=== PATIENT | male | born 1945 | race Caucasian/White ===

== ENCOUNTER 2020-12-17 12:34 | Inpatient (IN) | payer OTHER ==
[~2020-12-17] VITALS: Ht 182.9 cm; Wt 91.2 kg
[2020-12-17] MEDS ORDERED: ASPirin 81 mg TAB PO ONE (13:00)
[2020-12-17 13:03] LABS: Basophils # (auto) 0 10 ^3/uL (0-0.2); Basophils % (auto) 0.4 % (0.0-2.0); Eosinophils # (auto) 0.1 10 ^3/uL (0-0.8); Eosinophils % (auto) 1.1 % (0.0-7.0); Hematocrit 36.3 % (41.0-53.0); Lymphocytes # (auto) 1.5 10 ^3/uL (0.4-5.4); Lymphocytes % (auto) 15.4 % (10.0-50.0); Mean Corpuscular Hemoglobin 30.2 pg (28.0-32.0); Mean Corpuscular Hgb Conc. 33.1 g/dL (32.0-36.0); Mean Corpuscular Volume 91.3 fL (80.0-100.0); Monocytes # (auto) 0.6 10 ^3/uL (0-1.3); Monocytes % (auto) 6.2 % (0.0-12.0); Neutrophils # (auto) 7.4 10 ^3/uL (1.6-8.6); Neutrophils % (auto) 76.9 % (37.0-80.0); Platelet Count (auto) 234 10^3/uL (140-450); Red Blood Cells 3.97 10^6/uL (4.5-5.90); Red Cell Distribution Width 13.9 % (11.8-14.3); White Blood Cell 9.6 10^3/uL (4.4-10.8)
[2020-12-17] MEDS ORDERED: AMIODARONE 450mg/250ml AE 250 ML IV SCH ×2 (13:15→14:45)
[2020-12-17 13:22] LABS: INR 0.99 (0.9-1.15); Partial Thromboplastin Time 24.2 sec (23.0-31.2)
[2020-12-17 13:24] LABS: Potassium 4.1 mmol/L (3.5-5.1)
[2020-12-17] MEDS ORDERED: DIGOXIN 0.25 MG TAB PO ONE (13:30)
[2020-12-17] MEDS ORDERED: DIGOXIN (250MCG/ML) 2 ML AMPULE IV ONE (13:30)
[2020-12-17 13:38] LABS: Albumin 3.3 g/dL (3.4-5.0); BUN/Creatinine Ratio 11.2; Bilirubin, Total 0.4 mg/dL (0.2-1.0); Magnesium 2.3 mg/dL (1.6-2.6); Total Protein 7.8 g/dL (6.4-8.2)
[2020-12-17] MEDS ORDERED: AMIODARONE HCL 150 MG in D5W 5% 100 ML IV ONE (14:45)
[2020-12-17] MEDS ORDERED: METO-289 PO (16:45)
[2020-12-17] MEDS ORDERED: DIGO0.12 PO (16:45)
[2020-12-17] MEDS ORDERED: ATOR20TA50 PO (16:45)
[2020-12-17] MEDS ORDERED: APIX5TAB PO (16:45)
[2020-12-17] MEDS ORDERED: LOSA25TA38 PO (16:45)
[2020-12-17] MEDS ORDERED: GABA100C9 PO (16:45)
[2020-12-17] MEDS ORDERED: ENOXAPARIN SOD 100 MG/1 ML SYRINGE SC ONE (17:30)
[2020-12-17] MEDS ORDERED: ACETAMINOPHEN 500 MG TAB PO PRN (18:15)
[2020-12-17] MEDS ORDERED: HYDROcodone-ACET 5/325MG TAB PO PRN (18:15)
[2020-12-17] MEDS ORDERED: MORPHINE SULF INJ 2 MG/ML SYRINGE 1ML IV PRN ×2 (18:15)
[2020-12-17] MEDS ORDERED: NITROGLYCERIN 0.4 MG SL TAB SL PRN (18:15)
[2020-12-17] MEDS ORDERED: DEXTROSE (50%) 50ML SYRG IV PRN (18:15)
[2020-12-17] MEDS ORDERED: ONDANSETRON HCL 4 MG/2 ML VIAL IV PRN (18:15)
[2020-12-17] MEDS: AMIODARONE 450mg/250ml AE 250 ML IV SCH (21:49)
[2020-12-17 22:00] VITALS: BP 127/81
[2020-12-17] MEDS: ACCU-CHEK COMFORT CURVE STRIP VI SCH (22:00)
[2020-12-17] MEDS ORDERED: ATORVASTATIN 20 MG TAB PO SCH (22:00)
[2020-12-17] MEDS: ATORVASTATIN 20 MG TAB PO SCH (22:47)
[2020-12-17] MEDS: InsuLIN REG 1unit/0.01ml Soln (100units/ml) SC SCH (22:47)
[2020-12-17] MEDS: GABAPENTIN 100 MG CAP PO SCH (22:48)
[2020-12-18 05:00] VITALS: BP 141/71
[2020-12-18] MEDS: InsuLIN REG 1unit/0.01ml Soln (100units/ml) SC SCH ×4 (06:37→22:00)
[2020-12-18] MEDS: ACCU-CHEK COMFORT CURVE STRIP VI SCH ×4 (06:38→22:00)
[2020-12-18 08:30] VITALS: BP 137/78
[2020-12-18] MEDS: LOSARTAN POTASSIUM 25 MG TAB PO SCH (10:14)
[2020-12-18] MEDS: METOPROLOL SUCCINATE XL 50 MG TAB PO SCH (10:15)
[2020-12-18] MEDS: ASPirin-EC 81 mg tab PO SCH (10:15)
[2020-12-18] MEDS: GABAPENTIN 100 MG CAP PO SCH ×2 (10:16→22:29)
[2020-12-18] MEDS: AMIODARONE 450mg/250ml AE 250 ML IV SCH (12:02)
[2020-12-18 12:30] VITALS: BP 134/72
[2020-12-18] MEDS ORDERED: TEMAZEPAM 15 MG CAP PO PRN (15:15)
[2020-12-18] MEDS: SODIUM CHLORIDE 0.9% 1,000 ML IV SCH (15:47)
[2020-12-18 17:00] VITALS: BP 140/79
[2020-12-18 21:24] LABS: Urine Bacteria NONE SEEN /hpf (None Seen); Urine Blood Negative /uL (Negative); Urine Mucus FEW (None Seen); Urine Specific Gravity 1.008 (1.001-1.035); Urine WBC 1 /hpf (0 - 3)
[2020-12-18 22:00] VITALS: BP 133/71
[2020-12-18] MEDS: ATORVASTATIN 20 MG TAB PO SCH (22:29)
[2020-12-19] MEDS: AMIODARONE 450mg/250ml AE 250 ML IV SCH (03:07)
[2020-12-19 05:00] VITALS: BP 146/84
[2020-12-19] MEDS: InsuLIN REG 1unit/0.01ml Soln (100units/ml) SC SCH ×2 (07:00→11:30)
[2020-12-19] MEDS: ACCU-CHEK COMFORT CURVE STRIP VI SCH ×2 (07:03→11:30)
[2020-12-19 07:23] LABS: BUN/Creatinine Ratio 14.8; Calcium 9.1 mg/dL (8.5-10.1); Potassium 4.2 mmol/L (3.5-5.1)
[2020-12-19] MEDS: SODIUM CHLORIDE 0.9% 1,000 ML IV SCH (08:00)
[2020-12-19 09:03] VITALS: BP 158/81
[2020-12-19] MEDS: GABAPENTIN 100 MG CAP PO SCH (10:03)
[2020-12-19] MEDS: LOSARTAN POTASSIUM 25 MG TAB PO SCH (10:03)
[2020-12-19] MEDS: ASPirin-EC 81 mg tab PO SCH (10:03)
[2020-12-19] MEDS: METOPROLOL SUCCINATE XL 50 MG TAB PO SCH (10:04)
[2020-12-19] MEDS ORDERED: IODIXANOL 320MG/ML 100ML BTL IV ONE (11:47)
[2020-12-19] MEDS ORDERED: LIDOCAINE 2%HCL (LOCAL ANESTH.) INJ 20ML MDV ONE (11:47)
[2020-12-19] MEDS ORDERED: fentaNYL CITRATE 100 MCG/2 ML VL ONE (12:05)
[2020-12-19] MEDS ORDERED: HEPARIN SODIUM (PORCINE) 5000 UNITS/ML 1ML VIAL ONE (12:05)
[2020-12-19] MEDS ORDERED: VERAPAMIL 2.5MG/ML INJ 2ML VIAL IV ONE (12:05)
[2020-12-19] MEDS ORDERED: ANGIOMAX 250 MG VIAL IV ONE (12:05)
[2020-12-19] MEDS ORDERED: MIDAZOLAM HCL 1MG/1ML-2 ML VIAL ONE (12:06)
[2020-12-19] MEDS ORDERED: SODIUM CHL 0.9% 50 ML ONE (12:06)
[2020-12-19 14:30] VITALS: BP 149/80
[2020-12-19] MEDS ORDERED: ISOS1TAB28 PO (15:43)
[2020-12-19] MEDS ORDERED: RANO500T PO (15:43)
[2020-12-19] MEDS ORDERED: ASPI-543 PO (15:43)
[2020-12-19 16:34] VITALS: BP 158/81
[2020-12-19 16:44] VITALS: BP 141/71
[2020-12-19] MEDS ORDERED: RANOLAZINE ER 500 MG TAB PO SCH (22:00)
== END 2020-12-19 17:13 | disposition home or self-care (01) | DRG 281 ==
LOC: ER 12:34 → EDBD 12:34 → TELE 18:12 → TELE-EAST 20:53
PROVIDERS: ADMIT Nurse Practitioner Acute Care; ATTEND Internal Medicine Geriatric Medicine
PROC: 4A023N7 Measurement of Cardiac Sampling and Pressure, Left Heart, Percutaneous Approach (ICD-10-PCS; principal; 2020-12-19)
PROC: B2111ZZ Fluoroscopy of Multiple Coronary Arteries using Low Osmolar Contrast (ICD-10-PCS; 2020-12-19)
DX: I21.4 Non-ST elevation (NSTEMI) myocardial infarction (principal); I48.20 Chronic atrial fibrillation, unspecified; I13.0 Hypertensive heart and chronic kidney disease with heart failure and stage 1 through stage 4 chronic kidney disease, or unspecified chronic kidney disease; N17.9 Acute kidney failure, unspecified; E11.65 Type 2 diabetes mellitus with hyperglycemia; E11.22 Type 2 diabetes mellitus with diabetic chronic kidney disease; E66.9 Obesity, unspecified; I25.119 Atherosclerotic heart disease of native coronary artery with unspecified angina pectoris; Z79.899 Other long term (current) drug therapy; E78.5 Hyperlipidemia, unspecified; I25.2 Old myocardial infarction; Z79.01 Long term (current) use of anticoagulants; Z79.84 Long term (current) use of oral hypoglycemic drugs; Z96.641 Presence of right artificial hip joint; I50.9 Heart failure, unspecified; Z20.822 Contact with and (suspected) exposure to COVID-19; N18.31 Chronic kidney disease, stage 3a
CPT/HCPCS: 36415; 71045; 80048; 80053; 81001; 82962; 83036; 83735; 84484; 85025; 85610; 85730; 86141; 87426; 93005; 93306; 93458; 96361; 96365; 96372; 96375; 99152; 99153; 99291; G0378; J1815; J2250; J7060; Q9967

== ENCOUNTER 2021-09-13 21:49 | Inpatient (IN) | payer OTHER ==
[~2021-09-13] VITALS: Ht 172.7 cm; Wt 84.8 kg
[~2021-09-13 21:49] MED LIST: APIX5TAB PO; ASPI-543 PO; ATOR20TA50 PO; DIGO0.12 PO; GABA100C9 PO; ISOS1TAB28 PO; LOSA25TA38 PO; METO-289 PO; RANO500T PO
[2021-09-13] MEDS ORDERED: TICAGRELOR 90 MG TAB PO ONE (22:30)
[2021-09-13] MEDS ORDERED: ASPirin 325 MG TAB PO ONE (22:30)
[2021-09-13] MEDS ORDERED: CLOPIDOGREL 300 MG TAB PO ONE (22:30)
[2021-09-13 22:42] LABS: Basophils # (auto) 0.1 10 ^3/uL (0-0.2); Basophils % (auto) 1.2 % (0.0-2.0); Eosinophils # (auto) 0.3 10 ^3/uL (0-0.8); Eosinophils % (auto) 4.1 % (0.0-7.0); Hematocrit 33.5 % (41.0-53.0); Hemoglobin 11.1 g/dL (13.5-17.5); Lymphocytes # (auto) 1.9 10 ^3/uL (0.4-5.4); Lymphocytes % (auto) 30.3 % (10.0-50.0); Mean Corpuscular Hemoglobin 27.8 pg (28.0-32.0); Mean Corpuscular Volume 84.4 fL (80.0-100.0); Monocytes # (auto) 0.6 10 ^3/uL (0-1.3); Monocytes % (auto) 9.9 % (0.0-12.0); Neutrophils # (auto) 3.3 10 ^3/uL (1.6-8.6); Neutrophils % (auto) 54.5 % (37.0-80.0); Nucleated Red Blood Cells % 0.1 %; Red Blood Cells 3.97 10^6/uL (4.5-5.90); Red Cell Distribution Width 17.1 % (11.8-14.3); White Blood Cell 6.1 10^3/uL (4.4-10.8)
[2021-09-13 22:56] LABS: INR 1.21 (0.9-1.15); Partial Thromboplastin Time 29.2 sec (23.6-33.0)
[2021-09-14 02:28] LABS: Albumin 3.2 g/dL (3.4-5.0); BUN/Creatinine Ratio 19.5; Bilirubin, Total 0.5 mg/dL (0.2-1.0); Calcium 9.2 mg/dL (8.5-10.1); Total Protein 8.1 g/dL (6.4-8.2)
[2021-09-14 02:29] LABS: Magnesium 2.6 mg/dL (1.6-2.6)
[2021-09-14] MEDS ORDERED: ONDANSETRON HCL 4 MG/2 ML VIAL IV PRN (04:15)
[2021-09-14] MEDS ORDERED: MORPHINE SULFATE INJECTION 2 MG/ML SYRG IV PRN (04:15)
[2021-09-14] MEDS ORDERED: ACETAMINOPHEN 325 MG TAB PO PRN (04:15)
[2021-09-14] MEDS ORDERED: MORPHINE SULFATE 4 MG/ML SYR/VIAL IV PRN (04:15)
[2021-09-14] MEDS ORDERED: NITROGLYCERIN 0.4 MG SL TAB SL PRN ×2 (04:15)
[2021-09-14 05:25] LABS: BUN/Creatinine Ratio 20.8; Calcium 9.1 mg/dL (8.5-10.1); Magnesium 2.7 mg/dL (1.6-2.6); Potassium 4.1 mmol/L (3.5-5.1)
[2021-09-14] MEDS: SODIUM CHLOR 0.9% PF (SALINE LOCK) 10ML VIAL/SYR IV SCH ×2 (06:00→14:11)
[2021-09-14] MEDS ORDERED: DEXTROSE (50%) 50ML SYRG IV PRN (07:00)
[2021-09-14 08:43] LABS: Basophils # (auto) 0 10 ^3/uL (0-0.2); Basophils % (auto) 0.6 % (0.0-2.0); Eosinophils # (auto) 0.2 10 ^3/uL (0-0.8); Eosinophils % (auto) 3.4 % (0.0-7.0); Hematocrit 33.6 % (41.0-53.0); Hemoglobin 11.3 g/dL (13.5-17.5); Lymphocytes # (auto) 1.3 10 ^3/uL (0.4-5.4); Lymphocytes % (auto) 19.9 % (10.0-50.0); Mean Corpuscular Hgb Conc. 33.7 g/dL (32.0-36.0); Monocytes # (auto) 0.5 10 ^3/uL (0-1.3); Monocytes % (auto) 7.6 % (0.0-12.0); Neutrophils # (auto) 4.4 10 ^3/uL (1.6-8.6); Neutrophils % (auto) 68.5 % (37.0-80.0); Red Blood Cells 4.05 10^6/uL (4.5-5.90); White Blood Cell 6.4 10^3/uL (4.4-10.8)
[2021-09-14] MEDS: InsuLIN REG 1unit/0.01ml Soln (100units/ml) SC SCH ×3 (09:31→16:51)
[2021-09-14] MEDS: ACCU-CHEK COMFORT CURVE STRIP VI SCH ×3 (09:32→16:52)
[2021-09-14] MEDS ORDERED: ASPirin-EC 81 mg tab PO SCH (10:00)
[2021-09-14] MEDS ORDERED: GABAPENTIN 100 MG CAP PO SCH (10:00)
[2021-09-14] MEDS ORDERED: APIXABAN 5 MG TAB PO SCH (10:00)
[2021-09-14] MEDS ORDERED: DIGOXIN 0.125 MG TAB PO SCH (10:00)
[2021-09-14] MEDS ORDERED: ISOSORBIDE MONONITRATE ER 60 MG TAB PO SCH (10:00)
[2021-09-14] MEDS ORDERED: FAMOTIDINE 20 MG TAB PO SCH (10:00)
[2021-09-14] MEDS ORDERED: RANOLAZINE ER 500 MG TAB PO SCH (10:00)
[2021-09-14] MEDS ORDERED: METOPROLOL SUCCINATE XL 50 MG TAB PO SCH (10:00)
[2021-09-14] MEDS ORDERED: LOSARTAN POTASSIUM 25 MG TAB PO SCH (10:00)
[2021-09-14 10:30] VITALS: BP 117/80
[2021-09-14 13:00] VITALS: BP 90/59
[2021-09-14 16:53] VITALS: BP 100/49
[2021-09-14 17:28] VITALS: BP 99/55
[2021-09-14] MEDS ORDERED: ATORVASTATIN 20 MG TAB PO SCH (22:00)
== END 2021-09-14 18:00 | disposition home or self-care (01) | DRG 313 ==
LOC: ER 21:49 → EDBD 21:49 → TELE 09-14 04:04 → TELE-CENTR 09-14 11:05
PROVIDERS: ADMIT Internal Medicine; ATTEND Internal Medicine
DX: R07.9 Chest pain, unspecified (principal); I48.20 Chronic atrial fibrillation, unspecified; I25.10 Atherosclerotic heart disease of native coronary artery without angina pectoris; E78.5 Hyperlipidemia, unspecified; E66.9 Obesity, unspecified; I35.8 Other nonrheumatic aortic valve disorders; I10 Essential (primary) hypertension; Z20.822 Contact with and (suspected) exposure to COVID-19; I49.3 Ventricular premature depolarization; Z79.01 Long term (current) use of anticoagulants; Z79.899 Other long term (current) drug therapy; Z87.891 Personal history of nicotine dependence; Z95.1 Presence of aortocoronary bypass graft; Z95.2 Presence of prosthetic heart valve; Z90.49 Acquired absence of other specified parts of digestive tract; Z68.28 Body mass index [BMI] 28.0-28.9, adult
CPT/HCPCS: 36415; 80048; 80053; 80061; 82962; 83735; 83880; 84443; 84484; 85025; 85379; 85610; 85730; 87426; 93306; G0378

== ENCOUNTER 2021-09-28 13:52 | Inpatient (IN) | payer OTHER ==
[~2021-09-28] VITALS: Ht 157.5 cm; Wt 84.6 kg
[2021-09-28 14:57] LABS: Basophils # (auto) 0.1 10 ^3/uL (0-0.2); Eosinophils # (auto) 0.3 10 ^3/uL (0-0.8); Eosinophils % (auto) 4.2 % (0.0-7.0); Hematocrit 35.9 % (41.0-53.0); Hemoglobin 12.2 g/dL (13.5-17.5); Lymphocytes # (auto) 1.6 10 ^3/uL (0.4-5.4); Lymphocytes % (auto) 24.2 % (10.0-50.0); Mean Corpuscular Hemoglobin 28.3 pg (28.0-32.0); Mean Corpuscular Hgb Conc. 34.1 g/dL (32.0-36.0); Mean Corpuscular Volume 82.8 fL (80.0-100.0); Monocytes # (auto) 0.5 10 ^3/uL (0-1.3); Neutrophils # (auto) 4.1 10 ^3/uL (1.6-8.6); Neutrophils % (auto) 62.6 % (37.0-80.0); Nucleated Red Blood Cells % 0.1 %; Red Blood Cells 4.33 10^6/uL (4.5-5.90); White Blood Cell 6.6 10^3/uL (4.4-10.8)
[2021-09-28 15:26] LABS: Urine Bacteria NONE SEEN /hpf (None Seen); Urine Blood Negative /uL (Negative); Urine Hyaline Cast FEW /lpf (0 - 2); Urine Mucus FEW (None Seen); Urine Specific Gravity 1.008 (1.001-1.035); Urine WBC <1 /hpf (0 - 3)
[2021-09-28 17:06] LABS: BUN/Creatinine Ratio 22.8; Bilirubin, Total 0.4 mg/dL (0.2-1.0); Potassium 3.8 mmol/L (3.5-5.1); Total Protein 7.8 g/dL (6.4-8.2)
[2021-09-28] MEDS ORDERED: NITROGLYCERIN 0.4 MG SL TAB SL PRN (17:30)
[2021-09-28] MEDS ORDERED: MORPHINE SULFATE 4 MG/ML SYR/VIAL IV PRN (17:30)
[2021-09-28] MEDS ORDERED: MORPHINE SULFATE INJECTION 2 MG/ML SYRG IV PRN (17:30)
[2021-09-28] MEDS ORDERED: HYDROcodone-ACET 5/325MG TAB PO PRN (17:30)
[2021-09-28 22:46] VITALS: BP 122/80
[2021-09-28] MEDS: APIXABAN 5 MG TAB PO SCH (23:48)
[2021-09-28] MEDS: GABAPENTIN 100 MG CAP PO SCH (23:48)
[2021-09-29 00:56] VITALS: BP 122/80
[2021-09-29 05:00] VITALS: BP 117/63
[2021-09-29 05:37] LABS: Basophils # (auto) 0 10 ^3/uL (0-0.2); Basophils % (auto) 0.8 % (0.0-2.0); Eosinophils # (auto) 0.3 10 ^3/uL (0-0.8); Eosinophils % (auto) 4.3 % (0.0-7.0); Hematocrit 34.3 % (41.0-53.0); Hemoglobin 11.8 g/dL (13.5-17.5); Lymphocytes # (auto) 1.6 10 ^3/uL (0.4-5.4); Lymphocytes % (auto) 25.2 % (10.0-50.0); Mean Corpuscular Hemoglobin 28.5 pg (28.0-32.0); Mean Corpuscular Hgb Conc. 34.3 g/dL (32.0-36.0); Mean Corpuscular Volume 83.1 fL (80.0-100.0); Monocytes # (auto) 0.6 10 ^3/uL (0-1.3); Monocytes % (auto) 9.4 % (0.0-12.0); Neutrophils # (auto) 3.9 10 ^3/uL (1.6-8.6); Neutrophils % (auto) 60.3 % (37.0-80.0); Nucleated Red Blood Cells % 0.3 %; Red Blood Cells 4.13 10^6/uL (4.5-5.90); Red Cell Distribution Width 16.4 % (11.8-14.3); White Blood Cell 6.4 10^3/uL (4.4-10.8)
[2021-09-29 06:06] LABS: Albumin 3.2 g/dL (3.4-5.0); BUN/Creatinine Ratio 25.6; Bilirubin, Total 0.6 mg/dL (0.2-1.0); Calcium 8.9 mg/dL (8.5-10.1); Total Protein 8.1 g/dL (6.4-8.2)
[2021-09-29 08:30] VITALS: BP 114/77
[2021-09-29] MEDS ORDERED: DIGOXIN 0.125 MG TAB PO SCH (10:00)
[2021-09-29] MEDS ORDERED: METOPROLOL SUCCINATE XL 50 MG TAB PO SCH (10:00)
[2021-09-29] MEDS: ASPirin 81 mg TAB PO SCH (10:04)
[2021-09-29] MEDS: GABAPENTIN 100 MG CAP PO SCH ×2 (10:04→21:32)
[2021-09-29] MEDS: APIXABAN 5 MG TAB PO SCH (10:04)
[2021-09-29] MEDS: ENOXAPARIN SOD 40 MG/0.4 ML SYRINGE SC SCH ×3 (10:05→10:18)
[2021-09-29 12:30] VITALS: BP 101/65
[2021-09-29 17:00] VITALS: BP 125/76
[2021-09-29] MEDS: metFORMIN HYDROCHLORIDE 500 MG TAB PO SCH (18:00)
[2021-09-29] MEDS ORDERED: ATORVASTATIN 20 MG TAB PO SCH (22:00)
[2021-09-30 05:00] VITALS: BP 108/74
[2021-09-30] MEDS: metFORMIN HYDROCHLORIDE 500 MG TAB PO SCH (08:00)
[2021-09-30 09:00] VITALS: BP 104/69
[2021-09-30] MEDS ORDERED: METOPROLOL SUCCINATE XL 50 MG TAB PO SCH (10:00)
[2021-09-30] MEDS: GABAPENTIN 100 MG CAP PO SCH (10:00)
[2021-09-30] MEDS: ASPirin 81 mg TAB PO SCH (10:00)
[2021-09-30] MEDS: ENOXAPARIN SOD 40 MG/0.4 ML SYRINGE SC SCH (10:00)
[2021-09-30] MEDS ORDERED: FUROSEMIDE 40 MG TAB PO SCH (10:00)
[2021-09-30] MEDS ORDERED: ENALAPRIL MALEATE 2.5 MG TAB PO SCH (10:00)
[2021-09-30] MEDS ORDERED: ADENOSINE 71 MG in GIVE UN-DILUTED 0 ML IV STA (10:48)
[2021-09-30 11:57] VITALS: BP 106/72
[2021-09-30 12:30] VITALS: BP 118/67
[2021-09-30 17:00] VITALS: BP 120/60
== END 2021-09-30 18:30 | disposition home or self-care (01) | DRG 311 ==
LOC: ER 13:52 → EDUNIT# 13:52 → EDBD 13:52 → TELE 17:27 → TELE-WESTW 22:32
PROVIDERS: ADMIT Internal Medicine; ATTEND Internal Medicine Geriatric Medicine
DX: I24.9 Acute ischemic heart disease, unspecified (principal); E88.09 Other disorders of plasma-protein metabolism, not elsewhere classified; I25.10 Atherosclerotic heart disease of native coronary artery without angina pectoris; G62.9 Polyneuropathy, unspecified; E11.22 Type 2 diabetes mellitus with diabetic chronic kidney disease; I12.9 Hypertensive chronic kidney disease with stage 1 through stage 4 chronic kidney disease, or unspecified chronic kidney disease; N18.9 Chronic kidney disease, unspecified; Z20.822 Contact with and (suspected) exposure to COVID-19; R42 Dizziness and giddiness; I48.91 Unspecified atrial fibrillation; Z79.01 Long term (current) use of anticoagulants; Z95.1 Presence of aortocoronary bypass graft; Z79.899 Other long term (current) drug therapy; Z90.49 Acquired absence of other specified parts of digestive tract
CPT/HCPCS: 36415; 71045; 78452; 80053; 81001; 82962; 83880; 84484; 85025; 87081; 87426; 93005; 93017; G0378; J0153

== ENCOUNTER 2022-06-05 13:30 | Inpatient (IN) | payer OTHER ==
[~2022-06-05] VITALS: Ht 182.9 cm; Wt 85.7 kg
[~2022-06-05 13:30] MED LIST changes: -APIX5TAB PO; -DIGO0.12 PO
[2022-06-05] MEDS ORDERED: SODIUM CHLORIDE 0.9% 1,000 ML IVB ONE (14:30)
[2022-06-05] MEDS ORDERED: ASPirin 81 mg TAB PO ONE (14:30)
[2022-06-05 14:59] LABS: Basophils # (auto) 0 10 ^3/uL (0-0.2); Basophils % (auto) 0.8 % (0.0-2.0); Eosinophils # (auto) 0.3 10 ^3/uL (0-0.8); Eosinophils % (auto) 4.8 % (0.0-7.0); Hematocrit 35.7 % (41.0-53.0); Hemoglobin 11.7 g/dL (13.5-17.5); Lymphocytes # (auto) 1.4 10 ^3/uL (0.4-5.4); Lymphocytes % (auto) 22.2 % (10.0-50.0); Mean Corpuscular Hemoglobin 28.5 pg (28.0-32.0); Mean Corpuscular Hgb Conc. 32.9 g/dL (32.0-36.0); Mean Corpuscular Volume 86.7 fL (80.0-100.0); Monocytes # (auto) 0.6 10 ^3/uL (0-1.3); Monocytes % (auto) 10.2 % (0.0-12.0); Neutrophils # (auto) 3.8 10 ^3/uL (1.6-8.6); Nucleated Red Blood Cells % 0.1 %; Red Blood Cells 4.12 10^6/uL (4.5-5.90); Red Cell Distribution Width 15.2 % (11.8-14.3); White Blood Cell 6.1 10^3/uL (4.4-10.8)
[2022-06-05 15:16] LABS: Albumin 3.3 g/dL (3.4-5.0); BUN/Creatinine Ratio 23.5; Calcium 8.8 mg/dL (8.5-10.1); Magnesium 2.4 mg/dL (1.6-2.6); Potassium 4.5 mmol/L (3.5-5.1)
[2022-06-05 15:25] LABS: Bilirubin, Total 0.4 mg/dL (0.2-1.0); Total Protein 7.5 g/dL (6.4-8.2)
[2022-06-05] MEDS ORDERED: IOHEXOL 350 MG/ML 100ML IJ ONE (16:27)
[2022-06-05] MEDS ORDERED: DEXTROSE (50%) 50ML SYRG IV PRN (18:45)
[2022-06-05] MEDS ORDERED: FUROSEMIDE 20 MG/2 ML VIAL IV ONE (18:45)
[2022-06-05] MEDS ORDERED: hydrALAZINE HCL 20 MG/ML VL IV PRN (20:00)
[2022-06-05 20:21] LABS: Cholesterol 121 mg/dL (< 200); Triglycerides 102 mg/dL (< 150)
[2022-06-05 20:23] LABS: HDL Cholesterol 45 mg/dL (40-59); LDL Cholesterol 75 mg/dL (< 100)
[2022-06-05] MEDS ORDERED: ATORVASTATIN 20 MG TAB PO SCH (22:00)
[2022-06-05] MEDS: ACCU-CHEK COMFORT CURVE STRIP VI SCH (22:00)
[2022-06-05] MEDS: RANOLAZINE ER 500 MG TAB PO SCH (22:56)
[2022-06-05] MEDS: GABAPENTIN 100 MG CAP PO SCH (22:57)
[2022-06-05] MEDS: InsuLIN REG 1unit/0.01ml Soln (100units/ml) SC SCH (23:02)
[2022-06-06] VITALS (7 sets, daily range): BP systolic 93–119; BP diastolic 54–71
[2022-06-06 03:31] LABS: Urine Bacteria NONE SEEN /hpf (None Seen); Urine Blood Negative /uL (Negative); Urine Specific Gravity 1.017 (1.001-1.035); Urine WBC <1 /hpf (0 - 3)
[2022-06-06 06:00] LABS: Basophils # (auto) 0 10 ^3/uL (0-0.2); Basophils % (auto) 0.5 % (0.0-2.0); Eosinophils # (auto) 0.2 10 ^3/uL (0-0.8); Eosinophils % (auto) 3.8 % (0.0-7.0); Hematocrit 37.1 % (41.0-53.0); Lymphocytes # (auto) 1.3 10 ^3/uL (0.4-5.4); Lymphocytes % (auto) 20.8 % (10.0-50.0); Mean Corpuscular Hemoglobin 27.9 pg (28.0-32.0); Mean Corpuscular Hgb Conc. 32.4 g/dL (32.0-36.0); Mean Corpuscular Volume 86.2 fL (80.0-100.0); Monocytes # (auto) 0.6 10 ^3/uL (0-1.3); Monocytes % (auto) 9.5 % (0.0-12.0); Neutrophils % (auto) 65.4 % (37.0-80.0); Red Blood Cells 4.31 10^6/uL (4.5-5.90); Red Cell Distribution Width 15.2 % (11.8-14.3); White Blood Cell 6.1 10^3/uL (4.4-10.8)
[2022-06-06 06:32] LABS: Albumin 3.1 g/dL (3.4-5.0); BUN/Creatinine Ratio 18.5; Calcium 8.9 mg/dL (8.5-10.1)
[2022-06-06 06:35] LABS: Bilirubin, Total 0.6 mg/dL (0.2-1.0); Total Protein 7.3 g/dL (6.4-8.2)
[2022-06-06] MEDS: ACCU-CHEK COMFORT CURVE STRIP VI SCH ×4 (06:48→21:49)
[2022-06-06] MEDS: InsuLIN REG 1unit/0.01ml Soln (100units/ml) SC SCH ×4 (06:48→22:00)
[2022-06-06] MEDS: ISOSORBIDE MONONITRATE ER 60 MG TAB PO SCH (09:32)
[2022-06-06] MEDS: ASPirin-EC 81 mg tab PO SCH (09:34)
[2022-06-06] MEDS: METOPROLOL SUCCINATE XL 50 MG TAB PO SCH (09:34)
[2022-06-06] MEDS: RANOLAZINE ER 500 MG TAB PO SCH ×2 (09:35→21:49)
[2022-06-06] MEDS: POTASSIUM CHL 10 Meq TABLET PO SCH (09:36)
[2022-06-06] MEDS: LOSARTAN POTASSIUM 25 MG TAB PO SCH (09:37)
[2022-06-06] MEDS: FUROSEMIDE 20 MG/2 ML VIAL IV SCH (09:38)
[2022-06-06] MEDS: ENOXAPARIN SOD 40 MG/0.4 ML SYRINGE SC SCH (09:38)
[2022-06-06] MEDS: GABAPENTIN 100 MG CAP PO SCH ×3 (09:45→21:49)
[2022-06-06] MEDS: ATORVASTATIN 20 MG TAB PO SCH ×2 (13:00→21:49)
[2022-06-07 04:45] VITALS: BP 114/68
[2022-06-07] MEDS: ACCU-CHEK COMFORT CURVE STRIP VI SCH ×2 (06:28→12:14)
[2022-06-07] MEDS: InsuLIN REG 1unit/0.01ml Soln (100units/ml) SC SCH ×2 (06:28→12:14)
[2022-06-07 08:00] VITALS: BP 109/64
[2022-06-07 09:00] VITALS: BP 109/64
[2022-06-07] MEDS: FUROSEMIDE 20 MG/2 ML VIAL IV SCH (10:18)
[2022-06-07] MEDS: ASPirin-EC 81 mg tab PO SCH (10:18)
[2022-06-07] MEDS: LOSARTAN POTASSIUM 25 MG TAB PO SCH (10:18)
[2022-06-07] MEDS: GABAPENTIN 100 MG CAP PO SCH (10:19)
[2022-06-07] MEDS: ISOSORBIDE MONONITRATE ER 60 MG TAB PO SCH (10:19)
[2022-06-07] MEDS: POTASSIUM CHL 10 Meq TABLET PO SCH (10:19)
[2022-06-07] MEDS: ENOXAPARIN SOD 40 MG/0.4 ML SYRINGE SC SCH (10:20)
[2022-06-07] MEDS: RANOLAZINE ER 500 MG TAB PO SCH (10:20)
[2022-06-07] MEDS: METOPROLOL SUCCINATE XL 50 MG TAB PO SCH (10:20)
[2022-06-07 12:54] VITALS: BP 77/43
[2022-06-07 15:13] VITALS: BP 109/64
== END 2022-06-07 15:52 | disposition home or self-care (01) | DRG 313 ==
LOC: ER 13:30 → EDBD 13:30 → TELE 18:40 → TELE-EAST 23:44
PROVIDERS: ADMIT Registered Nurse; ATTEND Internal Medicine
DX: R07.9 Chest pain, unspecified (principal); R09.89 Other specified symptoms and signs involving the circulatory and respiratory systems; I48.0 Paroxysmal atrial fibrillation; E11.9 Type 2 diabetes mellitus without complications; E78.5 Hyperlipidemia, unspecified; Z20.822 Contact with and (suspected) exposure to COVID-19; I10 Essential (primary) hypertension; Z95.1 Presence of aortocoronary bypass graft; Z95.2 Presence of prosthetic heart valve; I25.2 Old myocardial infarction
CPT/HCPCS: 36415; 71045; 71275; 80053; 80061; 81001; 82962; 83036; 83735; 83880; 84443; 84484; 85025; 85379; 87426; 93005; 93306; 96361; 96374; G0378; J1815

== ENCOUNTER 2024-09-22 14:04 | Inpatient (IN) | payer OTHER ==
[~2024-09-22] VITALS: Ht 182.9 cm; Wt 85.0 kg
[~2024-09-22 14:04] MED LIST changes: +GABA-1308 PO; -GABA100C9 PO; +LOSA-533 PO; -LOSA25TA38 PO
--- NOTE | 2024-09-22 14:45 | ED.PDOC ---
History of Present Illness HPI Comments 79 y/o M, BIBA with PMHX of HTN, DM, HLD, NC, and AFIB presents to the ED for CC of generalized weakness. Per EMS, they were called on scene by patient's family due to patient being disoriented and hard to arouse. EMS states, that family comments on patient being lethargic and not responding at his normal baseline. EMS relays, blood sugar read at 137 on glucometer and all VSS in route to ED. Upon arrival to ED, patient is A&Ox2. No other symptoms or PMHX obtainable at this time. Chief Complaint: General Weakness Time Seen by MD: 14:30 Primary Care Provider: unknown Reviewed Notes: Nurses Notes, Molder Hand Notes, Medications, Allergies Allergies: Coded Allergies: NO KNOWN ALLERGIES (Unverified , 03/11/11) Home Meds Active Scripts Isosorbide Mononitrate (Isosorbide Mononitrate Er) 30 Mg Tab, 1 TAB PO DAILY, #30 TAB 5 Refills Prov:SABRINA LEOS MD 12/19/20 Ranolazine (Ranexa) 500 Mg Tab, 500 MG PO BID for 30 Days, #60 TAB 3 Refills Prov:SABRINA LEOS MD 12/19/20 Aspirin (Aspir-Low) 81 Mg Tab, 81 MG PO DAILY for 100 Days, #100 TAB 3 Refills Prov:SABRINA LEOS MD 12/19/20 Reported Medications Gabapentin (Gabapentin) 100 Mg Cap, 100 MG PO BID for 30 Days, MG 12/17/20 Atorvastatin Calcium (ATORVASTATIN CALCIUM) 20 Mg Tab, 1 TAB PO HS, #30 TAB 5 Refills 12/17/20 Losartan Potassium (Losartan Potassium) 25 Mg Tab, 25 MG PO DAILY for 30 Days, MG 12/17/20 Metoprolol Succinate (Metoprolol Succinate Er) 50 Mg Tab, 50 MG PO DAILY for 30 Days, MG 12/17/20 Information Source: Emergency Med Personnel Mode of Arrival: EMS Severity: Moderate Timing: Minutes Duration: Since onset Prehospital treatment: None Past Medical History PAST MEDICAL HISTORY: AFIB, DM, High Lipids, HTN, NC Surgical History: Appendectomy, CABG Family History Family History: Reviewed,noncontributory to illness Social History Smoker: Non-Smoker Alcohol: Denies ETOH Use Drugs: Denies Drug Use Lives In: Home Unable to Obtain due to: Altered Mental Status Physical Exam General Appearance: Moderate Distress HEENT: Normal ENT Inspection, Pharynx Normal, TMs Normal Neck: Full Range of Motion, Non-Tender, Normal, Normal Inspection Respiratory: Other (Coarse breath sounds) Cardiovascular: No Edema, No JVD, No Murmur, No Gallop, Normal Peripheral Pulses, Regular Rate/Rhythm Breast Exam: Deferred Gastrointestinal: No Organomegaly, Non Tender, No Pulsatile Mass, Normal Bowel Sounds, Soft Genitalia: Deferred Pelvic: Deferred Rectal: Deferred Extremities: No calf tenderness, Normal capillary refill, No pedal edema Musculoskeletal : Apperance: Normal Neurologic: Alert Cerebellar Function: NOT DONE Reflexes: NOT DONE Skin: Dry, Normal Color, Warm Peripheral Pulses: 3+ Radial (R), 3+ Radial (L) Lymphatic: No Adenopathy Was a procedure done? Was a procedure done?: No Differential Dx Considerations may include: GENERALIZED WEAKNESS Electrolyte imbalance X-Ray, Labs, Meds, VS Vital Signs Date Time Temp Pulse Resp B/P (MAP) Pulse Ox O2 Delivery O2 Flow Rate FiO2 09/22/24 16:00 89 09/22/24 15:30 90 17 79/46 (57) 98 09/22/24 14:45 Room Air* 0 21 09/22/24 14:26 98.0 96 16 113/67 (82) 96 09/22/24 14:22 92 Lab Test 09/22/24 16:30 09/22/24 16:21 09/22/24 15:11 Range/Units Lactic Acid Level Pending Urine Color Brown H Yellow Urine Clarity Ex.turbid Clear Urine pH 6.0 5.0-9.0 Urine Specific [place] 1.008 1.001-1.035 Urine Protein 2+ H Negative Urine Ketones Negative Negative Urine Blood 2+ H Negative /uL Urine Nitrite Negative Negative Urine Bilirubin Negative Negative Urine Urobilinogen Normal Negative mg/dL Urine Leukocyte Esterase 3+ Negative /uL Urine RBC 108 0 - 3 /hpf Urine WBC Clumps Present None Seen /hpf Urine Microscopic WBC 3592 H 0-3 /HPF Urine Squamous Epithelial Cells None seen <5 /hpf Urine Bacteria None seen None Seen /hpf Urine Mucus Few None Seen Urine Glucose Normal Normal mg/dL White Blood Count 8.3 4.4-10.8 10^3/uL Red Blood Count 3.02 L 4.5-5.90 10^6/uL Hemoglobin 8.4 L 13.5-17.5 g/dL Hematocrit 26.6 L 41.0-53.0 % Mean Corpuscular Volume 88.2 80.0-100.0 fL Mean Corpuscular Hemoglobin 27.9 L 28.0-32.0 pg Mean Corpuscular Hemoglobin Concent 31.7 L 32.0-36.0 g/dL Red Cell Distribution Width 15.7 H 11.8-14.3 % Platelet Count 283 140-450 10^3/uL Mean Platelet Volume 6.1 L 6.9-10.8 fL Neutrophils (%) (Auto) 85.6 H 37.0-80.0 % Lymphocytes (%) (Auto) 7.2 L 10.0-50.0 % Monocytes (%) (Auto) 6.3 0.0-12.0 % Eosinophils (%) (Auto) 0.6 0.0-7.0 % Basophils (%) (Auto) 0.3 0.0-2.0 % Neutrophils # (Auto) 7.1 1.6-8.6 10 ^3/uL Lymphocytes # (Auto) 0.6 0.4-5.4 10 ^3/uL Monocytes # (Auto) 0.5 0-1.3 10 ^3/uL Eosinophils # (Auto) 0 0-0.8 10 ^3/uL Basophils # (Auto) 0 0-0.2 10 ^3/uL Nucleated Red Blood Cells 0.0 % Sodium Level 137 136-145 mmol/L Potassium Level 5.0 3.5-5.1 mmol/L Chloride Level 104 98-107 mmol/L Carbon Dioxide Level 22 20-31 mmol/L Anion Gap 11 5-15 Blood Urea Nitrogen 61 H 9-23 mg/dL Creatinine 2.46 H 0.700-1.30 mg/dL Glomerular Filtration Rate Calc 26 >90 mL/min BUN/Creatinine Ratio 24.8 H 10.0-20.0 Serum Glucose 146 H 74-106 mg/dL Calcium Level 9.6 8.7-10.4 mg/dL Troponin I High Sensitivity < 3 L </=54 ng/L Current Medications Medications (Trade) Dose Ordered Sig/Gardenia Route Start Time Stop Time Status Last Admin Sodium Chloride 500 ml @ 500 mls/hr Q1H ONCE IV 09/22/24 15:00 09/22/24 15:59 DC 09/22/24 15:41 Ceftriaxone Sodium 50 ml @ 100 mls/hr ONCE ONCE IV 09/22/24 15:45 09/22/24 16:14 DC 09/22/24 16:25 Clindamycin Phosphate 50 ml @ 50 mls/hr ONCE ONCE IV 09/22/24 15:45 09/22/24 16:44 DC 09/22/24 17:04 [place] [id number] Ph: [phone] DIAGNOSTIC IMAGING Diagnostic Imaging Report : [id number] Signed PATIENT: SANDRA BACH ACCT: [id number] UNIT: [id number] : 1945 LOC: ER ROOM / BED: / AGE / SEX: 79 / M ADM STATUS: REG ER SERVICE 1432 ORDERING PHYSICIAN: MILLER SILVA MD PROCEDURE(s): CXRP - CHEST PORTABLE REASON: altered ORDER NUMBER(s): [id number], ACCESSION NUMBER(s): [id number] CHEST RADIOGRAPH Indication: altered Technique: Single frontal view of the chest was obtained Comparison: CHEST PORTABLE on DOS: 06/05/22, EKG on DOS: 06/05/22, CXRP on DOS: 06/05/22 FINDINGS: Lines and Tubes: None Lungs: Bilateral perihilar peribronchial thickening findings may represent bronchitis Pleura: No effusion. No pneumothorax. Cardiomediastinal contours: Unremarkable Bones: No acute osseous abnormality. IMPRESSION: 1. Findings suggest bilateral perihilar peribronchial thickening and possible bronchitis. HS:Y ATED BY: MINA MARTINEZ Jr., DO DICTATED DATE/TIME: 09/22/241455 SIGNED BY: MINA MARTINEZ Jr., SIGNED DATE/TIME: 09/22/241455 CC: Patient alert. He does not answering simple questions. Possible early dementia. Vitals stable. Chest x-ray reveals pneumonitis. CT of the head does show chronic changes. Waiting for family. Continue monitoring. Possible aspiration pneumonia. Was given Rocephin. Was given clindamycin. Time of 1ST Reevaluation: 15:00 Reevaluation 1ST: Unchanged Patient Education/Counseling: Diagnosis, Treatment Family Education/Counseling: No Family Present Departure 1 Departure Time of Disposition: 15:41 Impression: Primary Impression: TIA (transient ischemic attack) Additional Impressions: Pneumonitis Hypotension Qualified Codes: I95.9 - Hypotension, unspecified HLD (hyperlipidemia) Qualified Codes: E78.5 - Hyperlipidemia, unspecified Sepsis, unspecified organism Qualified Codes: A41.9 - Sepsis, unspecified organism Disposition: ADMITTED INPATIENT Admit to: Med Surg Condition: Guarded Critical Care Note Critical Care Time?: Yes (90 min-critical care time only) Critical care comment: Hypotension Stability Stability form required: No Heart Score Heart Score: Heart Score Response (Comments) Value History Slightly Suspicious 0 EKG Normal 0 Age >65 2 Risk Factors >3 or Hx ASHD 2 Troponin Normal limit 0 Total 4 I personally scribed for MILLER SILVA MD ([email or web address]) on 09/22/24 at 14:45. Electronically submitted by Estefania Minaya ([email or web address]). I personally scribed for MILLER SILVA MD ([email or web address]) on 09/22/24 at 15:10. Electronically submitted by Estefania Minaya ([email or web address]). MILLER SILVA MD Sep 22, 2024 14:45
--- NOTE | 2024-09-22 14:59 | DVH ---
CHEST RADIOGRAPH Indication: altered Technique: Single frontal view of the chest was obtained Comparison: CHEST PORTABLE on DOS: 06/05/22, EKG on DOS: 06/05/22, CXRP on DOS: 06/05/22 FINDINGS: Lines and Tubes: None Lungs: Bilateral perihilar peribronchial thickening findings may represent bronchitis Pleura: No effusion. No pneumothorax. Cardiomediastinal contours: Unremarkable Bones: No acute osseous abnormality. IMPRESSION: 1. Findings suggest bilateral perihilar peribronchial thickening and possible bronchitis. HS:Y
--- NOTE | 2024-09-22 15:04 | DVH ---
EXAM: CT HEAD WITHOUT CONTRAST HISTORY: altered COMPARISON: None TECHNIQUE: Axial images of the head were obtained and reformatted in coronal and sagittal planes. All CT scans at this medical facility are performed using dose modulation techniques as appropriate t o a performed exam including the following: Automated exposure control was utilized; adjustment of th e MA and/or KV according to patient size; and use of iterative reconstruction technique. CT Dose: CTDI volume is 53 mGy. Dose-length product is 971 mGy*cm FINDINGS: There is no evidence of acute intracranial hemorrhage, mass, mass effect midline shift. The lateral v entricles are prominent in size, [id number]-etht-left. The 3rd ventricle is mildly prominent in si ze. The 4th ventricle appears within normal limits. Barney-white matter differentiation is maintained. The visualized paranasal sinuses and mastoid air cells are clear. The calvarium is intact. IMPRESSION: 1. The lateral and 3rd ventricles are prominent in size, particularly in the right lateral ventricle. These findings can be seen with normal pressure hydrocephalus. Clinical correlation is recommended. HS:Y
--- NOTE | 2024-09-22 15:09 | ECG ---
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
[2024-09-22 15:40] LABS: Basophils # (auto) 0 10 ^3/uL (0-0.2); Basophils % (auto) 0.3 % (0.0-2.0); Eosinophils # (auto) 0 10 ^3/uL (0-0.8); Eosinophils % (auto) 0.6 % (0.0-7.0); Hematocrit 26.6 % (41.0-53.0); Hemoglobin 8.4 g/dL (13.5-17.5); Lymphocytes # (auto) 0.6 10 ^3/uL (0.4-5.4); Lymphocytes % (auto) 7.2 % (10.0-50.0); Mean Corpuscular Hemoglobin 27.9 pg (28.0-32.0); Mean Corpuscular Hgb Conc. 31.7 g/dL (32.0-36.0); Mean Corpuscular Volume 88.2 fL (80.0-100.0); Monocytes # (auto) 0.5 10 ^3/uL (0-1.3); Monocytes % (auto) 6.3 % (0.0-12.0); Neutrophils # (auto) 7.1 10 ^3/uL (1.6-8.6); Neutrophils % (auto) 85.6 % (37.0-80.0); Platelet Count (auto) 283 10^3/uL (140-450); Red Blood Cells 3.02 10^6/uL (4.5-5.90); Red Cell Distribution Width 15.7 % (11.8-14.3); White Blood Cell 8.3 10^3/uL (4.4-10.8)
[2024-09-22] MEDS: SODIUM CHLORIDE 0.9% 500 ML IV ONE (15:41)
[2024-09-22 15:50] LABS: Chloride 104 mmol/L (98-107); Sodium 137 mmol/L (136-145)
[2024-09-22 15:51] LABS: Anion Gap 11 (5-15); Calcium 9.6 mg/dL (8.7-10.4); Carbon Dioxide 22 mmol/L (20-31)
[2024-09-22 15:56] LABS: BUN/Creatinine Ratio 24.8 (10.0-20.0)
[2024-09-22 15:57] LABS: Blood Urea Nitrogen 61 mg/dL (9-23); Glucose 146 mg/dL (74-106)
[2024-09-22] MEDS: cefTRIAXone 1GM/50ML D5W 50 ML IV ONE (16:25)
[2024-09-22 16:54] LABS: Urine Bacteria None Seen /hpf (None Seen)
[2024-09-22] MEDS: CLINDAMYCIN 300MG IV 50 ML IV ONE (17:04)
[2024-09-22 17:06] LABS: Urine Blood 2+ /uL (Negative); Urine Clarity Ex.Turbid (Clear); Urine Color Brown (Yellow); Urine Mucus FEW (None Seen); Urine Protein, UAD 2+ (Negative); Urine Specific Gravity 1.008 (1.001-1.035); Urine Squamous Epithelial Cell None Seen /hpf (<5); Urine Urobilinogen Normal (Negative); Urine WBC 3592 /HPF (0-3); Urine WBC Clumps PRESENT /hpf (None Seen)
[2024-09-22] MEDS: NOREPINEPHRINE 8 MG/250ML KIT 250 ML IV SCH (17:45)
[2024-09-22] MEDS: NOREPINEPHRINE 8 MG/250ML KIT 250 ML IV ONE (18:07)
[2024-09-22 18:29] LABS: Lactic Acid w/Reflex 2.3 mmol/L (0.4-2.0)
[2024-09-22] MEDS ORDERED: HYDROcodone-ACET 5/325MG TAB PO PRN (21:00)
[2024-09-22] MEDS ORDERED: DOCUSATE SOD 100 MG CAP PO PRN (21:00)
[2024-09-22] MEDS ORDERED: DEXTROSE (50%) 50ML SYRG IV PRN (21:00)
[2024-09-22] MEDS: ATORVASTATIN 20 MG TAB PO SCH (21:45)
[2024-09-22] MEDS: ACCU-CHEK COMFORT CURVE STRIP VI SCH (21:57)
[2024-09-22] MEDS: InsuLIN REG 1unit/0.01ml Soln (100units/ml) SC SCH (22:04)
[2024-09-22] MEDS: SODIUM CHLOR 0.9% PF (SALINE LOCK) 10ML VIAL/SYR IV SCH (22:06)
--- NOTE | 2024-09-22 22:43 | DVHHP2 ---
History of Present Illness Reason for Visit: Generalized weakness History of Present Illness The patient is a 79-year-old male with past medical history of AFib, DM, hyperlipidemia, CT, and hypertension who presented to [facility] ED for evaluation of generalized weakness. As reported by EMS, patient's family called due to patient's confusion state, hard to arouse, lethargic, and not responding at his normal baseline. Patient was seen and evaluated in the ED, laboratory data shows WBC 8.3, hemoglobin 8.4, hematocrit 26.6, platelets 283, sodium 137, potassium 5.0, BUN 61, creatinine 2.46, GFR 26, glucose 146, lactic acid 2.3 trending down to 1.6, troponin < 3, urinalysis positive for urinary tract infection, blood pressure 79/46 trending up to 111/63, heart rate 88, temperature 98.0 F, O2 saturation 97% on room air. Head CT revealing lateral and 3rd ventricle prominent in size, particularly in the right lateral ventricle; this findings can be seen with normal pressure hydrocephalus. The patient was started on IV Levophed, please see medication orders section in the computer. On my assessment, patient denies chest pain, no headache, no dizziness, no diaphoresis, no shortness of breath, no nausea, no vomiting, no fever, no chills. Patient was admitted for further evaluation and medical management. Past Medical History AFIB, DM, High Lipids, HTN, CT Past Surgical History Appendectomy, CABG Family History Reviewed, noncontributory to the management of this case. Past Social History The patient lives at home, denies smoking, alcohol or illicit drugs abuse. Review of Systems Constitutional: Yes: Weakness; No: Fever, Chills, Sweats, Malaise, Other Eyes: No: Pain, Vision change, Conjunctivae inflammation, Eyelid inflammation, Other, Redness ENT: No: Ear pain, Ear discharge, Nose pain, Nose discharge, Nose congestion, Mouth pain, Mouth swelling, Throat pain, Throat swelling, Other Respiratory: No: Cough, Dry, Shortness of breath, SOB with excertion, Wheezing, Hemoptysis, Pleuritic Pain, Sputum, Wheezing, Other Cardiovascular: No: Chest Pain, Palpitations, Orthopnea, Paroxysmal Noc. Dyspnea, Edema, Lt Headedness, Other Gastrointestinal: No: Nausea, Vomiting, Abdominal Pain, Diarrhea, Constipation, Melena, Hematochezia, Other Genitourinary: No Dysuria, No Frequency, No Incontinence, No Hematuria, No Retention, No Other Musculoskeletal: No: other, neck pain, shoulder pain, arm pain, back pain, hand pain, leg pain, foot pain Skin: No: Rash, Lesions, Jaundice, Bruising, Other Neurological: No: Weakness, Numbness, Incoordination, Change in speech, Confusion, Seizures, Other Allergies: Coded Allergies: NO KNOWN ALLERGIES (Unverified , 03/11/11) Medications Current Medications Medications Dose Ordered Sig/[place]ia Route Start Time Stop Time Status Last Admin Dose Admin Norepinephrine Bitartrate 250 ml @ 3.75 mls/hr Q24H IV 09/22/24 17:45 09/22/24 17:45 3.75 MLS/HR Aspirin 81 mg DAILY PO 09/23/24 10:00 Atorvastatin Calcium 10 mg HS PO 09/22/24 22:00 09/22/24 21:45 10 MG Ceftriaxone Sodium 50 ml @ 100 mls/hr DAILY@09 IV 09/23/24 09:00 Diagnostic Test (Pha) 1 strip ACHS 09/22/24 22:00 09/22/24 21:57 1 STRIP Insulin Human Regular ACHS SC 09/22/24 22:00 09/22/24 22:04 2 UNITS Dextrose 50 ml UD PRN IV 09/22/24 21:00 Sodium Chloride 10 ml Q8HR IV 09/22/24 22:00 09/22/24 22:06 10 ML Acetaminophen/ Hydrocodone Bitart 1 tab Q4HP PRN PO 09/22/24 21:00 Ondansetron HCl 4 mg Q4HP PRN IV 09/22/24 21:00 Docusate Sodium 100 mg BIDPRN PRN PO 09/22/24 21:00 Acetaminophen 650 mg Q6HP PRN PO 09/22/24 21:00 Exam Vital Signs Vital Signs Date Time Temp Pulse Resp B/P (MAP) Pulse Ox O2 Delivery O2 Flow Rate FiO2 09/22/24 22:30 80/48 09/22/24 22:15 99 16 98 09/22/24 14:45 Room Air* 0 21 09/22/24 14:26 98.0 General Appearance: Alert, Oriented X3, Cooperative, No acute distress HEENT: Atraumatic, PERRLA, EOMI, Mucous membr. moist/pink Respiratory: Normal air movement, Other (Diminished breath sounds) Cardiovascular: Regular rate, Normal S1, Normal S2, No murmurs Abdominal: Normal bowel sounds, Soft, No tenderness, No hepatospenomegaly, No masses Extremities: No clubbing, No cyanosis, No edema, Normal pulses, No tenderness/swelling Skin: No rashes, No breakdown, No significant lesion Neuro: Normal speech, Normal tone, Sensation intact, Cranial nerves 3-12 NL, Reflexes 2+, Other (Generalized weakness) Psych/Mental Status: Mental status NL, Mood NL Labs/Xrays Labs Test 09/22/24 21:56 09/22/24 19:37 09/22/24 16:21 09/22/24 15:11 Range/Units POC Glucose 160 H 70-106 mg/dl Lactic Acid Level 1.6 0.4-2.0 mmol/L Urine Color Brown H Yellow Urine Clarity Ex.turbid Clear Urine pH 6.0 5.0-9.0 Urine Specific [place] 1.008 1.001-1.035 Urine Protein 2+ H Negative Urine Ketones Negative Negative Urine Blood 2+ H Negative /uL Urine Nitrite Negative Negative Urine Bilirubin Negative Negative Urine Urobilinogen Normal Negative mg/dL Urine Leukocyte Esterase 3+ Negative /uL Urine RBC 108 0 - 3 /hpf Urine WBC Clumps Present None Seen /hpf Urine Microscopic WBC 3592 H 0-3 /HPF Urine Squamous Epithelial Cells None seen <5 /hpf Urine Bacteria None seen None Seen /hpf Urine Mucus Few None Seen Urine Glucose Normal Normal mg/dL White Blood Count 8.3 4.4-10.8 10^3/uL Red Blood Count 3.02 L 4.5-5.90 10^6/uL Hemoglobin 8.4 L 13.5-17.5 g/dL Hematocrit 26.6 L 41.0-53.0 % Mean Corpuscular Volume 88.2 80.0-100.0 fL Mean Corpuscular Hemoglobin 27.9 L 28.0-32.0 pg Mean Corpuscular Hemoglobin Concent 31.7 L 32.0-36.0 g/dL Red Cell Distribution Width 15.7 H 11.8-14.3 % Platelet Count 283 140-450 10^3/uL Mean Platelet Volume 6.1 L 6.9-10.8 fL Neutrophils (%) (Auto) 85.6 H 37.0-80.0 % Lymphocytes (%) (Auto) 7.2 L 10.0-50.0 % Monocytes (%) (Auto) 6.3 0.0-12.0 % Eosinophils (%) (Auto) 0.6 0.0-7.0 % Basophils (%) (Auto) 0.3 0.0-2.0 % Neutrophils # (Auto) 7.1 1.6-8.6 10 ^3/uL Lymphocytes # (Auto) 0.6 0.4-5.4 10 ^3/uL Monocytes # (Auto) 0.5 0-1.3 10 ^3/uL Eosinophils # (Auto) 0 0-0.8 10 ^3/uL Basophils # (Auto) 0 0-0.2 10 ^3/uL Nucleated Red Blood Cells 0.0 % Sodium Level 137 136-145 mmol/L Potassium Level 5.0 3.5-5.1 mmol/L Chloride Level 104 98-107 mmol/L Carbon Dioxide Level 22 20-31 mmol/L Anion Gap 11 5-15 Blood Urea Nitrogen 61 H 9-23 mg/dL Creatinine 2.46 H 0.700-1.30 mg/dL Glomerular Filtration Rate Calc 26 >90 mL/min BUN/Creatinine Ratio 24.8 H 10.0-20.0 Serum Glucose 146 H 74-106 mg/dL Calcium Level 9.6 8.7-10.4 mg/dL Troponin I High Sensitivity < 3 L </=54 ng/L PATIENT: SANDRA BACH ACCT: [id number] UNIT: [id number] : 1945 LOC: ER ROOM / BED: / AGE / SEX: 79 / M ADM STATUS: REG ER SERVICE 1433 ORDERING PHYSICIAN: MILLER SILVA MD PROCEDURE(s): HWOCT - HEAD WITHOUT CONTRAST REASON: altered ORDER NUMBER(s): [id number], ACCESSION NUMBER(s): [id number] EXAM: CT HEAD WITHOUT CONTRAST HISTORY: altered COMPARISON: None TECHNIQUE: Axial images of the head were obtained and reformatted in coronal and sagittal planes. All CT scans at this medical facility are performed using dose modulation techniques as appropriate to a performed exam including the following: Automated exposure control was utilized; adjustment of the MA and/or KV according to patient size; and use of iterative reconstruction technique. CT Dose: CTDI volume is 53 mGy. Dose-length product is 971 mGy*cm FINDINGS: There is no evidence of acute intracranial hemorrhage, mass, mass effect midline shift. The lateral ventricles are prominent in size, [id number]-qfnt-left. The 3rd ventricle is mildly prominent in size. The 4th ventricle appears within normal limits. Barney-white matter differentiation is maintained. The visualized paranasal sinuses and mastoid air cells are clear. The calvarium is intact. IMPRESSION: 1. The lateral and 3rd ventricles are prominent in size, particularly in the right lateral ventricle. These findings can be seen with normal pressure hydrocephalus. Clinical correlation is recommended. ORDERING PHYSICIAN: MILLER SILVA MD PROCEDURE(s): CXRP - CHEST PORTABLE REASON: altered ORDER NUMBER(s): [id number], ACCESSION NUMBER(s): [id number] CHEST RADIOGRAPH Indication: altered Technique: Single frontal view of the chest was obtained Comparison: CHEST PORTABLE on DOS: 06/05/22, EKG on DOS: 06/05/22, CXRP on DOS: 06/05/22 FINDINGS: Lines and Tubes: None Lungs: Bilateral perihilar peribronchial thickening findings may represent bronchitis Pleura: No effusion. No pneumothorax. Cardiomediastinal contours: Unremarkable Bones: No acute osseous abnormality. IMPRESSION: 1. Findings suggest bilateral perihilar peribronchial thickening and possible b ronchitis. Assessment/Plan Assessment/Plan TIA (transient ischemic attack) Hypotension Urinary tract infection Pneumonitis Hypotension, unspecified Sepsis, unspecified organism Plan 1. Admit to intensive care unit 2. Breathing treatment 3. Pain control management 4. IV antibiotic management 5. Management of fluids and electrolytes 6. Consultation for cardiology 7. Diagnostic test head CT 8. DVT prophylaxis-on aspirin 9. Repeat labs CBC, CMP in a.m. 10. Home medication reviewed and reconciled 11. Continue with current medical management 12. Treatment plan discussed with patient and RN. Patient verbalized understanding. Plan discussed with: Patient, Other (RN) My Orders Orders - JONO AYALA DNP Procedure Category Date Status Time Consistent DIET 09/23/24 Transmitted Carb(Ccho)Diabetes Breakfast Type And Screen BBK 09/22/24 In Process 20:59 * Cardiology Consult CONS 09/22/24 Transmitted 20:59 *[facility] CONS 09/22/24 Transmitted -[place] 20:59 Aspirin Tablet PHA 09/23/24 In Process 10:00 Atorvastatin (Lipitor) PHA 09/22/24 In Process 22:00 Ceftriaxone 1gm/50ml PHA 09/23/24 In Process D5w (Rocephin) 09:00 Glucose Blood PHA 09/22/24 In Process (Accu-Chek Comfort 22:00 Insulin R (Human) PHA 09/22/24 In Process (Insulin R) 22:00 Dextrose 50% Syringe PHA 09/22/24 In Process 21:00 Allergies LACHO 09/22/24 In Process 20:59 Code Status CODE 09/22/24 Transmitted 20:59 Sodium Chloride Lock PHA 09/22/24 In Process (Saline Lock Ns) 22:00 Oxygen Per Hour RT 09/22/24 Transmitted 20:59 Hydrocodone-Acet PHA 09/22/24 In Process 5/325mg Tab ([place] 21:00 Ondansetron Hcl PHA 09/22/24 In Process (Zofran) 21:00 Docusate Sodium PHA 09/22/24 In Process Capsule (Colace 21:00 Fall Risk Precautions LACHO 09/22/[address] 20:59 Complete Blood Count LAB 09/23/24 Verified 04:00 Comprehensive LAB 09/23/24 Verified Metabolic Panel 04:00 Condition: Serious LACHO 09/22/24 In Process 20:59 Acetaminophen Tablet PHA 09/22/24 In Process (Tylenol Tablet) 21:00 Sequential LACHO 09/22/24 In Process Compression Device Admit ADMIT 09/22/24 Verified 22:41 Nitroglycerin PHA 09/22/24 Verified Sublingual (Ntrostat 22:45 Morphine Sulfate PHA 09/22/24 Verified Injection 22:45 Notify Md Of Changes LACHO 09/22/24 Verified From Base 22:41 Plugger Man For LACHO 09/22/24 Verified 24 Hours 22:41 Emergency Dysrhythmia LACHO 09/22/24 Verified Protocol 22:41 Rhythm Strips Once LACHO 09/22/24 Verified Every Shift 22:41 Oxygen By Nasal RT 09/22/24 Verified Cannula 22:41 Problem List: (1) TIA (transient ischemic attack) (2) Hypotension (3) Urinary tract infection (4) Pneumonitis (5) Sepsis, unspecified organism (6) Hypotension, unspecified Date of Service: Sep 22, 2024 Billing Provider: JONO AYALA DNP Common Visit Codes: 17433-FFOBDIA INP/OBS CARE (HIGH) JONO AYALA DNP Sep 22, 2024 22:43
[2024-09-22] MEDS ORDERED: MORPHINE SULFATE INJ 2 MG/ml SYRG IV PRN (22:45)
[2024-09-22] MEDS ORDERED: NITROGLYCERIN 0.4 MG SL TAB SL PRN (22:45)
[2024-09-22 23:00] VITALS: BP 130/69; PULSE 100; RESP 17; O2SAT 97
[2024-09-22 23:15] VITALS: BP 107/69; PULSE 101; RESP 15; O2SAT 97
[2024-09-22 23:30] VITALS: BP 112/65; PULSE 99; RESP 17; O2SAT 97
[2024-09-22 23:45] VITALS: BP 115/65; PULSE 99; RESP 16; O2SAT 97
[2024-09-23] VITALS (71 sets, daily range): BP systolic 82–131; BP diastolic 46–74; PULSE 92–113; RESP 10–22; TEMP 97.8–98.6; O2SAT 75–99
[2024-09-23 05:14] LABS: Basophils # (auto) 0.1 10 ^3/uL (0-0.2); Hemoglobin 8.4 g/dL (13.5-17.5); Lymphocytes # (auto) 0.9 10 ^3/uL (0.4-5.4); Lymphocytes % (auto) 10.4 % (10.0-50.0); Neutrophils # (auto) 6.8 10 ^3/uL (1.6-8.6)
[2024-09-23 05:17] LABS: Basophils % (auto) 1.1 % (0.0-2.0); Eosinophils # (auto) 0.3 10 ^3/uL (0-0.8); Eosinophils % (auto) 2.9 % (0.0-7.0); Hematocrit 26.2 % (41.0-53.0); Mean Corpuscular Hemoglobin 28.3 pg (28.0-32.0); Mean Corpuscular Hgb Conc. 32.2 g/dL (32.0-36.0); Mean Corpuscular Volume 87.9 fL (80.0-100.0); Monocytes % (auto) 10.5 % (0.0-12.0); Neutrophils % (auto) 75.1 % (37.0-80.0); Nucleated Red Blood Cells % 0.1 %; Platelet Count (auto) 269 10^3/uL (140-450); Red Blood Cells 2.98 10^6/uL (4.5-5.90); Red Cell Distribution Width 15.7 % (11.8-14.3); White Blood Cell 9.1 10^3/uL (4.4-10.8)
[2024-09-23 05:24] LABS: Alanine Aminotransferase 27 U/L (7-40); Albumin 3.4 g/dL (3.2-4.8); Alkaline Phosphatase 94 U/L (46-116); Anion Gap 14 (5-15); Aspartate Aminotransferase 25 U/L (13-40); BUN/Creatinine Ratio 25.5 (10.0-20.0); Calcium 9.2 mg/dL (8.7-10.4); Chloride 107 mmol/L (98-107); Potassium 4.1 mmol/L (3.5-5.1); Sodium 139 mmol/L (136-145); Total Protein 7.2 g/dL (5.7-8.2)
[2024-09-23 05:41] LABS: Bilirubin, Total 0.2 mg/dL (0.2-1.0); Blood Urea Nitrogen 55 mg/dL (9-23); Carbon Dioxide 18 mmol/L (20-31); Glucose 129 mg/dL (74-106)
[2024-09-23] MEDS: cefTRIAXone 1GM/50ML D5W 50 ML IV SCH (09:07)
[2024-09-23] MEDS: ASPirin 81 mg TAB PO SCH (11:52)
--- NOTE | 2024-09-23 13:24 | DVHPN2 ---
Subjective Weakness Hypotensive on Levo UTI and PNA Changes from previous H/P or p: Changes Eyes: No Pain, No Vision change, No Conjunctivae inflammation, No Eyelid inflammation, No Other, No Redness ENT: No Ear pain, No Ear discharge, No Nose pain, No Nose discharge, No Nose congestion, No Mouth pain, No Mouth swelling, No Throat pain, No Throat swelling, No Other Cardiovascular: No Chest Pain, No Palpitations, No Orthopnea, No Paroxysmal Noc. Dyspnea, No Edema, No Lt Headedness, No Other Respiratory: No Cough, No Dry, No Shortness of breath, No SOB with excertion, No Wheezing, No Hemoptysis, No Pleuritic Pain, No Sputum, No Other Gastrointestinal: No Nausea, No Vomiting, No Abdominal Pain, No Diarrhea, No Constipation, No Melena, No Hematochezia, No Other Genitourinary: No Dysuria, No Frequency, No Incontinence, No Hematuria, No Retention, No Other Musculoskeletal: No other, No neck pain, No shoulder pain, No arm pain, No back pain, No hand pain, No leg pain, No foot pain Skin: No Rash, No Lesions, No Jaundice, No Bruising, No Other Objective Vitals Vital Signs Date Time Temp Pulse Resp B/P (MAP) Pulse Ox O2 Delivery O2 Flow Rate FiO2 09/23/24 12:30 116/66 09/23/24 12:30 95 14 97 09/23/24 12:00 Room Air* 0 21 09/23/24 12:00 97.8 97.8 Intake/Output Intake and Output 09/23/24 07:00 Intake Total 1112.50 ml Output Total 2100 ml Balance -987.50 ml Intake Oral 480 ml IV Total 632.50 ml Output Urine Total 2100 ml General Appearance: Alert, Oriented X3 Lungs: Clear to auscultation, Normal air movement Cardiovascular: Regular rate, Normal S1, Normal S2, No murmurs Abdomen: Normal bowel sounds, Soft, No tenderness Extremities: No edema Medications Current Medications Medications Dose Ordered Sig/Gardenia Route Start Time Stop Time Status Last Admin Dose Admin Norepinephrine Bitartrate 250 ml @ 3.75 mls/hr Q24H IV 09/22/24 17:45 09/22/24 17:45 3.75 MLS/HR Aspirin 81 mg DAILY PO 09/23/24 10:00 09/23/24 11:52 81 MG Atorvastatin Calcium 10 mg HS PO 09/22/24 22:00 09/22/24 21:45 10 MG Ceftriaxone Sodium 50 ml @ 100 mls/hr DAILY@09 IV 09/23/24 09:00 09/23/24 09:07 100 MLS/HR Diagnostic Test (Pha) 1 strip ACHS 09/22/24 22:00 09/23/24 11:52 1 STRIP Insulin Human Regular ACHS SC 09/22/24 22:00 09/22/24 22:04 2 UNITS Dextrose 50 ml UD PRN IV 09/22/24 21:00 Sodium Chloride 10 ml Q8HR IV 09/22/24 22:00 09/23/24 06:13 10 ML Acetaminophen/ Hydrocodone Bitart 1 tab Q4HP PRN PO 09/22/24 21:00 Ondansetron HCl 4 mg Q4HP PRN IV 09/22/24 21:00 Docusate Sodium 100 mg BIDPRN PRN PO 09/22/24 21:00 Acetaminophen 650 mg Q6HP PRN PO 09/22/24 21:00 Nitroglycerin 0.4 mg Q5MINP PRN SL 09/22/24 22:45 Morphine Sulfate 2 mg Q30M PRN IV 09/22/24 22:45 Sodium Chloride 1,000 ml @ 75 mls/hr [id number] IV 09/23/24 13:30 UNV Doxycycline Hyclate 100 ml @ 50 mls/hr Q12H IV 09/23/24 13:30 UNV Laboratory Results Laboratory Tests 09/23/24 04:38 Chemistry Test 09/22/24 15:11 09/23/24 04:38 Calcium Level 9.6 mg/dL (8.7-10.4) 9.2 mg/dL (8.7-10.4) Albumin 3.4 g/dL (3.2-4.8) Total Protein 7.2 g/dL (5.7-8.2) LFT Test 09/23/24 04:38 Alanine Aminotransferase (ALT) 27 U/L (7-40) Alkaline Phosphatase 94 U/L (46-116) Aspartate Amino Transferase (AST) 25 U/L (13-40) Total Bilirubin 0.2 mg/dL (0.2-1.0) Urinalysis Test 09/22/24 16:21 Urine Color Brown (Yellow) H Urine Clarity Ex.turbid (Clear) Urine pH 6.0 (5.0-9.0) Urine Specific [place] 1.008 (1.001-1.035) Urine Protein 2+ (Negative) H Urine Ketones Negative (Negative) Urine Blood 2+ /uL (Negative) H Urine Nitrite Negative (Negative) Urine Bilirubin Negative (Negative) Urine Urobilinogen Normal mg/dL (Negative) Urine Leukocyte Esterase 3+ /uL (Negative) Urine RBC 108 /hpf (0 - 3) Urine WBC Clumps Present /hpf (None Seen) Urine Microscopic WBC 3592 /HPF (0-3) H Urine Squamous Epithelial Cells None seen /hpf (<5) Urine Bacteria None seen /hpf (None Seen) Urine Mucus Few (None Seen) Urine Glucose Normal mg/dL (Normal) Microbiology Microbiology Date/Time Source Procedure Growth Status 09/22/24 16:21 Urine - [place] Urine Culture - Preliminary Resulted 09/22/24 15:11 Blood Blood Culture - Preliminary Resulted Assessment/Plan Assessment/Plan Sepsis with septic shock UTI Pneumonia JUANA due to vasomotor nephropathy Afib DM2 HTN Dyslipidemia PLAN: IV antibiotics Rocephin and Doxycycline Levophed IV fluids Plan discussed with: Patient My Orders Orders - SABRINA LEOS MD Procedure Category Date Status Time Sodium Chloride 0.9% PHA 09/23/24 Logged 13:30 Doxycycline PHA 09/23/24 Logged 100mg/100ml 13:30 Complete Blood Count LAB 09/24/24 Verified 04:00 Comprehensive LAB 09/24/24 Verified Metabolic Panel 04:00 Magnesium LAB 09/24/24 Verified 04:00 Date of Service: Sep 23, 2024 Billing Provider: SABRINA LEOS MD Common Visit Codes: NOT BILLABLE SABRINA LEOS MD Sep 23, 2024 13:24
[2024-09-23] MEDS: SODIUM CHLORIDE 0.9% 1,000 ML IV SCH (14:02)
--- NOTE | 2024-09-23 15:09 | DVHINCON2 ---
Date Seen: Sep 23, 2024 Referring Physician EVELINA Mclain Reason for Consultation Hypotension History of Present Illness This is an 79-year-old man who presented to the emergency room via EMS with a chief complaint of generalized weakness. The patient complains of worsening generalized weakness associated with a nonproductive cough and dysuria. Per records the patient had an altered mental status prior to arrival as well. Denies chest pain, palpitations, diaphoresis, or syncopal events. He underwent multiple 12 lead electrocardiogram revealing a sinus rhythm with an associated first-degree AV block and left bundle branch block. Baseline troponin level is negative. States he follows up with an unknown saw sharpener in [place]. Significant medical history includes paroxysmal atrial fibrillation on amiodarone therapy, coronary artery disease status post quadruple vessel bypass on [facility] on 04/2021, status post mitral valve replacement (bioprosthetic) on 04/2021, history of right lower extremity DVT, hypertension, dyslipidemia, [id number] diabetes mellitus, benign prostatic hyperplasia, and obesity. Past Medical History Past medical history reviewed. No other significant than mentioned above. Past Surgical History Quadruple vessel CABG, 04/2021 Mitral valve replacement (bioprosthetic), 05/15/2021 Appendectomy Family History: Patient reports no known family medical history. Family History Family history reviewed. Social History Denies the use of illicit drugs, alcohol, or tobacco use. Allergies: Coded Allergies: NO KNOWN ALLERGIES (Unverified , 03/11/11) Home Meds Active Scripts Isosorbide Mononitrate (Isosorbide Mononitrate Er) 30 Mg Tab, 1 TAB PO DAILY, #30 TAB 5 Refills Prov:SABRINA LEOS MD 12/19/20 Ranolazine (Ranexa) 500 Mg Tab, 500 MG PO BID for 30 Days, #60 TAB 3 Refills Prov:SABRINA LEOS MD 12/19/20 Aspirin (Aspir-Low) 81 Mg Tab, 81 MG PO DAILY for 100 Days, #100 TAB 3 Refills Prov:SABRINA LEOS MD 12/19/20 Reported Medications Gabapentin (Gabapentin) 100 Mg Cap, 100 MG PO BID for 30 Days, MG 12/17/20 Atorvastatin Calcium (ATORVASTATIN CALCIUM) 20 Mg Tab, 1 TAB PO HS, #30 TAB 5 Refills 12/17/20 Losartan Potassium (Losartan Potassium) 25 Mg Tab, 25 MG PO DAILY for 30 Days, MG 12/17/20 Metoprolol Succinate (Metoprolol Succinate Er) 50 Mg Tab, 50 MG PO DAILY for 30 Days, MG 12/17/20 Home Meds Home medications reviewed. Current Medications Current Medications Medications (Trade) Dose Ordered Sig/Gardenia Route PRN Reason Start Time Stop Time Status Last Admin Norepinephrine Bitartrate 250 ml @ 3.75 mls/hr Q24H IV 09/22/24 17:45 09/22/24 17:45 Aspirin 81 mg DAILY PO 09/23/24 10:00 09/23/24 11:52 Atorvastatin Calcium (Lipitor) 10 mg HS PO 09/22/24 22:00 09/22/24 21:45 Ceftriaxone Sodium 50 ml @ 100 mls/hr DAILY@09 IV 09/23/24 09:00 09/23/24 09:07 Diagnostic Test (Pha) (Accu-Chek Comfort Curve T) 1 strip ACHS 09/22/24 22:00 09/23/24 11:52 Insulin Human Regular (InsuLIN R) ACHS SC 09/22/24 22:00 09/22/24 22:04 Dextrose 50 ml UD PRN IV Blood Sugar LESS THAN 60 09/22/24 21:00 Sodium Chloride (Saline Lock Ns) 10 ml Q8HR IV 09/22/24 22:00 09/23/24 13:41 Acetaminophen/ Hydrocodone Bitart ([place] 5/325MG Tab) 1 tab Q4HP PRN PO MODERATE PAIN (4-6 PAIN SCALE) 09/22/24 21:00 Ondansetron HCl (Zofran) 4 mg Q4HP PRN IV NAUSEA / VOMITING 09/22/24 21:00 Docusate Sodium (Colace Capsule) 100 mg BIDPRN PRN PO FOR CONSTIPATION 09/22/24 21:00 Acetaminophen (Tylenol Tablet) 650 mg Q6HP PRN PO PAIN SCALE 1-3 OR TEMP>100.4 09/22/24 21:00 Nitroglycerin (Ntrostat Sublingual) 0.4 mg Q5MINP PRN SL FOR CHEST PAIN 09/22/24 22:45 Morphine Sulfate 2 mg Q30M PRN IV FOR CHEST PAIN 09/22/24 22:45 Sodium Chloride 1,000 ml @ 75 mls/hr [id number] IV 09/23/24 13:30 09/23/24 14:02 Doxycycline Hyclate 100 ml @ 50 mls/hr Q12H IV 09/23/24 13:30 Review of Systems Constitutional: Generalized weakness Ears, Nose, & Throat: No symptom reported Eyes: No symptom reported Neurological: No symptoms reported Pulmonary/Respiratory: non-productive cough Cardiovascular: No symptom reported Gastrointestinal: No symptom reported Genitourinary: Dysuria Musculoskeletal: No symptom reported Skin: No symptom reported Psychiatric: No symptom reported Endocrine: No symptom reported Hemotologic/Lymphatic: No symptom reported Vital Signs Vital Signs Date Time Temp Pulse Resp B/P (MAP) Pulse Ox O2 Delivery O2 Flow Rate FiO2 09/23/24 14:00 97 14 96/53 (67) 96 09/23/24 12:00 Room Air* 0 21 09/23/24 12:00 97.8 97.8 Physical Exam General Appearance: Cooperative. Elderly. The. Lethargic. Obese Head Exam: Normal inspection Neck Exam: Normal inspection. Non-tender. Normal alignment Pulmonary/Respiratory: Chest non-tender. Clear bilateral breath sounds Cardiovascular/Chest: Regular rate and rhythm. S1, S2. Sinus rhythm. No murmurs. No JVD. Peripheral Pulses: 2+ Radial (R). 2+ Radial (L). 2+ Pedal (R). 2+ Pedal (L) Abdominal Exam: Normal bowel sounds. Soft. Nontender. No hepatospenomegaly. No masses Ankle Exam: Negative ankle edema Lower extremities: Negative lower extremity edema Neuro/Mental Status: A&O x3. Coherent, somewhat poor historian Thoughts/Psych: Normal thought pattern. Appropriate mood and affect. Good judgement and insight Appearance: Appears lethargic Skin Exam: Normal inspection. Normal color. Warm. Dry Labs/Diagnostic Data Labs Test 09/23/24 11:55 09/23/24 04:38 09/22/24 19:37 09/22/24 16:21 Range/Units POC Glucose 125 H 70-106 mg/dl White Blood Count 9.1 4.4-10.8 10^3/uL Red Blood Count 2.98 L 4.5-5.90 10^6/uL Hemoglobin 8.4 L 13.5-17.5 g/dL Hematocrit 26.2 L 41.0-53.0 % Mean Corpuscular Volume 87.9 80.0-100.0 fL Mean Corpuscular Hemoglobin 28.3 28.0-32.0 pg Mean Corpuscular Hemoglobin Concent 32.2 32.0-36.0 g/dL Red Cell Distribution Width 15.7 H 11.8-14.3 % Platelet Count 269 140-450 10^3/uL Mean Platelet Volume 6.1 L 6.9-10.8 fL Neutrophils (%) (Auto) 75.1 37.0-80.0 % Lymphocytes (%) (Auto) 10.4 10.0-50.0 % Monocytes (%) (Auto) 10.5 0.0-12.0 % Eosinophils (%) (Auto) 2.9 0.0-7.0 % Basophils (%) (Auto) 1.1 0.0-2.0 % Neutrophils # (Auto) 6.8 1.6-8.6 10 ^3/uL Lymphocytes # (Auto) 0.9 0.4-5.4 10 ^3/uL Monocytes # (Auto) 1.0 0-1.3 10 ^3/uL Eosinophils # (Auto) 0.3 0-0.8 10 ^3/uL Basophils # (Auto) 0.1 0-0.2 10 ^3/uL Nucleated Red Blood Cells 0.1 % Sodium Level 139 136-145 mmol/L Potassium Level 4.1 3.5-5.1 mmol/L Chloride Level 107 98-107 mmol/L Carbon Dioxide Level 18 L 20-31 mmol/L Anion Gap 14 5-15 Blood Urea Nitrogen 55 H 9-23 mg/dL Creatinine 2.16 H 0.700-1.30 mg/dL Glomerular Filtration Rate Calc 30 >90 mL/min BUN/Creatinine Ratio 25.5 H 10.0-20.0 Serum Glucose 129 H 74-106 mg/dL Calcium Level 9.2 8.7-10.4 mg/dL Total Bilirubin 0.2 0.2-1.0 mg/dL Aspartate Amino Transferase (AST) 25 13-40 U/L Alanine Aminotransferase (ALT) 27 7-40 U/L Alkaline Phosphatase 94 46-116 U/L Total Protein 7.2 5.7-8.2 g/dL Albumin 3.4 3.2-4.8 g/dL Lactic Acid Level 1.6 0.4-2.0 mmol/L Urine Color Brown H Yellow Urine Clarity Ex.turbid Clear Urine pH 6.0 5.0-9.0 Urine Specific [place] 1.008 1.001-1.035 Urine Protein 2+ H Negative Urine Ketones Negative Negative Urine Blood 2+ H Negative /uL Urine Nitrite Negative Negative Urine Bilirubin Negative Negative Urine Urobilinogen Normal Negative mg/dL Urine Leukocyte Esterase 3+ Negative /uL Urine RBC 108 0 - 3 /hpf Urine WBC Clumps Present None Seen /hpf Urine Microscopic WBC 3592 H 0-3 /HPF Urine Squamous Epithelial Cells None seen <5 /hpf Urine Bacteria None seen None Seen /hpf Urine Mucus Few None Seen Urine Glucose Normal Normal mg/dL Test 09/22/24 15:11 Range/Units Troponin I High Sensitivity < 3 L </=54 ng/L Microbiology Date/Time Source Procedure Growth Status 09/22/24 16:21 Urine - [place] Urine Culture - Preliminary Resulted 09/22/24 15:11 Blood Blood Culture - Preliminary Resulted Assessment Septic shock with PNA/UTI Paroxysmal atrial fibrillation, off AC therapy, now NSR Coronary artery disease status post quadruple vessel 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 Santos) Hypotension secondary to septic shock. Patient will undergo a transthoracic echocardiogram to evaluate cardiac function. In the meantime, continue single antiplatelet therapy and lipid lowering agent given history of CAD status post CABG. Re-institute home amiodarone BID. Likely off NOAC therapy given history of anemia. Initiate DVT/VTE prophylaxis. Monitor H&H closely. Follow-up with primary saw sharpener as scheduled. In the setting of an unremarkable echocardiogram, there is no further cardiac work-up indicated at this time. Thank you for allowing us to participate in this patient's care. Please call if you have any questions or concerns. This medical document was created using an electronic medical record system with voice recognition software and computerized dictation system. Although this document has been carefully reviewed, there might still be some phonetic and typographical errors. Occasional wrong-word or ``sound-alike substitutions may have occurred due to the inherent limitations of voice recognition software. These areas are purely typographical due to imperfections of the software p rograms and do not reflect any compromise in the patient's medical care. Please read the chart carefully and recognize, using context, where these substitutions have occurred. Plan discussed with: Patient, Other NYHA Physical activity limitations: NA Date of Service: Sep 23, 2024 Billing Provider: DINA JO Cardiology Common Codes: [id number] INP/OBS CARE (High) DINA JO Sep 23, 2024 15:09
--- NOTE | 2024-09-23 15:19 | DVHINCON2 ---
Date of service: Sep 23, 2024 Reason for Consultation Acute kidney injury History of Present Illness 79-year-old male with past medical history of prosthetic mitral valve, and aortic stenosis, hypertension, atrial fibrillation. Presents to the hospital complaining of weakness. Patient was somewhat confused in his a poor historian. He was diagnosed in the ER with sepsis due to infection. Nephrology consulted due to elevated creatinine level. The last previous level of his renal function that was noted was in 2021. Past Medical History As above Past Surgical History Valve replacement Allergies: Coded Allergies: NO KNOWN ALLERGIES (Unverified , 03/11/11) Home Meds Active Scripts Isosorbide Mononitrate (Isosorbide Mononitrate Er) 30 Mg Tab, 1 TAB PO DAILY, #30 TAB 5 Refills Prov:SABRINA LEOS MD 12/19/20 Ranolazine (Ranexa) 500 Mg Tab, 500 MG PO BID for 30 Days, #60 TAB 3 Refills Prov:SABRINA LEOS MD 12/19/20 Aspirin (Aspir-Low) 81 Mg Tab, 81 MG PO DAILY for 100 Days, #100 TAB 3 Refills Prov:SARBINA LEOS MD 12/19/20 Reported Medications Gabapentin (Gabapentin) 100 Mg Cap, 100 MG PO BID for 30 Days, MG 12/17/20 Atorvastatin Calcium (ATORVASTATIN CALCIUM) 20 Mg Tab, 1 TAB PO HS, #30 TAB 5 Refills 12/17/20 Losartan Potassium (Losartan Potassium) 25 Mg Tab, 25 MG PO DAILY for 30 Days, MG 12/17/20 Metoprolol Succinate (Metoprolol Succinate Er) 50 Mg Tab, 50 MG PO DAILY for 30 Days, MG 12/17/20 Current Medications Current Medications Medications (Trade) Dose Ordered Sig/Gardenia Route PRN Reason Start Time Stop Time Status Last Admin Norepinephrine Bitartrate 250 ml @ 3.75 mls/hr Q24H IV 09/22/24 17:45 09/22/24 17:45 Aspirin 81 mg DAILY PO 09/23/24 10:00 09/23/24 11:52 Atorvastatin Calcium (Lipitor) 10 mg HS PO 09/22/24 22:00 09/23/24 15:05 DC 09/22/24 21:45 Ceftriaxone Sodium 50 ml @ 100 mls/hr DAILY@09 IV 09/23/24 09:00 09/23/24 09:07 Diagnostic Test (Pha) (Accu-Chek Comfort Curve T) 1 strip ACHS 09/22/24 22:00 09/23/24 11:52 Insulin Human Regular (InsuLIN R) ACHS SC 09/22/24 22:00 09/22/24 22:04 Dextrose 50 ml UD PRN IV Blood Sugar LESS THAN 60 09/22/24 21:00 Sodium Chloride (Saline Lock Ns) 10 ml Q8HR IV 09/22/24 22:00 09/23/24 13:41 Acetaminophen/ Hydrocodone Bitart ([place] 5/325MG Tab) 1 tab Q4HP PRN PO MODERATE PAIN (4-6 PAIN SCALE) 09/22/24 21:00 Ondansetron HCl (Zofran) 4 mg Q4HP PRN IV NAUSEA / VOMITING 09/22/24 21:00 Docusate Sodium (Colace Capsule) 100 mg BIDPRN PRN PO FOR CONSTIPATION 09/22/24 21:00 Acetaminophen (Tylenol Tablet) 650 mg Q6HP PRN PO PAIN SCALE 1-3 OR TEMP>100.4 09/22/24 21:00 Nitroglycerin (Ntrostat Sublingual) 0.4 mg Q5MINP PRN SL FOR CHEST PAIN 09/22/24 22:45 Morphine Sulfate 2 mg Q30M PRN IV FOR CHEST PAIN 09/22/24 22:45 Sodium Chloride 1,000 ml @ 75 mls/hr [id number] IV 09/23/24 13:30 09/23/24 14:02 Doxycycline Hyclate 100 ml @ 50 mls/hr Q12H IV 09/23/24 13:30 Atorvastatin Calcium (Lipitor) 40 mg HS PO 09/23/24 22:00 UNV Amiodarone HCl (Cordarone Tablet) 200 mg Q12HR PO 09/23/24 22:00 UNV Heparin Sodium (Porcine) 5,000 units Q12HR SC 09/23/24 22:00 UNV Family History: Patient reports no known family medical history. Review of Systems Weakness and confusion H&P Exam Vital Signs/I&O Vital Sign Date Time Temp Pulse Resp B/P (MAP) Pulse Ox O2 Delivery O2 Flow Rate FiO2 09/23/24 14:00 97 14 96/53 (67) 96 09/23/24 12:00 Room Air* 0 21 09/23/24 12:00 97.8 97.8 Intake and Output 09/22/24 09/23/24 19:00 07:00 Intake Total 550 ml 562.50 ml Output Total 2100 ml Balance 550 ml -1537.50 ml Intake Oral 480 ml IV Total 550 ml 82.50 ml Output Urine Total 2100 ml Physical Exam Frail elderly white male Not in overt distress Bilateral bruising and both arms. Irregular irregular rate and rhythm Ruff catheter has cloudy urine Labs/Diagnostic Data Labs/Diagnostic Data Laboratory Tests Test 09/23/24 11:55 09/23/24 06:47 09/23/24 04:38 09/22/24 21:56 Range/Units POC Glucose 125 H 128 H 160 H 70-106 mg/dl White Blood Count 9.1 4.4-10.8 10^3/uL Red Blood Count 2.98 L 4.5-5.90 10^6/uL Hemoglobin 8.4 L 13.5-17.5 g/dL Hematocrit 26.2 L 41.0-53.0 % Mean Corpuscular Volume 87.9 80.0-100.0 fL Mean Corpuscular Hemoglobin 28.3 28.0-32.0 pg Mean Corpuscular Hemoglobin Concent 32.2 32.0-36.0 g/dL Red Cell Distribution Width 15.7 H 11.8-14.3 % Platelet Count 269 140-450 10^3/uL Mean Platelet Volume 6.1 L 6.9-10.8 fL Neutrophils (%) (Auto) 75.1 37.0-80.0 % Lymphocytes (%) (Auto) 10.4 10.0-50.0 % Monocytes (%) (Auto) 10.5 0.0-12.0 % Eosinophils (%) (Auto) 2.9 0.0-7.0 % Basophils (%) (Auto) 1.1 0.0-2.0 % Neutrophils # (Auto) 6.8 1.6-8.6 10 ^3/uL Lymphocytes # (Auto) 0.9 0.4-5.4 10 ^3/uL Monocytes # (Auto) 1.0 0-1.3 10 ^3/uL Eosinophils # (Auto) 0.3 0-0.8 10 ^3/uL Basophils # (Auto) 0.1 0-0.2 10 ^3/uL Nucleated Red Blood Cells 0.1 % Sodium Level 139 136-145 mmol/L Potassium Level 4.1 3.5-5.1 mmol/L Chloride Level 107 98-107 mmol/L Carbon Dioxide Level 18 L 20-31 mmol/L Anion Gap 14 5-15 Blood Urea Nitrogen 55 H 9-23 mg/dL Creatinine 2.16 H 0.700-1.30 mg/dL Glomerular Filtration Rate Calc 30 >90 mL/min BUN/Creatinine Ratio 25.5 H 10.0-20.0 Serum Glucose 129 H 74-106 mg/dL Calcium Level 9.2 8.7-10.4 mg/dL Total Bilirubin 0.2 0.2-1.0 mg/dL Aspartate Amino Transferase (AST) 25 13-40 U/L Alanine Aminotransferase (ALT) 27 7-40 U/L Alkaline Phosphatase 94 46-116 U/L Total Protein 7.2 5.7-8.2 g/dL Albumin 3.4 3.2-4.8 g/dL Test 09/22/24 19:37 09/22/24 16:30 09/22/24 16:21 09/22/24 15:11 Range/Units Lactic Acid Level 1.6 2.3 *H 0.4-2.0 mmol/L Urine Color Brown H Yellow Urine Clarity Ex.turbid Clear Urine pH 6.0 5.0-9.0 Urine Specific [place] 1.008 1.001-1.035 Urine Protein 2+ H Negative Urine Ketones Negative Negative Urine Blood 2+ H Negative /uL Urine Nitrite Negative Negative Urine Bilirubin Negative Negative Urine Urobilinogen Normal Negative mg/dL Urine Leukocyte Esterase 3+ Negative /uL Urine RBC 108 0 - 3 /hpf Urine WBC Clumps Present None Seen /hpf Urine Microscopic WBC 3592 H 0-3 /HPF Urine Squamous Epithelial Cells None seen <5 /hpf Urine Bacteria None seen None Seen /hpf Urine Mucus Few None Seen Urine Glucose Normal Normal mg/dL White Blood Count 8.3 4.4-10.8 10^3/uL Red Blood Count 3.02 L 4.5-5.90 10^6/uL Hemoglobin 8.4 L 13.5-17.5 g/dL Hematocrit 26.6 L 41.0-53.0 % Mean Corpuscular Volume 88.2 80.0-100.0 fL Mean Corpuscular Hemoglobin 27.9 L 28.0-32.0 pg Mean Corpuscular Hemoglobin Concent 31.7 L 32.0-36.0 g/dL Red Cell Distribution Width 15.7 H 11.8-14.3 % Platelet Count 283 140-450 10^3/uL Mean Platelet Volume 6.1 L 6.9-10.8 fL Neutrophils (%) (Auto) 85.6 H 37.0-80.0 % Lymphocytes (%) (Auto) 7.2 L 10.0-50.0 % Monocytes (%) (Auto) 6.3 0.0-12.0 % Eosinophils (%) (Auto) 0.6 0.0-7.0 % Basophils (%) (Auto) 0.3 0.0-2.0 % Neutrophils # (Auto) 7.1 1.6-8.6 10 ^3/uL Lymphocytes # (Auto) 0.6 0.4-5.4 10 ^3/uL Monocytes # (Auto) 0.5 0-1.3 10 ^3/uL Eosinophils # (Auto) 0 0-0.8 10 ^3/uL Basophils # (Auto) 0 0-0.2 10 ^3/uL Nucleated Red Blood Cells 0.0 % Sodium Level 137 136-145 mmol/L Potassium Level 5.0 3.5-5.1 mmol/L Chloride Level 104 98-107 mmol/L Carbon Dioxide Level 22 20-31 mmol/L Anion Gap 11 5-15 Blood Urea Nitrogen 61 H 9-23 mg/dL Creatinine 2.46 H 0.700-1.30 mg/dL Glomerular Filtration Rate Calc 26 >90 mL/min BUN/Creatinine Ratio 24.8 H 10.0-20.0 Serum Glucose 146 H 74-106 mg/dL Calcium Level 9.6 8.7-10.4 mg/dL Troponin I High Sensitivity < 3 L </=54 ng/L Assessment Acute kidney injury secondary to infection highly likely prerenal etiology versus intrinsic renal. Sepsis with multiple sources Gram-negative urinary tract infection Gram-positive bacteremia History atrial fibrillation, mitral valve prosthetic, aortic valve stenosis Gentle IV fluid hydration IV antibiotics for sepsis Urinary culture and blood culture are positive and awaiting bacteria and drug sensitivities. Avoid hypotension Currently has a Ruff strict Is&Os Maintain mean arterial pressure greater than 65 Plan discussed with: Patient MILTON VYAS MD Sep 23, 2024 15:19
[2024-09-23] MEDS: DOXYCYCLINE 100MG/100ML 100 ML IV SCH (15:33)
--- NOTE | 2024-09-23 20:03 | DVHSR ---
APPROVED REPORT EXAM: Two-dimensional and M-mode echocardiogram with Doppler and color Doppler. Blood Pressure: 96/53 mmHg INDICATION Atrial Fibrillation Surgery/Intervention Valve Replacement: RISK FACTORS Height: 6', Weight: 184 DIMENSIONS LVDd3.4 (3.8-5.7cm)LA (2D)4.2 (1.9-4.0cm)Aortic Root3.8 (2.0-3.7cm) LVDs2.3 (2.5-4.0cm)LA (MM) (1.9-4.0cm)Aortic Cusp Exc (1.5-2.0cm) EF (%) 61.0 (55-70%)Rt. Atrium (1.9-4.0cm)Asc. Aorta cm IVSd1.1 (0.7-1.1cm)RV (D) (1.8-2.4cm) PWd0.8 (0.7-1.1cm) Mitral Valve MitralMitral Stenosis E wavem/sMV Mean GR.14mmHg A wavem/sMV Peak GR.21mmHg E/A ratio0.02D MVAcm2 DECEL [employer] 1/2 [id number] IVRTmsDop MVA2.62cm2 Aortic Valve Aortic ValveAortic Stenosis V10.78m/Feliz Mean GR.10mmHg V21.99m/Feliz Peak GR.16mmHg LVOT Diameter1.9 (1.8-2.4cm)Doppler AVA1.11cm2 Pulmonic Valve V20.77m/s Tricuspid Valve TR Velocity3.12m/s [id number] Conclusion Technically good study. Sinus rhythm. Left atrial enlargement with concentric LVH and aortic root enlargement. There is significant calcification in the annulus of the mitral leaflet. Possible prosthetic mitral valve. There does not appear to be significant mitral stenosis. The annulus however is heavily calc ified. The aortic valve is notably sclerotic as well. There is significant calcification of the na flets. Diminished excursion of the non and right coronary cusp with what appears to be good excursio n of the left coronary cusp. Left ventricular function is preserved. EF of 60% with normal RV function. There is [id number] mitral insufficiency. There is moderate pulmonic insufficiency. A 10 mm g radient (mean) and a peak gradient of 16 mmHg across the aortic valve suggests aortic sclerosis witho ut critical stenosis. Moderate tricuspid regurgitation. Trace aortic insufficiency. No evidence fo r mitral stenosis. No pericardial effusion masses or vegetations discernible.
[2024-09-23] MEDS: AMIODARONE HCL 200 MG TAB PO SCH (21:47)
[2024-09-23] MEDS: ATORVASTATIN 20 MG TAB PO SCH (21:48)
[2024-09-23] MEDS: HEPARIN SODIUM (PORCINE) 5000 UNITS/ML 1ML VIAL SC SCH (21:50)
[2024-09-24] VITALS (18 sets, daily range): BP systolic 102–121; BP diastolic 60–72; PULSE 104–122; RESP 15–22; TEMP 97.5–98.4; O2SAT 92–98
[2024-09-24 08:13] LABS: Basophils # (auto) 0.1 10 ^3/uL (0-0.2); Basophils % (auto) 0.8 % (0.0-2.0); Eosinophils # (auto) 0.3 10 ^3/uL (0-0.8); Eosinophils % (auto) 3.2 % (0.0-7.0); Hematocrit 25.9 % (41.0-53.0); Hemoglobin 8.3 g/dL (13.5-17.5); Mean Corpuscular Hemoglobin 27.8 pg (28.0-32.0); Mean Corpuscular Volume 86.8 fL (80.0-100.0); Monocytes # (auto) 0.7 10 ^3/uL (0-1.3); Neutrophils # (auto) 6.2 10 ^3/uL (1.6-8.6); Platelet Count (auto) 282 10^3/uL (140-450); Red Blood Cells 2.99 10^6/uL (4.5-5.90); Red Cell Distribution Width 15.7 % (11.8-14.3); White Blood Cell 8.2 10^3/uL (4.4-10.8)
[2024-09-24 08:31] LABS: Alanine Aminotransferase 20 U/L (7-40); Albumin 3.6 g/dL (3.2-4.8); Alkaline Phosphatase 93 U/L (46-116); Anion Gap 9 (5-15); Aspartate Aminotransferase 20 U/L (13-40); BUN/Creatinine Ratio 19.3 (10.0-20.0); Calcium 8.9 mg/dL (8.7-10.4); Carbon Dioxide 20 mmol/L (20-31); Magnesium 1.7 mg/dL (1.6-2.6); Potassium 3.5 mmol/L (3.5-5.1); Sodium 139 mmol/L (136-145)
[2024-09-24 08:32] LABS: Bilirubin, Total 0.3 mg/dL (0.2-1.0)
[2024-09-24 08:36] LABS: Blood Urea Nitrogen 33 mg/dL (9-23); Chloride 110 mmol/L (98-107); Glucose 122 mg/dL (74-106)
[2024-09-24] MEDS: VANCOMYCIN 1GM/250ML KIT 250 ML IV ONE (11:15)
[2024-09-24] MEDS ORDERED: VANCOMYCIN PER PHARMACY 0 MG IV SCH (11:15)
--- NOTE | 2024-09-24 12:21 | DVHPN2 ---
Subjective Confused No other complaints No pain He says he has no appetite and does not want to eat Changes from previous H/P or p: Changes Eyes: No Pain, No Vision change, No Conjunctivae inflammation, No Eyelid inflammation, No Other, No Redness ENT: No Ear pain, No Ear discharge, No Nose pain, No Nose discharge, No Nose congestion, No Mouth pain, No Mouth swelling, No Throat pain, No Throat swelling, No Other Cardiovascular: No Chest Pain, No Palpitations, No Orthopnea, No Paroxysmal Noc. Dyspnea, No Edema, No Lt Headedness, No Other Respiratory: No Cough, No Dry, No Shortness of breath, No SOB with excertion, No Wheezing, No Hemoptysis, No Pleuritic Pain, No Sputum, No Other Gastrointestinal: No Nausea, No Vomiting, No Abdominal Pain, No Diarrhea, No Constipation, No Melena, No Hematochezia, No Other Genitourinary: No Dysuria, No Frequency, No Incontinence, No Hematuria, No Retention, No Other Musculoskeletal: No other, No neck pain, No shoulder pain, No arm pain, No back pain, No hand pain, No leg pain, No foot pain Skin: No Rash, No Lesions, No Jaundice, No Bruising, No Other Objective Vitals Vital Signs Date Time Temp Pulse Resp B/P (MAP) Pulse Ox O2 Delivery O2 Flow Rate FiO2 09/24/24 09:00 97.6 113 16 110/60 (77) 93 97.6 09/24/24 06:00 Room Air* 0 21 Intake/Output Intake and Output 09/24/24 07:00 Intake Total 1026.25 ml Output Total 2150 ml Balance -1123.75 ml Intake Oral 640 ml IV Total 386.25 ml Output Urine Total 2150 ml General Appearance: Alert, Oriented X3 Lungs: Clear to auscultation, Normal air movement Cardiovascular: Regular rate, Normal S1, Normal S2, No murmurs Abdomen: Normal bowel sounds, Soft, No tenderness Extremities: No edema Medications Current Medications Medications Dose Ordered Sig/Gardenia Route Start Time Stop Time Status Last Admin Dose Admin Aspirin 81 mg DAILY PO 09/23/24 10:00 09/24/24 10:20 81 MG Ceftriaxone Sodium 50 ml @ 100 mls/hr DAILY@09 IV 09/23/24 09:00 09/24/24 10:20 100 MLS/HR Diagnostic Test (Pha) 1 strip ACHS 09/22/24 22:00 09/24/24 06:31 1 STRIP Insulin Human Regular ACHS SC 09/22/24 22:00 09/24/24 07:11 2 UNITS Dextrose 50 ml UD PRN IV 09/22/24 21:00 Sodium Chloride 10 ml Q8HR IV 09/22/24 22:00 09/24/24 06:00 10 ML Acetaminophen/ Hydrocodone Bitart 1 tab Q4HP PRN PO 09/22/24 21:00 Ondansetron HCl 4 mg Q4HP PRN IV 09/22/24 21:00 Docusate Sodium 100 mg BIDPRN PRN PO 09/22/24 21:00 Acetaminophen 650 mg Q6HP PRN PO 09/22/24 21:00 Nitroglycerin 0.4 mg Q5MINP PRN SL 09/22/24 22:45 Morphine Sulfate 2 mg Q30M PRN IV 09/22/24 22:45 Sodium Chloride 1,000 ml @ 75 mls/hr [id number] IV 09/23/24 13:30 09/24/24 02:50 75 MLS/HR Doxycycline Hyclate 100 ml @ 50 mls/hr Q12H IV 09/23/24 13:30 09/24/24 01:49 50 MLS/HR Atorvastatin Calcium 40 mg HS PO 09/23/24 22:00 09/23/24 21:48 40 MG Amiodarone HCl 200 mg Q12HR PO 09/23/24 22:00 09/24/24 10:29 200 MG Heparin Sodium (Porcine) 5,000 units Q12HR SC 09/23/24 22:00 09/24/24 10:15 5,000 UNITS Vancomycin HCl 0 ml @ 0 mls/hr UD IV 09/24/24 11:15 Laboratory Results Laboratory Tests 09/24/24 08:00 Chemistry Test 09/24/24 08:00 Albumin 3.6 g/dL (3.2-4.8) Calcium Level 8.9 mg/dL (8.7-10.4) Magnesium Level 1.7 mg/dL (1.6-2.6) Total Protein 8.0 g/dL (5.7-8.2) LFT Test 09/24/24 08:00 Alanine Aminotransferase (ALT) 20 U/L (7-40) Alkaline Phosphatase 93 U/L (46-116) Aspartate Amino Transferase (AST) 20 U/L (13-40) Total Bilirubin 0.3 mg/dL (0.2-1.0) Urinalysis Test 09/22/24 16:21 Urine Color Brown (Yellow) H Urine Clarity Ex.turbid (Clear) Urine pH 6.0 (5.0-9.0) Urine Specific Reading 1.008 (1.001-1.035) Urine Protein 2+ (Negative) H Urine Ketones Negative (Negative) Urine Blood 2+ /uL (Negative) H Urine Nitrite Negative (Negative) Urine Bilirubin Negative (Negative) Urine Urobilinogen Normal mg/dL (Negative) Urine Leukocyte Esterase 3+ /uL (Negative) Urine RBC 108 /hpf (0 - 3) Urine WBC Clumps Present /hpf (None Seen) Urine Microscopic WBC 3592 /HPF (0-3) H Urine Squamous Epithelial Cells None seen /hpf (<5) Urine Bacteria None seen /hpf (None Seen) Urine Mucus Few (None Seen) Urine Glucose Normal mg/dL (Normal) Microbiology Microbiology Date/Time Source Procedure Growth Status 09/22/24 16:21 Urine - Ruff Port Urine Culture - Final Serratia marcescens Complete 09/22/24 15:11 Blood Blood Culture - Preliminary Resulted Assessment/Plan Assessment/Plan Sepsis with septic shock Bacteremia with Gram-positive cocci in clusters UTI with serratia marcescens Pneumonia JUANA due to vasomotor nephropathy Afib DM2 HTN Dyslipidemia History of DVT History of mitral valve PLAN: IV antibiotics Rocephin and Doxycycline Levophed IV fluids 09/24/2024: Sepsis with pneumonia and UTI: Continue IV Rocephin and doxycycline, add vancomycin Infectious Disease consultation Bacteremia: Echo did not show vegetations Cardiology consult, JUANA: Continue IV fluids Atrial fibrillation: On amiodarone History of DVT Obesity Anemia CARLINE? To rule out endocarditis Plan discussed with: Patient My Orders Orders - SABRINA LEOS MD Procedure Category Date Status Time Sodium Chloride 0.9% PHA 09/23/24 In Process 13:30 Doxycycline PHA 09/23/24 In Process 100mg/100ml 13:30 Vancomycin 1gm/250ml PHA 09/24/24 In Process Kit 11:15 Vancomycin Per PHA 09/24/24 In Process Pharmacy 11:15 Complete Blood Count LAB 09/25/24 Verified 04:00 Creatinine LAB 09/25/24 Verified 04:00 Vancomycin,Random LAB 09/25/24 Verified 04:00 Date of Service: Sep 24, 2024 Billing Provider: SABRINA LEOS MD Common Visit Codes: NOT BILLABLE SABRINA LEOS MD Sep 24, 2024 12:21
--- NOTE | 2024-09-24 13:10 | DVHPN2 ---
Consult Progress Note Date Seen: Sep 24, 2024 Subjective Review of Systems: CVS:Normal, RESPIRATORY:Normal, NEURO:Normal Other Systems: C/o generalized weakness Objective vital signs Vital Sign Date Time Temp Pulse Resp B/P (MAP) Pulse Ox O2 Delivery O2 Flow Rate FiO2 09/24/24 09:00 97.6 113 16 110/60 (77) 93 97.6 09/24/24 06:00 Room Air* 0 21 Total Intake and Output 09/23/24 09/23/24 09/24/24 15:00 23:00 07:00 Intake Total 136.25 ml 650 ml 240 ml Output Total 1300 ml 850 ml Balance 136.25 ml -650 ml -610 ml medications Current Medications Medications Dose Ordered Sig/Gardenia Route Start Time Stop Time Status Last Admin Dose Admin Aspirin 81 mg DAILY PO 09/23/24 10:00 09/24/24 10:20 81 MG Ceftriaxone Sodium 50 ml @ 100 mls/hr DAILY@09 IV 09/23/24 09:00 09/24/24 10:20 100 MLS/HR Diagnostic Test (Pha) 1 strip ACHS 09/22/24 22:00 09/24/24 12:36 1 STRIP Insulin Human Regular ACHS SC 09/22/24 22:00 09/24/24 07:11 2 UNITS Dextrose 50 ml UD PRN IV 09/22/24 21:00 Sodium Chloride 10 ml Q8HR IV 09/22/24 22:00 09/24/24 06:00 10 ML Acetaminophen/ Hydrocodone Bitart 1 tab Q4HP PRN PO 09/22/24 21:00 Ondansetron HCl 4 mg Q4HP PRN IV 09/22/24 21:00 Docusate Sodium 100 mg BIDPRN PRN PO 09/22/24 21:00 Acetaminophen 650 mg Q6HP PRN PO 09/22/24 21:00 Nitroglycerin 0.4 mg Q5MINP PRN SL 09/22/24 22:45 Morphine Sulfate 2 mg Q30M PRN IV 09/22/24 22:45 Sodium Chloride 1,000 ml @ 75 mls/hr [id number] IV 09/23/24 13:30 09/24/24 02:50 75 MLS/HR Doxycycline Hyclate 100 ml @ 50 mls/hr Q12H IV 2/28/25 13:30 09/24/24 12:37 50 MLS/HR Atorvastatin Calcium 40 mg HS PO 09/23/24 22:00 09/23/24 21:48 40 MG Amiodarone HCl 200 mg Q12HR PO 09/23/24 22:00 09/24/24 10:29 200 MG Heparin Sodium (Porcine) 5,000 units Q12HR SC 09/23/24 22:00 09/24/24 10:15 5,000 UNITS Vancomycin HCl 0 ml @ 0 mls/hr UD IV 09/24/24 11:15 Examination: LUNGS:Normal, CVS:Normal, NEURO:Normal laboratory and microbiology Laboratory Tests 09/24/24 08:00 Test 09/24/24 08:00 Range/Units Serum Glucose 122 H 74-106 mg/dL Problem List/Assessment/Plan Problem List/Assessment/Plan Septic shock with PNA/UTI Rule out subacute endocarditis Paroxysmal atrial fibrillation, off AC therapy, now NSR Coronary artery disease status post quadruple vessel 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 Santos) Transthoracic echocardiogram revealed an LVEF of 60%. There is significant calcification in the annulus of the mitral leaflet. The aortic valve is notably sclerotic as well with significant calcification of the leaflets. Given latest findings, the patient will be scheduled for a transesophageal echocardiogram at 1st available. All risks and benefits of the procedure were discussed with the patient who agrees to proceed with intervention. All questions answered. In the meantime, continue single antiplatelet therapy and lipid lowering agent given history of CAD status post CABG. Continue home amiodarone BID. Likely off NOAC therapy given history of anemia. DVT/VTE prophylaxis. Monitor H&H closely. Thank you for allowing us to participate in this patient's care. Please call if you have any questions or concerns. This medical document was created using an electronic medical record system with voice recognition software and computerized dictation system. Although this document has been carefully reviewed, there might still be some phonetic and typographical errors. Occasional wrong-word or ``sound-alike substitutions may have occurred due to the inherent limitations of voice recognition software. These areas are purely typographical due to imperfections of the software programs and do not reflect any compromise in the patient's medical care. Please read the chart carefully and recognize, using context, where these substitutions have occurred. Plan discussed with: Patient, Other Date of Service: Sep 24, 2024 Billing Provider: DINA JO Cardiology Common Codes: [id number] HOSP CARE(High DINA JO Sep 24, 2024 13:10
[2024-09-24] MEDS: POTASSIUM CHL 20 Meq TABLET PO ONE (15:19)
--- NOTE | 2024-09-24 15:33 | DVHPN2 ---
Progress Note Date Seen: Sep 24, 2024 Medical Necessity Reason Pt with a Central, PICC or Fol: Yes The following are medically ne: Ruff Catheter Subjective Review of Systems: :Abnormal Objective vital signs Vital Sign Date Time Temp Pulse Resp B/P (MAP) Pulse Ox O2 Delivery O2 Flow Rate FiO2 09/24/24 13:00 98.2 112 17 112/72 (85) 94 98.2 09/24/24 06:00 Room Air* 0 21 Total Intake and Output 09/23/24 09/23/24 09/24/24 15:00 23:00 07:00 Intake Total 136.25 ml 650 ml 240 ml Output Total 1300 ml 850 ml Balance 136.25 ml -650 ml -610 ml medications Current Medications Medications Dose Ordered Sig/Gardenia Route Start Time Stop Time Status Last Admin Dose Admin Aspirin 81 mg DAILY PO 09/23/24 10:00 09/24/24 10:20 81 MG Ceftriaxone Sodium 50 ml @ 100 mls/hr DAILY@09 IV 09/23/24 09:00 09/24/24 10:20 100 MLS/HR Diagnostic Test (Pha) 1 strip ACHS 09/22/24 22:00 09/24/24 12:36 1 STRIP Insulin Human Regular ACHS SC 09/22/24 22:00 09/24/24 07:11 2 UNITS Dextrose 50 ml UD PRN IV 09/22/24 21:00 Sodium Chloride 10 ml Q8HR IV 09/22/24 22:00 09/24/24 14:00 10 ML Acetaminophen/ Hydrocodone Bitart 1 tab Q4HP PRN PO 09/22/24 21:00 Ondansetron HCl 4 mg Q4HP PRN IV 09/22/24 21:00 Docusate Sodium 100 mg BIDPRN PRN PO 09/22/24 21:00 Acetaminophen 650 mg Q6HP PRN PO 09/22/24 21:00 Nitroglycerin 0.4 mg Q5MINP PRN SL 09/22/24 22:45 Morphine Sulfate 2 mg Q30M PRN IV 09/22/24 22:45 Sodium Chloride 1,000 ml @ 75 mls/hr [id number] IV 09/23/24 13:30 09/24/24 02:50 75 MLS/HR Doxycycline Hyclate 100 ml @ 50 mls/hr Q12H IV 09/23/24 13:30 09/24/24 12:37 50 MLS/HR Atorvastatin Calcium 40 mg HS PO 09/23/24 22:00 09/23/24 21:48 40 MG Amiodarone HCl 200 mg Q12HR PO 09/23/24 22:00 09/24/24 10:29 200 MG Heparin Sodium (Porcine) 5,000 units Q12HR SC 09/23/24 22:00 09/24/24 10:15 5,000 UNITS Vancomycin HCl 0 ml @ 0 mls/hr UD IV 09/24/24 11:15 Examination: GENERAL:Abnormal, ABDOMEN:Normal, NEURO:Abnormal laboratory and microbiology Laboratory Tests 09/24/24 08:00 Test 09/24/24 08:00 Range/Units Serum Glucose 122 H 74-106 mg/dL Microbiology Date/Time Source Procedure Growth Status 09/22/24 16:21 Urine - Ruff [place] Urine Culture - Final Serratia marcescens Complete 09/22/24 15:11 Blood Blood Culture - Preliminary Resulted Problem List/Assessment/Plan Problem List/Assessment/Plan Acute kidney injury secondary to infection highly likely prerenal etiology versus intrinsic renal. Sepsis with multiple sources Gram-negative urinary tract infection Gram-positive bacteremia History atrial fibrillation, mitral valve prosthetic, aortic valve stenosis Gentle IV fluid hydration IV antibiotics for sepsis Avoid hypotension Currently has a Ruff strict Is&Os Maintain mean arterial pressure greater than 65 Plan discussed with: Patient MILTON VYAS MD Sep 24, 2024 15:33
--- NOTE | 2024-09-24 16:19 | DVHINCON2 ---
Date of service: Sep 24, 2024 Family History: Patient reports no known family medical history. Allergies: Coded Allergies: NO KNOWN ALLERGIES (Unverified , 03/11/11) Home Meds Active Scripts Isosorbide Mononitrate (Isosorbide Mononitrate Er) 30 Mg Tab, 1 TAB PO DAILY, #30 TAB 5 Refills Prov:SABRINA LEOS MD 12/19/20 Ranolazine (Ranexa) 500 Mg Tab, 500 MG PO BID for 30 Days, #60 TAB 3 Refills Prov:SABRINA LEOS MD 12/19/20 Aspirin (Aspir-Low) 81 Mg Tab, 81 MG PO DAILY for 100 Days, #100 TAB 3 Refills Prov:SABRINA LEOS MD 12/19/20 Reported Medications Gabapentin (Gabapentin) 100 Mg Cap, 100 MG PO BID for 30 Days, MG 12/17/20 Atorvastatin Calcium (ATORVASTATIN CALCIUM) 20 Mg Tab, 1 TAB PO HS, #30 TAB 5 Refills 12/17/20 Losartan Potassium (Losartan Potassium) 25 Mg Tab, 25 MG PO DAILY for 30 Days, MG 12/17/20 Metoprolol Succinate (Metoprolol Succinate Er) 50 Mg Tab, 50 MG PO DAILY for 30 Days, MG 12/17/20 Current Medications Current Medications Medications (Trade) Dose Ordered Sig/Gardenia Route PRN Reason Start Time Stop Time Status Last Admin Atorvastatin Calcium (Lipitor) 40 mg HS PO 09/23/24 22:00 09/23/24 21:48 Amiodarone HCl (Cordarone Tablet) 200 mg Q12HR PO 09/23/24 22:00 09/24/24 10:29 Heparin Sodium (Porcine) 5,000 units Q12HR SC 09/23/24 22:00 09/24/24 10:15 Vancomycin HCl 0 ml @ 0 mls/hr UD IV 09/24/24 11:15 Vital Signs Vital Signs Date Time Temp Pulse Resp B/P (MAP) Pulse Ox O2 Delivery O2 Flow Rate FiO2 09/24/24 13:00 98.2 112 17 112/72 (85) 94 98.2 09/24/24 06:00 Room Air* 0 21 Labs/Diagnostic Data Labs Test 09/24/24 12:32 09/24/24 08:00 09/22/24 19:37 09/22/24 16:21 Range/Units POC Glucose 128 H 70-106 mg/dl White Blood Count 8.2 4.4-10.8 10^3/uL Red Blood Count 2.99 L 4.5-5.90 10^6/uL Hemoglobin 8.3 L 13.5-17.5 g/dL Hematocrit 25.9 L 41.0-53.0 % Mean Corpuscular Volume 86.8 80.0-100.0 fL Mean Corpuscular Hemoglobin 27.8 L 28.0-32.0 pg Mean Corpuscular Hemoglobin Concent 32.0 32.0-36.0 g/dL Red Cell Distribution Width 15.7 H 11.8-14.3 % Platelet Count 282 140-450 10^3/uL Mean Platelet Volume 5.9 L 6.9-10.8 fL Neutrophils (%) (Auto) 76.0 37.0-80.0 % Lymphocytes (%) (Auto) 12.0 10.0-50.0 % Monocytes (%) (Auto) 8.0 0.0-12.0 % Eosinophils (%) (Auto) 3.2 0.0-7.0 % Basophils (%) (Auto) 0.8 0.0-2.0 % Neutrophils # (Auto) 6.2 1.6-8.6 10 ^3/uL Lymphocytes # (Auto) 1.0 0.4-5.4 10 ^3/uL Monocytes # (Auto) 0.7 0-1.3 10 ^3/uL Eosinophils # (Auto) 0.3 0-0.8 10 ^3/uL Basophils # (Auto) 0.1 0-0.2 10 ^3/uL Nucleated Red Blood Cells 0.0 % Sodium Level 139 136-145 mmol/L Potassium Level 3.5 3.5-5.1 mmol/L Chloride Level 110 H 98-107 mmol/L Carbon Dioxide Level 20 20-31 mmol/L Anion Gap 9 5-15 Blood Urea Nitrogen 33 #H 9-23 mg/dL Creatinine 1.71 H 0.700-1.30 mg/dL Glomerular Filtration Rate Calc 40 >90 mL/min BUN/Creatinine Ratio 19.3 10.0-20.0 Serum Glucose 122 H 74-106 mg/dL Calcium Level 8.9 8.7-10.4 mg/dL Magnesium Level 1.7 1.6-2.6 mg/dL Total Bilirubin 0.3 0.2-1.0 mg/dL Aspartate Amino Transferase (AST) 20 13-40 U/L Alanine Aminotransferase (ALT) 20 7-40 U/L Alkaline Phosphatase 93 46-116 U/L Total Protein 8.0 5.7-8.2 g/dL Albumin 3.6 3.2-4.8 g/dL Lactic Acid Level 1.6 0.4-2.0 mmol/L Urine Color Brown H Yellow Urine Clarity Ex.turbid Clear Urine pH 6.0 5.0-9.0 Urine Specific [place] 1.008 1.001-1.035 Urine Protein 2+ H Negative Urine Ketones Negative Negative Urine Blood 2+ H Negative /uL Urine Nitrite Negative Negative Urine Bilirubin Negative Negative Urine Urobilinogen Normal Negative mg/dL Urine Leukocyte Esterase 3+ Negative /uL Urine RBC 108 0 - 3 /hpf Urine WBC Clumps Present None Seen /hpf Urine Microscopic WBC 3592 H 0-3 /HPF Urine Squamous Epithelial Cells None seen <5 /hpf Urine Bacteria None seen None Seen /hpf Urine Mucus Few None Seen Urine Glucose Normal Normal mg/dL Test 09/22/24 15:11 Range/Units Troponin I High Sensitivity < 3 L </=54 ng/L Microbiology Date/Time Source Procedure Growth Status 09/22/24 16:21 Urine - Ruff [place] Urine Culture - Final Serratia marcescens Complete 09/22/24 15:11 Blood Blood Culture - Preliminary Resulted Problems(with codes): (1) Hypotension, unspecified (2) Urinary tract infection (3) Pneumonitis (4) Hypotension (5) TIA (transient ischemic attack) (6) Sepsis, unspecified organism (7) Chronic a-fib (8) NSTEMI (non-ST elevated myocardial infarction) Plan/Recommendation ASSESSMENT AND PLAN: ID Problem List: - Atrial fibrillation - Diabetes mellitus - Hypertension - Hyperlipidemia - Myocardial infarction - Generalized weakness - Hypotension - Lactic acidosis - Acute kidney injury (JUANA) - Chronic kidney disease (CKD) - Altered mental status - Uremia - Tachycardia - Severe sepsis - Urinary tract infection (UTI) due to Serratia marcescens - Possible aspiration pneumonia - Diminished breath sounds at bases; possible bronchitis on chest X-ray Assessment This is an 79 y.o. male with a past medical history of atrial fibrillation, diabetes mellitus, hypertension, hyperlipidemia, and myocardial infarction, who presents with generalized weakness. He was found to be hypotensive (BP 76/49) with a lactic acid of 2.3. He was lethargic and hard to arouse on admission, which has since improved with fluid resuscitation and initiation of Levophed drip. His blood pressure is now stable at 111/63 without pressors. Creatinine was elevated to 2.46 with BUN of 61, improved to creatinine of 1.71 after fluid resuscitation and antibiotics. 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 He has diminished breath sounds at the bases on exam, and chest X-ray findings suggest bilateral bronchial thickening and possible bronchitis. Microscopic urine culture grew Serratia marcescens, and blood cultures had 2 out of 4 aerobic bottles positive for coagulase-negative Staphylococcus. Plan: - Discontinue doxycycline due to low concern for atypical pneumonia. - Likely aspiration pneumonia; continue ceftriaxone to cover pneumonia and UTI. - Continue vancomycin. - Suspect blood culture contamination with coagulase-negative staph (likely skin rangel); recommend repeating blood cultures to confirm. - Recommend renal ultrasound to further evaluate the extent of urinary tract infection. Isolation Precautions: standard Assessment and plan was discussed with the patient as written above Plan is subject to change pending incorporation of new incoming information/diagnostics. Updates may be added as addendum at the bottom (OR TOP) of this note History: The patient's chart and medications were reviewed in detail and the patient was seen and examined. History obtained from: patient Mr. Molina is an 79 y.o. male with a past medical history of atrial fibrillation, diabetes mellitus, hypertension, hyperlipidemia, and myocardial infarction, who presented to the ED with generalized weakness. He was found to be hypotensive (BP 76/49) and had a lactic acid of 2.3. He was lethargic and hard to arouse on admission; this has since improved with fluid resuscitation an d initiation of Levophed drip. His blood pressure is now stable at 111/63 without pressors. His creatinine was elevated to 2.46 with BUN of 61. 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 Physical exam reveals diminished breath sounds at the bases. Chest X-ray findings suggest bilateral bronchial thickening and possible bronchitis. He is currently on vancomycin and ceftriaxone. Lab data includes WBC 8.3, platelet count 283, hemoglobin 8.4. Microscopic urine culture grew Serratia marcescens, and blood cultures had 2 out of 4 aerobic bottles positive for coagulase-negative Staphylococcus. Review of Systems: A complete 10-system review of systems was completed and negative except as noted in the HPI or here. ROS: - CONSTITUTIONAL: Reports generalized weakness. - HEENT: Denies changes in vision and hearing. - RESPIRATORY: Reports shortness of breath. Denies cough. - CV: Denies chest pain. - GI: Denies abdominal pain, nausea, vomiting, and diarrhea. - : Denies dysuria and urinary frequency. - MSK: Denies myalgia and joint pain. - SKIN: Denies rash and pruritus. - NEUROLOGICAL: Reports lethargy; improved. - PSYCHIATRIC: Denies recent changes in mood. Past Medical History: Diagnosis Date Atrial fibrillation Diabetes mellitus Hypertension Hyperlipidemia Myocardial infarction Chronic kidney disease (CKD) Past Surgical History: History reviewed. Appendectomy Coronary artery bypass grafting (CABG) Home Medications: Home medications not provided. Allergies: No Known Drug Allergies (NKDA) Family History: Family history not contributory. Social History: Social History Socioeconomic History Marital status: Not provided Smoking status: Never smoker Alcohol use: Debo Drug use: Denies illicit drug use Social History Narrative No smoking, alcohol debo, no drug use. Objective: Vital Signs on Arrival: Temp: 98F BP: 76/49 Pulse: Not provided Resp: Not provided SpO2: 97% on room air Most Recent Vital Signs: Temp: 98F BP: 111/63 Pulse: 83 Resp: Not provided SpO2: 97% on room air Admission Weight: Not provided Physical Exam: General: NAD Neck: Supple. No masses. HEENT: PERRL. Normal lids and conjunctiva. Moist mucous membranes. Oropharynx without lesions, exudates, or excessive erythema. Normal appearance of the external aspects of the nose and ears. Heart: Regular rhythm, normal rate. No murmur. No lower extremity edema. Lungs: Diminished breath sounds at the bases bilaterally. No wheezes. No crackles. Abdomen: Soft. Non-tender. Non-distended. No masses or abdominal hernia. Msk: No digital cyanosis. Normal strength and tone in all 4 limbs. Skin: Warm and dry, no rashes. Neuro: Alert, more aware, following commands. No facial droop or slurred speech. Extra-ocular movements intact. Sensation intact to soft touch in all 4 limbs. Psych: Appropriate mood. Full affect. Oriented to person, place, time, and situation. Lines: No active lines noted. Diagnostic Studies: Available diagnostic studies were reviewed personally. Significant relevant results and findings are outlined below or addressed in the Assessment and Plan above. Pertinent Imaging: Chest X-ray: - Impression - Bilateral bronchial thickening and possible bronchitis. 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 Laboratory Data: WBC: 8.3 - Hemoglobin: 8.4 - Platelets: 283 BUN: 61 - Creatinine: 2.46 (improved to 1.71 after fluids and antibiotics) - Lactic acid: 2.3 - Blood cultures: 2 out of 4 aerobic bottles positive for coagulase-negative Staphylococcus (suspected contaminant) - Urine culture: Microscopic growth of Serratia marcescens Plan discussed with: Patient DIONI GARCIA MD Sep 24, 2024 16:19
--- NOTE | 2024-09-24 18:12 | DVH ---
EXAM: US KIDNEY INDICATION: evaluate for pyelonephritis, stricture, prostatomegaly TECHNIQUE: Multiple real-time sonographic images of the kidneys and bladder were obtained. COMPARISON: None Findings: Right kidney measures 9.2 cm with normal contours, echotexture, and cortical thickness. No evidence o f hydronephrosis, calculi, cystic or solid lesions. Left kidney measures 11.5 cm with normal contours, echotexture, and cortical thickness. Mild hydronep hrosis. No evidence of calculi, cystic or solid lesions. Urinary bladder is decompressed via Ruff catheter. Prostate not visualized. Impression: 1. Asymmetric kidneys, left greater than right. 2. Mild left hydronephrosis. 3. Urinary bladder is decompressed via Ruff catheter.
[2024-09-25] VITALS (17 sets, daily range): BP systolic 102–137; BP diastolic 64–79; PULSE 99–110; RESP 16–19; TEMP 97.8–98.5; O2SAT 94–97
[2024-09-25 08:26] LABS: Basophils # (auto) 0 10 ^3/uL (0-0.2); Basophils % (auto) 0.7 % (0.0-2.0); Eosinophils # (auto) 0.2 10 ^3/uL (0-0.8); Eosinophils % (auto) 3.8 % (0.0-7.0); Hematocrit 26.9 % (41.0-53.0); Hemoglobin 8.5 g/dL (13.5-17.5); Lymphocytes # (auto) 0.9 10 ^3/uL (0.4-5.4); Lymphocytes % (auto) 13.8 % (10.0-50.0); Mean Corpuscular Hemoglobin 27.8 pg (28.0-32.0); Mean Corpuscular Hgb Conc. 31.7 g/dL (32.0-36.0); Mean Corpuscular Volume 87.8 fL (80.0-100.0); Monocytes # (auto) 0.5 10 ^3/uL (0-1.3); Monocytes % (auto) 8.4 % (0.0-12.0); Neutrophils # (auto) 4.7 10 ^3/uL (1.6-8.6); Neutrophils % (auto) 73.3 % (37.0-80.0); Nucleated Red Blood Cells % 0.1 %; Platelet Count (auto) 262 10^3/uL (140-450); Red Blood Cells 3.06 10^6/uL (4.5-5.90); Red Cell Distribution Width 15.5 % (11.8-14.3); White Blood Cell 6.4 10^3/uL (4.4-10.8)
[2024-09-25 08:30] LABS: Alanine Aminotransferase 16 U/L (7-40); Alkaline Phosphatase 89 U/L (46-116); Anion Gap 12 (5-15); Aspartate Aminotransferase 18 U/L (13-40); BUN/Creatinine Ratio 15.9 (10.0-20.0); Calcium 8.8 mg/dL (8.7-10.4); LDL Cholesterol 58 mg/dL (< 100); Magnesium 1.6 mg/dL (1.6-2.6); Potassium 3.9 mmol/L (3.5-5.1); Sodium 142 mmol/L (136-145); Total Protein 7.6 g/dL (5.7-8.2); Triglycerides 91 mg/dL (< 150)
[2024-09-25 08:31] LABS: Albumin 3.4 g/dL (3.2-4.8); Cholesterol 101 mg/dL (< 200)
[2024-09-25 08:32] LABS: Bilirubin, Total 0.3 mg/dL (0.2-1.0)
[2024-09-25 08:36] LABS: Blood Urea Nitrogen 23 mg/dL (9-23); Carbon Dioxide 19 mmol/L (20-31); Chloride 111 mmol/L (98-107); Glucose 129 mg/dL (74-106); HDL Cholesterol 29 mg/dL (40-59)
[2024-09-25 11:17] LABS: INR 1.13 (0.9-1.15); Partial Thromboplastin Time 29.4 SEC (24.5-34.5); Prothrombin Time 11.8 sec (9.3-11.8)
--- NOTE | 2024-09-25 12:46 | DVHPN2 ---
Subjective He is better and more alert and oriented at the bedside says he is looking better He is scheduled for CARLINE tomorrow Changes from previous H/P or p: Changes Eyes: No Pain, No Vision change, No Conjunctivae inflammation, No Eyelid inflammation, No Other, No Redness ENT: No Ear pain, No Ear discharge, No Nose pain, No Nose discharge, No Nose congestion, No Mouth pain, No Mouth swelling, No Throat pain, No Throat swelling, No Other Cardiovascular: No Chest Pain, No Palpitations, No Orthopnea, No Paroxysmal Noc. Dyspnea, No Edema, No Lt Headedness, No Other Respiratory: No Cough, No Dry, No Shortness of breath, No SOB with excertion, No Wheezing, No Hemoptysis, No Pleuritic Pain, No Sputum, No Other Gastrointestinal: No Nausea, No Vomiting, No Abdominal Pain, No Diarrhea, No Constipation, No Melena, No Hematochezia, No Other Genitourinary: No Dysuria, No Frequency, No Incontinence, No Hematuria, No Retention, No Other Musculoskeletal: No other, No neck pain, No shoulder pain, No arm pain, No back pain, No hand pain, No leg pain, No foot pain Skin: No Rash, No Lesions, No Jaundice, No Bruising, No Other Objective Vitals Vital Signs Date Time Temp Pulse Resp B/P (MAP) Pulse Ox O2 Delivery O2 Flow Rate FiO2 09/25/24 09:00 97.8 105 16 106/64 (78) 95 97.8 09/25/24 08:00 Room Air* 0 21 Intake/Output Intake and Output 09/25/24 07:00 Intake Total 1314 ml Output Total 2375 ml Balance -1061 ml Intake Oral 1264 ml IV Total 50 ml Output Urine Total 2375 ml General Appearance: Alert, Oriented X3 Lungs: Clear to auscultation, Normal air movement Cardiovascular: Regular rate, Normal S1, Normal S2, No murmurs Abdomen: Normal bowel sounds, Soft, No tenderness Extremities: No edema Medications Current Medications Medications Dose Ordered Sig/Gardenia Route Start Time Stop Time Status Last Admin Dose Admin Aspirin 81 mg DAILY PO 09/23/24 10:00 09/25/24 09:45 81 MG Ceftriaxone Sodium 50 ml @ 100 mls/hr DAILY@09 IV 09/23/24 09:00 09/25/24 09:45 100 MLS/HR Diagnostic Test (Pha) 1 strip ACHS 09/22/24 22:00 09/25/24 11:31 1 STRIP Insulin Human Regular ACHS SC 09/22/24 22:00 09/25/24 11:35 3 UNITS Dextrose 50 ml UD PRN IV 09/22/24 21:00 Sodium Chloride 10 ml Q8HR IV 09/22/24 22:00 09/25/24 05:55 10 ML Acetaminophen/ Hydrocodone Bitart 1 tab Q4HP PRN PO 09/22/24 21:00 Ondansetron HCl 4 mg Q4HP PRN IV 09/22/24 21:00 Docusate Sodium 100 mg BIDPRN PRN PO 09/22/24 21:00 Acetaminophen 650 mg Q6HP PRN PO 09/22/24 21:00 Nitroglycerin 0.4 mg Q5MINP PRN SL 09/22/24 22:45 Morphine Sulfate 2 mg Q30M PRN IV 09/22/24 22:45 Sodium Chloride 1,000 ml @ 75 mls/hr [id number] IV 09/23/24 13:30 09/24/24 16:10 75 MLS/HR Atorvastatin Calcium 40 mg HS PO 09/23/24 22:00 09/24/24 21:25 40 MG Amiodarone HCl 200 mg Q12HR PO 09/23/24 22:00 09/25/24 09:56 200 MG Heparin Sodium (Porcine) 5,000 units Q12HR SC 09/23/24 22:00 09/25/24 10:04 5,000 UNITS Vancomycin HCl 0 ml @ 0 mls/hr UD IV 09/24/24 11:15 Vancomycin HCl 100 ml @ 100 mls/hr Q24H IV 09/25/24 15:00 Laboratory Results Laboratory Tests 09/25/24 06:28 Chemistry Test 09/25/24 06:28 Albumin 3.4 g/dL (3.2-4.8) Calcium Level 8.8 mg/dL (8.7-10.4) Magnesium Level 1.6 mg/dL (1.6-2.6) Total Protein 7.6 g/dL (5.7-8.2) Coagulation Test 09/25/24 10:22 Prothrombin Time 11.8 sec (9.3-11.8) Prothrombin Time INR 1.13 (0.9-1.15) Activated Partial Thromboplast Time 29.4 SEC (24.5-34.5) Lipid panel Test 09/25/24 06:28 Cholesterol Level 101 mg/dL (< 200) HDL Cholesterol 29 mg/dL (40-59) L Triglycerides Level 91 mg/dL (< 150) LFT Test 09/25/24 06:28 Alanine Aminotransferase (ALT) 16 U/L (7-40) Alkaline Phosphatase 89 U/L (46-116) Aspartate Amino Transferase (AST) 18 U/L (13-40) Total Bilirubin 0.3 mg/dL (0.2-1.0) HgA1c, TSH Test 09/25/24 06:28 Hemoglobin A1c 6.2 % A1C (<5.7) H Urinalysis Test 09/22/24 16:21 Urine Color Brown (Yellow) H Urine Clarity Ex.turbid (Clear) Urine pH 6.0 (5.0-9.0) Urine Specific [place] 1.008 (1.001-1.035) Urine Protein 2+ (Negative) H Urine Ketones Negative (Negative) Urine Blood 2+ /uL (Negative) H Urine Nitrite Negative (Negative) Urine Bilirubin Negative (Negative) Urine Urobilinogen Normal mg/dL (Negative) Urine Leukocyte Esterase 3+ /uL (Negative) Urine RBC 108 /hpf (0 - 3) Urine WBC Clumps Present /hpf (None Seen) Urine Microscopic WBC 3592 /HPF (0-3) H Urine Squamous Epithelial Cells None seen /hpf (<5) Urine Bacteria None seen /hpf (None Seen) Urine Mucus Few (None Seen) Urine Glucose Normal mg/dL (Normal) Microbiology Microbiology Date/Time Source Procedure Growth Status 09/22/24 16:21 Urine - [place] Urine Culture - Final Serratia marcescens Complete 09/22/24 15:11 Blood Blood Culture - Final Staphylococcus epidermidis Complete Assessment/Plan Assessment/Plan Sepsis with septic shock Bacteremia with Gram-positive cocci in clusters UTI with serratia marcescens Pneumonia JUANA due to vasomotor nephropathy Afib DM2 HTN Dyslipidemia History of DVT History of mitral valve PLAN: IV antibiotics Rocephin and Doxycycline Levophed IV fluids 09/24/2024: Sepsis with pneumonia and UTI: Continue IV Rocephin and doxycycline, add vancomycin Infectious Disease consultation Bacteremia: Echo did not show vegetations Cardiology consult, JUANA: Continue IV fluids Atrial fibrillation: On amiodarone History of DVT Obesity Anemia CARLINE? To rule out endocarditis 09/25/2024: CARLINE for tomorrow Blood culture 1 bottle showed Staphylococcus epidermidis and the 2nd bottle is still pending JUANA: Improving with IV fluids Continue IV antibiotics Rocephin and vancomycin Discontinue doxycycline Atrial fibrillation: Continue amiodarone Discussed with the at the bedside Physical therapy Plan discussed with: Patient, Spouse My Orders Orders - SABRINA LEOS MD Procedure Category Date Status Time Pureed DIET 09/25/24 Transmitted Breakfast * Wound Consult CONS 09/25/24 Transmitted Vancomycin 750mg Kit PHA 09/25/24 In Process (Vancomycin Hcl) 15:00 Complete Blood Count LAB 09/26/24 Verified 04:00 Creatinine LAB 09/26/24 Verified 04:00 Vancomycin,Trough LAB 09/28/24 Verified 14:00 Vancomycin Per LACHO 09/25/24 In Process Pharmacy Protoc 11:44 Pt Request For Service PT 09/25/24 Logged 12:08 Date of Service: Sep 25, 2024 Billing Provider: SABRINA LEOS MD Common Visit Codes: NOT BILLABLE SABRINA LEOS MD Sep 25, 2024 12:46
--- NOTE | 2024-09-25 12:48 | DVHPN2 ---
Consult Progress Note Date Seen: Sep 25, 2024 Subjective Other Systems: Denies any cardiac symptoms Objective vital signs Vital Sign Date Time Temp Pulse Resp B/P (MAP) Pulse Ox O2 Delivery O2 Flow Rate FiO2 09/25/24 09:00 97.8 105 16 106/64 (78) 95 97.8 09/25/24 08:00 Room Air* 0 21 Total Intake and Output 09/24/24 09/24/24 09/25/24 15:00 23:00 07:00 Intake Total 50 ml 414 ml 850 ml Output Total 1125 ml 1250 ml Balance 50 ml -711 ml -400 ml medications Current Medications Medications Dose Ordered Sig/Gardenia Route Start Time Stop Time Status Last Admin Dose Admin Aspirin 81 mg DAILY PO 09/23/24 10:00 09/25/24 09:45 81 MG Ceftriaxone Sodium 50 ml @ 100 mls/hr DAILY@09 IV 09/23/24 09:00 09/25/24 09:45 100 MLS/HR Diagnostic Test (Pha) 1 strip ACHS 09/22/24 22:00 09/25/24 11:31 1 STRIP Insulin Human Regular ACHS SC 09/22/24 22:00 09/25/24 11:35 3 UNITS Dextrose 50 ml UD PRN IV 09/22/24 21:00 Sodium Chloride 10 ml Q8HR IV 09/22/24 22:00 09/25/24 05:55 10 ML Acetaminophen/ Hydrocodone Bitart 1 tab Q4HP PRN PO 09/22/24 21:00 Ondansetron HCl 4 mg Q4HP PRN IV 09/22/24 21:00 Docusate Sodium 100 mg BIDPRN PRN PO 09/22/24 21:00 Acetaminophen 650 mg Q6HP PRN PO 09/22/24 21:00 Nitroglycerin 0.4 mg Q5MINP PRN SL 09/22/24 22:45 Morphine Sulfate 2 mg Q30M PRN IV 09/22/24 22:45 Sodium Chloride 1,000 ml @ 75 mls/hr [id number] IV 09/23/24 13:30 09/24/24 16:10 75 MLS/HR Atorvastatin Calcium 40 mg HS PO 09/23/24 22:00 09/24/24 21:25 40 MG Amiodarone HCl 200 mg Q12HR PO 09/23/24 22:00 09/25/24 09:56 200 MG Heparin Sodium (Porcine) 5,000 units Q12HR SC 09/23/24 22:00 09/25/24 10:04 5,000 UNITS Vancomycin HCl 0 ml @ 0 mls/hr UD IV 09/24/24 11:15 Vancomycin HCl 100 ml @ 100 mls/hr Q24H IV 09/25/24 15:00 Examination: GENERAL:Abnormal, LUNGS:Abnormal (Diminished), CVS:Normal, NEURO:Abnormal (A&O x 2) laboratory and microbiology Laboratory Tests 09/25/24 06:28 Test 09/25/24 06:28 Range/Units Serum Glucose 129 H 74-106 mg/dL Problem List/Assessment/Plan Problem List/Assessment/Plan Septic shock with PNA/UTI Rule out subacute endocarditis Paroxysmal atrial fibrillation, off AC therapy, now NSR Coronary artery disease status post quadruple vessel 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 Santos) Transthoracic echocardiogram revealed an LVEF of 60%. There is significant calcification in the annulus of the mitral leaflet. The aortic valve is notably sclerotic as well with significant calcification of the leaflets. Given latest findings, the patient has been scheduled for a transesophageal echocardiogram at first available. Consents signed by given patient's mentation status. In the meantime, continue single antiplatelet therapy and lipid lowering agent given history of CAD status post CABG. Continue home amiodarone BID. Likely off NOAC therapy given history of anemia. DVT/VTE prophylaxis. Monitor H&H closely. Thank you for allowing us to participate in this patient's care. Please call if you have any questions or concerns. This medical document was created using an electronic medical record system with voice recognition software and computerized dictation system. Although this document has been carefully reviewed, there might still be some phonetic and typographical errors. Occasional wrong-word or ``sound-alike substitutions may have occurred due to the inherent limitations of voice recognition software. These areas are purely typographical due to imperfections of the software programs and do not reflect any compromise in the patient's medical care. Please read the chart carefully and recognize, using context, where these substitutions have occurred. Plan discussed with: Patient, Other Date of Service: Sep 25, 2024 Billing Provider: DINA JO Cardiology Common Codes: [id number] CARE(DINA Thompson Sep 25, 2024 12:48
[2024-09-25] MEDS: VANCOMYCIN 750MG KIT 100 ML IV SCH (15:28)
--- NOTE | 2024-09-25 16:00 | DVHPN2 ---
Progress Note Date Seen: Sep 25, 2024 Medical Necessity Reason Pt with a Central, PICC or Fol: Yes The following are medically ne: Morrison Catheter Subjective Review of Systems: CVS:Abnormal, RESPIRATORY:Abnormal Objective vital signs Vital Sign Date Time Temp Pulse Resp B/P (MAP) Pulse Ox O2 Delivery O2 Flow Rate FiO2 09/25/24 14:00 17 95 Room Air* 0 21 09/25/24 13:00 98.3 100 118/76 (90) 98.3 Total Intake and Output 09/24/24 09/24/24 09/25/24 15:00 23:00 07:00 Intake Total 50 ml 414 ml 850 ml Output Total 1125 ml 1250 ml Balance 50 ml -711 ml -400 ml medications Current Medications Medications Dose Ordered Sig/Gardenia Route Start Time Stop Time Status Last Admin Dose Admin Aspirin 81 mg DAILY PO 09/23/24 10:00 09/25/24 09:45 81 MG Ceftriaxone Sodium 50 ml @ 100 mls/hr DAILY@09 IV 09/23/24 09:00 09/25/24 09:45 100 MLS/HR Diagnostic Test (Pha) 1 strip ACHS 09/22/24 22:00 09/25/24 11:31 1 STRIP Insulin Human Regular ACHS SC 09/22/24 22:00 09/25/24 11:35 3 UNITS Dextrose 50 ml UD PRN IV 09/22/24 21:00 Sodium Chloride 10 ml Q8HR IV 09/22/24 22:00 09/25/24 14:22 10 ML Acetaminophen/ Hydrocodone Bitart 1 tab Q4HP PRN PO 09/22/24 21:00 Ondansetron HCl 4 mg Q4HP PRN IV 09/22/24 21:00 Docusate Sodium 100 mg BIDPRN PRN PO 09/22/24 21:00 Acetaminophen 650 mg Q6HP PRN PO 09/22/24 21:00 Nitroglycerin 0.4 mg Q5MINP PRN SL 09/22/24 22:45 Morphine Sulfate 2 mg Q30M PRN IV 09/22/24 22:45 Sodium Chloride 1,000 ml @ 75 mls/hr [id number] IV 09/23/24 13:30 09/24/24 16:10 75 MLS/HR Atorvastatin Calcium 40 mg HS PO 09/23/24 22:00 09/24/24 21:25 40 MG Amiodarone HCl 200 mg Q12HR PO 09/23/24 22:00 09/25/24 09:56 200 MG Heparin Sodium (Porcine) 5,000 units Q12HR SC 09/23/24 22:00 09/25/24 10:04 5,000 UNITS Vancomycin HCl 0 ml @ 0 mls/hr UD IV 09/24/24 11:15 Vancomycin HCl 100 ml @ 100 mls/hr Q24H IV 09/25/24 15:00 09/25/24 15:28 100 MLS/HR Examination: GENERAL:Abnormal, LUNGS:Abnormal, CVS:Abnormal laboratory and microbiology Laboratory Tests 09/25/24 06:28 Test 09/25/24 06:28 Range/Units Serum Glucose 129 H 74-106 mg/dL Microbiology Date/Time Source Procedure Growth Status 09/22/24 16:21 Urine - [place] Port Urine Culture - Final Serratia marcescens Complete 09/22/24 15:11 Blood Blood Culture - Final Staphylococcus epidermidis Complete Problem List/Assessment/Plan Problem List/Assessment/Plan Acute kidney injury secondary to infection highly likely prerenal etiology versus intrinsic renal. Sepsis with multiple sources Gram-negative urinary tract infection Gram-positive bacteremia History atrial fibrillation, mitral valve prosthetic, aortic valve stenosis Gentle IV fluid hydration IV antibiotics for sepsis cardiology rec CARLINE tomorrow Avoid hypotension Currently has a Morrison strict Is&Os rec Dc morrison Maintain mean arterial pressure greater than 65 US shows mild left hydronephrosis from renal standpoint patient has improved and is stable, follow up in renal clinic after discharge Plan discussed with: Patient MILTON VYAS MD Sep 25, 2024 15:59
[2024-09-26] VITALS (20 sets, daily range): BP systolic 95–136; BP diastolic 60–77; PULSE 71–116; RESP 16–21; TEMP 97.7–99.9; O2SAT 93–98
[2024-09-26 06:39] LABS: Basophils # (auto) 0 10 ^3/uL (0-0.2); Basophils % (auto) 0.5 % (0.0-2.0); Eosinophils # (auto) 0.2 10 ^3/uL (0-0.8); Eosinophils % (auto) 2.5 % (0.0-7.0); Hematocrit 25.7 % (41.0-53.0); Hemoglobin 8.3 g/dL (13.5-17.5); Mean Corpuscular Hgb Conc. 32.3 g/dL (32.0-36.0)
[2024-09-26 06:41] LABS: Lymphocytes # (auto) 0.9 10 ^3/uL (0.4-5.4); Lymphocytes % (auto) 10.9 % (10.0-50.0); Mean Corpuscular Hemoglobin 28.1 pg (28.0-32.0); Mean Corpuscular Volume 86.9 fL (80.0-100.0); Monocytes # (auto) 0.5 10 ^3/uL (0-1.3); Monocytes % (auto) 6.6 % (0.0-12.0); Neutrophils # (auto) 6.5 10 ^3/uL (1.6-8.6); Neutrophils % (auto) 79.5 % (37.0-80.0); Nucleated Red Blood Cells % 0.1 %; Platelet Count (auto) 263 10^3/uL (140-450); Red Blood Cells 2.95 10^6/uL (4.5-5.90); Red Cell Distribution Width 15.9 % (11.8-14.3); White Blood Cell 8.1 10^3/uL (4.4-10.8)
[2024-09-26 07:17] LABS: Anion Gap 12 (5-15); Chloride 107 mmol/L (98-107); Potassium 3.7 mmol/L (3.5-5.1); Sodium 138 mmol/L (136-145)
[2024-09-26 07:18] LABS: Calcium 8.8 mg/dL (8.7-10.4)
[2024-09-26 07:21] LABS: Carbon Dioxide 19 mmol/L (20-31)
[2024-09-26 07:23] LABS: BUN/Creatinine Ratio 13.9 (10.0-20.0); Blood Urea Nitrogen 17 mg/dL (9-23)
[2024-09-26 07:37] LABS: Glucose 145 mg/dL (74-106); Magnesium 1.6 mg/dL (1.6-2.6)
[2024-09-26] MEDS: LIDOCAINE VISCOUS 2% 15ML UD PO ONE (08:00)
[2024-09-26] MEDS: fentaNYL CITRATE 100 MCG/2 ML VL IV ONE (08:00)
[2024-09-26] MEDS: MIDAZOLAM HCL 2MG/2ML 2ml VIAL (1mg/ml) IV ONE (08:00)
--- NOTE | 2024-09-26 09:15 | DVHOP2 ---
Operative Report Operative Report [facility] [employer] PROCEDURE REPORT [place], [place] Date of Service: 09/26/24 Nougat Candy Maker Helper: Mounika Gomes MD PROCEDURES PERFORMED: attempted trans esophageal echocardiogram, conscious sedation <15 mins, doppler assesment complete CARLINE, PREOPERATIVE DIAGNOSES: s/p MV surgery, r/o endocardiitis POSTOP DIAGNOSIS: Same DESCRIPTION OF PROCEDURE: The patient or appropriate family signed informed consent understanding the risks, benefits and alternatives of the procedure, they wished to proceed. The patient was brought to the cardiac laborer driver in n.p.o. state. the patient was given 15 ml of oral viscous lidocaine. the patient was placed in a left lateral decubitus position with bite block in mouth. NExt conscious sedation was administered per laborer driver protocol with __ mg of versed and _50__ mcg of fentanyl. Next a CARLINE probe was attempted to advance several times without success as pt was not cooperative and would not swallow. procedure now terminated MOUNIKA GOMES MD Sep 26, 2024 09:15
--- NOTE | 2024-09-26 09:17 | DVHPN2 ---
Progress Note Date Seen: Sep 26, 2024 Medical Necessity Reason Pt with a Central, PICC or Fol: Yes The following are medically ne: Ruff Catheter Subjective Patient reports: Feels better Changes from previous H/P or p: No Changes Other Systems: damion not successful Objective vital signs Vital Sign Date Time Temp Pulse Resp B/P (MAP) Pulse Ox O2 Delivery O2 Flow Rate FiO2 09/26/24 06:00 18 95 Room Air* 0 21 09/26/24 05:00 98.5 115 116/77 (90) 98.5 Total Intake and Output 09/25/24 09/25/24 09/26/24 15:00 23:00 07:00 Intake Total 900 ml 900 ml 1342.5 ml Output Total 900 ml 800 ml Balance 900 ml 0 ml 542.5 ml medications Current Medications Medications Dose Ordered Sig/Gardenia Route Start Time Stop Time Status Last Admin Dose Admin Aspirin 81 mg DAILY PO 09/23/24 10:00 09/25/24 09:45 81 MG Ceftriaxone Sodium 50 ml @ 100 mls/hr DAILY@09 IV 09/23/24 09:00 09/25/24 09:45 100 MLS/HR Diagnostic Test (Pha) 1 strip ACHS 09/22/24 22:00 09/26/24 06:29 1 STRIP Insulin Human Regular ACHS SC 09/22/24 22:00 09/26/24 06:28 2 UNITS Dextrose 50 ml UD PRN IV 09/22/24 21:00 Sodium Chloride 10 ml Q8HR IV 09/22/24 22:00 09/26/24 06:28 10 ML Acetaminophen/ Hydrocodone Bitart 1 tab Q4HP PRN PO 09/22/24 21:00 Ondansetron HCl 4 mg Q4HP PRN IV 09/22/24 21:00 Docusate Sodium 100 mg BIDPRN PRN PO 09/22/24 21:00 Acetaminophen 650 mg Q6HP PRN PO 09/22/24 21:00 Nitroglycerin 0.4 mg Q5MINP PRN SL 09/22/24 22:45 Morphine Sulfate 2 mg Q30M PRN IV 09/22/24 22:45 Sodium Chloride 1,000 ml @ 75 mls/hr [id number] IV 09/23/24 13:30 09/26/24 02:01 75 MLS/HR Atorvastatin Calcium 40 mg HS PO 09/23/24 22:00 09/25/24 22:04 40 MG Amiodarone HCl 200 mg Q12HR PO 09/23/24 22:00 09/25/24 22:02 200 MG Heparin Sodium (Porcine) 5,000 units Q12HR SC 09/23/24 22:00 09/25/24 22:09 5,000 UNITS Vancomycin HCl 0 ml @ 0 mls/hr UD IV 09/24/24 11:15 Vancomycin HCl 100 ml @ 100 mls/hr Q24H IV 09/25/24 15:00 09/25/24 15:28 100 MLS/HR Examination: GENERAL:Abnormal, HEENT:Abnormal, LUNGS:Abnormal, CVS:Abnormal, ABDOMEN:Abnormal laboratory and microbiology Laboratory Tests 09/26/24 06:00 Test 09/26/24 06:00 Range/Units Serum Glucose 145 H 74-106 mg/dL Microbiology Date/Time Source Procedure Growth Status 09/24/24 17:57 Blood Blood Culture - Preliminary NO GROWTH AFTER 24 HOURS OF INCUBATION. Resulted 09/22/24 16:21 Urine - Ruff Port Urine Culture - Final Serratia marcescens Complete Problem List/Assessment/Plan Problem List/Assessment/Plan Septic shock with PNA/UTI Rule out subacute endocarditis Paroxysmal atrial fibrillation, off AC therapy, now NSR Coronary artery disease status post quadruple vessel CABG Status post mitral valve replacement (bioprosthetic) Likely JUANA on CKD Hx of DVT Anemia Obesity if necessasry, DAMION with anesthesia recommended Plan discussed with: Patient Dietary Evaluation Review Recommendations by RD: Protein Supplementation Comments: 1) Initiate Glucerna bid 2) Initiate vitamin C @ 500 mg bid 3) Initiate zinc sulfate @ 220 mg qd 4) Advance diet to 60g [facility] cardiac diet when medically feasible, pending RUBBER TIRE CURER approval 5) Continue to monitor appetite, labs, and skin integrity Expected Outcomes/Goals: 1) appetite and labs to improve 2) diet to advance 3) wound to improve Date of Service: Sep 26, 2024 Billing Provider: MOUNIKA GOMES MD Common Visit Codes: NOT BILLABLE MOUNIKA GOMES MD Sep 26, 2024 09:17
--- NOTE | 2024-09-26 11:34 | DVHPN2 ---
Subjective He had a ISRAEL done today but he could not tolerate the procedure therefore it was canceled and postponed for later Major complaint is generalized weakness Changes from previous H/P or p: Changes Eyes: No Pain, No Vision change, No Conjunctivae inflammation, No Eyelid inflammation, No Other, No Redness ENT: No Ear pain, No Ear discharge, No Nose pain, No Nose discharge, No Nose congestion, No Mouth pain, No Mouth swelling, No Throat pain, No Throat swelling, No Other Cardiovascular: No Chest Pain, No Palpitations, No Orthopnea, No Paroxysmal Noc. Dyspnea, No Edema, No Lt Headedness, No Other Respiratory: No Cough, No Dry, No Shortness of breath, No SOB with excertion, No Wheezing, No Hemoptysis, No Pleuritic Pain, No Sputum, No Other Gastrointestinal: No Nausea, No Vomiting, No Abdominal Pain, No Diarrhea, No Constipation, No Melena, No Hematochezia, No Other Genitourinary: No Dysuria, No Frequency, No Incontinence, No Hematuria, No Retention, No Other Musculoskeletal: No other, No neck pain, No shoulder pain, No arm pain, No back pain, No hand pain, No leg pain, No foot pain Skin: No Rash, No Lesions, No Jaundice, No Bruising, No Other Objective Vitals Vital Signs Date Time Temp Pulse Resp B/P (MAP) Pulse Ox O2 Delivery O2 Flow Rate FiO2 09/26/24 09:45 116 19 95/60 (72) 97 09/26/24 09:15 99.9 99.9 09/26/24 06:00 Room Air* 0 21 Intake/Output Intake and Output 09/26/24 07:00 Intake Total 3142.5 ml Output Total 1700 ml Balance 1442.5 ml Intake Oral 2130 ml IV Total 1012.5 ml Output Urine Total 1700 ml General Appearance: Alert, Oriented X3 Lungs: Clear to auscultation, Normal air movement Cardiovascular: Regular rate, Normal S1, Normal S2, No murmurs Abdomen: Normal bowel sounds, Soft, No tenderness Extremities: No edema Medications Current Medications Medications Dose Ordered Sig/Gardenia Route Start Time Stop Time Status Last Admin Dose Admin Aspirin 81 mg DAILY PO 09/23/24 10:00 09/25/24 09:45 81 MG Ceftriaxone Sodium 50 ml @ 100 mls/hr DAILY@09 IV 09/23/24 09:00 3/2/25 09:45 100 MLS/HR Diagnostic Test (Pha) 1 strip ACHS 09/22/24 22:00 09/26/24 06:29 1 STRIP Insulin Human Regular ACHS SC 09/22/24 22:00 09/26/24 06:28 2 UNITS Dextrose 50 ml UD PRN IV 09/22/24 21:00 Sodium Chloride 10 ml Q8HR IV 09/22/24 22:00 09/26/24 06:28 10 ML Acetaminophen/ Hydrocodone Bitart 1 tab Q4HP PRN PO 09/22/24 21:00 Ondansetron HCl 4 mg Q4HP PRN IV 09/22/24 21:00 Docusate Sodium 100 mg BIDPRN PRN PO 09/22/24 21:00 Acetaminophen 650 mg Q6HP PRN PO 09/22/24 21:00 Nitroglycerin 0.4 mg Q5MINP PRN SL 09/22/24 22:45 Morphine Sulfate 2 mg Q30M PRN IV 09/22/24 22:45 Sodium Chloride 1,000 ml @ 75 mls/hr [id number] IV 09/23/24 13:30 09/26/24 02:01 75 MLS/HR Atorvastatin Calcium 40 mg HS PO 09/23/24 22:00 09/25/24 22:04 40 MG Amiodarone HCl 200 mg Q12HR PO 09/23/24 22:00 09/25/24 22:02 200 MG Heparin Sodium (Porcine) 5,000 units Q12HR SC 09/23/24 22:00 09/25/24 22:09 5,000 UNITS Vancomycin HCl 0 ml @ 0 mls/hr UD IV 09/24/24 11:15 Vancomycin HCl 100 ml @ 100 mls/hr Q24H IV 09/25/24 15:00 09/25/24 15:28 100 MLS/HR Laboratory Results Laboratory Tests 09/26/24 06:00 Chemistry Test 09/26/24 06:00 Calcium Level 8.8 mg/dL (8.7-10.4) Magnesium Level 1.6 mg/dL (1.6-2.6) Urinalysis Test 09/22/24 16:21 Urine Color Brown (Yellow) H Urine Clarity Ex.turbid (Clear) Urine pH 6.0 (5.0-9.0) Urine Specific [place] 1.008 (1.001-1.035) Urine Protein 2+ (Negative) H Urine Ketones Negative (Negative) Urine Blood 2+ /uL (Negative) H Urine Nitrite Negative (Negative) Urine Bilirubin Negative (Negative) Urine Urobilinogen Normal mg/dL (Negative) Urine Leukocyte Esterase 3+ /uL (Negative) Urine RBC 108 /hpf (0 - 3) Urine WBC Clumps Present /hpf (None Seen) Urine Microscopic WBC 3592 /HPF (0-3) H Urine Squamous Epithelial Cells None seen /hpf (<5) Urine Bacteria None seen /hpf (None Seen) Urine Mucus Few (None Seen) Urine Glucose Normal mg/dL (Normal) Microbiology Microbiology Date/Time Source Procedure Growth Status 09/24/24 17:57 Blood Blood Culture - Preliminary NO GROWTH AFTER 24 HOURS OF INCUBATION. Resulted 09/22/24 16:21 Urine - [place] Urine Culture - Final Serratia marcescens Complete Assessment/Plan Assessment/Plan Sepsis with septic shock Bacteremia with Gram-positive cocci in clusters UTI with serratia marcescens Pneumonia JUANA due to vasomotor nephropathy Afib DM2 HTN Dyslipidemia History of DVT History of mitral valve PLAN: IV antibiotics Rocephin and Doxycycline Levophed IV fluids 09/24/2024: Sepsis with pneumonia and UTI: Continue IV Rocephin and doxycycline, add vancomycin Infectious Disease consultation Bacteremia: Echo did not show vegetations Cardiology consult, JUANA: Continue IV fluids Atrial fibrillation: On amiodarone History of DVT Obesity Anemia ISRAEL? To rule out endocarditis 09/25/2024: ISRAEL for tomorrow Blood culture 1 bottle showed Staphylococcus epidermidis and the 2nd bottle is still pending JUANA: Improving with IV fluids Continue IV antibiotics Rocephin and vancomycin Discontinue doxycycline Atrial fibrillation: Continue amiodarone Discussed with the at the bedside Physical therapy 09/26/2024: Generalized weakness: Continue physical therapy Bacteremia rule out endocarditis: [place] was canceled today, we will try again in 2 days JUANA: Improving continue hydration UTI/pneumonia: Continue antibiotics Discussed with Cardiology, they will try again israel on 09/28/2024 Atrial fibrillation: Amiodarone Plan discussed with: Patient My Orders Orders - SABRINA LEOS MD Procedure Category Date Status Time Vancomycin 750mg Kit PHA 09/25/24 In Process (Vancomycin Hcl) 15:00 Vancomycin,Trough LAB 3/5/25 Verified 14:00 Vancomycin Per LACHO 09/25/24 In Process Pharmacy Protoc 11:44 Pt Request For Service PT 09/25/24 Logged 12:08 * Dietary Consult CONS 09/25/24 Transmitted 13:10 Cleanse Wound With LACHO 09/25/24 In Process Mild Soap A 10:04 Basic Metabolic Panel LAB 09/27/24 Verified 04:00 Basic Metabolic Panel LAB 09/28/24 Verified 04:00 Date of Service: Sep 26, 2024 Billing Provider: SABRINA LEOS MD Common Visit Codes: NOT BILLABLE SABRINA LEOS MD Sep 26, 2024 11:34
--- NOTE | 2024-09-26 14:52 | DVHPN2 ---
Progress Note Date Seen: Sep 26, 2024 Medical Necessity Reason Pt with a Central, PICC or Fol: Yes The following are medically ne: Ruff Catheter Subjective Patient reports: No new complaints Review of Systems: Deferred Objective vital signs Vital Sign Date Time Temp Pulse Resp B/P (MAP) Pulse Ox O2 Delivery O2 Flow Rate FiO2 09/26/24 14:00 17 98 Room Air* 0 21 09/26/24 09:45 116 95/60 (72) 09/26/24 09:15 99.9 99.9 Total Intake and Output 09/25/24 09/25/24 09/26/24 15:00 23:00 07:00 Intake Total 900 ml 900 ml 1342.5 ml Output Total 900 ml 800 ml Balance 900 ml 0 ml 542.5 ml medications Current Medications Medications Dose Ordered Sig/Gardenia Route Start Time Stop Time Status Last Admin Dose Admin Aspirin 81 mg DAILY PO 09/23/24 10:00 09/25/24 09:45 81 MG Ceftriaxone Sodium 50 ml @ 100 mls/hr DAILY@09 IV 09/23/24 09:00 09/26/24 09:00 100 MLS/HR Diagnostic Test (Pha) 1 strip ACHS 09/22/24 22:00 09/26/24 11:30 1 STRIP Insulin Human Regular ACHS SC 09/22/24 22:00 09/26/24 06:28 2 UNITS Dextrose 50 ml UD PRN IV 09/22/24 21:00 Sodium Chloride 10 ml Q8HR IV 09/22/24 22:00 09/26/24 14:00 10 ML Acetaminophen/ Hydrocodone Bitart 1 tab Q4HP PRN PO 09/22/24 21:00 Ondansetron HCl 4 mg Q4HP PRN IV 09/22/24 21:00 Docusate Sodium 100 mg BIDPRN PRN PO 09/22/24 21:00 Acetaminophen 650 mg Q6HP PRN PO 09/22/24 21:00 Nitroglycerin 0.4 mg Q5MINP PRN SL 09/22/24 22:45 Morphine Sulfate 2 mg Q30M PRN IV 09/22/24 22:45 Atorvastatin Calcium 40 mg HS PO 09/23/24 22:00 09/25/24 22:04 40 MG Amiodarone HCl 200 mg Q12HR PO 09/23/24 22:00 09/25/24 22:02 200 MG Heparin Sodium (Porcine) 5,000 units Q12HR SC 09/23/24 22:00 09/25/24 22:09 5,000 UNITS Vancomycin HCl 0 ml @ 0 mls/hr UD IV 09/24/24 11:15 Vancomycin HCl 100 ml @ 100 mls/hr Q24H IV 09/25/24 15:00 09/25/24 15:28 100 MLS/HR Sodium Chloride 1,000 ml @ 50 mls/hr Q20H IV 09/26/24 11:45 laboratory and microbiology Laboratory Tests 09/26/24 06:00 Test 09/26/24 06:00 Range/Units Serum Glucose 145 H 74-106 mg/dL Microbiology Date/Time Source Procedure Growth Status 09/24/24 17:57 Blood Blood Culture - Preliminary NO GROWTH AFTER 24 HOURS OF INCUBATION. Resulted 09/22/24 16:21 Urine - [place] Urine Culture - Final Serratia marcescens Complete Problem List/Assessment/Plan Problem List/Assessment/Plan Acute kidney injury secondary to infection highly likely prerenal etiology versus intrinsic renal. Sepsis with multiple sources Gram-negative urinary tract infection Gram-positive bacteremia History atrial fibrillation, mitral valve prosthetic, aortic valve stenosis recs better renal function gera follow up as outpt Plan discussed with: Patient Dietary Evaluation Review Recommendations by RD: Protein Supplementation Comments: 1) Initiate Glucerna bid 2) Initiate vitamin C @ 500 mg bid 3) Initiate zinc sulfate @ 220 mg qd 4) Advance diet to 60g CCHO cardiac diet when medically feasible, pending MOUNT LOADER approval 5) Continue to monitor appetite, labs, and skin integrity Expected Outcomes/Goals: 1) appetite and labs to improve 2) diet to advance 3) wound to improve ZACHARY MUELLER MD Sep 26, 2024 14:52
[2024-09-26] MEDS: SODIUM CHLORIDE 0.9% 1,000 ML IV SCH (18:19)
[2024-09-27] VITALS (13 sets, daily range): BP systolic 96–115; BP diastolic 55–75; PULSE 102–113; RESP 16–19; TEMP 98.1–99.6; O2SAT 95–97
[2024-09-27 07:14] LABS: Anion Gap 10 (5-15); Carbon Dioxide 22 mmol/L (20-31); Chloride 107 mmol/L (98-107); Sodium 139 mmol/L (136-145)
[2024-09-27 07:15] LABS: Calcium 8.9 mg/dL (8.7-10.4)
[2024-09-27 07:20] LABS: BUN/Creatinine Ratio 11.7 (10.0-20.0); Blood Urea Nitrogen 15 mg/dL (9-23)
[2024-09-27 07:32] LABS: Glucose 119 mg/dL (74-106); Potassium 3.2 mmol/L (3.5-5.1)
--- NOTE | 2024-09-27 08:37 | DVHPN2 ---
Consult Progress Note Date Seen: Sep 27, 2024 Subjective Review of Systems: CVS:Normal, RESPIRATORY:Normal, NEURO:Normal Objective vital signs Vital Sign Date Time Temp Pulse Resp B/P (MAP) Pulse Ox O2 Delivery O2 Flow Rate FiO2 09/27/24 06:00 16 Room Air* 0 21 09/27/24 05:00 99.6 110 106/55 (72) 97 99.6 Total Intake and Output 09/26/24 09/26/24 09/27/24 15:00 23:00 07:00 Intake Total 200 ml 250 ml Balance 200 ml 250 ml medications Current Medications Medications Dose Ordered Sig/Gardenia Route Start Time Stop Time Status Last Admin Dose Admin Aspirin 81 mg DAILY PO 09/23/24 10:00 09/27/24 08:05 81 MG Ceftriaxone Sodium 50 ml @ 100 mls/hr DAILY@09 IV 09/23/24 09:00 09/27/24 08:04 100 MLS/HR Diagnostic Test (Pha) 1 strip ACHS 09/22/24 22:00 09/27/24 07:07 1 STRIP Insulin Human Regular ACHS SC 09/22/24 22:00 09/26/24 21:08 3 UNITS Dextrose 50 ml UD PRN IV 09/22/24 21:00 Sodium Chloride 10 ml Q8HR IV 09/22/24 22:00 09/26/24 23:20 10 ML Acetaminophen/ Hydrocodone Bitart 1 tab Q4HP PRN PO 09/22/24 21:00 Ondansetron HCl 4 mg Q4HP PRN IV 09/22/24 21:00 Docusate Sodium 100 mg BIDPRN PRN PO 09/22/24 21:00 Acetaminophen 650 mg Q6HP PRN PO 09/22/24 21:00 Nitroglycerin 0.4 mg Q5MINP PRN SL 09/22/24 22:45 Morphine Sulfate 2 mg Q30M PRN IV 09/22/24 22:45 Atorvastatin Calcium 40 mg HS PO 09/23/24 22:00 09/26/24 23:20 40 MG Amiodarone HCl 200 mg Q12HR PO 09/23/24 22:00 09/27/24 08:05 200 MG Heparin Sodium (Porcine) 5,000 units Q12HR SC 09/23/24 22:00 09/27/24 08:04 5,000 UNITS Vancomycin HCl 0 ml @ 0 mls/hr UD IV 09/24/24 11:15 Vancomycin HCl 100 ml @ 100 mls/hr Q24H IV 09/25/24 15:00 09/26/24 18:23 100 MLS/HR Sodium Chloride 1,000 ml @ 50 mls/hr Q20H IV 09/26/24 11:45 09/26/24 18:19 50 MLS/HR Examination: GENERAL:Abnormal, LUNGS:Normal, CVS:Normal, NEURO:Abnormal (A&O x 3. Slight cognitve impairment present) laboratory and microbiology Laboratory Tests 09/27/24 05:58 09/26/24 06:00 Test 09/27/24 05:58 Range/Units Serum Glucose 119 H 74-106 mg/dL Problem List/Assessment/Plan Problem List/Assessment/Plan Septic shock with PNA/UTI Rule out subacute endocarditis Paroxysmal atrial fibrillation, off AC therapy, now NSR Coronary artery disease status post quadruple vessel 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 Santos) Transthoracic echocardiogram revealed an LVEF of 60%. There is significant calcification in the annulus of the mitral leaflet. The aortic valve is notably sclerotic as well with significant calcification of the leaflets. Given latest findings, the patient was scheduled for an unsuccessful transesophageal echocardiogram given patient's intolerance. We will attempt CARLINE on 09/28/24. In the meantime, continue single antiplatelet therapy and lipid lowering agent given history of CAD status post CABG. Continue home amiodarone BID. Likely off NOAC therapy given history of anemia. DVT/VTE prophylaxis. Monitor H&H closely. Thank you for allowing us to participate in this patient's care. Please call if you have any questions or concerns. This medical document was created using an electronic medical record system with voice recognition software and computerized dictation system. Although this document has been carefully reviewed, there might still be some phonetic and typographical errors. Occasional wrong-word or ``sound-alike substitutions may have occurred due to the inherent limitations of voice recognition software. These areas are purely typographical due to imperfections of the software programs and do not reflect any compromise in the patient's medical care. Please read the chart carefully and recognize, using context, where these substitutions have occurred. Plan discussed with: Patient, Other Dietary Evaluation Review Recommendations by RD: Protein Supplementation Comments: 1) Initiate Glucerna bid 2) Initiate vitamin C @ 500 mg bid 3) Initiate zinc sulfate @ 220 mg qd 4) Advance diet to 60g CCHO cardiac diet when medically feasible, pending QUANTOMETER OPERATOR approval 5) Continue to monitor appetite, labs, and skin integrity Expected Outcomes/Goals: 1) appetite and labs to improve 2) diet to advance 3) wound to improve Date of Service: Sep 27, 2024 Billing Provider: DINA JO Cardiology Common Codes: [id number] HOSP CARE(High DINA JO Sep 27, 2024 08:37
--- NOTE | 2024-09-27 08:50 | DVHPN2 ---
Progress Note Date Seen: Sep 27, 2024 Medical Necessity Reason Pt with a Central, PICC or Fol: Yes The following are medically ne: Ruff Catheter Subjective Patient reports: No new complaints Review of Systems: Deferred Objective vital signs Vital Sign Date Time Temp Pulse Resp B/P (MAP) Pulse Ox O2 Delivery O2 Flow Rate FiO2 09/27/24 06:00 16 Room Air* 0 21 09/27/24 05:00 99.6 110 106/55 (72) 97 99.6 Total Intake and Output 09/26/24 09/26/24 09/27/24 15:00 23:00 07:00 Intake Total 200 ml 250 ml Balance 200 ml 250 ml medications Current Medications Medications Dose Ordered Sig/Gardenia Route Start Time Stop Time Status Last Admin Dose Admin Aspirin 81 mg DAILY PO 09/23/24 10:00 09/27/24 08:05 81 MG Ceftriaxone Sodium 50 ml @ 100 mls/hr DAILY@09 IV 09/23/24 09:00 09/27/24 08:04 100 MLS/HR Diagnostic Test (Pha) 1 strip ACHS 09/22/24 22:00 09/27/24 07:07 1 STRIP Insulin Human Regular ACHS SC 09/22/24 22:00 09/26/24 21:08 3 UNITS Dextrose 50 ml UD PRN IV 09/22/24 21:00 Sodium Chloride 10 ml Q8HR IV 09/22/24 22:00 09/26/24 23:20 10 ML Acetaminophen/ Hydrocodone Bitart 1 tab Q4HP PRN PO 09/22/24 21:00 Ondansetron HCl 4 mg Q4HP PRN IV 09/22/24 21:00 Docusate Sodium 100 mg BIDPRN PRN PO 09/22/24 21:00 Acetaminophen 650 mg Q6HP PRN PO 09/22/24 21:00 Nitroglycerin 0.4 mg Q5MINP PRN SL 09/22/24 22:45 Morphine Sulfate 2 mg Q30M PRN IV 09/22/24 22:45 Atorvastatin Calcium 40 mg HS PO 09/23/24 22:00 09/26/24 23:20 40 MG Amiodarone HCl 200 mg Q12HR PO 09/23/24 22:00 09/27/24 08:05 200 MG Heparin Sodium (Porcine) 5,000 units Q12HR SC 09/23/24 22:00 09/27/24 08:04 5,000 UNITS Vancomycin HCl 0 ml @ 0 mls/hr UD IV 09/24/24 11:15 Vancomycin HCl 100 ml @ 100 mls/hr Q24H IV 09/25/24 15:00 09/26/24 18:23 100 MLS/HR Sodium Chloride 1,000 ml @ 50 mls/hr Q20H IV 09/26/24 11:45 09/26/24 18:19 50 MLS/HR laboratory and microbiology Laboratory Tests 09/27/24 05:58 09/26/24 06:00 Test 09/27/24 05:58 Range/Units Serum Glucose 119 H 74-106 mg/dL Microbiology Date/Time Source Procedure Growth Status 09/24/24 17:57 Blood Blood Culture - Preliminary NO GROWTH AFTER 48 HOURS OF INCUBATION. Resulted 09/22/24 16:21 Urine - [place] Urine Culture - Final Serratia marcescens Complete Problem List/Assessment/Plan Problem List/Assessment/Plan Acute kidney injury secondary to infection highly likely prerenal etiology versus intrinsic renal. Sepsis with multiple sources Gram-negative urinary tract infection Gram-positive bacteremia History atrial fibrillation, mitral valve prosthetic, aortic valve stenosis hypokalemia recs better renal function gera follow up as outpt will sign off the case pls reconsult if needed Plan discussed with: Patient Dietary Evaluation Review Recommendations by RD: Protein Supplementation Comments: 1) Initiate Glucerna bid 2) Initiate vitamin C @ 500 mg bid 3) Initiate zinc sulfate @ 220 mg qd 4) Advance diet to 60g [facility] cardiac diet when medically feasible, pending EXECUTIVE DIRECTOR approval 5) Continue to monitor appetite, labs, and skin integrity Expected Outcomes/Goals: 1) appetite and labs to improve 2) diet to advance 3) wound to improve ZACHARY MUELLER MD Sep 27, 2024 08:50
--- NOTE | 2024-09-27 11:19 | DVHPN2 ---
Subjective No complaints today Scheduled for [place] tomorrow Changes from previous H/P or p: Changes Eyes: No Pain, No Vision change, No Conjunctivae inflammation, No Eyelid inflammation, No Other, No Redness ENT: No Ear pain, No Ear discharge, No Nose pain, No Nose discharge, No Nose congestion, No Mouth pain, No Mouth swelling, No Throat pain, No Throat swelling, No Other Cardiovascular: No Chest Pain, No Palpitations, No Orthopnea, No Paroxysmal Noc. Dyspnea, No Edema, No Lt Headedness, No Other Respiratory: No Cough, No Dry, No Shortness of breath, No SOB with excertion, No Wheezing, No Hemoptysis, No Pleuritic Pain, No Sputum, No Other Gastrointestinal: No Nausea, No Vomiting, No Abdominal Pain, No Diarrhea, No Constipation, No Melena, No Hematochezia, No Other Genitourinary: No Dysuria, No Frequency, No Incontinence, No Hematuria, No Retention, No Other Musculoskeletal: No other, No neck pain, No shoulder pain, No arm pain, No back pain, No hand pain, No leg pain, No foot pain Skin: No Rash, No Lesions, No Jaundice, No Bruising, No Other Objective Vitals Vital Signs Date Time Temp Pulse Resp B/P (MAP) Pulse Ox O2 Delivery O2 Flow Rate FiO2 09/27/24 09:00 98.1 103 18 115/55 (75) 96 98.1 09/27/24 06:00 Room Air* 0 21 Intake/Output Intake and Output 09/27/24 07:00 Intake Total 450 ml Balance 450 ml Intake Oral 450 ml # Voids 3 General Appearance: Alert, Oriented X3 Lungs: Clear to auscultation, Normal air movement Cardiovascular: Regular rate, Normal S1, Normal S2, No murmurs Abdomen: Normal bowel sounds, Soft, No tenderness Extremities: No edema Medications Current Medications Medications Dose Ordered Sig/Gardenia Route Start Time Stop Time Status Last Admin Dose Admin Aspirin 81 mg DAILY PO 09/23/24 10:00 09/27/24 08:05 81 MG Ceftriaxone Sodium 50 ml @ 100 mls/hr DAILY@09 IV 09/23/24 09:00 09/27/24 08:04 100 MLS/HR Diagnostic Test (Pha) 1 strip ACHS 09/22/24 22:00 09/27/24 07:07 1 STRIP Insulin Human Regular ACHS SC 09/22/24 22:00 09/26/24 21:08 3 UNITS Dextrose 50 ml UD PRN IV 09/22/24 21:00 Sodium Chloride 10 ml Q8HR IV 09/22/24 22:00 09/26/24 23:20 10 ML Acetaminophen/ Hydrocodone Bitart 1 tab Q4HP PRN PO 09/22/24 21:00 Ondansetron HCl 4 mg Q4HP PRN IV 09/22/24 21:00 Docusate Sodium 100 mg BIDPRN PRN PO 09/22/24 21:00 Acetaminophen 650 mg Q6HP PRN PO 09/22/24 21:00 Nitroglycerin 0.4 mg Q5MINP PRN SL 09/22/24 22:45 Morphine Sulfate 2 mg Q30M PRN IV 09/22/24 22:45 Atorvastatin Calcium 40 mg HS PO 09/23/24 22:00 09/26/24 23:20 40 MG Amiodarone HCl 200 mg Q12HR PO 09/23/24 22:00 09/27/24 08:05 200 MG Heparin Sodium (Porcine) 5,000 units Q12HR SC 09/23/24 22:00 09/27/24 08:04 5,000 UNITS Vancomycin HCl 0 ml @ 0 mls/hr UD IV 09/24/24 11:15 Vancomycin HCl 100 ml @ 100 mls/hr Q24H IV 09/25/24 15:00 09/26/24 18:23 100 MLS/HR Sodium Chloride 1,000 ml @ 50 mls/hr Q20H IV 09/26/24 11:45 09/26/24 18:19 50 MLS/HR Potassium Chloride 100 ml @ 50 mls/hr Q2H IV 09/27/24 09:00 09/27/24 12:59 Laboratory Results Laboratory Tests 09/26/24 06:00 09/27/24 05:58 Chemistry Test 09/27/24 05:58 Calcium Level 8.9 mg/dL (8.7-10.4) Urinalysis Test 09/22/24 16:21 Urine Color Brown (Yellow) H Urine Clarity Ex.turbid (Clear) Urine pH 6.0 (5.0-9.0) Urine Specific [place] 1.008 (1.001-1.035) Urine Protein 2+ (Negative) H Urine Ketones Negative (Negative) Urine Blood 2+ /uL (Negative) H Urine Nitrite Negative (Negative) Urine Bilirubin Negative (Negative) Urine Urobilinogen Normal mg/dL (Negative) Urine Leukocyte Esterase 3+ /uL (Negative) Urine RBC 108 /hpf (0 - 3) Urine WBC Clumps Present /hpf (None Seen) Urine Microscopic WBC 3592 /HPF (0-3) H Urine Squamous Epithelial Cells None seen /hpf (<5) Urine Bacteria None seen /hpf (None Seen) Urine Mucus Few (None Seen) Urine Glucose Normal mg/dL (Normal) Microbiology Microbiology Date/Time Source Procedure Growth Status 09/24/24 17:57 Blood Blood Culture - Preliminary NO GROWTH AFTER 48 HOURS OF INCUBATION. Resulted 09/22/24 16:21 Urine - [place] Urine Culture - Final Serratia marcescens Complete Assessment/Plan Assessment/Plan Sepsis with septic shock Bacteremia with Gram-positive cocci in clusters UTI with serratia marcescens Pneumonia JUANA due to vasomotor nephropathy Afib DM2 HTN Dyslipidemia History of DVT History of mitral valve PLAN: IV antibiotics Rocephin and Doxycycline Levophed IV fluids 09/24/2024: Sepsis with pneumonia and UTI: Continue IV Rocephin and doxycycline, add vancomycin Infectious Disease consultation Bacteremia: Echo did not show vegetations Cardiology consult, JUANA: Continue IV fluids Atrial fibrillation: On amiodarone History of DVT Obesity Anemia [place]? To rule out endocarditis 09/25/2024: [place] for tomorrow Blood culture 1 bottle showed Staphylococcus epidermidis and the 2nd bottle is still pending JUANA: Improving with IV fluids Continue IV antibiotics Rocephin and vancomycin Discontinue doxycycline Atrial fibrillation: Continue amiodarone Discussed with the at the bedside Physical therapy 09/26/2024: Generalized weakness: Continue physical therapy Bacteremia rule out endocarditis: [place] was canceled today, we will try again in 2 days JUANA: Improving continue hydration UTI/pneumonia: Continue antibiotics Discussed with Cardiology, they will try again [place] on 09/28/2024 Atrial fibrillation: Amiodarone 09/27/2024: [place] tomorrow Continue physical therapy Hypokalemia: Replace Plan discussed with: Patient My Orders Orders - SABRINA LEOS MD Procedure Category Date Status Time Sodium Chloride 0.9% PHA 09/26/24 In Process 11:45 Date of Service: Sep 27, 2024 Billing Provider: SABRINA LEOS MD Common Visit Codes: NOT BILLABLE SABRINA LEOS MD Sep 27, 2024 11:19
[2024-09-27] MEDS: POTASSIUM CHL 20MEQ/100ML 100 ML IV SCH (11:56)
[2024-09-27] MEDS: guaiFENesin-DM 100/10mg/5ml SYR PO ONE (17:21)
[2024-09-27 19:13] LABS: COVID19 ANTIGEN SOFIA FIA NEGATIVE (NEGATIVE); Rapid Influenza A Negative (Negative); Rapid Influenza B Negative (Negative)
--- NOTE | 2024-09-27 20:32 | DVHPN2 ---
Consult Progress Note Date Seen: Sep 25, 2024 Subjective Patient reports: Other (BP has improved , mentating well , denies any chest pain , an irregular heart rate , tachycardic ) Objective vital signs Vital Sign Date Time Temp Pulse Resp B/P (MAP) Pulse Ox O2 Delivery O2 Flow Rate FiO2 09/27/24 17:00 99.2 105 18 96/60 (72) 96 99.2 09/27/24 12:00 Room Air* 0 21 Total Intake and Output 09/26/24 09/26/24 09/27/24 15:00 23:00 07:00 Intake Total 200 ml 250 ml Balance 200 ml 250 ml medications Current Medications Medications Dose Ordered Sig/Gardenia Route Start Time Stop Time Status Last Admin Dose Admin Aspirin 81 mg DAILY PO 09/23/24 10:00 09/27/24 08:05 81 MG Ceftriaxone Sodium 50 ml @ 100 mls/hr DAILY@09 IV 09/23/24 09:00 09/27/24 08:04 100 MLS/HR Diagnostic Test (Pha) 1 strip ACHS 09/22/24 22:00 09/27/24 17:00 1 STRIP Insulin Human Regular ACHS SC 09/22/24 22:00 09/26/24 21:08 3 UNITS Dextrose 50 ml UD PRN IV 09/22/24 21:00 Sodium Chloride 10 ml Q8HR IV 09/22/24 22:00 09/27/24 14:00 10 ML Acetaminophen/ Hydrocodone Bitart 1 tab Q4HP PRN PO 09/22/24 21:00 Ondansetron HCl 4 mg Q4HP PRN IV 09/22/24 21:00 Docusate Sodium 100 mg BIDPRN PRN PO 09/22/24 21:00 Acetaminophen 650 mg Q6HP PRN PO 09/22/24 21:00 Nitroglycerin 0.4 mg Q5MINP PRN SL 09/22/24 22:45 Morphine Sulfate 2 mg Q30M PRN IV 09/22/24 22:45 Atorvastatin Calcium 40 mg HS PO 09/23/24 22:00 09/26/24 23:20 40 MG Amiodarone HCl 200 mg Q12HR PO 09/23/24 22:00 09/27/24 08:05 200 MG Heparin Sodium (Porcine) 5,000 units Q12HR SC 09/23/24 22:00 09/27/24 08:04 5,000 UNITS Vancomycin HCl 0 ml @ 0 mls/hr UD IV 09/24/24 11:15 Cancel Sodium Chloride 1,000 ml @ 50 mls/hr Q20H IV 09/26/24 11:45 09/26/24 18:19 50 MLS/HR Guaifenesin/ Dextromethorphan 10 ml Q4HP PRN PO 09/27/24 17:15 UNV Daptomycin / Sodium Chloride 50 ml @ 100 mls/hr DAILY IV 09/28/24 10:00 UNV Physical Exam: General: NAD Neck: Supple. No masses. HEENT: PERRL. Normal lids and conjunctiva. Moist mucous membranes. Oropharynx without lesions, exudates, or excessive erythema. Normal appearance of the external aspects of the nose and ears. Heart: Regular rhythm, normal rate. No murmur. No lower extremity edema. Lungs: Diminished breath sounds at the bases bilaterally. No wheezes. No crackles. Abdomen: Soft. Non-tender. Non-distended. No masses or abdominal hernia. Msk: No digital cyanosis. Normal strength and tone in all 4 limbs. Skin: Warm and dry, no rashes. Neuro: Alert, more aware, following commands. No facial droop or slurred speech. Extra-ocular movements intact. Sensation intact to soft touch in all 4 limbs. Psych: Appropriate mood. Full affect. Oriented to person, place, time, and situation. laboratory and microbiology Laboratory Tests 09/27/24 05:58 09/26/24 06:00 Test 09/27/24 05:58 Range/Units Serum Glucose 119 H 74-106 mg/dL Problem List/Assessment/Plan Problems(with codes): (1) Atrial fibrillation (2) Hyperglycemia (3) Mild malnutrition (4) Coronary artery disease (5) CAD (coronary artery disease) (6) HTN (hypertension) (7) Musculoskeletal chest pain (8) Acute coronary syndrome (9) Chest pain (10) Sepsis, unspecified organism (11) TIA (transient ischemic attack) (12) Hypotension (13) Pneumonitis (14) HLD (hyperlipidemia) Problem List/Assessment/Plan ID Problem List: - Atrial fibrillation - Diabetes mellitus - Hypertension - Hyperlipidemia - Myocardial infarction - Generalized weakness - Hypotension - Lactic acidosis - Acute kidney injury (JUANA) - Chronic kidney disease (CKD) - Altered mental status - Uremia - Tachycardia - Severe sepsis - Urinary tract infection (UTI) due to Serratia marcescens - Possible aspiration pneumonia - Diminished breath sounds at bases; possible bronchitis on chest X-ray Assessment This is an 79 y.o. male with a past medical history of atrial fibrillation, diabetes mellitus, hypertension, hyperlipidemia, and myocardial infarction, who presents with generalized weakness. He was found to be hypotensive (BP 76/49) with a lactic acid of 2.3. He was lethargic and hard to arouse on admission, which has since improved with fluid resuscitation and initiation of Levophed drip. His blood pressure is now stable at 111/63 without pressors. Creatinine was elevated to 2.46 with BUN of 61, improved to creatinine of 1.71 after fluid resuscitation and antibiotics. 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 He has diminished breath sounds at the bases on exam, and chest X-ray findings suggest bilateral bronchial thickening and possible bronchitis. Microscopic urine culture grew Serratia marcescens, and blood cultures had 2 out of 4 aerobic bottles positive for coagulase-negative Staphylococcus. 09/25: whitecount is 6.4 , repeat blood cultures are no growth to date , staph epidermitis show Vanc SHAY of 4 . TTE was done 09/23 which shows theres a mitral valve prosthetic without any significant mitral stenosis however it is heavily calcified , aortic valve was sclerotic with calcification of leaflets , EF 60% , mild to moderate micro insufficiency and moderate pulmonary efficiency Plan: - Agree with CARLINE plan to further evaluate for endocarditis - more antibiotics could be required and possible transfer to higher level of care for debridement will determine need for this based off CARLINE findings - Stop Vancomycin - given Vanc shay of 4 would switch to daptomycin with mentions of - Start Daptomycin - Likely aspiration pneumonia; continue ceftriaxone to cover pneumonia and UTI. - Suspect blood culture contamination with coagulase-negative staph (likely skin rangel); recommend repeating blood cultures to confirm. - Recommend renal ultrasound to further evaluate the extent of urinary tract infection. Isolation Precautions: standard Plan discussed with: Other Dietary Evaluation Review Recommendations by RD: Protein Supplementation Comments: 1) Initiate Glucerna bid 2) Initiate vitamin C @ 500 mg bid 3) Initiate zinc sulfate @ 220 mg qd 4) Advance diet to 60g [facility] cardiac diet when medically feasible, pending REHAB SPEC approval 5) Continue to monitor appetite, labs, and skin integrity Expected Outcomes/Goals: 1) appetite and labs to improve 2) diet to advance 3) wound to improve DIONI GARCIA MD Sep 27, 2024 20:32
--- NOTE | 2024-09-27 20:32 | DVHPN2 ---
Consult Progress Note Date Seen: Sep 27, 2024 Subjective Patient reports: Other (breathing well on room air ) Objective vital signs Vital Sign Date Time Temp Pulse Resp B/P (MAP) Pulse Ox O2 Delivery O2 Flow Rate FiO2 09/27/24 17:00 99.2 105 18 96/60 (72) 96 99.2 09/27/24 12:00 Room Air* 0 21 Total Intake and Output 09/26/24 09/26/24 09/27/24 15:00 23:00 07:00 Intake Total 200 ml 250 ml Balance 200 ml 250 ml medications Current Medications Medications Dose Ordered Sig/Gardenia Route Start Time Stop Time Status Last Admin Dose Admin Aspirin 81 mg DAILY PO 09/23/24 10:00 09/27/24 08:05 81 MG Ceftriaxone Sodium 50 ml @ 100 mls/hr DAILY@09 IV 09/23/24 09:00 09/27/24 08:04 100 MLS/HR Diagnostic Test (Pha) 1 strip ACHS 09/22/24 22:00 09/27/24 17:00 1 STRIP Insulin Human Regular ACHS SC 09/22/24 22:00 09/26/24 21:08 3 UNITS Dextrose 50 ml UD PRN IV 09/22/24 21:00 Sodium Chloride 10 ml Q8HR IV 09/22/24 22:00 09/27/24 14:00 10 ML Acetaminophen/ Hydrocodone Bitart 1 tab Q4HP PRN PO 09/22/24 21:00 Ondansetron HCl 4 mg Q4HP PRN IV 09/22/24 21:00 Docusate Sodium 100 mg BIDPRN PRN PO 09/22/24 21:00 Acetaminophen 650 mg Q6HP PRN PO 09/22/24 21:00 Nitroglycerin 0.4 mg Q5MINP PRN SL 09/22/24 22:45 Morphine Sulfate 2 mg Q30M PRN IV 09/22/24 22:45 Atorvastatin Calcium 40 mg HS PO 09/23/24 22:00 09/26/24 23:20 40 MG Amiodarone HCl 200 mg Q12HR PO 09/23/24 22:00 09/27/24 08:05 200 MG Heparin Sodium (Porcine) 5,000 units Q12HR SC 09/23/24 22:00 09/27/24 08:04 5,000 UNITS Vancomycin HCl 0 ml @ 0 mls/hr UD IV 09/24/24 11:15 Cancel Sodium Chloride 1,000 ml @ 50 mls/hr Q20H IV 09/26/24 11:45 09/26/24 18:19 50 MLS/HR Guaifenesin/ Dextromethorphan 10 ml Q4HP PRN PO 09/27/24 17:15 UNV Daptomycin / Sodium Chloride 50 ml @ 100 mls/hr DAILY IV 09/28/24 10:00 UNV Physical Exam: General: NAD Neck: Supple. No masses. HEENT: PERRL. Normal lids and conjunctiva. Moist mucous membranes. Oropharynx without lesions, exudates, or excessive erythema. Normal appearance of the external aspects of the nose and ears. Heart: Regular rhythm, normal rate. No murmur. No lower extremity edema. Lungs: Diminished breath sounds at the bases bilaterally. No wheezes. No crackles. Abdomen: Soft. Non-tender. Non-distended. No masses or abdominal hernia. Msk: No digital cyanosis. Normal strength and tone in all 4 limbs. Skin: Warm and dry, no rashes. Neuro: Alert, more aware, following commands. No facial droop or slurred speech. Extra-ocular movements intact. Sensation intact to soft touch in all 4 limbs. Psych: Appropriate mood. Full affect. Oriented to person, place, time, and situation. laboratory and microbiology Laboratory Tests 09/27/24 05:58 09/26/24 06:00 Test 09/27/24 05:58 Range/Units Serum Glucose 119 H 74-106 mg/dL Problem List/Assessment/Plan Problems(with codes): (1) Sepsis, unspecified organism (2) TIA (transient ischemic attack) (3) Hypotension (4) Pneumonitis (5) Urinary tract infection (6) Hypotension, unspecified (7) Chronic a-fib (8) NSTEMI (non-ST elevated myocardial infarction) (9) Coronary artery disease (10) Atrial fibrillation (11) CAD (coronary artery disease) (12) Hyperglycemia (13) Chest pain (14) HTN (hypertension) Problem List/Assessment/Plan ID Problem List: - Atrial fibrillation - Diabetes mellitus - Hypertension - Hyperlipidemia - Myocardial infarction - Generalized weakness - Hypotension - Lactic acidosis - Acute kidney injury (JUANA) - Chronic kidney disease (CKD) - Altered mental status - Uremia - Tachycardia - Severe sepsis - Urinary tract infection (UTI) due to Serratia marcescens - Possible aspiration pneumonia - Diminished breath sounds at bases; possible bronchitis on chest X-ray Assessment This is an 79 y.o. male with a past medical history of atrial fibrillation, diabetes mellitus, hypertension, hyperlipidemia, and myocardial infarction, who presents with generalized weakness. He was found to be hypotensive (BP 76/49) with a lactic acid of 2.3. He was lethargic and hard to arouse on admission, which has since improved with fluid resuscitation and initiation of Levophed drip. His blood pressure is now stable at 111/63 without pressors. Creatinine was elevated to 2.46 with BUN of 61, improved to creatinine of 1.71 after fluid resuscitation and antibiotics. 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 He has diminished breath sounds at the bases on exam, and chest X-ray findings suggest bilateral bronchial thickening and possible bronchitis. Microscopic urine culture grew Serratia marcescens, and blood cultures had 2 out of 4 aerobic bottles positive for coagulase-negative Staphylococcus. 3: whitecount is 6.4 , repeat blood cultures are no growth to date , staph epidermitis show Vanc SHAY of 4 . TTE was done 09/23 which shows theres a mitral valve prosthetic without any significant mitral stenosis however it is heavily calcified , aortic valve was sclerotic with calcification of leaflets , EF 60% , mild to moderate micro insufficiency and moderate pulmonary efficiency /: renal ultrasound shows mild left hydronephrosis and blood cultures remain no growth to date 09/27: patient is to get a CARLINE under anesthesia tomorrow Plan: - highly recommend patient get TTE under anesthesia if medically feasible , due to finding out of patient has endocarditis and would affect plan of care - more antibiotics could be required and possible transfer to higher level of care for debridement will determine need for this based off CARLINE findings - given Vanc shay of 4 would switch to daptomycin with mentions of - Continue Daptomycin - Likely aspiration pneumonia; continue ceftriaxone to cover pneumonia and UTI. - Suspect blood culture contamination with coagulase-negative staph (likely skin rangel); recommend repeating blood cultures to confirm. - Recommend renal ultrasound to further evaluate the extent of urinary tract infection. Isolation Precautions: standard Plan discussed with: Other Dietary Evaluation Review Recommendations by RD: Protein Supplementation Comments: 1) Initiate Glucerna bid 2) Initiate vitamin C @ 500 mg bid 3) Initiate zinc sulfate @ 220 mg qd 4) Advance diet [facility] diet when medically feasible, pending MANAGER PRACTICE approval 5) Continue to monitor appetite, labs, and skin integrity Expected Outcomes/Goals: 1) appetite and labs to improve 2) diet to advance 3) wound to improve DIONI GARCIA MD Sep 27, 2024 20:32
--- NOTE | 2024-09-27 20:32 | DVHPN2 ---
Consult Progress Note Date Seen: Sep 26, 2024 Subjective Patient reports: Other (underwent CARLINE and was under a concious sedation and patient was unable to tolerate procedure due to inability to swallow, no signs of narrow airway , remains tachycardic ) Objective vital signs Vital Sign Date Time Temp Pulse Resp B/P (MAP) Pulse Ox O2 Delivery O2 Flow Rate FiO2 09/27/24 17:00 99.2 105 18 96/60 (72) 96 99.2 09/27/24 12:00 Room Air* 0 21 Total Intake and Output 09/26/24 09/26/24 09/27/24 15:00 23:00 07:00 Intake Total 200 ml 250 ml Balance 200 ml 250 ml medications Current Medications Medications Dose Ordered Sig/Gardenia Route Start Time Stop Time Status Last Admin Dose Admin Aspirin 81 mg DAILY PO 09/23/24 10:00 09/27/24 08:05 81 MG Ceftriaxone Sodium 50 ml @ 100 mls/hr DAILY@09 IV 09/23/24 09:00 09/27/24 08:04 100 MLS/HR Diagnostic Test (Pha) 1 strip ACHS 09/22/24 22:00 09/27/24 17:00 1 STRIP Insulin Human Regular ACHS SC 09/22/24 22:00 09/26/24 21:08 3 UNITS Dextrose 50 ml UD PRN IV 09/22/24 21:00 Sodium Chloride 10 ml Q8HR IV 09/22/24 22:00 09/27/24 14:00 10 ML Acetaminophen/ Hydrocodone Bitart 1 tab Q4HP PRN PO 09/22/24 21:00 Ondansetron HCl 4 mg Q4HP PRN IV 09/22/24 21:00 Docusate Sodium 100 mg BIDPRN PRN PO 09/22/24 21:00 Acetaminophen 650 mg Q6HP PRN PO 09/22/24 21:00 Nitroglycerin 0.4 mg Q5MINP PRN SL 09/22/24 22:45 Morphine Sulfate 2 mg Q30M PRN IV 09/22/24 22:45 Atorvastatin Calcium 40 mg HS PO 09/23/24 22:00 09/26/24 23:20 40 MG Amiodarone HCl 200 mg Q12HR PO 09/23/24 22:00 09/27/24 08:05 200 MG Heparin Sodium (Porcine) 5,000 units Q12HR SC 09/23/24 22:00 09/27/24 08:04 5,000 UNITS Vancomycin HCl 0 ml @ 0 mls/hr UD IV 09/24/24 11:15 Cancel Sodium Chloride 1,000 ml @ 50 mls/hr Q20H IV 09/26/24 11:45 09/26/24 18:19 50 MLS/HR Guaifenesin/ Dextromethorphan 10 ml Q4HP PRN PO 09/27/24 17:15 UNV Daptomycin / Sodium Chloride 50 ml @ 100 mls/hr DAILY IV 09/28/24 10:00 UNV Physical Exam: General: NAD Neck: Supple. No masses. HEENT: PERRL. Normal lids and conjunctiva. Moist mucous membranes. Oropharynx without lesions, exudates, or excessive erythema. Normal appearance of the external aspects of the nose and ears. Heart: Regular rhythm, normal rate. No murmur. No lower extremity edema. Lungs: Diminished breath sounds at the bases bilaterally. No wheezes. No crackles. Abdomen: Soft. Non-tender. Non-distended. No masses or abdominal hernia. Msk: No digital cyanosis. Normal strength and tone in all 4 limbs. Skin: Warm and dry, no rashes. Neuro: Alert, more aware, following commands. No facial droop or slurred speech. Extra-ocular movements intact. Sensation intact to soft touch in all 4 limbs. Psych: Appropriate mood. Full affect. Oriented to person, place, time, and situation. laboratory and microbiology Laboratory Tests 09/27/24 05:58 09/26/24 06:00 Test 09/27/24 05:58 Range/Units Serum Glucose 119 H 74-106 mg/dL Problem List/Assessment/Plan Problems(with codes): (1) Sepsis, unspecified organism (2) TIA (transient ischemic attack) (3) Hypotension (4) Pneumonitis (5) Urinary tract infection (6) Hypotension, unspecified (7) Chronic a-fib (8) NSTEMI (non-ST elevated myocardial infarction) (9) Coronary artery disease (10) Atrial fibrillation (11) CAD (coronary artery disease) (12) Hyperglycemia (13) Chest pain (14) HLD (hyperlipidemia) Problem List/Assessment/Plan ID Problem List: - Atrial fibrillation - Diabetes mellitus - Hypertension - Hyperlipidemia - Myocardial infarction - Generalized weakness - Hypotension - Lactic acidosis - Acute kidney injury (JUANA) - Chronic kidney disease (CKD) - Altered mental status - Uremia - Tachycardia - Severe sepsis - Urinary tract infection (UTI) due to Serratia marcescens - Possible aspiration pneumonia - Diminished breath sounds at bases; possible bronchitis on chest X-ray Assessment This is an 79 y.o. male with a past medical history of atrial fibrillation, diabetes mellitus, hypertension, hyperlipidemia, and myocardial infarction, who presents with generalized weakness. He was found to be hypotensive (BP 76/49) with a lactic acid of 2.3. He was lethargic and hard to arouse on admission, which has since improved with fluid resuscitation and initiation of Levophed drip. His blood pressure is now stable at 111/63 without pressors. Creatinine was elevated to 2.46 with BUN of 61, improved to creatinine of 1.71 after fluid resuscitation and antibiotics. 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 He has diminished breath sounds at the bases on exam, and chest X-ray findings suggest bilateral bronchial thickening and possible bronchitis. Microscopic urine culture grew Serratia marcescens, and blood cultures had 2 out of 4 aerobic bottles positive for coagulase-negative Staphylococcus. 3/: whitecount is 6.4 , repeat blood cultures are no growth to date , staph epidermitis show Vanc SHAY of 4 . TTE was done 09/23 which shows theres a mitral valve prosthetic without any significant mitral stenosis however it is heavily calcified , aortic valve was sclerotic with calcification of leaflets , EF 60% , mild to moderate micro insufficiency and moderate pulmonary efficiency 09/26: renal ultrasound shows mild left hydronephrosis and blood cultures remain no growth to date Plan: - highly recommend patient get TTE under anesthesia if medically feasible , due to finding out of patient has endocarditis and would affect plan of care - more antibiotics could be required and possible transfer to higher level of care for debridement will determine need for this based off CARLINE findings - given Vanc shay of 4 would switch to daptomycin with mentions of - Continue Daptomycin - Likely aspiration pneumonia; continue ceftriaxone to cover pneumonia and UTI. - Suspect blood culture contamination with coagulase-negative staph (likely skin rangel); recommend repeating blood cultures to confirm. - Recommend renal ultrasound to further evaluate the extent of urinary tract infection. Isolation Precautions: standard Plan discussed with: Other Dietary Evaluation Review Recommendations by RD: Protein Supplementation Comments: 1) Initiate Glucerna bid 2) Initiate vitamin C @ 500 mg bid 3) Initiate zinc sulfate @ 220 mg qd 4) Advance diet to 60g CCHO cardiac diet when medically feasible, pending [employer] approval 5) Continue to monitor appetite, labs, and skin integrity Expected Outcomes/Goals: 1) appetite and labs to improve 2) diet to advance 3) wound to improve DIONI GARCIA MD Sep 27, 2024 20:32
[2024-09-27] MEDS: guaiFENesin-DM 100/10mg/5ml SYR PO PRN (21:13)
[2024-09-27] MEDS: SODIUM CHL 0.9% IV SCH (22:36)
[2024-09-27] MEDS: DAPTOMYCIN IV SCH (22:36)
[2024-09-28] VITALS (7 sets, daily range): BP systolic 116–128; BP diastolic 62–74; PULSE 112–129; RESP 19–20; TEMP 97.9–99.2; O2SAT 94–98
[2024-09-28] MEDS: MIDAZOLAM HCL 2MG/2ML 2ml VIAL (1mg/ml) ONE (09:36)
[2024-09-28] MEDS: fentaNYL CITRATE 100 MCG/2 ML VL ONE (09:36)
[2024-09-28] MEDS: LIDOCAINE VISCOUS 2% 15ML UD ONE (09:37)
[2024-09-28] MEDS: ONDANSETRON HCL 4 MG/2 ML VIAL IV PRN (09:58)
[2024-09-28] MEDS ORDERED: DAPTOMYCIN IV SCH (10:00)
[2024-09-28] MEDS ORDERED: SODIUM CHL 0.9% IV SCH (10:00)
[2024-09-28] MEDS: LIDOCAINE VISCOUS 2% 15ML UD PO ONE (11:00)
[2024-09-28] MEDS: fentaNYL CITRATE 100 MCG/2 ML VL IV ONE (11:00)
[2024-09-28] MEDS: MIDAZOLAM HCL 2MG/2ML 2ml VIAL (1mg/ml) IV ONE (11:00)
--- NOTE | 2024-09-28 14:10 | DVHPN2 ---
Consult Progress Note Date Seen: Sep 28, 2024 Subjective Review of Systems: CVS:Normal, RESPIRATORY:Normal, NEURO:Normal Objective vital signs Vital Sign Date Time Temp Pulse Resp B/P (MAP) Pulse Ox O2 Delivery O2 Flow Rate FiO2 09/28/24 09:00 98.4 119 20 128/69 (88) 94 98.4 09/28/24 08:00 Room Air* 0 21 Total Intake and Output 09/27/24 09/27/24 09/28/24 15:00 23:00 07:00 Intake Total 860 ml 1355 ml Balance 860 ml 1355 ml medications Current Medications Medications Dose Ordered Sig/Gardenia Route Start Time Stop Time Status Last Admin Dose Admin Aspirin 81 mg DAILY PO 09/23/24 10:00 09/28/24 09:01 81 MG Ceftriaxone Sodium 50 ml @ 100 mls/hr DAILY@09 IV 09/23/24 09:00 09/28/24 09:01 100 MLS/HR Diagnostic Test (Pha) 1 strip ACHS 09/22/24 22:00 09/28/24 06:24 1 STRIP Insulin Human Regular ACHS SC 09/22/24 22:00 09/28/24 06:26 2 UNITS Dextrose 50 ml UD PRN IV 09/22/24 21:00 Sodium Chloride 10 ml Q8HR IV 09/22/24 22:00 09/28/24 05:54 10 ML Acetaminophen/ Hydrocodone Bitart 1 tab Q4HP PRN PO 09/22/24 21:00 Ondansetron HCl 4 mg Q4HP PRN IV 09/22/24 21:00 09/28/24 09:58 4 MG Docusate Sodium 100 mg BIDPRN PRN PO 09/22/24 21:00 Acetaminophen 650 mg Q6HP PRN PO 09/22/24 21:00 Nitroglycerin 0.4 mg Q5MINP PRN SL 09/22/24 22:45 Morphine Sulfate 2 mg Q30M PRN IV 09/22/24 22:45 Atorvastatin Calcium 40 mg HS PO 09/23/24 22:00 09/27/24 22:34 40 MG Amiodarone HCl 200 mg Q12HR PO 09/23/24 22:00 09/28/24 09:01 200 MG Heparin Sodium (Porcine) 5,000 units Q12HR SC 09/23/24 22:00 09/28/24 09:00 5,000 UNITS Vancomycin HCl 0 ml @ 0 mls/hr UD IV 09/24/24 11:15 Cancel Sodium Chloride 1,000 ml @ 50 mls/hr Q20H IV 09/26/24 11:45 09/28/24 03:58 50 MLS/HR Guaifenesin/ Dextromethorphan 10 ml Q4HP PRN PO 09/27/24 17:15 09/28/24 01:06 10 ML Daptomycin 620 mg/ Sodium Chloride 50 ml @ 100 mls/hr DAILY@2230 IV 09/27/24 22:30 09/27/24 22:36 100 MLS/HR Examination: GENERAL:Abnormal, LUNGS:Normal, CVS:Normal (A-fib 100s bpm), NEURO:Abnormal (Somnolent) laboratory and microbiology Laboratory Tests 09/27/24 05:58 09/26/24 06:00 Test 09/27/24 05:58 Range/Units Serum Glucose 119 H 74-106 mg/dL Problem List/Assessment/Plan Problem List/Assessment/Plan Septic shock with PNA/UTI Subacute endocarditis ruled out Paroxysmal atrial fibrillation, off AC therapy Coronary artery disease status post quadruple vessel 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 Santos) Transthoracic echocardiogram revealed an LVEF of 60%. There is significant calcification in the annulus of the mitral leaflet. The aortic valve is notably sclerotic as well with significant calcification of the leaflets. The patient underwent a transesophageal echocardiogram deemed to be negative for subacute endocarditis. Continue single antiplatelet therapy and lipid lowering agent given history of CAD status post CABG. Continue home amiodarone BID and initiate BB. Likely off NOAC therapy given history of anemia. Replete electrolytes, K>4 and Mg>2. DVT/VTE prophylaxis. We will sign off at this time. Kindly call if in need to re-consult. Thank you for allowing us to participate in this patient's care. This medical document was created using an electronic medical record system with voice recognition software and computerized dictation system. Although this document has been carefully reviewed, there might still be some phonetic and typographical errors. Occasional wrong-word or ``sound-alike substitutions may have occurred due to the inherent limitations of voice recognition software. These areas are purely typographical due to imperfections of the software programs and do not reflect any compromise in the patient's medical care. Please read the chart carefully and recognize, using context, where these substitutions have occurred. Plan discussed with: Patient, Other Dietary Evaluation Review Recommendations by RD: Protein Supplementation Comments: 1) Initiate Glucerna bid 2) Initiate vitamin C @ 500 mg bid 3) Initiate zinc sulfate @ 220 mg qd 4) Advance diet to 60g CCHO cardiac diet when medically feasible, pending [employer] approval 5) Continue to monitor appetite, labs, and skin integrity Expected Outcomes/Goals: 1) appetite and labs to improve 2) diet to advance 3) wound to improve Date of Service: Sep 28, 2024 Billing Provider: DINA JO Cardiology Common Codes: [id number] INP/OBS CARE(Mod) DINA JO Sep 28, 2024 14:10
--- NOTE | 2024-09-28 15:48 | DVHPN2 ---
Subjective s/p [place] today Now he is lethargic Vomiting and coughing Changes from previous H/P or p: Changes Eyes: No Pain, No Vision change, No Conjunctivae inflammation, No Eyelid inflammation, No Other, No Redness ENT: No Ear pain, No Ear discharge, No Nose pain, No Nose discharge, No Nose congestion, No Mouth pain, No Mouth swelling, No Throat pain, No Throat swelling, No Other Cardiovascular: No Chest Pain, No Palpitations, No Orthopnea, No Paroxysmal Noc. Dyspnea, No Edema, No Lt Headedness, No Other Respiratory: No Cough, No Dry, No Shortness of breath, No SOB with excertion, No Wheezing, No Hemoptysis, No Pleuritic Pain, No Sputum, No Other Gastrointestinal: No Nausea, No Vomiting, No Abdominal Pain, No Diarrhea, No Constipation, No Melena, No Hematochezia, No Other Genitourinary: No Dysuria, No Frequency, No Incontinence, No Hematuria, No Retention, No Other Musculoskeletal: No other, No neck pain, No shoulder pain, No arm pain, No back pain, No hand pain, No leg pain, No foot pain Skin: No Rash, No Lesions, No Jaundice, No Bruising, No Other Objective Vitals Vital Signs Date Time Temp Pulse Resp B/P (MAP) Pulse Ox O2 Delivery O2 Flow Rate FiO2 09/28/24 09:00 98.4 119 20 128/69 (88) 94 98.4 09/28/24 08:00 Room Air* 0 21 Intake/Output Intake and Output 09/28/24 07:00 Intake Total 2215 ml Balance 2215 ml Intake Oral 1165 ml IV Total 1050 ml # Voids 6 General Appearance: Alert, Oriented X3 Lungs: Clear to auscultation, Normal air movement Cardiovascular: Regular rate, Normal S1, Normal S2, No murmurs Abdomen: Normal bowel sounds, Soft, No tenderness Extremities: No edema Medications Current Medications Medications Dose Ordered Sig/Gardenia Route Start Time Stop Time Status Last Admin Dose Admin Aspirin 81 mg DAILY PO 09/23/24 10:00 09/28/24 09:01 81 MG Ceftriaxone Sodium 50 ml @ 100 mls/hr DAILY@09 IV 09/23/24 09:00 09/28/24 09:01 100 MLS/HR Diagnostic Test (Pha) 1 strip ACHS 09/22/24 22:00 09/28/24 06:24 1 STRIP Insulin Human Regular ACHS SC 09/22/24 22:00 09/28/24 06:26 2 UNITS Dextrose 50 ml UD PRN IV 09/22/24 21:00 Sodium Chloride 10 ml Q8HR IV 09/22/24 22:00 09/28/24 14:00 10 ML Acetaminophen/ Hydrocodone Bitart 1 tab Q4HP PRN PO 09/22/24 21:00 Ondansetron HCl 4 mg Q4HP PRN IV 09/22/24 21:00 09/28/24 15:31 4 MG Docusate Sodium 100 mg BIDPRN PRN PO 09/22/24 21:00 Acetaminophen 650 mg Q6HP PRN PO 09/22/24 21:00 Nitroglycerin 0.4 mg Q5MINP PRN SL 09/22/24 22:45 Morphine Sulfate 2 mg Q30M PRN IV 09/22/24 22:45 Atorvastatin Calcium 40 mg HS PO 09/23/24 22:00 09/27/24 22:34 40 MG Amiodarone HCl 200 mg Q12HR PO 09/23/24 22:00 09/28/24 09:01 200 MG Heparin Sodium (Porcine) 5,000 units Q12HR SC 09/23/24 22:00 09/28/24 09:00 5,000 UNITS Vancomycin HCl 0 ml @ 0 mls/hr UD IV 09/24/24 11:15 Cancel Sodium Chloride 1,000 ml @ 50 mls/hr Q20H IV 09/26/24 11:45 09/28/24 03:58 50 MLS/HR Guaifenesin/ Dextromethorphan 10 ml Q4HP PRN PO 09/27/24 17:15 09/28/24 01:06 10 ML Daptomycin 620 mg/ Sodium Chloride 50 ml @ 100 mls/hr DAILY@2230 IV 09/27/24 22:30 09/27/24 22:36 100 MLS/HR Metoprolol Tartrate 12.5 mg BID PO 09/28/24 22:00 Laboratory Results Laboratory Tests 09/26/24 06:00 09/27/24 05:58 Chemistry Test 09/28/24 06:18 Magnesium Level 1.7 mg/dL (1.6-2.6) Urinalysis Test 09/22/24 16:21 Urine Color Brown (Yellow) H Urine Clarity Ex.turbid (Clear) Urine pH 6.0 (5.0-9.0) Urine Specific [place] 1.008 (1.001-1.035) Urine Protein 2+ (Negative) H Urine Ketones Negative (Negative) Urine Blood 2+ /uL (Negative) H Urine Nitrite Negative (Negative) Urine Bilirubin Negative (Negative) Urine Urobilinogen Normal mg/dL (Negative) Urine Leukocyte Esterase 3+ /uL (Negative) Urine RBC 108 /hpf (0 - 3) Urine WBC Clumps Present /hpf (None Seen) Urine Microscopic WBC 3592 /HPF (0-3) H Urine Squamous Epithelial Cells None seen /hpf (<5) Urine Bacteria None seen /hpf (None Seen) Urine Mucus Few (None Seen) Urine Glucose Normal mg/dL (Normal) Microbiology Microbiology Date/Time Source Procedure Growth Status 09/24/24 17:57 Blood Blood Culture - Preliminary NO GROWTH AFTER 72 HOURS OF INCUBATION. Resulted 09/22/24 16:21 Urine - [place] Urine Culture - Final Serratia marcescens Complete Assessment/Plan Assessment/Plan Sepsis with septic shock Bacteremia with Gram-positive cocci in clusters UTI with serratia marcescens Pneumonia JUANA due to vasomotor nephropathy Afib DM2 HTN Dyslipidemia History of DVT History of mitral valve PLAN: IV antibiotics Rocephin and Doxycycline Levophed IV fluids 09/24/2024: Sepsis with pneumonia and UTI: Continue IV Rocephin and doxycycline, add vancomycin Infectious Disease consultation Bacteremia: Echo did not show vegetations Cardiology consult, JUANA: Continue IV fluids Atrial fibrillation: On amiodarone History of DVT Obesity Anemia [place]? To rule out endocarditis 09/25/2024: [place] for tomorrow Blood culture 1 bottle showed Staphylococcus epidermidis and the 2nd bottle is still pending JUANA: Improving with IV fluids Continue IV antibiotics Rocephin and vancomycin Discontinue doxycycline Atrial fibrillation: Continue amiodarone Discussed with the at the bedside Physical therapy 09/26/2024: Generalized weakness: Continue physical therapy Bacteremia rule out endocarditis: [place] was canceled today, we will try again in 2 days JUANA: Improving continue hydration UTI/pneumonia: Continue antibiotics Discussed with Cardiology, they will try again [place] on 09/28/2024 Atrial fibrillation: Amiodarone 09/27/2024: [place] tomorrow Continue physical therapy Hypokalemia: Replace 09/28/24: ALOC: Stop narcotics, keep NPO for now Cough, ?aspiration: Check CXR, aspiration precautions DC IV fluids h/o left ureteral stent per : Check CT abd & pelvis, urology consult Sepsis: Continue IV antibiotics UTI: Repeat UA and urine culture PNA Bacteremia ISRAEL: No endocarditis Afib: Amiodarone CAD JUANA/CKD Plan discussed with: Patient My Orders Orders - SABRINA LEOS MD Procedure Category Date Status Time Guaifenesin-Dextromet PHA 09/27/24 In Process Liquid (Robitussin 17:15 Chest Xray 1 View XY 09/28/24 Logged 15:37 Insert/Manage Urinary LACHO 09/28/24 In Process Catheter 15:37 Date of Service: Sep 28, 2024 Billing Provider: SABRINA LEOS MD Common Visit Codes: NOT BILLABLE SABRINA LEOS MD Sep 28, 2024 15:48
--- NOTE | 2024-09-28 16:18 | DVHOP2 ---
Operative Report - 2 Report Details Date: 09/28/24 Preop Diagnosis: Endocarditis Postop Diagnosis: Prosthetic mitral valve. No vegetations visualized. Surgeon: Jason Santos MD Anesthesiologist: Conscious sedation Anesthesia: Mac, Local Consent: The patient was informed of the risks and benefits of the procedure. These inclu de but are not limited to complications of anesthesia, postoperative infection, incomplete relief of symptoms, recurrence of symptoms, damage to blood vessels, nerves and tendons, deep venous thrombosis, pulmonary embolism and possible need for repeat surgery in the future. Complications: No complications Estimated Blood Loss: No bleeding Findings: Normal LV function. No vegetations identified Indications for Surgery: Recurrent fevers Name of Procedure Performed Transesophageal echocardiogram Procedure Details Procedure Details: Prior full informed consent obtained conscious sedation and lidocaine for gargling the patient was placed in left lateral and semi-Ceballos position. Transesophageal probe was passed after conscious sedation given in the form of Versed and fentanyl as well as Phenergan. I personally observed in monitor the patient throughout the entirety of the procedure. Condition Guarded Disposition at Hospital Date of Service: Sep 28, 2024 Billing Provider: JASON SANTOS Sr., MD Cardiology Common Codes: [id number] INP/OBS CARE (High) Cardiology Procedure Codes: 64811-YHH W/IMG DOC INCL PROB ACQ JASON SANTOS Sr., MD Sep 28, 2024 16:18
--- NOTE | 2024-09-28 16:18 | DVH ---
EXAM: XR Chest, 1 View CLINICAL INDICATION: Wheezing and tachypnea TECHNIQUE: Frontal view of the chest. COMPARISON: XY CHEST PORTABLE on DOS: 09/22/24, CHEST PORTABLE on DOS: 06/05/22, EKG on DOS: 2, CXRP on DOS: 06/05/22, EKG on DOS: 06/05/22 FINDINGS: LUNGS AND PLEURAL SPACES: See below. HEART: Cardiomegaly with pulmonary congestion and edema. Superimposed pneumonia cannot be excluded. MEDIASTINUM: Unremarkable. Normal mediastinal contour. BONES/JOINTS: Unremarkable. No acute fracture. OTHER FINDINGS: . IMPRESSION: Cardiomegaly with pulmonary congestion and edema. Superimposed pneumonia cannot be excluded.
[2024-09-28] MEDS: MAGNESIUM SULFATE 1GM/100ML 100 ML IV ONE (16:24)
--- NOTE | 2024-09-28 18:22 | DVHINCON2 ---
Date of service: Sep 28, [address] Flor Reason for Consultation Hypoxia, dyspnea History of Present Illness 79-year-old man history of atrial fibrillation, diabetes mellitus type 2, hypertension, hyperlipidemia, myocardial infarction who presented with generalized weakness. He was concern for aspiration. Dictation unable to lay flat. Unable to currently do CT chest. Chest x-ray notable for pulmonary edema and bilateral opacities. Pulmonary consultation is called due to aspiration pneumonia. Review of systems: Unable to obtain due to patient's altered mental status. Past medical history: Atrial fibrillation, diabetes mellitus type 2, hypertensi on, hyperlipidemia, myocardial infarction, chronic kidney disease Past surgical history: Appendectomy, coronary artery bypass grafting Medications: Reviewed Allergies: No known drug allergies. Family history: No family history premature CAD. No sensation lung disease Social history: Nonsmoker. No alcohol use. No illicit drug use. Family History: Patient reports no known family medical history. Allergies: Coded Allergies: NO KNOWN ALLERGIES (Unverified , 03/11/11) Home Meds Active Scripts Isosorbide Mononitrate (Isosorbide Mononitrate Er) 30 Mg Tab, 1 TAB PO DAILY, #30 TAB 5 Refills Prov:SABRINA FLOR MD 12/19/20 Ranolazine (Ranexa) 500 Mg Tab, 500 MG PO BID for 30 Days, #60 TAB 3 Refills Prov:SABRINA FLOR MD 12/19/20 Aspirin (Aspir-Low) 81 Mg Tab, 81 MG PO DAILY for 100 Days, #100 TAB 3 Refills Prov:SABRINA FLOR MD 12/19/20 Reported Medications Gabapentin (Gabapentin) 100 Mg Cap, 100 MG PO BID for 30 Days, MG 12/17/20 Atorvastatin Calcium (ATORVASTATIN CALCIUM) 20 Mg Tab, 1 TAB PO HS, #30 TAB 5 Refills 12/17/20 Losartan Potassium (Losartan Potassium) 25 Mg Tab, 25 MG PO DAILY for 30 Days, MG 12/17/20 Metoprolol Succinate (Metoprolol Succinate Er) 50 Mg Tab, 50 MG PO DAILY for 30 Days, MG 12/17/20 Current Medications Current Medications Medications (Trade) Dose Ordered Sig/[place]ardenia Route PRN Reason Start Time Stop Time Status Last Admin Daptomycin 620 mg/ Sodium Chloride 50 ml @ 100 mls/hr DAILY IV 09/28/24 10:00 09/27/24 21:47 DC Daptomycin 620 mg/ Sodium Chloride 50 ml @ 100 mls/hr DAILY@2230 IV 09/27/24 22:30 09/27/24 22:36 Metoprolol Tartrate (Lopressor Tablet) 12.5 mg BID PO 09/28/24 22:00 Vital Signs Vital Signs Date Time Temp Pulse Resp B/P (MAP) Pulse Ox O2 Delivery O2 Flow Rate FiO2 09/28/24 16:38 98.9 129 20 116/74 (88) 96 98.9 09/28/24 08:00 Room Air* 0 21 Physical Exam Gen.: Patient lying in bed in no apparent distress. On supplemental oxygen. Head: Normocephalic, atraumatic Eyes: EOMI/PERRLA. Ears: Normal hearing. Normal anatomy. Neck/trachea: Trachea midline, supple. Nose: Normal external anatomy. Mouth: Moist mucous membranes. Chest: Fair air entry bilaterally. No wheezing or rhonchi. Cardio vascular: Positive S1, positive S2. Regular rate and rhythm. Abdomen: Positive bowel sounds in all 4 quadrants. Soft, non-tender, non-d istended. : Deferred. Rectal: Deferred Skin: Warm, dry. Extremities: 2+ radial pulses bilaterally. No lower extremity edema. Neuro: Awake, alert. No gross motor or sensory deficits. Cranial nerves II through XII intact. Gait not assessed. Labs/Diagnostic Data Labs Test 09/28/24 16:27 09/28/24 06:18 09/27/24 17:20 09/27/24 05:58 Range/Units POC Glucose 167 H 70-106 mg/dl Magnesium Level 1.7 1.6-2.6 mg/dL Influenza Type A Antigen Negative Negative Influenza Type B Antigen Negative Negative SARS-CoV-2 Antigen (Rapid) Negative NEGATIVE Sodium Level 139 136-145 mmol/L Potassium Level 3.2 L 3.5-5.1 mmol/L Chloride Level 107 98-107 mmol/L Carbon Dioxide Level 22 20-31 mmol/L Anion Gap 10 5-15 Blood Urea Nitrogen 15 9-23 mg/dL Creatinine 1.28 0.700-1.30 mg/dL Glomerular Filtration Rate Calc 56 >90 mL/min BUN/Creatinine Ratio 11.7 10.0-20.0 Serum Glucose 119 H 74-106 mg/dL Calcium Level 8.9 8.7-10.4 mg/dL Test 3/3/25 06:00 09/25/24 10:22 09/25/24 06:28 09/22/24 19:37 Range/Units White Blood Count 8.1 # 4.4-10.8 10^3/uL Red Blood Count 2.95 L 4.5-5.90 10^6/uL Hemoglobin 8.3 L 13.5-17.5 g/dL Hematocrit 25.7 L 41.0-53.0 % Mean Corpuscular Volume 86.9 80.0-100.0 fL Mean Corpuscular Hemoglobin 28.1 28.0-32.0 pg Mean Corpuscular Hemoglobin Concent 32.3 32.0-36.0 g/dL Red Cell Distribution Width 15.9 H 11.8-14.3 % Platelet Count 263 140-450 10^3/uL Mean Platelet Volume 6.2 L 6.9-10.8 fL Neutrophils (%) (Auto) 79.5 37.0-80.0 % Lymphocytes (%) (Auto) 10.9 10.0-50.0 % Monocytes (%) (Auto) 6.6 0.0-12.0 % Eosinophils (%) (Auto) 2.5 0.0-7.0 % Basophils (%) (Auto) 0.5 0.0-2.0 % Neutrophils # (Auto) 6.5 1.6-8.6 10 ^3/uL Lymphocytes # (Auto) 0.9 0.4-5.4 10 ^3/uL Monocytes # (Auto) 0.5 0-1.3 10 ^3/uL Eosinophils # (Auto) 0.2 0-0.8 10 ^3/uL Basophils # (Auto) 0 0-0.2 10 ^3/uL Nucleated Red Blood Cells 0.1 % Prothrombin Time 11.8 9.3-11.8 sec Prothrombin Time INR 1.13 0.9-1.15 Activated Partial Thromboplast Time 29.4 24.5-34.5 SEC Hemoglobin A1c 6.2 H <5.7 % A1C Total Bilirubin 0.3 0.2-1.0 mg/dL Aspartate Amino Transferase (AST) 18 13-40 U/L Alanine Aminotransferase (ALT) 16 7-40 U/L Alkaline Phosphatase 89 46-116 U/L Total Protein 7.6 5.7-8.2 g/dL Albumin 3.4 3.2-4.8 g/dL Triglycerides Level 91 < 150 mg/dL Cholesterol Level 101 < 200 mg/dL LDL Cholesterol 58 < 100 mg/dL HDL Cholesterol 29 L 40-59 mg/dL Random Vancomycin Level 11.3 H 5-10 ug/mL Lactic Acid Level 1.6 0.4-2.0 mmol/L Test 09/22/24 16:21 09/22/24 15:11 Range/Units Urine Color Brown H Yellow Urine Clarity Ex.turbid Clear Urine pH 6.0 5.0-9.0 Urine Specific [place] 1.008 1.001-1.035 Urine Protein 2+ H Negative Urine Ketones Negative Negative Urine Blood 2+ H Negative /uL Urine Nitrite Negative Negative Urine Bilirubin Negative Negative Urine Urobilinogen Normal Negative mg/dL Urine Leukocyte Esterase 3+ Negative /uL Urine RBC 108 0 - 3 /hpf Urine WBC Clumps Present None Seen /hpf Urine Microscopic WBC 3592 H 0-3 /HPF Urine Squamous Epithelial Cells None seen <5 /hpf Urine Bacteria None seen None Seen /hpf Urine Mucus Few None Seen Urine Glucose Normal Normal mg/dL Troponin I High Sensitivity < 3 L </=54 ng/L Microbiology Date/Time Source Procedure Growth Status 09/24/24 17:57 Blood Blood Culture - Preliminary NO GROWTH AFTER 72 HOURS OF INCUBATION. Resulted 09/22/24 16:21 Urine - [place] Urine Culture - Final Serratia marcescens Complete Assessment Impression: Acute hypoxic respiratory failure Anemia Hypokalemia Atelectasis Aspiration pneumonia Pulmonary edema CAD s/p CABG Pulmonary Hypertension, RVSP 47 mmHg, who class II Moderate mitral regurgitation Plan: supplemental oxygen Keep o2 saturation above 92% Bronchodilators Antibiotics HOB elevation Aspiration precautions Echo reviewed. Cardiology recommendations appreciated. Amio PO Accucheks, ISS DVT prophylaxis Prognosis: Poor given multiple comorbidities. Rest of plan per hospitalist and other consultants. Thank you Dr. Flor for allowing me to participate in this patient's care. Further recommendations will depend on patient's clinical course. Please do not hesitate to contact me if you have any questions or concerns. This medical document was created using an electronic medical record system with [employer] system. Although this document has been carefully reviewed, there may still be some phonetic and typographical errors. These areas are purely typographical due to imperfections of the software programs, and do not reflect any compromise in the patient's medical care. Plan discussed with: Patient, Other (SHARRI Barboza) CHARMAINE JO MD Sep 28, 2024 18:22
[2024-09-28] MEDS: METOPROLOL TARTRATE 25 MG TAB PO SCH (21:50)
--- NOTE | 2024-09-28 22:18 | DVHPN2 ---
Consult Progress Note Date Seen: Sep 28, 2024 Subjective Patient reports: Other (a bit lethargic after CARLINE , not tachycardic ) Objective vital signs Vital Sign Date Time Temp Pulse Resp B/P (MAP) Pulse Ox O2 Delivery O2 Flow Rate FiO2 09/28/24 21:50 112 118/68 09/28/24 16:38 98.9 20 96 98.9 09/28/24 08:00 Room Air* 0 21 Total Intake and Output 09/27/24 09/27/24 09/28/24 15:00 23:00 07:00 Intake Total 860 ml 1355 ml Balance 860 ml 1355 ml medications Current Medications Medications Dose Ordered Sig/Gardenia Route Start Time Stop Time Status Last Admin Dose Admin Aspirin 81 mg DAILY PO 09/23/24 10:00 09/28/24 09:01 81 MG Ceftriaxone Sodium 50 ml @ 100 mls/hr DAILY@09 IV 09/23/24 09:00 09/28/24 09:01 100 MLS/HR Diagnostic Test (Pha) 1 strip ACHS 09/22/24 22:00 09/28/24 21:53 1 STRIP Insulin Human Regular ACHS SC 09/22/24 22:00 09/28/24 16:31 3 UNITS Dextrose 50 ml UD PRN IV 09/22/24 21:00 Sodium Chloride 10 ml Q8HR IV 09/22/24 22:00 09/28/24 21:49 10 ML Ondansetron HCl 4 mg Q4HP PRN IV 09/22/24 21:00 09/28/24 15:31 4 MG Acetaminophen 650 mg Q6HP PRN PO 09/22/24 21:00 Nitroglycerin 0.4 mg Q5MINP PRN SL 09/22/24 22:45 Atorvastatin Calcium 40 mg HS PO 09/23/24 22:00 09/28/24 21:49 40 MG Amiodarone HCl 200 mg Q12HR PO 09/23/24 22:00 09/28/24 21:48 200 MG Heparin Sodium (Porcine) 5,000 units Q12HR SC 09/23/24 22:00 09/28/24 21:52 5,000 UNITS Vancomycin HCl 0 ml @ 0 mls/hr UD IV 09/24/24 11:15 Cancel Daptomycin 620 mg/ Sodium Chloride 50 ml @ 100 mls/hr DAILY@2230 IV 09/27/24 22:30 09/28/24 22:05 100 MLS/HR Metoprolol Tartrate 12.5 mg BID PO 09/28/24 22:00 09/28/24 21:50 12.5 MG Physical Exam: General: NAD Neck: Supple. No masses. HEENT: PERRL. Normal lids and conjunctiva. Moist mucous membranes. Oropharynx without lesions, exudates, or excessive erythema. Normal appearance of the external aspects of the nose and ears. Heart: Regular rhythm, normal rate. No murmur. No lower extremity edema. Lungs: Diminished breath sounds at the bases bilaterally. No wheezes. No crackles. Abdomen: Soft. Non-tender. Non-distended. No masses or abdominal hernia. Msk: No digital cyanosis. Normal strength and tone in all 4 limbs. Skin: Warm and dry, no rashes. Neuro: Alert, more aware, following commands. No facial droop or slurred speech. Extra-ocular movements intact. Sensation intact to soft touch in all 4 limbs. Psych: Appropriate mood. Full affect. Oriented to person, place, time, and situation. laboratory and microbiology Laboratory Tests 09/27/24 05:58 09/26/24 06:00 Test 09/27/24 05:58 Range/Units Serum Glucose 119 H 74-106 mg/dL Problem List/Assessment/Plan Problems(with codes): (1) Mild malnutrition (2) Musculoskeletal chest pain (3) Acute coronary syndrome (4) HLD (hyperlipidemia) (5) HTN (hypertension) (6) Chest pain (7) Hyperglycemia (8) CAD (coronary artery disease) (9) Atrial fibrillation (10) Coronary artery disease (11) NSTEMI (non-ST elevated myocardial infarction) Problem List/Assessment/Plan ID Problem List: - Atrial fibrillation - Diabetes mellitus - Hypertension - Hyperlipidemia - Myocardial infarction - Generalized weakness - Hypotension - Lactic acidosis - Acute kidney injury (JUANA) - Chronic kidney disease (CKD) - Altered mental status - Uremia - Tachycardia - Severe sepsis - Urinary tract infection (UTI) due to Serratia marcescens - Possible aspiration pneumonia - Diminished breath sounds at bases; possible bronchitis on chest X-ray Assessment This is an 79 y.o. male with a past medical history of atrial fibrillation, diabetes mellitus, hypertension, hyperlipidemia, and myocardial infarction, who presents with generalized weakness. He was found to be hypotensive (BP 76/49) with a lactic acid of 2.3. He was lethargic and hard to arouse on admission, which has since improved with fluid resuscitation and initiation of Levophed drip. His blood pressure is now stable at 111/63 without pressors. Creatinine was elevated to 2.46 with BUN of 61, improved to creatinine of 1.71 after fluid resuscitation and antibiotics. 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 He has diminished breath sounds at the bases on exam, and chest X-ray findings suggest bilateral bronchial thickening and possible bronchitis. Microscopic urine culture grew Serratia marcescens, and blood cultures had 2 out of 4 aerobic bottles positive for coagulase-negative Staphylococcus. 09/25: whitecount is 6.4 , repeat blood cultures are no growth to date , staph epidermitis show Vanc SHIRA of 4 . TTE was done 09/23 which shows theres a mitral valve prosthetic without any significant mitral stenosis however it is heavily calcified , aortic valve was sclerotic with calcification of leaflets , EF 60% , mild to moderate micro insufficiency and moderate pulmonary efficiency 09/26: renal ultrasound shows mild left hydronephrosis and blood cultures remain no growth to date 09/27: patient is to get a CARLINE under anesthesia tomorrow 09/28: CARLINE was done , prosthetic mitral valve was seen but no vegetation were able to be visualized Plan: - suspect that haplodermitis is a transient infection and can treat with 2 week course of daptomycin or oral linezolid - Continue Daptomycin IV in patient - continue ceftriaxone to cover pneumonia and UTI. - Suspect blood culture contamination with coagulase-negative staph (likely skin rangel); recommend repeating blood cultures to confirm. - Recommend renal ultrasound to further evaluate the extent of urinary tract infection. Isolation Precautions: standard Plan discussed with: Other Dietary Evaluation Review Recommendations by RD: Protein Supplementation Comments: 1) Initiate Glucerna bid 2) Initiate vitamin C @ 500 mg bid 3) Initiate zinc sulfate @ 220 mg qd 4) Advance diet to 60g CCHO cardiac diet when medically feasible, pending EXHIBIT ARTIST approval 5) Continue to monitor appetite, labs, and skin integrity Expected Outcomes/Goals: 1) appetite and labs to improve 2) diet to advance 3) wound to improve DIONI GARCIA MD Sep 28, 2024 22:18
[2024-09-29] VITALS (7 sets, daily range): BP systolic 101–149; BP diastolic 50–75; PULSE 104–113; RESP 14–20; TEMP 97.9–98.6; O2SAT 96
--- NOTE | 2024-09-29 10:53 | DVHPN2 ---
Subjective Somewhat more alert however still confused He is still having cough and very weak to clear his throat Blood culture showed staph epi Urine culture showed Serratia [place] was negative for endocarditis Changes from previous H/P or p: Changes Eyes: No Pain, No Vision change, No Conjunctivae inflammation, No Eyelid inflammation, No Other, No Redness ENT: No Ear pain, No Ear discharge, No Nose pain, No Nose discharge, No Nose congestion, No Mouth pain, No Mouth swelling, No Throat pain, No Throat swelling, No Other Cardiovascular: No Chest Pain, No Palpitations, No Orthopnea, No Paroxysmal Noc. Dyspnea, No Edema, No Lt Headedness, No Other Respiratory: No Cough, No Dry, No Shortness of breath, No SOB with excertion, No Wheezing, No Hemoptysis, No Pleuritic Pain, No Sputum, No Other Gastrointestinal: No Nausea, No Vomiting, No Abdominal Pain, No Diarrhea, No Constipation, No Melena, No Hematochezia, No Other Genitourinary: No Dysuria, No Frequency, No Incontinence, No Hematuria, No Retention, No Other Musculoskeletal: No other, No neck pain, No shoulder pain, No arm pain, No back pain, No hand pain, No leg pain, No foot pain Skin: No Rash, No Lesions, No Jaundice, No Bruising, No Other Objective Vitals Vital Signs Date Time Temp Pulse Resp B/P (MAP) Pulse Ox O2 Delivery O2 Flow Rate FiO2 09/29/24 10:17 112 149/75 09/29/24 08:00 96 Nasal Cannula* 2 28 09/29/24 06:00 98.6 14 98.6 Intake/Output Intake and Output 09/29/24 06:59 Intake Total 362 ml Output Total 1125 ml Balance -763 ml Intake Oral 12 ml IV Total 50 ml Blood Product 300 ml Output Urine Total 1125 ml # Voids 3 General Appearance: Alert, Oriented X3 Lungs: Clear to auscultation, Normal air movement Cardiovascular: Regular rate, Normal S1, Normal S2, No murmurs Abdomen: Normal bowel sounds, Soft, No tenderness Extremities: No edema Medications Current Medications Medications Dose Ordered Sig/Gardenia Route Start Time Stop Time Status Last Admin Dose Admin Aspirin 81 mg DAILY PO 09/23/24 10:00 09/29/24 10:16 81 MG Ceftriaxone Sodium 50 ml @ 100 mls/hr DAILY@09 IV 09/23/24 09:00 09/29/24 10:16 100 MLS/HR Diagnostic Test (Pha) 1 strip ACHS 09/22/24 22:00 09/29/24 06:32 1 STRIP Insulin Human Regular ACHS SC 09/22/24 22:00 09/29/24 06:33 2 UNITS Dextrose 50 ml UD PRN IV 09/22/24 21:00 Sodium Chloride 10 ml Q8HR IV 09/22/24 22:00 09/29/24 06:24 10 ML Ondansetron HCl 4 mg Q4HP PRN IV 09/22/24 21:00 09/28/24 15:31 4 MG Acetaminophen 650 mg Q6HP PRN PO 09/22/24 21:00 Nitroglycerin 0.4 mg Q5MINP PRN SL 09/22/24 22:45 Atorvastatin Calcium 40 mg HS PO 09/23/24 22:00 09/28/24 21:49 40 MG Amiodarone HCl 200 mg Q12HR PO 09/23/24 22:00 09/29/24 10:18 200 MG Heparin Sodium (Porcine) 5,000 units Q12HR SC 09/23/24 22:00 09/29/24 10:26 5,000 UNITS Vancomycin HCl 0 ml @ 0 mls/hr UD IV 09/24/24 11:15 Cancel Daptomycin 620 mg/ Sodium Chloride 50 ml @ 100 mls/hr DAILY@2230 IV 09/27/24 22:30 09/28/24 22:05 100 MLS/HR Metoprolol Tartrate 12.5 mg BID PO 09/28/24 22:00 09/29/24 10:17 12.5 MG Laboratory Results Laboratory Tests 09/26/24 06:00 09/27/24 05:58 Urinalysis Test 09/22/24 16:21 Urine Color Brown (Yellow) H Urine Clarity Ex.turbid (Clear) Urine pH 6.0 (5.0-9.0) Urine Specific [place] 1.008 (1.001-1.035) Urine Protein 2+ (Negative) H Urine Ketones Negative (Negative) Urine Blood 2+ /uL (Negative) H Urine Nitrite Negative (Negative) Urine Bilirubin Negative (Negative) Urine Urobilinogen Normal mg/dL (Negative) Urine Leukocyte Esterase 3+ /uL (Negative) Urine RBC 108 /hpf (0 - 3) Urine WBC Clumps Present /hpf (None Seen) Urine Microscopic WBC 3592 /HPF (0-3) H Urine Squamous Epithelial Cells None seen /hpf (<5) Urine Bacteria None seen /hpf (None Seen) Urine Mucus Few (None Seen) Urine Glucose Normal mg/dL (Normal) Microbiology Microbiology Date/Time Source Procedure Growth Status 09/24/24 17:57 Blood Blood Culture - Preliminary NO GROWTH AFTER 72 HOURS OF INCUBATION. Resulted 09/22/24 16:21 Urine - [place] Urine Culture - Final Serratia marcescens Complete Assessment/Plan Assessment/Plan Sepsis with septic shock Bacteremia with Gram-positive cocci in clusters UTI with serratia marcescens Pneumonia JUANA due to vasomotor nephropathy Afib DM2 HTN Dyslipidemia History of DVT History of mitral valve PLAN: IV antibiotics Rocephin and Doxycycline Levophed IV fluids 09/24/2024: Sepsis with pneumonia and UTI: Continue IV Rocephin and doxycycline, add vancomycin Infectious Disease consultation Bacteremia: Echo did not show vegetations Cardiology consult, JUANA: Continue IV fluids Atrial fibrillation: On amiodarone History of DVT Obesity Anemia [place]? To rule out endocarditis 09/25/2024: [place] for tomorrow Blood culture 1 bottle showed Staphylococcus epidermidis and the 2nd bottle is still pending JUANA: Improving with IV fluids Continue IV antibiotics Rocephin and vancomycin Discontinue doxycycline Atrial fibrillation: Continue amiodarone Discussed with the at the bedside Physical therapy 09/26/2024: Generalized weakness: Continue physical therapy Bacteremia rule out endocarditis: [place] was canceled today, we will try again in 2 days JUANA: Improving continue hydration UTI/pneumonia: Continue antibiotics Discussed with Cardiology, they will try again [place] on 09/28/2024 Atrial fibrillation: Amiodarone 09/27/2024: [place] tomorrow Continue physical therapy Hypokalemia: Replace 09/28/24: ALOC: Stop narcotics, keep NPO for now Cough, ?aspiration: Check CXR, aspiration precautions DC IV fluids h/o left ureteral stent per : Check CT abd & pelvis, urology consult Sepsis: Continue IV antibiotics UTI: Repeat UA and urine culture PNA Bacteremia ISRAEL: No endocarditis Afib: Amiodarone CAD JUANA/CKD 09/29/2024: Chest x-ray shows pulmonary congestion: Start Lasix 40 mg IV daily The patient is still confused and lethargic Aspiration precautions Discontinued IV fluids yesterday Continue IV antibiotics for the pneumonia and UTI History of left ureteral stent per the , consult Urology CT scan of the abdomen and pelvis is still pending since the patient is aspiration precautions Atrial fibrillation continue amiodarone Bacteremia with staph epi Endocarditis was ruled out Plan discussed with: Patient, Spouse My Orders Orders - SABRINA LEOS MD Procedure Category Date Status Time Chest Xray 1 View XY 09/28/24 Resulted 15:37 Insert/Manage Urinary LACHO 09/28/24 In Process Catheter 15:37 * Urology Consult CONS 09/28/24 Transmitted 15:42 Urinalysis LAB 09/28/24 Uncollected 15:48 Urine Bacterial SHIRA 09/28/24 In Process Culture 15:48 Ct Ab Pel Wo Con-No CT 09/29/24 Logged Oral Or Iv 07:35 Complete Blood Count LAB 09/29/24 Logged 10:44 Comprehensive LAB 09/29/24 Logged Metabolic Panel 10:44 Magnesium LAB 09/29/24 Logged 10:44 Date of Service: Sep 29, 2024 Billing Provider: SABRINA LEOS MD Common Visit Codes: NOT BILLABLE SABRINA LEOS MD Sep 29, 2024 10:53
[2024-09-29 11:48] LABS: Hematocrit 22.1 % (41.0-53.0); Hemoglobin 7.4 g/dL (13.5-17.5); Mean Corpuscular Hemoglobin 29.1 pg (28.0-32.0); Mean Corpuscular Hgb Conc. 33.4 g/dL (32.0-36.0); Platelet Count (auto) 217 10^3/uL (140-450); Red Blood Cells 2.54 10^6/uL (4.5-5.90); Red Cell Distribution Width 15.8 % (11.8-14.3); White Blood Cell 8.7 10^3/uL (4.4-10.8)
[2024-09-29] MEDS: FUROSEMIDE 40 MG/4 ML VIAL IV ONE (11:58)
[2024-09-29 12:10] LABS: Alanine Aminotransferase 15 U/L (7-40); Albumin 3.3 g/dL (3.2-4.8); Alkaline Phosphatase 80 U/L (46-116); Anion Gap 8 (5-15); Aspartate Aminotransferase 25 U/L (13-40); BUN/Creatinine Ratio 12.4 (10.0-20.0); Blood Urea Nitrogen 13 mg/dL (9-23); Calcium 8.9 mg/dL (8.7-10.4); Carbon Dioxide 25 mmol/L (20-31); Chloride 102 mmol/L (98-107); Magnesium 1.8 mg/dL (1.6-2.6); Total Protein 7.5 g/dL (5.7-8.2)
[2024-09-29 12:11] LABS: Bilirubin, Total 0.4 mg/dL (0.2-1.0)
[2024-09-29 12:13] LABS: Glucose 180 mg/dL (74-106); Potassium 3.1 mmol/L (3.5-5.1); Sodium 135 mmol/L (136-145)
[2024-09-29 12:24] LABS: Basophils % (manual) 0 (0.0-2.0); Blast Cells 0; Eosinophils % (manual) 0 (0-7); Metamyelocytes % 0; Monocytes % (manual) 0 (0-12); Myelocytes % 0; Promyelocytes % 0; Reactive Lymphocytes 0
[2024-09-29 12:57] LABS: Band Neutrophils % (manual) 6; Lymphocytes % (manual) 12 (10.0-50.0); Platelet Estimate Adequate
--- NOTE | 2024-09-29 23:40 | DVHPN2 ---
Progress Note - Dictate Date Seen: Sep 29, 2024 Medical Necessity Reason Pt with a Central, PICC or Fol: No The following are medically ne: Ruff Catheter Subjective Patient seen and examined at bedside. Remains on supplemental oxygen Overnight events reviewed. vital signs Vital Sign Date Time Temp Pulse Resp B/P (MAP) Pulse Ox O2 Delivery O2 Flow Rate FiO2 09/29/24 21:42 112 117/65 09/29/24 15:54 97.9 20 96 97.9 09/29/24 08:00 Nasal Cannula* 2 28 Total Intake and Output 09/28/24 09/28/24 09/29/24 15:00 23:00 07:00 Intake Total 350 ml 12 ml Output Total 1125 ml Balance 350 ml -1113 ml medications Current Medications Medications Dose Ordered Sig/Gardenia Route Start Time Stop Time Status Last Admin Dose Admin Aspirin 81 mg DAILY PO 09/23/24 10:00 09/29/24 10:16 81 MG Ceftriaxone Sodium 50 ml @ 100 mls/hr DAILY@09 IV 09/23/24 09:00 09/29/24 10:16 100 MLS/HR Diagnostic Test (Pha) 1 strip ACHS 09/22/24 22:00 09/29/24 21:46 1 STRIP Insulin Human Regular ACHS SC 09/22/24 22:00 09/29/24 21:48 2 UNITS Dextrose 50 ml UD PRN IV 09/22/24 21:00 Sodium Chloride 10 ml Q8HR IV 09/22/24 22:00 09/29/24 21:47 10 ML Ondansetron HCl 4 mg Q4HP PRN IV 09/22/24 21:00 09/28/24 15:31 4 MG Acetaminophen 650 mg Q6HP PRN PO 09/22/24 21:00 Nitroglycerin 0.4 mg Q5MINP PRN SL 09/22/24 22:45 Atorvastatin Calcium 40 mg HS PO 09/23/24 22:00 09/29/24 21:41 40 MG Amiodarone HCl 200 mg Q12HR PO 09/23/24 22:00 09/29/24 21:43 200 MG Heparin Sodium (Porcine) 5,000 units Q12HR SC 09/23/24 22:00 09/29/24 21:46 5,000 UNITS Vancomycin HCl 0 ml @ 0 mls/hr UD IV 09/24/24 11:15 Cancel Daptomycin 620 mg/ Sodium Chloride 50 ml @ 100 mls/hr DAILY@2230 IV 09/27/24 22:30 09/29/24 22:04 100 MLS/HR Metoprolol Tartrate 12.5 mg BID PO 09/28/24 22:00 09/29/24 21:42 12.5 MG Furosemide 40 mg DAILY IV 09/30/24 10:00 objective Gen.: Patient lying in bed in no apparent distress. On supplemental oxygen. Head: Normocephalic, atraumatic. Eyes: EOMI/PERRLA. Ears: Normal hearing. Normal anatomy. Neck/trachea: Trachea midline, supple. Nose: Normal external anatomy. Mouth: Moist mucous membranes. Chest: Decreased air entry bilaterally. No wheezing or rhonchi. Cardiovascular: Positive S1, positive S2. Regular rate and rhythm. Abdomen: Positive bowel sounds in all 4 quadrants. Soft, non-tender, non- distended. : Deferred. Rectal: Deferred. Skin: Warm, dry. Intact. Extremities: 2+ radial pulses bilaterally. No lower extremity edema. Neuro: Awake, alert, oriented x3. No gross motor or sensory deficits. Cranial nerves II through XII intact. Gait not assessed laboratory and microbiology Laboratory Tests 09/29/24 11:17 Test 09/29/24 11:17 Range/Units Serum Glucose 180 H 74-106 mg/dL Assessment/Plan Impression: Acute hypoxic respiratory failure Anemia Hypokalemia Atelectasis Aspiration pneumonia Pulmonary edema CAD s/p CABG Pulmonary Hypertension, RVSP 47 mmHg, who class II Moderate mitral regurgitation Events: Remains on supplemental oxygen, 2 LPM NC Taper O2 as tolerated Amiodarone PO Continue antibiotics Antitussive for cough Incentive spirometry Head of bed elevation Aspiration precautions On puree diet Accu-Cheks, ISS. Labs and imaging reviewed. Rest of plan as noted below. Plan: supplemental oxygen Keep o2 saturation above 92% Antibiotics HOB elevation Aspiration precautions Echo reviewed. Cardiology recommendations appreciated. Amio PO Accu-Cheks, ISS DVT prophylaxis Prognosis: Guarded given multiple comorbidities. Rest of plan per hospitalist and other consultants. Thank you Dr. Flor for allowing me to participate in this patient's care. Further recommendations will depend on patient's clinical course. Please do not hesitate to contact me if you have any questions or concerns. This medical document was created using an electronic medical record system with [employer] dictation system. Although this document has been carefully reviewed, there may still be some phonetic and typographical errors. These areas are purely typographical due to imperfections of the software programs, and do not reflect any compromise in the patient's medical care. Dietary Evaluation Review Recommendations by RD: Protein Supplementation Comments: 1) Initiate Glucerna bid 2) Initiate vitamin C @ 500 mg bid 3) Initiate zinc sulfate @ 220 mg qd 4) Advance diet to 60g [facility] cardiac diet when medically feasible, pending [employer] approval 5) Continue to monitor appetite, labs, and skin integrity Expected Outcomes/Goals: 1) appetite and labs to improve 2) diet to advance 3) wound to improve Plan discussed with: Patient, Other (SHARRI Castillo) CHARMAINE JO MD Sep 29, 2024 23:40
[2024-09-30] VITALS (8 sets, daily range): BP systolic 101–163; BP diastolic 48–68; PULSE 95–121; RESP 18–21; TEMP 97.4–100.6; O2SAT 93–96
[2024-09-30 08:08] LABS: Anion Gap 8 (5-15); Carbon Dioxide 25 mmol/L (20-31); Chloride 100 mmol/L (98-107)
[2024-09-30 08:10] LABS: Sodium 133 mmol/L (136-145)
[2024-09-30 08:15] LABS: BUN/Creatinine Ratio 13.3 (10.0-20.0); Blood Urea Nitrogen 17 mg/dL (9-23); Magnesium 1.9 mg/dL (1.6-2.6)
[2024-09-30 08:16] LABS: Glucose 127 mg/dL (74-106)
--- NOTE | 2024-09-30 10:34 | DVHPN2 ---
Subjective More alert On 2 liters O2 K+: 3.0 Hb 7.4 Changes from previous H/P or p: Changes Eyes: No Pain, No Vision change, No Conjunctivae inflammation, No Eyelid inflammation, No Other, No Redness ENT: No Ear pain, No Ear discharge, No Nose pain, No Nose discharge, No Nose congestion, No Mouth pain, No Mouth swelling, No Throat pain, No Throat swelling, No Other Cardiovascular: No Chest Pain, No Palpitations, No Orthopnea, No Paroxysmal Noc. Dyspnea, No Edema, No Lt Headedness, No Other Respiratory: No Cough, No Dry, No Shortness of breath, No SOB with excertion, No Wheezing, No Hemoptysis, No Pleuritic Pain, No Sputum, No Other Gastrointestinal: No Nausea, No Vomiting, No Abdominal Pain, No Diarrhea, No Constipation, No Melena, No Hematochezia, No Other Genitourinary: No Dysuria, No Frequency, No Incontinence, No Hematuria, No Retention, No Other Musculoskeletal: No other, No neck pain, No shoulder pain, No arm pain, No back pain, No hand pain, No leg pain, No foot pain Skin: No Rash, No Lesions, No Jaundice, No Bruising, No Other Objective Vitals Vital Signs Date Time Temp Pulse Resp B/P (MAP) Pulse Ox O2 Delivery O2 Flow Rate FiO2 09/30/24 08:42 100.6 121 21 163/55 (91) 95 100.6 09/30/24 08:00 Nasal Cannula* 2 28 Intake/Output Intake and Output 09/30/24 07:00 Intake Total 500 ml Output Total 675 ml Balance -175 ml Intake Oral 450 ml IV Total 50 ml Output Urine Total 675 ml # Bowel Movements 1 General Appearance: Alert, Oriented X3 Lungs: Clear to auscultation, Normal air movement Cardiovascular: Regular rate, Normal S1, Normal S2, No murmurs Abdomen: Normal bowel sounds, Soft, No tenderness Extremities: No edema Medications Current Medications Medications Dose Ordered Sig/Gardenia Route Start Time Stop Time Status Last Admin Dose Admin Aspirin 81 mg DAILY PO 09/23/24 10:00 09/29/24 10:16 81 MG Ceftriaxone Sodium 50 ml @ 100 mls/hr DAILY@09 IV 09/23/24 09:00 09/29/24 10:16 100 MLS/HR Diagnostic Test (Pha) 1 strip ACHS 09/22/24 22:00 09/30/24 06:38 1 STRIP Insulin Human Regular ACHS SC 09/22/24 22:00 09/29/24 21:48 2 UNITS Dextrose 50 ml UD PRN IV 09/22/24 21:00 Sodium Chloride 10 ml Q8HR IV 09/22/24 22:00 09/30/24 05:42 10 ML Ondansetron HCl 4 mg Q4HP PRN IV 09/22/24 21:00 09/28/24 15:31 4 MG Acetaminophen 650 mg Q6HP PRN PO 09/22/24 21:00 Nitroglycerin 0.4 mg Q5MINP PRN SL 09/22/24 22:45 Atorvastatin Calcium 40 mg HS PO 09/23/24 22:00 09/29/24 21:41 40 MG Amiodarone HCl 200 mg Q12HR PO 09/23/24 22:00 09/29/24 21:43 200 MG Heparin Sodium (Porcine) 5,000 units Q12HR SC 09/23/24 22:00 09/29/24 21:46 5,000 UNITS Vancomycin HCl 0 ml @ 0 mls/hr UD IV 09/24/24 11:15 Cancel Daptomycin 620 mg/ Sodium Chloride 50 ml @ 100 mls/hr DAILY@2230 IV 09/27/24 22:30 09/29/24 22:04 100 MLS/HR Metoprolol Tartrate 12.5 mg BID PO 09/28/24 22:00 09/29/24 21:42 12.5 MG Furosemide 40 mg DAILY IV 09/30/24 10:00 Laboratory Results Laboratory Tests 09/29/24 11:17 09/30/24 07:30 Chemistry Test 09/29/24 11:17 09/30/24 07:30 Albumin 3.3 g/dL (3.2-4.8) Calcium Level 8.9 mg/dL (8.7-10.4) 9.0 mg/dL (8.7-10.4) Magnesium Level 1.8 mg/dL (1.6-2.6) 1.9 mg/dL (1.6-2.6) Total Protein 7.5 g/dL (5.7-8.2) LFT Test 09/29/24 11:17 Alanine Aminotransferase (ALT) 15 U/L (7-40) Alkaline Phosphatase 80 U/L (46-116) Aspartate Amino Transferase (AST) 25 U/L (13-40) Total Bilirubin 0.4 mg/dL (0.2-1.0) Urinalysis Test 09/22/24 16:21 Urine Color Brown (Yellow) H Urine Clarity Ex.turbid (Clear) Urine pH 6.0 (5.0-9.0) Urine Specific [place] 1.008 (1.001-1.035) Urine Protein 2+ (Negative) H Urine Ketones Negative (Negative) Urine Blood 2+ /uL (Negative) H Urine Nitrite Negative (Negative) Urine Bilirubin Negative (Negative) Urine Urobilinogen Normal mg/dL (Negative) Urine Leukocyte Esterase 3+ /uL (Negative) Urine RBC 108 /hpf (0 - 3) Urine WBC Clumps Present /hpf (None Seen) Urine Microscopic WBC 3592 /HPF (0-3) H Urine Squamous Epithelial Cells None seen /hpf (<5) Urine Bacteria None seen /hpf (None Seen) Urine Mucus Few (None Seen) Urine Glucose Normal mg/dL (Normal) Microbiology Microbiology Date/Time Source Procedure Growth Status 09/28/24 15:56 Voided Urine Urine Culture - Final Complete 09/24/24 17:57 Blood Blood Culture - Final NO GROWTH AFTER 5 DAYS OF INCUBATION. Complete Assessment/Plan Assessment/Plan Sepsis with septic shock Bacteremia with Gram-positive cocci in clusters UTI with serratia marcescens Pneumonia JUANA due to vasomotor nephropathy Afib DM2 HTN Dyslipidemia History of DVT History of mitral valve PLAN: IV antibiotics Rocephin and Doxycycline Levophed IV fluids 09/24/2024: Sepsis with pneumonia and UTI: Continue IV Rocephin and doxycycline, add vancomycin Infectious Disease consultation Bacteremia: Echo did not show vegetations Cardiology consult, JUANA: Continue IV fluids Atrial fibrillation: On amiodarone History of DVT Obesity Anemia [place]? To rule out endocarditis 09/25/2024: [place] for tomorrow Blood culture 1 bottle showed Staphylococcus epidermidis and the 2nd bottle is still pending JUANA: Improving with IV fluids Continue IV antibiotics Rocephin and vancomycin Discontinue doxycycline Atrial fibrillation: Continue amiodarone Discussed with the at the bedside Physical therapy 09/26/2024: Generalized weakness: Continue physical therapy Bacteremia rule out endocarditis: [place] was canceled today, we will try again in 2 days JUANA: Improving continue hydration UTI/pneumonia: Continue antibiotics Discussed with Cardiology, they will try again [place] on 09/28/2024 Atrial fibrillation: Amiodarone 09/27/2024: [place] tomorrow Continue physical therapy Hypokalemia: Replace 09/28/24: ALOC: Stop narcotics, keep NPO for now Cough, ?aspiration: Check CXR, aspiration precautions DC IV fluids h/o left ureteral stent per : Check CT abd & pelvis, urology consult Sepsis: Continue IV antibiotics UTI: Repeat UA and urine culture PNA Bacteremia [place]: No endocarditis Afib: Amiodarone CAD JUANA/CKD 09/29/2024: Chest x-ray shows pulmonary congestion: Start Lasix 40 mg IV daily The patient is still confused and lethargic Aspiration precautions Discontinued IV fluids yesterday Continue IV antibiotics for the pneumonia and UTI History of left ureteral stent per the , consult Urology CT scan of the abdomen and pelvis is still pending since the patient is aspiration precautions Atrial fibrillation continue amiodarone Bacteremia with staph epi Endocarditis was ruled out 09/30/24: Replace K+ po Lasix 40 mg IV qd Rocephin and Daptomycin Amiodarone po CT abd and pelvis to check on ureteral stent placement Physical therapy Plan discussed with: Patient, Spouse My Orders Orders - SABRINA LEOS MD Procedure Category Date Status Time Furosemide Injection PHA 09/30/24 In Process (Lasix Injection) 10:00 Ct Ab Pel Wo Con-No CT 09/30/24 Logged Oral Or Iv 08:00 Stool Occult Blood LAB 09/30/24 Uncollected 09:42 Date of Service: Sep 30, 2024 Billing Provider: SABRINA LEOS MD Common Visit Codes: NOT BILLABLE SABRINA LEOS MD Sep 30, 2024 10:34
[2024-09-30] MEDS: POTASSIUM EFFERVESENT TAB 25 MEQ PO ONE (10:46)
[2024-09-30] MEDS: FUROSEMIDE 40 MG/4 ML VIAL IV SCH (10:47)
--- NOTE | 2024-09-30 11:34 | DVH ---
Exam: CT CT AB PEL WO CON-NO ORAL OR IV History: LEFT RENAL STENT Comparison Study: None Technique: Multidetector spiral CT of the abdomen was performed from lung bases to pubic symphysis. I maging was performed without IV contrast. Axial, coronal and sagittal multiplanar reformats were obta ined from the axial data set by the technologist. Radiation Dose : 1. Abdomen/Pelvis: CTDIvol 19.05 mGy, DLP 1078.46 mGy*cm. Findings: Evaluation of solid organs is limited due to lack of intravenous contrast use. Lung Bases: Cardiomegaly. Coronary artery calcifications. Vascular calcifications of the aorta. Peribronchial thickening and patchy airspace opacities in the bilateral lower lobes. Liver: The liver is normal in size. No focal lesions. Gallbladder and Biliary Tree: Unremarkable Spleen: Unremarkable Pancreas: The pancreas is grossly normal in appearance. Adrenal Glands: Unremarkable Kidneys: Right kidney is unremarkable. Mild left hydroureteronephrosis with internal ureteral stent i n-situ. Distal aspect of the stent is at the UVJ possibly just extending into the urinary bladder. Bladder: Bladder is decompressed with a Ruff catheter and cannot be adequately assessed. Bowel: The stomach is grossly normal in appearance. Small bowel and colon are normal in caliber and d istribution. The appendix is not visualized; however, no secondary findings of acute appendicitis manju ntified. Ascites: Absent Lymphadenopathy: No mesenteric, retroperitoneal or periportal lymphadenopathy. Abdominal Wall and Mesentery: Unremarkable. Vasculature: The visualized abdominal aorta is normal in size and caliber. There is extensive athero sclerotic calcification of the aorta and its branches. Evaluation of abdominal and pelvic vessels is limited due to lack of intravenous contrast. Pelvic Organs: Unremarkable Musculoskeletal: No aggressive focal bony lesions, acute fractures or dislocation. Multilevel degener ative changes of the spine. Right hip arthroplasty. IMPRESSION: Mild left hydroureteronephrosis with internal ureteral stent in-situ. Distal aspect of the stent is at the UVJ possibly just extending into the urinary bladder. Repositioning may be required. Clinical correlation advised. Bilateral lower lobe airspace disease. Moderate volume colonic stool. Radiation optimization: All CT scans at this facility use at least one of these dose optimization anita hniques: automated exposure control mA and/or kV adjustment per patient size (includes targeted exam s where dose is matched to clinical indication) or iterative reconstruction.
--- NOTE | 2024-09-30 18:27 | DVHPN2 ---
Consult Progress Note Date Seen: Sep 29, 2024 Subjective Patient reports: Other (no acute events overnight , still a bit confused and has a weak cough , clear lungss) Objective vital signs Vital Sign Date Time Temp Pulse Resp B/P (MAP) Pulse Ox O2 Delivery O2 Flow Rate FiO2 09/30/24 16:47 98.9 95 21 101/56 (71) 93 98.9 09/30/24 08:00 Nasal Cannula* 2 28 Total Intake and Output 09/29/24 09/29/24 09/30/24 15:00 23:00 07:00 Intake Total 200 ml 300 ml Output Total 200 ml 475 ml Balance 0 ml -175 ml medications Current Medications Medications Dose Ordered Sig/Gardenia Route Start Time Stop Time Status Last Admin Dose Admin Aspirin 81 mg DAILY PO 09/23/24 10:00 09/30/24 10:48 81 MG Ceftriaxone Sodium 50 ml @ 100 mls/hr DAILY@09 IV 09/23/24 09:00 09/30/24 10:45 100 MLS/HR Diagnostic Test (Pha) 1 strip ACHS 09/22/24 22:00 09/30/24 11:49 1 STRIP Insulin Human Regular ACHS SC 09/22/24 22:00 09/29/24 21:48 2 UNITS Dextrose 50 ml UD PRN IV 09/22/24 21:00 Sodium Chloride 10 ml Q8HR IV 09/22/24 22:00 09/30/24 14:00 10 ML Ondansetron HCl 4 mg Q4HP PRN IV 09/22/24 21:00 09/28/24 15:31 4 MG Acetaminophen 650 mg Q6HP PRN PO 09/22/24 21:00 Nitroglycerin 0.4 mg Q5MINP PRN SL 09/22/24 22:45 Atorvastatin Calcium 40 mg HS PO 09/23/24 22:00 09/29/24 21:41 40 MG Amiodarone HCl 200 mg Q12HR PO 09/23/24 22:00 09/30/24 10:48 200 MG Heparin Sodium (Porcine) 5,000 units Q12HR SC 09/23/24 22:00 09/30/24 10:43 5,000 UNITS Vancomycin HCl 0 ml @ 0 mls/hr UD IV 09/24/24 11:15 Cancel Daptomycin 620 mg/ Sodium Chloride 50 ml @ 100 mls/hr DAILY@2230 IV 09/27/24 22:30 09/29/24 22:04 100 MLS/HR Metoprolol Tartrate 12.5 mg BID PO 09/28/24 22:00 09/30/24 10:47 12.5 MG Furosemide 40 mg DAILY IV 09/30/24 10:00 09/30/24 10:47 40 MG Physical Exam: General: NAD Neck: Supple. No masses. HEENT: PERRL. Normal lids and conjunctiva. Moist mucous membranes. Oropharynx without lesions, exudates, or excessive erythema. Normal appearance of the external aspects of the nose and ears. Heart: Regular rhythm, normal rate. No murmur. No lower extremity edema. Lungs: Diminished breath sounds at the bases bilaterally. No wheezes. No crackles. Abdomen: Soft. Non-tender. Non-distended. No masses or abdominal hernia. Msk: No digital cyanosis. Normal strength and tone in all 4 limbs. Skin: Warm and dry, no rashes. Neuro: Alert, more aware, following commands. No facial droop or slurred speech. Extra-ocular movements intact. Sensation intact to soft touch in all 4 limbs. Psych: Appropriate mood. Full affect. Oriented to person, place, time, and situation. laboratory and microbiology Laboratory Tests 09/30/24 07:30 09/29/24 11:17 Test 09/30/24 07:30 Range/Units Serum Glucose 127 H 74-106 mg/dL Problem List/Assessment/Plan Problems(with codes): (1) Mild malnutrition (2) Musculoskeletal chest pain (3) Acute coronary syndrome (4) HLD (hyperlipidemia) (5) HTN (hypertension) (6) Chest pain (7) Hyperglycemia (8) CAD (coronary artery disease) (9) Atrial fibrillation (10) Coronary artery disease (11) NSTEMI (non-ST elevated myocardial infarction) (12) Chronic a-fib Problem List/Assessment/Plan ID Problem List: - Atrial fibrillation - Diabetes mellitus - Hypertension - Hyperlipidemia - Myocardial infarction - Generalized weakness - Hypotension - Lactic acidosis - Acute kidney injury (JUANA) - Chronic kidney disease (CKD) - Altered mental status - Uremia - Tachycardia - Severe sepsis - Urinary tract infection (UTI) due to Serratia marcescens - Possible aspiration pneumonia - Diminished breath sounds at bases; possible bronchitis on chest X-ray Assessment This is an 79 y.o. male with a past medical history of atrial fibrillation, diabetes mellitus, hypertension, hyperlipidemia, and myocardial infarction, who presents with generalized weakness. He was found to be hypotensive (BP 76/49) with a lactic acid of 2.3. He was lethargic and hard to arouse on admission, which has since improved with fluid resuscitation and initiation of Levophed drip. His blood pressure is now stable at 111/63 without pressors. Creatinine was elevated to 2.46 with BUN of 61, improved to creatinine of 1.71 after fluid resuscitation and antibiotics. 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 He has diminished breath sounds at the bases on exam, and chest X-ray findings suggest bilateral bronchial thickening and possible bronchitis. Microscopic urine culture grew Serratia marcescens, and blood cultures had 2 out of 4 aerobic bottles positive for coagulase-negative Staphylococcus. 09/25: whitecount is 6.4 , repeat blood cultures are no growth to date , staph epidermitis show Vanc SHIRA of 4 . TTE was done 09/23 which shows theres a mitral valve prosthetic without any significant mitral stenosis however it is heavily calcified , aortic valve was sclerotic with calcification of leaflets , EF 60% , mild to moderate micro insufficiency and moderate pulmonary efficiency 09/26: renal ultrasound shows mild left hydronephrosis and blood cultures remain no growth to date 09/27: patient is to get a CARLINE under anesthesia tomorrow 09/28: CARLINE was done , prosthetic mitral valve was seen but no vegetation were able to be visualized 09/29: tolerating antibiotics and therapy , Plan: -CT abdomen and pelvis needed to evaluate renal stent and will follow up on image to determine if antibiotics need to be extended - defer to urology for additional management of the stent - suspect that staph epidermidis in blood is a transient infection and can treat with 2 week course of daptomycin or oral linezolid - Continue Daptomycin IV in patient - continue ceftriaxone to cover pneumonia and UTI. Isolation Precautions: standard Plan discussed with: Other Dietary Evaluation Review Recommendations by RD: Protein Supplementation Comments: 1) Initiate Glucerna bid 2) Initiate vitamin C @ 500 mg bid 3) Initiate zinc sulfate @ 220 mg qd 4) Advance diet to 60g [facility] cardiac diet when medically feasible, pending [facility] approval 5) Continue to monitor appetite, labs, and skin integrity Expected Outcomes/Goals: 1) appetite and labs to improve 2) diet to advance 3) wound to improve DIONI GARCIA MD Sep 30, 2024 18:27
[2024-09-30] MEDS: ACETAMINOPHEN 325 MG TAB PO PRN (23:26)
--- NOTE | 2024-09-30 23:42 | DVHPN2 ---
Progress Note - Dictate Date Seen: Sep 30, 2024 Medical Necessity Reason Pt with a Central, PICC or Fol: No The following are medically ne: Ruff Catheter Subjective Patient seen and examined at bedside. Remains on supplemental oxygen Overnight events reviewed. vital signs Vital Sign Date Time Temp Pulse Resp B/P (MAP) Pulse Ox O2 Delivery O2 Flow Rate FiO2 09/30/24 21:47 98 108/62 09/30/24 21:00 97.4 18 96 97.4 09/30/24 08:00 Nasal Cannula* 2 28 Total Intake and Output 09/29/24 09/29/24 09/30/24 15:00 23:00 07:00 Intake Total 200 ml 300 ml Output Total 200 ml 475 ml Balance 0 ml -175 ml medications Current Medications Medications Dose Ordered Sig/Gardenia Route Start Time Stop Time Status Last Admin Dose Admin Aspirin 81 mg DAILY PO 09/23/24 10:00 09/30/24 10:48 81 MG Ceftriaxone Sodium 50 ml @ 100 mls/hr DAILY@09 IV 09/23/24 09:00 09/30/24 10:45 100 MLS/HR Diagnostic Test (Pha) 1 strip ACHS 09/22/24 22:00 09/30/24 21:55 1 STRIP Insulin Human Regular ACHS SC 09/22/24 22:00 09/29/24 21:48 2 UNITS Dextrose 50 ml UD PRN IV 09/22/24 21:00 Sodium Chloride 10 ml Q8HR IV 09/22/24 22:00 09/30/24 21:55 10 ML Ondansetron HCl 4 mg Q4HP PRN IV 09/22/24 21:00 09/28/24 15:31 4 MG Acetaminophen 650 mg Q6HP PRN PO 09/22/24 21:00 09/30/24 23:26 650 MG Nitroglycerin 0.4 mg Q5MINP PRN SL 09/22/24 22:45 Atorvastatin Calcium 40 mg HS PO 09/23/24 22:00 09/30/24 21:45 40 MG Amiodarone HCl 200 mg Q12HR PO 09/23/24 22:00 09/30/24 21:46 200 MG Heparin Sodium (Porcine) 5,000 units Q12HR SC 09/23/24 22:00 09/30/24 21:48 5,000 UNITS Vancomycin HCl 0 ml @ 0 mls/hr UD IV 09/24/24 11:15 Cancel Daptomycin 620 mg/ Sodium Chloride 50 ml @ 100 mls/hr DAILY@2230 IV 09/27/24 22:30 09/30/24 22:30 100 MLS/HR Metoprolol Tartrate 12.5 mg BID PO 09/28/24 22:00 09/30/24 21:47 12.5 MG Furosemide 40 mg DAILY IV 09/30/24 10:00 09/30/24 10:47 40 MG objective Gen.: Patient lying in bed in no apparent distress. On supplemental oxygen. Head: Normocephalic, atraumatic. Eyes: EOMI/PERRLA. Ears: Normal hearing. Normal anatomy. Neck/trachea: Trachea midline, supple. Nose: Normal external anatomy. Mouth: Moist mucous membranes. Chest: Decreased air entry bilaterally. No wheezing or rhonchi. Cardiovascular: Positive S1, positive S2. Regular rate and rhythm. Abdomen: Positive bowel sounds in all 4 quadrants. Soft, non-tender, non- distended. : Deferred. Rectal: Deferred. Skin: Warm, dry. Intact. Extremities: 2+ radial pulses bilaterally. No lower extremity edema. Neuro: Awake, alert, oriented x3. No gross motor or sensory deficits. Cranial nerves II through XII intact. Gait not assessed laboratory and microbiology Laboratory Tests 09/30/24 07:30 09/29/24 11:17 Test 09/30/24 07:30 Range/Units Serum Glucose 127 H 74-106 mg/dL Assessment/Plan Impression: Acute hypoxic respiratory failure Anemia Hypokalemia Atelectasis Aspiration pneumonia Pulmonary edema CAD s/p CABG Pulmonary Hypertension, RVSP 47 mmHg, who class II Moderate mitral regurgitation Events: Remains on supplemental oxygen, 2 LPM NC Taper O2 as tolerated Amiodarone PO Continue antibiotics Antitussive for cough Incentive spirometry Head of bed elevation Aspiration precautions On puree diet Diurese as tolerated w/ Lasix Monitor renal function Monitor electrolytes. Supplement as necessary. Monitor ins and outs. Labs and imaging reviewed. Rest of plan as noted below. Plan: supplemental oxygen Keep o2 saturation above 92% Antibiotics HOB elevation Aspiration precautions Echo reviewed. Cardiology recommendations appreciated. Amio PO Accu-Cheks, ISS PRN. DVT prophylaxis Prognosis: Guarded given multiple comorbidities. Rest of plan per hospitalist and other consultants. Thank you Dr. Flor for allowing me to participate in this patient's care. Further recommendations will depend on patient's clinical course. Please do not hesitate to contact me if you have any questions or concerns. This medical document was created using an electronic medical record system with [employer] system. Although this document has been carefully reviewed, there may still be some phonetic and typographical errors. These areas are purely typographical due to imperfections of the software programs, and do not reflect any compromise in the patient's medical care. Dietary Evaluation Review Recommendations by RD: Protein Supplementation Comments: 1) Initiate Glucerna bid 2) Initiate vitamin C @ 500 mg bid 3) Initiate zinc sulfate @ 220 mg qd 4) Advance diet to 60g CCHO cardiac diet when medically feasible, pending [employer] approval 5) Continue to monitor appetite, labs, and skin integrity Expected Outcomes/Goals: 1) appetite and labs to improve 2) diet to advance 3) wound to improve Plan discussed with: Patient, Other (SHARRI Castillo) CHARMAINE JO MD Sep 30, 2024 23:42
[2024-10-01] VITALS (8 sets, daily range): BP systolic 93–118; BP diastolic 52–79; PULSE 64–102; RESP 16–19; TEMP 97.4–98.4; O2SAT 95–99
[2024-10-01 09:26] LABS: Basophils # (auto) 0 10 ^3/uL (0-0.2); Basophils % (auto) 0.4 % (0.0-2.0); Eosinophils # (auto) 0.1 10 ^3/uL (0-0.8); Hematocrit 29.6 % (41.0-53.0); Hemoglobin 9.4 g/dL (13.5-17.5); Lymphocytes # (auto) 0.9 10 ^3/uL (0.4-5.4); Lymphocytes % (auto) 16.2 % (10.0-50.0); Mean Corpuscular Hemoglobin 29.1 pg (28.0-32.0); Mean Corpuscular Volume 91.1 fL (80.0-100.0); Monocytes # (auto) 0.5 10 ^3/uL (0-1.3); Neutrophils # (auto) 3.9 10 ^3/uL (1.6-8.6); Neutrophils % (auto) 71.4 % (37.0-80.0); Nucleated Red Blood Cells % 0.2 %; Platelet Count (auto) 251 10^3/uL (140-450); Red Blood Cells 3.24 10^6/uL (4.5-5.90); Red Cell Distribution Width 16.2 % (11.8-14.3); White Blood Cell 5.5 10^3/uL (4.4-10.8)
[2024-10-01 09:48] LABS: Chloride 99 mmol/L (98-107)
[2024-10-01 09:49] LABS: Anion Gap 9 (5-15); Carbon Dioxide 28 mmol/L (20-31)
[2024-10-01 09:52] LABS: Potassium 3.2 mmol/L (3.5-5.1); Sodium 136 mmol/L (136-145)
[2024-10-01 09:55] LABS: BUN/Creatinine Ratio 14.8 (10.0-20.0); Blood Urea Nitrogen 20 mg/dL (9-23); Magnesium 2.1 mg/dL (1.6-2.6)
[2024-10-01 10:03] LABS: Glucose 121 mg/dL (74-106)
--- NOTE | 2024-10-01 13:48 | DVHPN2 ---
Subjective No new complaints CT scan of the abdomen showed left hydronephrosis with a left ureteral stent that is going down to the bladder Changes from previous H/P or p: Changes Eyes: No Pain, No Vision change, No Conjunctivae inflammation, No Eyelid inflammation, No Other, No Redness ENT: No Ear pain, No Ear discharge, No Nose pain, No Nose discharge, No Nose congestion, No Mouth pain, No Mouth swelling, No Throat pain, No Throat swelling, No Other Cardiovascular: No Chest Pain, No Palpitations, No Orthopnea, No Paroxysmal Noc. Dyspnea, No Edema, No Lt Headedness, No Other Respiratory: No Cough, No Dry, No Shortness of breath, No SOB with excertion, No Wheezing, No Hemoptysis, No Pleuritic Pain, No Sputum, No Other Gastrointestinal: No Nausea, No Vomiting, No Abdominal Pain, No Diarrhea, No Constipation, No Melena, No Hematochezia, No Other Genitourinary: No Dysuria, No Frequency, No Incontinence, No Hematuria, No Retention, No Other Musculoskeletal: No other, No neck pain, No shoulder pain, No arm pain, No back pain, No hand pain, No leg pain, No foot pain Skin: No Rash, No Lesions, No Jaundice, No Bruising, No Other Objective Vitals Vital Signs Date Time Temp Pulse Resp B/P (MAP) Pulse Ox O2 Delivery O2 Flow Rate FiO2 10/01/24 12:58 98.2 81 19 118/61 (80) 99 98.2 09/30/24 20:00 Nasal Cannula* 2 28 Intake/Output Intake and Output 10/01/24 07:00 Intake Total 670 ml Output Total 2100 ml Balance -1430 ml Intake Oral 620 ml IV Total 50 ml Output Urine Total 2100 ml # Bowel Movements 1 General Appearance: Alert, Oriented X3 Lungs: Clear to auscultation, Normal air movement Cardiovascular: Regular rate, Normal S1, Normal S2, No murmurs Abdomen: Normal bowel sounds, Soft, No tenderness Extremities: No edema Medications Current Medications Medications Dose Ordered Sig/Gardenia Route Start Time Stop Time Status Last Admin Dose Admin Aspirin 81 mg DAILY PO 09/23/24 10:00 10/01/24 09:31 81 MG Ceftriaxone Sodium 50 ml @ 100 mls/hr DAILY@09 IV 09/23/24 09:00 10/01/24 09:28 100 MLS/HR Diagnostic Test (Pha) 1 strip ACHS 09/22/24 22:00 10/01/24 11:30 1 STRIP Insulin Human Regular ACHS SC 09/22/24 22:00 10/01/24 11:25 2 UNITS Dextrose 50 ml UD PRN IV 09/22/24 21:00 Sodium Chloride 10 ml Q8HR IV 09/22/24 22:00 10/01/24 05:38 10 ML Ondansetron HCl 4 mg Q4HP PRN IV 09/22/24 21:00 09/28/24 15:31 4 MG Acetaminophen 650 mg Q6HP PRN PO 09/22/24 21:00 09/30/24 23:26 650 MG Nitroglycerin 0.4 mg Q5MINP PRN SL 09/22/24 22:45 Atorvastatin Calcium 40 mg HS PO 09/23/24 22:00 09/30/24 21:45 40 MG Amiodarone HCl 200 mg Q12HR PO 09/23/24 22:00 10/01/24 09:29 200 MG Heparin Sodium (Porcine) 5,000 units Q12HR SC 09/23/24 22:00 10/01/24 09:40 5,000 UNITS Vancomycin HCl 0 ml @ 0 mls/hr UD IV 09/24/24 11:15 Cancel Daptomycin 620 mg/ Sodium Chloride 50 ml @ 100 mls/hr DAILY@2230 IV 09/27/24 22:30 09/30/24 22:30 100 MLS/HR Metoprolol Tartrate 12.5 mg BID PO 09/28/24 22:00 10/01/24 09:31 12.5 MG Laboratory Results Laboratory Tests 10/01/24 09:15 Chemistry Test 10/01/24 09:15 Calcium Level 9.0 mg/dL (8.7-10.4) Magnesium Level 2.1 mg/dL (1.6-2.6) Urinalysis Test 09/22/24 16:21 Urine Color Brown (Yellow) H Urine Clarity Ex.turbid (Clear) Urine pH 6.0 (5.0-9.0) Urine Specific [place] 1.008 (1.001-1.035) Urine Protein 2+ (Negative) H Urine Ketones Negative (Negative) Urine Blood 2+ /uL (Negative) H Urine Nitrite Negative (Negative) Urine Bilirubin Negative (Negative) Urine Urobilinogen Normal mg/dL (Negative) Urine Leukocyte Esterase 3+ /uL (Negative) Urine RBC 108 /hpf (0 - 3) Urine WBC Clumps Present /hpf (None Seen) Urine Microscopic WBC 3592 /HPF (0-3) H Urine Squamous Epithelial Cells None seen /hpf (<5) Urine Bacteria None seen /hpf (None Seen) Urine Mucus Few (None Seen) Urine Glucose Normal mg/dL (Normal) Microbiology Microbiology Date/Time Source Procedure Growth Status 09/28/24 15:56 Voided Urine Urine Culture - Final Complete 09/24/24 17:57 Blood Blood Culture - Final NO GROWTH AFTER 5 DAYS OF INCUBATION. Complete Assessment/Plan Assessment/Plan Sepsis with septic shock Bacteremia with Gram-positive cocci in clusters UTI with serratia marcescens Pneumonia JUANA due to vasomotor nephropathy Afib DM2 HTN Dyslipidemia History of DVT History of mitral valve PLAN: IV antibiotics Rocephin and Doxycycline Levophed IV fluids 09/24/2024: Sepsis with pneumonia and UTI: Continue IV Rocephin and doxycycline, add vancomycin Infectious Disease consultation Bacteremia: Echo did not show vegetations Cardiology consult, JUANA: Continue IV fluids Atrial fibrillation: On amiodarone History of DVT Obesity Anemia [place]? To rule out endocarditis 09/25/2024: [place] for tomorrow Blood culture 1 bottle showed Staphylococcus epidermidis and the 2nd bottle is still pending JUANA: Improving with IV fluids Continue IV antibiotics Rocephin and vancomycin Discontinue doxycycline Atrial fibrillation: Continue amiodarone Discussed with the at the bedside Physical therapy 09/26/2024: Generalized weakness: Continue physical therapy Bacteremia rule out endocarditis: [place] was canceled today, we will try again in 2 days JUANA: Improving continue hydration UTI/pneumonia: Continue antibiotics Discussed with Cardiology, they will try again [place] on 09/28/2024 Atrial fibrillation: Amiodarone 09/27/2024: [place] tomorrow Continue physical therapy Hypokalemia: Replace 09/28/24: ALOC: Stop narcotics, keep NPO for now Cough, ?aspiration: Check CXR, aspiration precautions DC IV fluids h/o left ureteral stent per : Check CT abd & pelvis, urology consult Sepsis: Continue IV antibiotics UTI: Repeat UA and urine culture PNA Bacteremia [place]: No endocarditis Afib: Amiodarone CAD JUANA/CKD 09/29/2024: Chest x-ray shows pulmonary congestion: Start Lasix 40 mg IV daily The patient is still confused and lethargic Aspiration precautions Discontinued IV fluids yesterday Continue IV antibiotics for the pneumonia and UTI History of left ureteral stent per the , consult Urology CT scan of the abdomen and pelvis is still pending since the patient is aspiration precautions Atrial fibrillation continue amiodarone Bacteremia with staph epi Endocarditis was ruled out 09/30/24: Replace K+ po Lasix 40 mg IV qd Rocephin and Daptomycin Amiodarone po CT abd and pelvis to check on ureteral stent placement Physical therapy 10/01/2024: Consult Urology regarding the left ureteral stent with left hydronephrosis, the patient had the stent for about a year UTI Pneumonia Hypokalemia Generalized weakness Continue physical therapy Continue IV antibiotics Rocephin and daptomycin Lasix 40 mg p.o. daily Plan discussed with: Patient, Spouse My Orders Orders - SABRINA LEOS MD Procedure Category Date Status Time * Urology Consult CONS 10/01/24 Transmitted 11:10 Potassium Effervesent PHA 10/01/24 Transmitted Tab (Klor-Con/Ef) 13:45 Furosemide Tablet PHA 10/02/24 Transmitted (Lasix Tablet) 10:00 Basic Metabolic Panel LAB 10/02/24 Verified 04:00 Complete Blood Count LAB 10/02/24 Verified 04:00 Magnesium LAB 10/02/24 Verified 04:00 Date of Service: Oct 01, 2024 Billing Provider: SABRINA LEOS MD Common Visit Codes: NOT BILLABLE SABRINA LEOS MD Oct 01, 2024 13:48
[2024-10-01] MEDS: POTASSIUM EFFERVESENT TAB 25 MEQ PO ONE (14:28)
--- NOTE | 2024-10-01 14:53 | DVHPN2 ---
Consult Progress Note Date Seen: Sep 30, 2024 Subjective Patient reports: Other (Came back from Ct , not having abdominal or flank pain , urinating well ) Objective vital signs Vital Sign Date Time Temp Pulse Resp B/P (MAP) Pulse Ox O2 Delivery O2 Flow Rate FiO2 10/01/24 12:58 98.2 81 19 118/61 (80) 99 98.2 09/30/24 20:00 Nasal Cannula* 2 28 Total Intake and Output 09/30/24 09/30/24 10/01/24 15:00 23:00 07:00 Intake Total 170 ml 500 ml Output Total 1800 ml 300 ml Balance -1630 ml 200 ml medications Current Medications Medications Dose Ordered Sig/Gardenia Route Start Time Stop Time Status Last Admin Dose Admin Aspirin 81 mg DAILY PO 09/23/24 10:00 10/01/24 09:31 81 MG Ceftriaxone Sodium 50 ml @ 100 mls/hr DAILY@09 IV 09/23/24 09:00 10/01/24 09:28 100 MLS/HR Diagnostic Test (Pha) 1 strip ACHS 09/22/24 22:00 10/01/24 11:30 1 STRIP Insulin Human Regular ACHS SC 09/22/24 22:00 10/01/24 11:25 2 UNITS Dextrose 50 ml UD PRN IV 09/22/24 21:00 Sodium Chloride 10 ml Q8HR IV 09/22/24 22:00 10/01/24 14:31 10 ML Ondansetron HCl 4 mg Q4HP PRN IV 09/22/24 21:00 09/28/24 15:31 4 MG Acetaminophen 650 mg Q6HP PRN PO 09/22/24 21:00 09/30/24 23:26 650 MG Nitroglycerin 0.4 mg Q5MINP PRN SL 09/22/24 22:45 Atorvastatin Calcium 40 mg HS PO 09/23/24 22:00 09/30/24 21:45 40 MG Amiodarone HCl 200 mg Q12HR PO 09/23/24 22:00 10/01/24 09:29 200 MG Heparin Sodium (Porcine) 5,000 units Q12HR SC 09/23/24 22:00 10/01/24 09:40 5,000 UNITS Vancomycin HCl 0 ml @ 0 mls/hr UD IV 09/24/24 11:15 Cancel Daptomycin 620 mg/ Sodium Chloride 50 ml @ 100 mls/hr DAILY@2230 IV 09/27/24 22:30 09/30/24 22:30 100 MLS/HR Metoprolol Tartrate 12.5 mg BID PO 09/28/24 22:00 10/01/24 09:31 12.5 MG Furosemide 40 mg DAILY PO 10/02/24 10:00 Physical Exam: General: NAD Neck: Supple. No masses. HEENT: PERRL. Normal lids and conjunctiva. Moist mucous membranes. Oropharynx without lesions, exudates, or excessive erythema. Normal appearance of the external aspects of the nose and ears. Heart: Regular rhythm, normal rate. No murmur. No lower extremity edema. Lungs: Diminished breath sounds at the bases bilaterally. No wheezes. No crackles. Abdomen: Soft. Non-tender. Non-distended. No masses or abdominal hernia. Msk: No digital cyanosis. Normal strength and tone in all 4 limbs. Skin: Warm and dry, no rashes. Neuro: Alert, more aware, following commands. No facial droop or slurred speech. Extra-ocular movements intact. Sensation intact to soft touch in all 4 limbs. Psych: Appropriate mood. Full affect. Oriented to person, place, time, and situation. laboratory and microbiology Laboratory Tests 10/01/24 09:15 Test 10/01/24 09:15 Range/Units Serum Glucose 121 H 74-106 mg/dL Problem List/Assessment/Plan Problems(with codes): (1) Mild malnutrition (2) Musculoskeletal chest pain (3) Acute coronary syndrome (4) HLD (hyperlipidemia) (5) HTN (hypertension) (6) Chest pain (7) Hyperglycemia (8) CAD (coronary artery disease) (9) Atrial fibrillation (10) Coronary artery disease (11) NSTEMI (non-ST elevated myocardial infarction) Problem List/Assessment/Plan ID Problem List: - Atrial fibrillation - Diabetes mellitus - Hypertension - Hyperlipidemia - Myocardial infarction - Generalized weakness - Hypotension - Lactic acidosis - Acute kidney injury (JUANA) - Chronic kidney disease (CKD) - Altered mental status - Uremia - Tachycardia - Severe sepsis - Urinary tract infection (UTI) due to Serratia marcescens - Possible aspiration pneumonia - Diminished breath sounds at bases; possible bronchitis on chest X-ray Assessment This is an 79 y.o. male with a past medical history of atrial fibrillation, diabetes mellitus, hypertension, hyperlipidemia, and myocardial infarction, who presents with generalized weakness. He was found to be hypotensive (BP 76/49) with a lactic acid of 2.3. He was lethargic and hard to arouse on admission, which has since improved with fluid resuscitation and initiation of Levophed drip. His blood pressure is now stable at 111/63 without pressors. Creatinine was elevated to 2.46 with BUN of 61, improved to creatinine of 1.71 after fluid resuscitation and antibiotics. 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 He has diminished breath sounds at the bases on exam, and chest X-ray findings suggest bilateral bronchial thickening and possible bronchitis. Microscopic urine culture grew Serratia marcescens, and blood cultures had 2 out of 4 aerobic bottles positive for coagulase-negative Staphylococcus. 09/25: whitecount is 6.4 , repeat blood cultures are no growth to date , staph epidermitis show Vanc SHIRA of 4 . TTE was done 09/23 which shows theres a mitral valve prosthetic without any significant mitral stenosis however it is heavily calcified , aortic valve was sclerotic with calcification of leaflets , EF 60% , mild to moderate micro insufficiency and moderate pulmonary efficiency 09/26: renal ultrasound shows mild left hydronephrosis and blood cultures remain no growth to date 09/27: patient is to get a CARLINE under anesthesia tomorrow 09/28: CARLINE was done , prosthetic mitral valve was seen but no vegetation were able to be visualized 09/29: tolerating antibiotics and therapy 09/30: Ct abdomen and pelvis shows mild left hyro utero nephrosis with internal utero stent in site , distal aspect of the stent is at the UVJ , possibly just extending into the urinary bladder , possible repositioning may be required . Bilateral lower lobe airspace disease , moderate volume colonic stool Plan: - follow up on imaging to determine if antibiotics need to be extended - defer to urology for additional management of the stent - suspect that staph epidermidis in blood is a transient infection and can treat with 2 week course of daptomycin or oral linezolid - Continue Daptomycin IV in patient - continue ceftriaxone to cover pneumonia and UTI. Isolation Precautions: standard Plan discussed with: Other Dietary Evaluation Review Recommendations by RD: Protein Supplementation Comments: 1) Initiate Glucerna bid 2) Initiate vitamin C @ 500 mg bid 3) Initiate zinc sulfate @ 220 mg qd 4) Advance diet to 60g CCHO cardiac diet when medically feasible, pending [employer] approval 5) Continue to monitor appetite, labs, and skin integrity Expected Outcomes/Goals: 1) appetite and labs to improve 2) diet to advance 3) wound to improve DIONI GARCIA MD Oct 01, 2024 14:53
--- NOTE | 2024-10-01 17:32 | DVHINCON2 ---
Date of service: Oct 01, 2024 Referring Physician Harry Reason for Consultation stent History of Present Illness admitted here recently with septicemia;pt known to me with indwelling left ureteral stent s/p left eswl for large stone;CT shows no stone fx remaining;pt will need cystoscopy stent removal wjhn clinically improved Past Medical History reviewed Past Surgical History reviewed Family History: Patient reports no known family medical history. Allergies: Coded Allergies: NO KNOWN ALLERGIES (Unverified , 03/11/11) Home Meds Active Scripts Isosorbide Mononitrate (Isosorbide Mononitrate Er) 30 Mg Tab, 1 TAB PO DAILY, #30 TAB 5 Refills Prov:SABRINA LEOS MD 12/19/20 Ranolazine (Ranexa) 500 Mg Tab, 500 MG PO BID for 30 Days, #60 TAB 3 Refills Prov:SABRINA LEOS MD 12/19/20 Aspirin (Aspir-Low) 81 Mg Tab, 81 MG PO DAILY for 100 Days, #100 TAB 3 Refills Prov:SABRINA LEOS MD 12/19/20 Reported Medications Gabapentin (Gabapentin) 100 Mg Cap, 100 MG PO BID for 30 Days, MG 12/17/20 Atorvastatin Calcium (ATORVASTATIN CALCIUM) 20 Mg Tab, 1 TAB PO HS, #30 TAB 5 Refills 12/17/20 Losartan Potassium (Losartan Potassium) 25 Mg Tab, 25 MG PO DAILY for 30 Days, MG 12/17/20 Metoprolol Succinate (Metoprolol Succinate Er) 50 Mg Tab, 50 MG PO DAILY for 30 Days, MG 12/17/20 Current Medications Current Medications Medications (Trade) Dose Ordered Sig/Gardenia Route PRN Reason Start Time Stop Time Status Last Admin Furosemide (Lasix Tablet) 40 mg DAILY PO 10/02/24 10:00 Review of Systems reviewed Vital Signs Vital Signs Date Time Temp Pulse Resp B/P (MAP) Pulse Ox O2 Delivery O2 Flow Rate FiO2 10/01/24 17:02 98.4 83 19 100/55 (70) 98 98.4 09/30/24 20:00 Nasal Cannula* 2 28 Labs/Diagnostic Data Labs Test 10/01/24 16:44 10/01/24 09:15 09/29/24 11:17 09/27/24 17:20 Range/Units POC Glucose 102 70-106 mg/dl White Blood Count 5.5 # 4.4-10.8 10^3/uL Red Blood Count 3.24 L 4.5-5.90 10^6/uL Hemoglobin 9.4 #L 13.5-17.5 g/dL Hematocrit 29.6 #L 41.0-53.0 % Mean Corpuscular Volume 91.1 # 80.0-100.0 fL Mean Corpuscular Hemoglobin 29.1 28.0-32.0 pg Mean Corpuscular Hemoglobin Concent 32.0 32.0-36.0 g/dL Red Cell Distribution Width 16.2 H 11.8-14.3 % Platelet Count 251 140-450 10^3/uL Mean Platelet Volume 6.3 L 6.9-10.8 fL Neutrophils (%) (Auto) 71.4 37.0-80.0 % Lymphocytes (%) (Auto) 16.2 10.0-50.0 % Monocytes (%) (Auto) 10.0 0.0-12.0 % Eosinophils (%) (Auto) 2.0 0.0-7.0 % Basophils (%) (Auto) 0.4 0.0-2.0 % Neutrophils # (Auto) 3.9 1.6-8.6 10 ^3/uL Lymphocytes # (Auto) 0.9 0.4-5.4 10 ^3/uL Monocytes # (Auto) 0.5 0-1.3 10 ^3/uL Eosinophils # (Auto) 0.1 0-0.8 10 ^3/uL Basophils # (Auto) 0 0-0.2 10 ^3/uL Nucleated Red Blood Cells 0.2 % Sodium Level 136 136-145 mmol/L Potassium Level 3.2 L 3.5-5.1 mmol/L Chloride Level 99 98-107 mmol/L Carbon Dioxide Level 28 20-31 mmol/L Anion Gap 9 5-15 Blood Urea Nitrogen 20 9-23 mg/dL Creatinine 1.35 H 0.700-1.30 mg/dL Glomerular Filtration Rate Calc 53 >90 mL/min BUN/Creatinine Ratio 14.8 10.0-20.0 Serum Glucose 121 H 74-106 mg/dL Calcium Level 9.0 8.7-10.4 mg/dL Magnesium Level 2.1 1.6-2.6 mg/dL Differential Total Cells Counted 100.0 100 Neutrophils % (Manual) 82 H 37.0-80.0 Band Neutrophils % (Manual) 6 Lymphocytes % (Manual) 12 10.0-50.0 Monocytes % (Manual) 0 0-12 Eosinophils % (Manual) 0 0-7 Basophils % (Manual) 0 0.0-2.0 Metamyelocytes % (manual) 0 Myelocytes % (Manual) 0 Promyelocytes % (Manual) 0 Blast Cells % (Manual) 0 Reactive Lymphocytes 0 Platelet Estimate Adequate Total Bilirubin 0.4 0.2-1.0 mg/dL Aspartate Amino Transferase (AST) 25 13-40 U/L Alanine Aminotransferase (ALT) 15 7-40 U/L Alkaline Phosphatase 80 46-116 U/L Total Protein 7.5 5.7-8.2 g/dL Albumin 3.3 3.2-4.8 g/dL Influenza Type A Antigen Negative Negative Influenza Type B Antigen Negative Negative SARS-CoV-2 Antigen (Rapid) Negative NEGATIVE Test 09/25/24 10:22 09/25/24 06:28 09/22/24 19:37 09/22/24 16:21 Range/Units Prothrombin Time 11.8 9.3-11.8 sec Prothrombin Time INR 1.13 0.9-1.15 Activated Partial Thromboplast Time 29.4 24.5-34.5 SEC Hemoglobin A1c 6.2 H <5.7 % A1C Triglycerides Level 91 < 150 mg/dL Cholesterol Level 101 < 200 mg/dL LDL Cholesterol 58 < 100 mg/dL HDL Cholesterol 29 L 40-59 mg/dL Random Vancomycin Level 11.3 H 5-10 ug/mL Lactic Acid Level 1.6 0.4-2.0 mmol/L Urine Color Brown H Yellow Urine Clarity Ex.turbid Clear Urine pH 6.0 5.0-9.0 Urine Specific [place] 1.008 1.001-1.035 Urine Protein 2+ H Negative Urine Ketones Negative Negative Urine Blood 2+ H Negative /uL Urine Nitrite Negative Negative Urine Bilirubin Negative Negative Urine Urobilinogen Normal Negative mg/dL Urine Leukocyte Esterase 3+ Negative /uL Urine RBC 108 0 - 3 /hpf Urine WBC Clumps Present None Seen /hpf Urine Microscopic WBC 3592 H 0-3 /HPF Urine Squamous Epithelial Cells None seen <5 /hpf Urine Bacteria None seen None Seen /hpf Urine Mucus Few None Seen Urine Glucose Normal Normal mg/dL Test 09/22/24 15:11 Range/Units Troponin I High Sensitivity < 3 L </=54 ng/L Microbiology Date/Time Source Procedure Growth Status 09/28/24 15:56 Voided Urine Urine Culture - Final Complete 09/24/24 17:57 Blood Blood Culture - Final NO GROWTH AFTER 5 DAYS OF INCUBATION. Complete Assessment septicemia,UTI.retained stent Plan/Recommendation remove stent when clinically improved Plan discussed with: Patient BEATA BAIRES MD Oct 01, 2024 17:32
--- NOTE | 2024-10-01 21:44 | DVHPN2 ---
Consult Progress Note Date Seen: Oct 01, 2024 Subjective Patient reports: Other (is confused and lethargic but tolerating puree diet , has no abdominal pain and is producing good urine , hes got a sacral wound that appears with healthy granulation tissue , yesterday patietn had a fever of 100.6 ) Objective vital signs Vital Sign Date Time Temp Pulse Resp B/P (MAP) Pulse Ox O2 Delivery O2 Flow Rate FiO2 10/01/24 20:00 64 16 99 Nasal Cannula* 3 32 10/01/24 17:02 98.4 100/55 (70) 98.4 Total Intake and Output 09/30/24 09/30/24 10/01/24 15:00 23:00 07:00 Intake Total 170 ml 500 ml Output Total 1800 ml 300 ml Balance -1630 ml 200 ml medications Current Medications Medications Dose Ordered Sig/Gardenia Route Start Time Stop Time Status Last Admin Dose Admin Aspirin 81 mg DAILY PO 09/23/24 10:00 10/01/24 09:31 81 MG Diagnostic Test (Pha) 1 strip ACHS 09/22/24 22:00 10/01/24 17:07 1 STRIP Insulin Human Regular ACHS SC 09/22/24 22:00 10/01/24 11:25 2 UNITS Dextrose 50 ml UD PRN IV 09/22/24 21:00 Sodium Chloride 10 ml Q8HR IV 09/22/24 22:00 10/01/24 14:31 10 ML Ondansetron HCl 4 mg Q4HP PRN IV 09/22/24 21:00 09/28/24 15:31 4 MG Acetaminophen 650 mg Q6HP PRN PO 09/22/24 21:00 09/30/24 23:26 650 MG Nitroglycerin 0.4 mg Q5MINP PRN SL 09/22/24 22:45 Atorvastatin Calcium 40 mg HS PO 09/23/24 22:00 09/30/24 21:45 40 MG Amiodarone HCl 200 mg Q12HR PO 09/23/24 22:00 10/01/24 09:29 200 MG Heparin Sodium (Porcine) 5,000 units Q12HR SC 09/23/24 22:00 10/01/24 09:40 5,000 UNITS Vancomycin HCl 0 ml @ 0 mls/hr UD IV 09/24/24 11:15 Cancel Daptomycin 620 mg/ Sodium Chloride 50 ml @ 100 mls/hr DAILY@2230 IV 09/27/24 22:30 09/30/24 22:30 100 MLS/HR Metoprolol Tartrate 12.5 mg BID PO 09/28/24 22:00 10/01/24 09:31 12.5 MG Furosemide 40 mg DAILY PO 10/02/24 10:00 Ceftriaxone Sodium/Dextrose 50 ml @ 50 mls/hr DAILY IV 10/02/24 10:00 Physical Exam: General: NAD Neck: Supple. No masses. HEENT: PERRL. Normal lids and conjunctiva. Moist mucous membranes. Oropharynx without lesions, exudates, or excessive erythema. Normal appearance of the external aspects of the nose and ears. Heart: Regular rhythm, normal rate. No murmur. No lower extremity edema. Lungs: Diminished breath sounds at the bases bilaterally. No wheezes. No crackles. Abdomen: Soft. Non-tender. Non-distended. No masses or abdominal hernia. Msk: No digital cyanosis. Normal strength and tone in all 4 limbs. Skin: Warm and dry, no rashes. Neuro: Alert, more aware, following commands. No facial droop or slurred speech. Extra-ocular movements intact. Sensation intact to soft touch in all 4 limbs. Psych: Appropriate mood. Full affect. Oriented to person, place, time, and situation. laboratory and microbiology Laboratory Tests 10/01/24 09:15 Test 10/01/24 09:15 Range/Units Serum Glucose 121 H 74-106 mg/dL Problem List/Assessment/Plan Problems(with codes): (1) Mild malnutrition (2) Musculoskeletal chest pain (3) Acute coronary syndrome (4) HLD (hyperlipidemia) (5) HTN (hypertension) (6) Chest pain (7) Hyperglycemia (8) CAD (coronary artery disease) (9) Atrial fibrillation (10) Coronary artery disease (11) NSTEMI (non-ST elevated myocardial infarction) (12) Chronic a-fib Problem List/Assessment/Plan ID Problem List: - Atrial fibrillation - Diabetes mellitus - Hypertension - Hyperlipidemia - Myocardial infarction - Generalized weakness - Hypotension - Lactic acidosis - Acute kidney injury (JUANA) - Chronic kidney disease (CKD) - Altered mental status - Uremia - Tachycardia - Severe sepsis - Urinary tract infection (UTI) due to Serratia marcescens - Possible aspiration pneumonia - Diminished breath sounds at bases; possible bronchitis on chest X-ray Assessment This is an 79 y.o. male with a past medical history of atrial fibrillation, diabetes mellitus, hypertension, hyperlipidemia, and myocardial infarction, who presents with generalized weakness. He was found to be hypotensive (BP 76/49) with a lactic acid of 2.3. He was lethargic and hard to arouse on admission, which has since improved with fluid resuscitation and initiation of Levophed drip. His blood pressure is now stable at 111/63 without pressors. Creatinine was elevated to 2.46 with BUN of 61, improved to creatinine of 1.71 after fluid resuscitation and antibiotics. 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 He has diminished breath sounds at the bases on exam, and chest X-ray findings suggest bilateral bronchial thickening and possible bronchitis. Microscopic urine culture grew Serratia marcescens, and blood cultures had 2 out of 4 aerobic bottles positive for coagulase-negative Staphylococcus. 09/25: whitecount is 6.4 , repeat blood cultures are no growth to date , staph epidermitis show Vanc SHIRA of 4 . TTE was done 09/23 which shows theres a mitral valve prosthetic without any significant mitral stenosis however it is heavily calcified , aortic valve was sclerotic with calcification of leaflets , EF 60% , mild to moderate micro insufficiency and moderate pulmonary efficiency 09/26: renal ultrasound shows mild left hydronephrosis and blood cultures remain no growth to date 09/27: patient is to get a CARLINE under anesthesia tomorrow 09/28: CARLINE was done , prosthetic mitral valve was seen but no vegetation were able to be visualized 09/29: tolerating antibiotics and therapy 09/30: Ct abdomen and pelvis shows mild left hyro utero nephrosis with internal utero stent in site , distal aspect of the stent is at the UVJ , possibly just extending into the urinary bladder , possible repositioning may be required . Bilateral lower lobe airspace disease , moderate volume colonic stool 10/01: remains intermittently febrile , repeat urine cultures show nixed gram positive rangel Plan: - with new diet suspect aspiration especially as patient is now on 3 liters nasal canula - check chest xray to rule out pneumonia - would presume that the stent is infected at this point and will likely need to be removed for sepsis to be resolved - would increase ceftriaxone dosing to 2 grams daily - if fevers reoccur would repeat blood cultures - follow up on imaging to determine if antibiotics need to be extended - defer to urology for additional management of the stent - suspect that staph epidermidis in blood is a transient infection and can treat with 2 week course of daptomycin or oral linezolid - Continue Daptomycin IV in patient Isolation Precautions: standard Plan discussed with: Other Dietary Evaluation Review Recommendations by RD: Protein Supplementation Comments: 1) Initiate Glucerna bid 2) Initiate vitamin C @ 500 mg bid 3) Initiate zinc sulfate @ 220 mg qd 4) Advance diet to 60g [facility] cardiac diet when medically feasible, pending [facility] approval 5) Continue to monitor appetite, labs, and skin integrity Expected Outcomes/Goals: 1) appetite and labs to improve 2) diet to advance 3) wound to improve DIONI GARCIA MD Oct 01, 2024 21:44
[2024-10-01 22:08] LABS: Urine Bacteria FEW /hpf (None Seen); Urine Blood 2+ /uL (Negative); Urine Budding Yeast MODERATE /hpf (None Seen); Urine Clarity Turbid (Clear); Urine Color Colorless (Yellow); Urine Hyaline Cast FEW /lpf (0 - 2); Urine Mucus FEW (None Seen); Urine Protein, UAD 1+ (Negative); Urine Specific Gravity 1.012 (1.001-1.035); Urine Squamous Epithelial Cell FEW /hpf (<5); Urine Urobilinogen Normal (Negative); Urine WBC 321 /HPF (0-3); Urine pH 5.5 (5.0-9.0)
--- NOTE | 2024-10-01 23:43 | DVHPN2 ---
Progress Note - Dictate Date Seen: Oct 01, 2024 Medical Necessity Reason Pt with a Central, PICC or Fol: No The following are medically ne: Ruff Catheter Subjective Patient seen and examined at bedside. Remains on supplemental oxygen Overnight events reviewed. vital signs Vital Sign Date Time Temp Pulse Resp B/P (MAP) Pulse Ox O2 Delivery O2 Flow Rate FiO2 10/01/24 21:47 83 100/55 10/01/24 21:00 98.4 18 96 98.4 10/01/24 20:00 Nasal Cannula* 3 32 Total Intake and Output 09/30/24 09/30/24 10/01/24 15:00 23:00 07:00 Intake Total 170 ml 500 ml Output Total 1800 ml 300 ml Balance -1630 ml 200 ml medications Current Medications Medications Dose Ordered Sig/Gardenia Route Start Time Stop Time Status Last Admin Dose Admin Aspirin 81 mg DAILY PO 09/23/24 10:00 10/01/24 09:31 81 MG Diagnostic Test (Pha) 1 strip ACHS 09/22/24 22:00 10/01/24 21:54 1 STRIP Insulin Human Regular ACHS SC 09/22/24 22:00 10/01/24 11:25 2 UNITS Dextrose 50 ml UD PRN IV 09/22/24 21:00 Sodium Chloride 10 ml Q8HR IV 09/22/24 22:00 10/01/24 21:47 10 ML Ondansetron HCl 4 mg Q4HP PRN IV 09/22/24 21:00 09/28/24 15:31 4 MG Acetaminophen 650 mg Q6HP PRN PO 09/22/24 21:00 09/30/24 23:26 650 MG Nitroglycerin 0.4 mg Q5MINP PRN SL 09/22/24 22:45 Atorvastatin Calcium 40 mg HS PO 09/23/24 22:00 10/01/24 21:47 40 MG Amiodarone HCl 200 mg Q12HR PO 09/23/24 22:00 10/01/24 21:46 200 MG Heparin Sodium (Porcine) 5,000 units Q12HR SC 09/23/24 22:00 10/01/24 21:54 5,000 UNITS Vancomycin HCl 0 ml @ 0 mls/hr UD IV 09/24/24 11:15 Cancel Daptomycin 620 mg/ Sodium Chloride 50 ml @ 100 mls/hr DAILY@2230 IV 09/27/24 22:30 10/01/24 22:13 100 MLS/HR Metoprolol Tartrate 12.5 mg BID PO 09/28/24 22:00 10/01/24 09:31 12.5 MG Furosemide 40 mg DAILY PO 10/02/24 10:00 Ceftriaxone Sodium/Dextrose 50 ml @ 50 mls/hr DAILY IV 10/02/24 10:00 objective Gen.: Patient lying in bed in no apparent distress. On supplemental oxygen. Head: Normocephalic, atraumatic. Eyes: EOMI/PERRLA. Ears: Normal hearing. Normal anatomy. Neck/trachea: Trachea midline, supple. Nose: Normal external anatomy. Mouth: Moist mucous membranes. Chest: Decreased air entry bilaterally. No wheezing or rhonchi. Cardiovascular: Positive S1, positive S2. Regular rate and rhythm. Abdomen: Positive bowel sounds in all 4 quadrants. Soft, non-tender, non- distended. : Deferred. Rectal: Deferred. Skin: Warm, dry. Intact. Extremities: 2+ radial pulses bilaterally. No lower extremity edema. Neuro: Awake, alert, oriented x3. No gross motor or sensory deficits. Cranial nerves II through XII intact. Gait not assessed laboratory and microbiology Laboratory Tests 10/01/24 09:15 Test 10/01/24 09:15 Range/Units Serum Glucose 121 H 74-106 mg/dL Assessment/Plan Impression: Acute hypoxic respiratory failure Anemia Hypokalemia Atelectasis Aspiration pneumonia Pulmonary edema CAD s/p CABG Pulmonary Hypertension, RVSP 47 mmHg, who class II Moderate mitral regurgitation Events: Remains on supplemental oxygen, 3 LPM NC Taper O2 as tolerated Amiodarone PO Continue antibiotics Incentive spirometry Head of bed elevation Aspiration precautions Pain control Avoid oversedation On puree diet Diurese as tolerated w/ Lasix Monitor renal function Monitor electrolytes. Supplement as necessary. Monitor ins and outs. Labs and imaging reviewed. Rest of plan as noted below. Plan: supplemental oxygen Keep o2 saturation above 92% Antibiotics HOB elevation Aspiration precautions Echo reviewed. Cardiology recommendations appreciated. Amio PO Accu-Cheks, ISS PRN. DVT prophylaxis Prognosis: Guarded given multiple comorbidities. Rest of plan per hospitalist and other consultants. Thank you Dr. Flor for allowing me to participate in this patient's care. Further recommendations will depend on patient's clinical course. Please do not hesitate to contact me if you have any questions or concerns. This medical document was created using an electronic medical record system with [employer] dictation system. Although this document has been carefully reviewed, there may still be some phonetic and typographical errors. These areas are purely typographical due to imperfections of the software programs, and do not reflect any compromise in the patient's medical care. Dietary Evaluation Review Recommendations by RD: Protein Supplementation Comments: 1) Initiate Glucerna bid 2) Initiate vitamin C @ 500 mg bid 3) Initiate zinc sulfate @ 220 mg qd 4) Advance diet to 60g [facility] cardiac diet when medically feasible, pending [employer] approval 5) Continue to monitor appetite, labs, and skin integrity Expected Outcomes/Goals: 1) appetite and labs to improve 2) diet to advance 3) wound to improve Plan discussed with: Patient, Other (SHARRI Courtney) CHARMAINE JO MD Oct 01, 2024 23:43
[2024-10-02] VITALS (8 sets, daily range): BP systolic 90–120; BP diastolic 47–63; PULSE 11–94; RESP 17–19; TEMP 97.3–98.5; O2SAT 94–100
--- NOTE | 2024-10-02 05:29 | DVH ---
CHEST RADIOGRAPH Indication: evaluate for aspiration pneumonia Technique: Single frontal view of the chest was obtained Comparison: XY CHEST XRAY 1 VIEW on DOS: 09/28/24, XY CHEST PORTABLE on DOS: 09/22/24, CHEST PORTABLE on DOS: 06/05/22 IMPRESSION: Heart appears stable in size. There are median sternotomy wires and postsurgical changes. Diffuse i nterstitial prominence. No sizable effusion or pneumothorax.
[2024-10-02 06:42] LABS: Basophils # (auto) 0 10 ^3/uL (0-0.2); Basophils % (auto) 0.6 % (0.0-2.0); Eosinophils # (auto) 0.1 10 ^3/uL (0-0.8); Eosinophils % (auto) 2.6 % (0.0-7.0); Hematocrit 26.8 % (41.0-53.0); Hemoglobin 8.9 g/dL (13.5-17.5); Lymphocytes # (auto) 0.9 10 ^3/uL (0.4-5.4); Lymphocytes % (auto) 19.7 % (10.0-50.0); Mean Corpuscular Hemoglobin 29.4 pg (28.0-32.0); Mean Corpuscular Hgb Conc. 33.1 g/dL (32.0-36.0); Mean Corpuscular Volume 88.9 fL (80.0-100.0); Monocytes # (auto) 0.5 10 ^3/uL (0-1.3); Monocytes % (auto) 12.2 % (0.0-12.0); Neutrophils # (auto) 2.9 10 ^3/uL (1.6-8.6); Neutrophils % (auto) 64.9 % (37.0-80.0); Platelet Count (auto) 247 10^3/uL (140-450); Red Blood Cells 3.01 10^6/uL (4.5-5.90); Red Cell Distribution Width 15.7 % (11.8-14.3); White Blood Cell 4.4 10^3/uL (4.4-10.8)
[2024-10-02 06:53] LABS: Chloride 95 mmol/L (98-107); Potassium 3.7 mmol/L (3.5-5.1); Sodium 135 mmol/L (136-145)
[2024-10-02 06:54] LABS: Anion Gap 10 (5-15); Calcium 9.3 mg/dL (8.7-10.4); Carbon Dioxide 30 mmol/L (20-31)
[2024-10-02 06:59] LABS: BUN/Creatinine Ratio 14.2 (10.0-20.0); Blood Urea Nitrogen 16 mg/dL (9-23); Glucose 101 mg/dL (74-106)
[2024-10-02 07:00] LABS: Magnesium 2.1 mg/dL (1.6-2.6)
[2024-10-02] MEDS: FUROSEMIDE 20 MG TAB PO SCH (10:10)
--- NOTE | 2024-10-02 11:07 | DVHPN2 ---
Subjective Better More alert Changes from previous H/P or p: Changes Eyes: No Pain, No Vision change, No Conjunctivae inflammation, No Eyelid inflammation, No Other, No Redness ENT: No Ear pain, No Ear discharge, No Nose pain, No Nose discharge, No Nose congestion, No Mouth pain, No Mouth swelling, No Throat pain, No Throat swelling, No Other Cardiovascular: No Chest Pain, No Palpitations, No Orthopnea, No Paroxysmal Noc. Dyspnea, No Edema, No Lt Headedness, No Other Respiratory: No Cough, No Dry, No Shortness of breath, No SOB with excertion, No Wheezing, No Hemoptysis, No Pleuritic Pain, No Sputum, No Other Gastrointestinal: No Nausea, No Vomiting, No Abdominal Pain, No Diarrhea, No Constipation, No Melena, No Hematochezia, No Other Genitourinary: No Dysuria, No Frequency, No Incontinence, No Hematuria, No Retention, No Other Musculoskeletal: No other, No neck pain, No shoulder pain, No arm pain, No back pain, No hand pain, No leg pain, No foot pain Skin: No Rash, No Lesions, No Jaundice, No Bruising, No Other Objective Vitals Vital Signs Date Time Temp Pulse Resp B/P (MAP) Pulse Ox O2 Delivery O2 Flow Rate FiO2 10/02/24 10:10 117/63 10/02/24 10:09 80 10/02/24 09:06 98.5 19 98 98.5 10/01/24 20:00 Nasal Cannula* 3 32 Intake/Output Intake and Output 10/02/24 07:00 Intake Total 475 ml Output Total 900 ml Balance -425 ml Intake Oral 375 ml IV Total 100 ml Output Urine Total 900 ml General Appearance: Alert, Oriented X3 Lungs: Clear to auscultation, Normal air movement Cardiovascular: Regular rate, Normal S1, Normal S2, No murmurs Abdomen: Normal bowel sounds, Soft, No tenderness Extremities: No edema Medications Current Medications Medications Dose Ordered Sig/Gardenia Route Start Time Stop Time Status Last Admin Dose Admin Aspirin 81 mg DAILY PO 09/23/24 10:00 10/02/24 10:09 81 MG Diagnostic Test (Pha) 1 strip ACHS 09/22/24 22:00 10/02/24 05:38 1 STRIP Insulin Human Regular ACHS SC 09/22/24 22:00 10/01/24 11:25 2 UNITS Dextrose 50 ml UD PRN IV 09/22/24 21:00 Sodium Chloride 10 ml Q8HR IV 09/22/24 22:00 10/02/24 05:38 10 ML Ondansetron HCl 4 mg Q4HP PRN IV 09/22/24 21:00 09/28/24 15:31 4 MG Acetaminophen 650 mg Q6HP PRN PO 09/22/24 21:00 09/30/24 23:26 650 MG Nitroglycerin 0.4 mg Q5MINP PRN SL 09/22/24 22:45 Atorvastatin Calcium 40 mg HS PO 09/23/24 22:00 10/01/24 21:47 40 MG Amiodarone HCl 200 mg Q12HR PO 09/23/24 22:00 10/02/24 10:11 200 MG Heparin Sodium (Porcine) 5,000 units Q12HR SC 09/23/24 22:00 10/02/24 10:21 5,000 UNITS Vancomycin HCl 0 ml @ 0 mls/hr UD IV 09/24/24 11:15 Cancel Daptomycin 620 mg/ Sodium Chloride 50 ml @ 100 mls/hr DAILY@2230 IV 09/27/24 22:30 10/01/24 22:13 100 MLS/HR Metoprolol Tartrate 12.5 mg BID PO 09/28/24 22:00 10/02/24 10:09 12.5 MG Furosemide 40 mg DAILY PO 10/02/24 10:00 10/02/24 10:10 40 MG Ceftriaxone Sodium/Dextrose 50 ml @ 50 mls/hr DAILY IV 10/02/24 10:00 Laboratory Results Laboratory Tests 10/02/24 06:00 Chemistry Test 10/02/24 06:00 Calcium Level 9.3 mg/dL (8.7-10.4) Magnesium Level 2.1 mg/dL (1.6-2.6) Urinalysis Test 09/22/24 16:21 10/01/24 21:54 Urine WBC Clumps Present /hpf (None Seen) Urine Color Colorless (Yellow) Urine Clarity Turbid (Clear) H Urine pH 5.5 (5.0-9.0) Urine Specific [place] 1.012 (1.001-1.035) Urine Protein 1+ (Negative) H Urine Ketones Negative (Negative) Urine Blood 2+ /uL (Negative) H Urine Nitrite Negative (Negative) Urine Bilirubin Negative (Negative) Urine Urobilinogen Normal mg/dL (Negative) Urine Leukocyte Esterase 3+ /uL (Negative) Urine RBC 97 /hpf (0 - 3) Urine Microscopic WBC 321 /HPF (0-3) H Urine Squamous Epithelial Cells Few /hpf (<5) Urine Bacteria Few /hpf (None Seen) H Urine Hyaline Casts Few /lpf (0 - 2) Urine Mucus Few (None Seen) Urine Yeast (Budding) Moderate /hpf (None Seen) Urine Glucose Normal mg/dL (Normal) Microbiology Microbiology Date/Time Source Procedure Growth Status 09/28/24 15:56 Voided Urine Urine Culture - Final Complete 09/24/24 17:57 Blood Blood Culture - Final NO GROWTH AFTER 5 DAYS OF INCUBATION. Complete Assessment/Plan Assessment/Plan Sepsis with septic shock Bacteremia with Gram-positive cocci in clusters UTI with serratia marcescens Pneumonia JUANA due to vasomotor nephropathy Afib DM2 HTN Dyslipidemia History of DVT History of mitral valve PLAN: IV antibiotics Rocephin and Doxycycline Levophed IV fluids 09/24/2024: Sepsis with pneumonia and UTI: Continue IV Rocephin and doxycycline, add vancomycin Infectious Disease consultation Bacteremia: Echo did not show vegetations Cardiology consult, JUANA: Continue IV fluids Atrial fibrillation: On amiodarone History of DVT Obesity Anemia [place]? To rule out endocarditis 09/25/2024: [place] for tomorrow Blood culture 1 bottle showed Staphylococcus epidermidis and the 2nd bottle is still pending JUANA: Improving with IV fluids Continue IV antibiotics Rocephin and vancomycin Discontinue doxycycline Atrial fibrillation: Continue amiodarone Discussed with the at the bedside Physical therapy 09/26/2024: Generalized weakness: Continue physical therapy Bacteremia rule out endocarditis: [place] was canceled today, we will try again in 2 days JUANA: Improving continue hydration UTI/pneumonia: Continue antibiotics Discussed with Cardiology, they will try again [place] on 09/28/2024 Atrial fibrillation: Amiodarone 09/27/2024: [place] tomorrow Continue physical therapy Hypokalemia: Replace 09/28/24: ALOC: Stop narcotics, keep NPO for now Cough, ?aspiration: Check CXR, aspiration precautions DC IV fluids h/o left ureteral stent per : Check CT abd & pelvis, urology consult Sepsis: Continue IV antibiotics UTI: Repeat UA and urine culture PNA Bacteremia [place]: No endocarditis Afib: Amiodarone CAD JUANA/CKD 09/29/2024: Chest x-ray shows pulmonary congestion: Start Lasix 40 mg IV daily The patient is still confused and lethargic Aspiration precautions Discontinued IV fluids yesterday Continue IV antibiotics for the pneumonia and UTI History of left ureteral stent per the , consult Urology CT scan of the abdomen and pelvis is still pending since the patient is aspiration precautions Atrial fibrillation continue amiodarone Bacteremia with staph epi Endocarditis was ruled out 09/30/24: Replace K+ po Lasix 40 mg IV qd Rocephin and Daptomycin Amiodarone po CT abd and pelvis to check on ureteral stent placement Physical therapy 10/01/2024: Consult Urology regarding the left ureteral stent with left hydronephrosis, the patient had the stent for about a year UTI Pneumonia Hypokalemia Generalized weakness Continue physical therapy Continue IV antibiotics Rocephin and daptomycin Lasix 40 mg p.o. daily 10/02/24: Advance diet to soft mechanical He needs the ureteral stent removed before discharge Lasix PT IV antibiotics DC planning w HH & hospital bed once stent is removed Plan discussed with: Patient, Spouse My Orders Orders - SABRINA LEOS MD Procedure Category Date Status Time * Urology Consult CONS 10/01/24 Transmitted 11:10 Furosemide Tablet PHA 10/02/24 In Process (Lasix Tablet) 10:00 Mechanical Soft Diet DIET 10/02/24 Verified Lunch * Storage Facility Housekeeper CONS 10/02/24 Verified Consult Date of Service: Oct 02, 2024 Billing Provider: SABRINA LEOS MD Common Visit Codes: NOT BILLABLE SABRINA LEOS MD Oct 02, 2024 11:07
[2024-10-02] MEDS: cefTRIAXone 2GM/50ML D5W 50 ML IV SCH (12:40)
--- NOTE | 2024-10-02 22:57 | DVHPN2 ---
Consult Progress Note Date Seen: Oct 02, 2024 Subjective Patient reports: Other (feeling more alert today , urinating well with clear urine ) Objective vital signs Vital Sign Date Time Temp Pulse Resp B/P (MAP) Pulse Ox O2 Delivery O2 Flow Rate FiO2 10/02/24 21:43 85 106/62 10/02/24 20:00 17 98 Nasal Cannula* 3 32 10/02/24 17:17 97.5 97.5 Total Intake and Output 10/01/24 10/01/24 10/02/24 15:00 23:00 07:00 Intake Total 50 ml 200 ml 225 ml Output Total 900 ml Balance 50 ml -700 ml 225 ml medications Current Medications Medications Dose Ordered Sig/Gardenia Route Start Time Stop Time Status Last Admin Dose Admin Aspirin 81 mg DAILY PO 09/23/24 10:00 10/02/24 10:09 81 MG Diagnostic Test (Pha) 1 strip ACHS 09/22/24 22:00 10/02/24 21:20 1 STRIP Insulin Human Regular ACHS SC 09/22/24 22:00 10/02/24 13:00 2 UNITS Dextrose 50 ml UD PRN IV 09/22/24 21:00 Sodium Chloride 10 ml Q8HR IV 09/22/24 22:00 10/02/24 22:13 10 ML Ondansetron HCl 4 mg Q4HP PRN IV 09/22/24 21:00 09/28/24 15:31 4 MG Acetaminophen 650 mg Q6HP PRN PO 09/22/24 21:00 09/30/24 23:26 650 MG Nitroglycerin 0.4 mg Q5MINP PRN SL 09/22/24 22:45 Atorvastatin Calcium 40 mg HS PO 09/23/24 22:00 10/02/24 22:13 40 MG Amiodarone HCl 200 mg Q12HR PO 09/23/24 22:00 10/02/24 22:13 200 MG Heparin Sodium (Porcine) 5,000 units Q12HR SC 09/23/24 22:00 10/02/24 22:14 5,000 UNITS Vancomycin HCl 0 ml @ 0 mls/hr UD IV 09/24/24 11:15 Cancel Daptomycin 620 mg/ Sodium Chloride 50 ml @ 100 mls/hr DAILY@2230 IV 09/27/24 22:30 10/02/24 22:15 100 MLS/HR Metoprolol Tartrate 12.5 mg BID PO 09/28/24 22:00 10/02/24 10:09 12.5 MG Furosemide 40 mg DAILY PO 10/02/24 10:00 10/02/24 10:10 40 MG Ceftriaxone Sodium/Dextrose 50 ml @ 50 mls/hr DAILY IV 10/02/24 10:00 10/02/24 12:40 50 MLS/HR Physical Exam: General: NAD Neck: Supple. No masses. HEENT: PERRL. Normal lids and conjunctiva. Moist mucous membranes. Oropharynx without lesions, exudates, or excessive erythema. Normal appearance of the external aspects of the nose and ears. Heart: Regular rhythm, normal rate. No murmur. No lower extremity edema. Lungs: Diminished breath sounds at the bases bilaterally. No wheezes. No crackles. Abdomen: Soft. Non-tender. Non-distended. No masses or abdominal hernia. Msk: No digital cyanosis. Normal strength and tone in all 4 limbs. Skin: Warm and dry, no rashes. Neuro: Alert, more aware, following commands. No facial droop or slurred speech. Extra-ocular movements intact. Sensation intact to soft touch in all 4 limbs. Psych: Appropriate mood. Full affect. Oriented to person, place, time, and situation. laboratory and microbiology Laboratory Tests 10/02/24 06:00 Test 10/02/24 06:00 Range/Units Serum Glucose 101 74-106 mg/dL Problem List/Assessment/Plan Problems(with codes): (1) Mild malnutrition (2) Musculoskeletal chest pain (3) Acute coronary syndrome (4) HLD (hyperlipidemia) (5) HTN (hypertension) (6) Chest pain (7) Hyperglycemia (8) CAD (coronary artery disease) (9) Atrial fibrillation (10) Coronary artery disease (11) NSTEMI (non-ST elevated myocardial infarction) (12) Chronic a-fib (13) Hypotension, unspecified Problem List/Assessment/Plan ID Problem List: - Atrial fibrillation - Diabetes mellitus - Hypertension - Hyperlipidemia - Myocardial infarction - Generalized weakness - Hypotension - Lactic acidosis - Acute kidney injury (JUANA) - Chronic kidney disease (CKD) - Altered mental status - Uremia - Tachycardia - Severe sepsis - Urinary tract infection (UTI) due to Serratia marcescens - Possible aspiration pneumonia - Diminished breath sounds at bases; possible bronchitis on chest X-ray Assessment This is an 79 y.o. male with a past medical history of atrial fibrillation, diabetes mellitus, hypertension, hyperlipidemia, and myocardial infarction, who presents with generalized weakness. He was found to be hypotensive (BP 76/49) with a lactic acid of 2.3. He was lethargic and hard to arouse on admission, which has since improved with fluid resuscitation and initiation of Levophed drip. His blood pressure is now stable at 111/63 without pressors. Creatinine was elevated to 2.46 with BUN of 61, improved to creatinine of 1.71 after fluid resuscitation and antibiotics. 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 He has diminished breath sounds at the bases on exam, and chest X-ray findings suggest bilateral bronchial thickening and possible bronchitis. Microscopic urine culture grew Serratia marcescens, and blood cultures had 2 out of 4 aerobic bottles positive for coagulase-negative Staphylococcus. 09/25: whitecount is 6.4 , repeat blood cultures are no growth to date , staph epidermitis show Vanc SHIRA of 4 . TTE was done 09/23 which shows theres a mitral valve prosthetic without any significant mitral stenosis however it is heavily calcified , aortic valve was sclerotic with calcification of leaflets , EF 60% , mild to moderate micro insufficiency and moderate pulmonary efficiency 09/26: renal ultrasound shows mild left hydronephrosis and blood cultures remain no growth to date 3: patient is to get a CARLINE under anesthesia tomorrow 09/28: CARLINE was done , prosthetic mitral valve was seen but no vegetation were able to be visualized 09/29: tolerating antibiotics and therapy 09/30: Ct abdomen and pelvis shows mild left hyro utero nephrosis with internal utero stent in site , distal aspect of the stent is at the UVJ , possibly just extending into the urinary bladder , possible repositioning may be required . Bilateral lower lobe airspace disease , moderate volume colonic stool 10/01: remains intermittently febrile , repeat urine cultures show nixed gram positive rangel 10/02: Patient is feeling improved , no dysuria Plan: -Continue Ceftriaxone - Continue daptomycin while in patient - recommed oral linesolid 600 milligrams PO BID when patient is ready fro discharge to complete a 14 day course for bacteremia - recommend a oral 30 day course of cefdinir 300 milligrams PO BID to cover patient for UTI in setting of likely infected stent - Patient will need stent removal preferably in patient , if no in patient then shortly after discharge - follow up with urology to have stent removed - follow up with infectious disease in 2-4 weeks to determine if ongoing antibiotics are needed - with new diet suspect aspiration especially as patient is now on 3 liters nasal canula - check chest xray to rule out pneumonia - would presume that the stent is infected at this point and will likely need to be removed for sepsis to be resolved - if fevers reoccur would repeat blood cultures - follow up on imaging to determine if antibiotics need to be extended - defer to urology for additional management of the stent - suspect that staph epidermidis in blood is a transient infection and can treat with 2 week course of daptomycin or oral linezolid - Continue Daptomycin IV in patient Isolation Precautions: standard Plan discussed with: Other Dietary Evaluation Review Recommendations by RD: Protein Supplementation Comments: 1) Initiate Glucerna bid 2) Initiate vitamin C @ 500 mg bid 3) Initiate zinc sulfate @ 220 mg qd 4) Advance diet to 60g CCHO cardiac diet when medically feasible, pending [facility] approval 5) Continue to monitor appetite, labs, and skin integrity Expected Outcomes/Goals: 1) appetite and labs to improve 2) diet to advance 3) wound to improve DIONI GARCIA MD Oct 02, 2024 22:57
--- NOTE | 2024-10-02 23:52 | DVHPN2 ---
Progress Note - Dictate Date Seen: Oct 02, 2024 Medical Necessity Reason Pt with a Central, PICC or Fol: No The following are medically ne: Morrison Catheter Reason for morrison catheter: Strict I&O Subjective Patient seen and examined at bedside. Remains on supplemental oxygen Overnight events reviewed. vital signs Vital Sign Date Time Temp Pulse Resp B/P (MAP) Pulse Ox O2 Delivery O2 Flow Rate FiO2 10/02/24 21:43 85 106/62 10/02/24 21:00 97.3 18 100 97.3 10/02/24 20:00 Nasal Cannula* 3 32 Total Intake and Output 10/01/24 10/01/24 10/02/24 15:00 23:00 07:00 Intake Total 50 ml 200 ml 225 ml Output Total 900 ml Balance 50 ml -700 ml 225 ml medications Current Medications Medications Dose Ordered Sig/Gardenia Route Start Time Stop Time Status Last Admin Dose Admin Aspirin 81 mg DAILY PO 09/23/24 10:00 10/02/24 10:09 81 MG Diagnostic Test (Pha) 1 strip ACHS 09/22/24 22:00 10/02/24 21:20 1 STRIP Insulin Human Regular ACHS SC 09/22/24 22:00 10/02/24 13:00 2 UNITS Dextrose 50 ml UD PRN IV 09/22/24 21:00 Sodium Chloride 10 ml Q8HR IV 09/22/24 22:00 10/02/24 22:13 10 ML Ondansetron HCl 4 mg Q4HP PRN IV 09/22/24 21:00 09/28/24 15:31 4 MG Acetaminophen 650 mg Q6HP PRN PO 09/22/24 21:00 09/30/24 23:26 650 MG Nitroglycerin 0.4 mg Q5MINP PRN SL 09/22/24 22:45 Atorvastatin Calcium 40 mg HS PO 09/23/24 22:00 10/02/24 22:13 40 MG Amiodarone HCl 200 mg Q12HR PO 09/23/24 22:00 10/02/24 22:13 200 MG Heparin Sodium (Porcine) 5,000 units Q12HR SC 09/23/24 22:00 10/02/24 22:14 5,000 UNITS Vancomycin HCl 0 ml @ 0 mls/hr UD IV 09/24/24 11:15 Cancel Daptomycin 620 mg/ Sodium Chloride 50 ml @ 100 mls/hr DAILY@2230 IV 09/27/24 22:30 10/02/24 22:15 100 MLS/HR Metoprolol Tartrate 12.5 mg BID PO 09/28/24 22:00 10/02/24 10:09 12.5 MG Furosemide 40 mg DAILY PO 10/02/24 10:00 10/02/24 10:10 40 MG Ceftriaxone Sodium/Dextrose 50 ml @ 50 mls/hr DAILY IV 10/02/24 10:00 10/02/24 12:40 50 MLS/HR objective Gen.: Patient lying in bed in no apparent distress. On supplemental oxygen. Head: Normocephalic, atraumatic. Eyes: EOMI/PERRLA. Ears: Normal hearing. Normal anatomy. Neck/trachea: Trachea midline, supple. Nose: Normal external anatomy. Mouth: Moist mucous membranes. Chest: Decreased air entry bilaterally. No wheezing or rhonchi. Cardiovascular: Positive S1, positive S2. Regular rate and rhythm. Abdomen: Positive bowel sounds in all 4 quadrants. Soft, non-tender, non- distended. : Deferred. Rectal: Deferred. Skin: Warm, dry. Intact. Extremities: 2+ radial pulses bilaterally. No lower extremity edema. Neuro: Awake, alert, oriented x3. No gross motor or sensory deficits. Cranial nerves II through XII intact. Gait not assessed laboratory and microbiology Laboratory Tests 10/02/24 06:00 Test 10/02/24 06:00 Range/Units Serum Glucose 101 74-106 mg/dL Assessment/Plan Impression: Acute hypoxic respiratory failure Anemia Hypokalemia Atelectasis Aspiration pneumonia Pulmonary edema CAD s/p CABG Pulmonary Hypertension, RVSP 47 mmHg, who class II Moderate mitral regurgitation Events: Remains on supplemental oxygen, 3 LPM NC Taper O2 as tolerated Amiodarone PO Continue bronchodilators Continue steroids Continue antibiotics Incentive spirometry Head of bed elevation Aspiration precautions On puree diet Diurese as tolerated w/ Lasix Monitor renal function Monitor electrolytes. Supplement as necessary. Monitor ins and outs. Wound care Labs and imaging reviewed. Rest of plan as noted below. Plan: supplemental oxygen Keep o2 saturation above 92% Antibiotics HOB elevation Aspiration precautions Echo reviewed. Cardiology recommendations appreciated. Amio PO Accu-Cheks, ISS PRN. DVT prophylaxis Prognosis: Guarded given multiple comorbidities. Rest of plan per hospitalist and other consultants. Thank you Dr. Flor for allowing me to participate in this patient's care. Further recommendations will depend on patient's clinical course. Please do not hesitate to contact me if you have any questions or concerns. This medical document was created using an electronic medical record system with [employer] system. Although this document has been carefully reviewed, there may still be some phonetic and typographical errors. These areas are purely typographical due to imperfections of the software programs, and do not reflect any compromise in the patient's medical care. Dietary Evaluation Review Recommendations by RD: Protein Supplementation Comments: 1) Initiate Glucerna bid 2) Initiate vitamin C @ 500 mg bid 3) Initiate zinc sulfate @ 220 mg qd 4) Advance diet to 60g CCHO cardiac diet when medically feasible, pending [employer] approval 5) Continue to monitor appetite, labs, and skin integrity Expected Outcomes/Goals: 1) appetite and labs to improve 2) diet to advance 3) wound to improve Plan discussed with: Patient, Other (SHARRI Courtney) CHARMAINE JO MD Oct 02, 2024 23:52
[2024-10-03] VITALS (9 sets, daily range): BP systolic 99–128; BP diastolic 55–63; PULSE 75–97; RESP 16–19; TEMP 97.3–97.9; O2SAT 90–98
--- NOTE | 2024-10-03 09:07 | DVHPN2 ---
Subjective Better More alert No complaints Changes from previous H/P or p: Changes Eyes: No Pain, No Vision change, No Conjunctivae inflammation, No Eyelid inflammation, No Other, No Redness ENT: No Ear pain, No Ear discharge, No Nose pain, No Nose discharge, No Nose congestion, No Mouth pain, No Mouth swelling, No Throat pain, No Throat swelling, No Other Cardiovascular: No Chest Pain, No Palpitations, No Orthopnea, No Paroxysmal Noc. Dyspnea, No Edema, No Lt Headedness, No Other Respiratory: No Cough, No Dry, No Shortness of breath, No SOB with excertion, No Wheezing, No Hemoptysis, No Pleuritic Pain, No Sputum, No Other Gastrointestinal: No Nausea, No Vomiting, No Abdominal Pain, No Diarrhea, No Constipation, No Melena, No Hematochezia, No Other Genitourinary: No Dysuria, No Frequency, No Incontinence, No Hematuria, No Retention, No Other Musculoskeletal: No other, No neck pain, No shoulder pain, No arm pain, No back pain, No hand pain, No leg pain, No foot pain Skin: No Rash, No Lesions, No Jaundice, No Bruising, No Other Objective Vitals Vital Signs Date Time Temp Pulse Resp B/P (MAP) Pulse Ox O2 Delivery O2 Flow Rate FiO2 10/03/24 05:00 97.3 78 19 105/59 (74) 98 97.3 10/02/24 20:00 Nasal Cannula* 3 32 Intake/Output Intake and Output 10/03/24 07:00 Intake Total 930 ml Output Total 1150 ml Balance -220 ml Intake Oral 880 ml IV Total 50 ml Output Urine Total 1150 ml General Appearance: Alert, Oriented X3 Lungs: Clear to auscultation, Normal air movement Cardiovascular: Regular rate, Normal S1, Normal S2, No murmurs Abdomen: Normal bowel sounds, Soft, No tenderness Extremities: No edema Medications Current Medications Medications Dose Ordered Sig/Gardenia Route Start Time Stop Time Status Last Admin Dose Admin Aspirin 81 mg DAILY PO 09/23/24 10:00 10/02/24 10:09 81 MG Diagnostic Test (Pha) 1 strip ACHS 09/22/24 22:00 10/03/24 06:52 1 STRIP Insulin Human Regular ACHS SC 09/22/24 22:00 10/02/24 13:00 2 UNITS Dextrose 50 ml UD PRN IV 09/22/24 21:00 Sodium Chloride 10 ml Q8HR IV 09/22/24 22:00 10/03/24 06:00 10 ML Ondansetron HCl 4 mg Q4HP PRN IV 09/22/24 21:00 09/28/24 15:31 4 MG Acetaminophen 650 mg Q6HP PRN PO 09/22/24 21:00 09/30/24 23:26 650 MG Nitroglycerin 0.4 mg Q5MINP PRN SL 09/22/24 22:45 Atorvastatin Calcium 40 mg HS PO 09/23/24 22:00 10/02/24 22:13 40 MG Amiodarone HCl 200 mg Q12HR PO 09/23/24 22:00 10/02/24 22:13 200 MG Heparin Sodium (Porcine) 5,000 units Q12HR SC 09/23/24 22:00 10/02/24 22:14 5,000 UNITS Vancomycin HCl 0 ml @ 0 mls/hr UD IV 09/24/24 11:15 Cancel Daptomycin 620 mg/ Sodium Chloride 50 ml @ 100 mls/hr DAILY@2230 IV 09/27/24 22:30 10/02/24 22:15 100 MLS/HR Metoprolol Tartrate 12.5 mg BID PO 09/28/24 22:00 10/02/24 10:09 12.5 MG Furosemide 40 mg DAILY PO 10/02/24 10:00 10/02/24 10:10 40 MG Ceftriaxone Sodium/Dextrose 50 ml @ 50 mls/hr DAILY IV 10/02/24 10:00 10/02/24 12:40 50 MLS/HR Laboratory Results Laboratory Tests 10/02/24 06:00 Urinalysis Test 09/22/24 16:21 10/01/24 21:54 Urine WBC Clumps Present /hpf (None Seen) Urine Color Colorless (Yellow) Urine Clarity Turbid (Clear) H Urine pH 5.5 (5.0-9.0) Urine Specific [place] 1.012 (1.001-1.035) Urine Protein 1+ (Negative) H Urine Ketones Negative (Negative) Urine Blood 2+ /uL (Negative) H Urine Nitrite Negative (Negative) Urine Bilirubin Negative (Negative) Urine Urobilinogen Normal mg/dL (Negative) Urine Leukocyte Esterase 3+ /uL (Negative) Urine RBC 97 /hpf (0 - 3) Urine Microscopic WBC 321 /HPF (0-3) H Urine Squamous Epithelial Cells Few /hpf (<5) Urine Bacteria Few /hpf (None Seen) H Urine Hyaline Casts Few /lpf (0 - 2) Urine Mucus Few (None Seen) Urine Yeast (Budding) Moderate /hpf (None Seen) Urine Glucose Normal mg/dL (Normal) Microbiology Microbiology Date/Time Source Procedure Growth Status 09/28/24 15:56 Voided Urine Urine Culture - Final Complete 09/24/24 17:57 Blood Blood Culture - Final NO GROWTH AFTER 5 DAYS OF INCUBATION. Complete Assessment/Plan Assessment/Plan Sepsis with septic shock Bacteremia with Gram-positive cocci in clusters UTI with serratia marcescens Pneumonia JUANA due to vasomotor nephropathy Afib DM2 HTN Dyslipidemia History of DVT History of mitral valve PLAN: IV antibiotics Rocephin and Doxycycline Levophed IV fluids 09/24/2024: Sepsis with pneumonia and UTI: Continue IV Rocephin and doxycycline, add vancomycin Infectious Disease consultation Bacteremia: Echo did not show vegetations Cardiology consult, JUANA: Continue IV fluids Atrial fibrillation: On amiodarone History of DVT Obesity Anemia [place]? To rule out endocarditis 09/25/2024: [place] for tomorrow Blood culture 1 bottle showed Staphylococcus epidermidis and the 2nd bottle is still pending JUANA: Improving with IV fluids Continue IV antibiotics Rocephin and vancomycin Discontinue doxycycline Atrial fibrillation: Continue amiodarone Discussed with the at the bedside Physical therapy 09/26/2024: Generalized weakness: Continue physical therapy Bacteremia rule out endocarditis: [place] was canceled today, we will try again in 2 days JUANA: Improving continue hydration UTI/pneumonia: Continue antibiotics Discussed with Cardiology, they will try again [place] on 09/28/2024 Atrial fibrillation: Amiodarone 09/27/2024: [place] tomorrow Continue physical therapy Hypokalemia: Replace 09/28/24: ALOC: Stop narcotics, keep NPO for now Cough, ?aspiration: Check CXR, aspiration precautions DC IV fluids h/o left ureteral stent per : Check CT abd & pelvis, urology consult Sepsis: Continue IV antibiotics UTI: Repeat UA and urine culture PNA Bacteremia [place]: No endocarditis Afib: Amiodarone CAD JUANA/CKD 09/29/2024: Chest x-ray shows pulmonary congestion: Start Lasix 40 mg IV daily The patient is still confused and lethargic Aspiration precautions Discontinued IV fluids yesterday Continue IV antibiotics for the pneumonia and UTI History of left ureteral stent per the , consult Urology CT scan of the abdomen and pelvis is still pending since the patient is aspiration precautions Atrial fibrillation continue amiodarone Bacteremia with staph epi Endocarditis was ruled out 09/30/24: Replace K+ po Lasix 40 mg IV qd Rocephin and Daptomycin Amiodarone po CT abd and pelvis to check on ureteral stent placement Physical therapy 10/01/2024: Consult Urology regarding the left ureteral stent with left hydronephrosis, the patient had the stent for about a year UTI Pneumonia Hypokalemia Generalized weakness Continue physical therapy Continue IV antibiotics Rocephin and daptomycin Lasix 40 mg p.o. daily 10/02/24: Advance diet to soft mechanical He needs the ureteral stent removed before discharge Lasix PT IV antibiotics DC planning w HH & hospital bed once stent is removed 10/03/2024: Discussed with Dr. Lin, the patient needs to have a procedure to remove the left renal stones and stent, procedure is scheduled for tomorrow Discussed with the , she has decided to take the patient home on hospice now once the procedure is done Continue IV antibiotics with Rocephin and daptomycin P.o. amiodarone Stopped the aspirin for preparation for the procedure Lasix 40 mg p.o. daily Plan discussed with: Patient, Spouse My Orders Orders - SABRINA LEOS MD Procedure Category Date Status Time Mechanical Soft Diet DIET 10/02/24 Transmitted Lunch * Configuration Management Analyst CONS 10/02/24 Transmitted Consult Dme: Hospital Bed DME 10/02/24 Transmitted 16:58 Date of Service: Oct 03, 2024 Billing Provider: SABRINA LEOS MD Common Visit Codes: NOT BILLABLE SABRINA LEOS MD Oct 03, 2024 09:07
--- NOTE | 2024-10-03 09:10 | DVHPN2 ---
Progress Note - Dictate Date Seen: Oct 03, 2024 Medical Necessity Reason Pt with a Central, PICC or Fol: No The following are medically ne: Morrison Catheter Reason for morrison catheter: Strict I&O Medical Necessity Reason Patient known to Dr. Garcia for left ESWL and stent placement. Due to insurance issues, he no longer sees Dr. Garcia. CT Scan was reviewed. He has residual left lower pole stones and stent in place. He will need left URSLL with renal evacuation of stones (CVAC). Subjective Left flank pain vital signs Vital Sign Date Time Temp Pulse Resp B/P (MAP) Pulse Ox O2 Delivery O2 Flow Rate FiO2 10/03/24 05:00 97.3 78 19 105/59 (74) 98 97.3 10/02/24 20:00 Nasal Cannula* 3 32 Total Intake and Output 10/02/24 10/02/24 10/03/24 15:00 23:00 07:00 Intake Total 200 ml 730 ml Output Total 700 ml 450 ml Balance -500 ml 280 ml medications Current Medications Medications Dose Ordered Sig/Gardenia Route Start Time Stop Time Status Last Admin Dose Admin Aspirin 81 mg DAILY PO 09/23/24 10:00 10/02/24 10:09 81 MG Diagnostic Test (Pha) 1 strip ACHS 09/22/24 22:00 10/03/24 06:52 1 STRIP Insulin Human Regular ACHS SC 09/22/24 22:00 10/02/24 13:00 2 UNITS Dextrose 50 ml UD PRN IV 09/22/24 21:00 Sodium Chloride 10 ml Q8HR IV 09/22/24 22:00 10/03/24 06:00 10 ML Ondansetron HCl 4 mg Q4HP PRN IV 09/22/24 21:00 09/28/24 15:31 4 MG Acetaminophen 650 mg Q6HP PRN PO 09/22/24 21:00 09/30/24 23:26 650 MG Nitroglycerin 0.4 mg Q5MINP PRN SL 09/22/24 22:45 Atorvastatin Calcium 40 mg HS PO 09/23/24 22:00 10/02/24 22:13 40 MG Amiodarone HCl 200 mg Q12HR PO 09/23/24 22:00 10/02/24 22:13 200 MG Heparin Sodium (Porcine) 5,000 units Q12HR SC 09/23/24 22:00 10/02/24 22:14 5,000 UNITS Vancomycin HCl 0 ml @ 0 mls/hr UD IV 09/24/24 11:15 Cancel Daptomycin 620 mg/ Sodium Chloride 50 ml @ 100 mls/hr DAILY@2230 IV 09/27/24 22:30 10/02/24 22:15 100 MLS/HR Metoprolol Tartrate 12.5 mg BID PO 09/28/24 22:00 10/02/24 10:09 12.5 MG Furosemide 40 mg DAILY PO 10/02/24 10:00 10/02/24 10:10 40 MG Ceftriaxone Sodium/Dextrose 50 ml @ 50 mls/hr DAILY IV 10/02/24 10:00 10/02/24 12:40 50 MLS/HR objective Left CVAT laboratory and microbiology Laboratory Tests 10/02/24 06:00 Test 10/02/24 06:00 Range/Units Serum Glucose 101 74-106 mg/dL Problem List Sepsis Left ureteral stent and left renal stones, lower pole Assessment/Plan Left URSLL and CVAC TBA Dietary Evaluation Review Recommendations by RD: Protein Supplementation Comments: 1) Initiate Glucerna bid 2) Initiate vitamin C @ 500 mg bid 3) Initiate zinc sulfate @ 220 mg qd 4) Advance diet to 60g CCHO cardiac diet when medically feasible, pending PLANNING RN approval 5) Continue to monitor appetite, labs, and skin integrity Expected Outcomes/Goals: 1) appetite and labs to improve 2) diet to advance 3) wound to improve Plan discussed with: Patient Total Time (mins): 65 KEVYN GOMEZ MD Oct 03, 2024 09:10
[2024-10-03] MEDS: IRON SUCROSE COMPLEX 110 ML IV SCH (13:32)
--- NOTE | 2024-10-03 20:05 | DVHPN2 ---
Progress Note - Dictate Date Seen: Oct 03, 2024 Medical Necessity Reason Pt with a Central, PICC or Fol: No The following are medically ne: Morrison Catheter Reason for morrison catheter: Strict I&O Subjective Patient seen and examined at bedside. Remains on supplemental oxygen Overnight events reviewed. vital signs Vital Sign Date Time Temp Pulse Resp B/P (MAP) Pulse Ox O2 Delivery O2 Flow Rate FiO2 10/03/24 17:00 97.9 78 18 99/55 (70) 93 97.9 10/03/24 15:57 Nasal Cannula* 4 36 Total Intake and Output 10/02/24 10/02/24 10/03/24 15:00 23:00 07:00 Intake Total 200 ml 730 ml Output Total 700 ml 450 ml Balance -500 ml 280 ml medications Current Medications Medications Dose Ordered Sig/Gardenia Route Start Time Stop Time Status Last Admin Dose Admin Diagnostic Test (Pha) 1 strip ACHS 09/22/24 22:00 10/03/24 17:00 1 STRIP Insulin Human Regular ACHS SC 09/22/24 22:00 10/02/24 13:00 2 UNITS Dextrose 50 ml UD PRN IV 09/22/24 21:00 Sodium Chloride 10 ml Q8HR IV 09/22/24 22:00 10/03/24 13:38 10 ML Ondansetron HCl 4 mg Q4HP PRN IV 09/22/24 21:00 09/28/24 15:31 4 MG Acetaminophen 650 mg Q6HP PRN PO 09/22/24 21:00 09/30/24 23:26 650 MG Nitroglycerin 0.4 mg Q5MINP PRN SL 09/22/24 22:45 Atorvastatin Calcium 40 mg HS PO 09/23/24 22:00 10/02/24 22:13 40 MG Amiodarone HCl 200 mg Q12HR PO 09/23/24 22:00 10/03/24 09:58 200 MG Heparin Sodium (Porcine) 5,000 units Q12HR SC 09/23/24 22:00 10/03/24 10:16 5,000 UNITS Vancomycin HCl 0 ml @ 0 mls/hr UD IV 09/24/24 11:15 Cancel Daptomycin 620 mg/ Sodium Chloride 50 ml @ 100 mls/hr DAILY@2230 IV 09/27/24 22:30 10/02/24 22:15 100 MLS/HR Metoprolol Tartrate 12.5 mg BID PO 09/28/24 22:00 10/03/24 09:58 12.5 MG Furosemide 40 mg DAILY PO 10/02/24 10:00 10/03/24 09:58 40 MG Ceftriaxone Sodium/Dextrose 50 ml @ 50 mls/hr DAILY IV 10/02/24 10:00 10/03/24 09:57 50 MLS/HR Iron Sucrose 110 ml @ 110 mls/hr DAILY@1200 IV 10/03/24 12:00 10/07/24 12:59 10/03/24 13:32 110 MLS/HR objective Gen.: Patient lying in bed in no apparent distress. On supplemental oxygen. Head: Normocephalic, atraumatic. Eyes: EOMI/PERRLA. Ears: Normal hearing. Normal anatomy. Neck/trachea: Trachea midline, supple. Nose: Normal external anatomy. Mouth: Moist mucous membranes. Chest: Decreased air entry bilaterally. No wheezing or rhonchi. Cardiovascular: Positive S1, positive S2. Regular rate and rhythm. Abdomen: Positive bowel sounds in all 4 quadrants. Soft, non-tender, non- distended. : Deferred. Rectal: Deferred. Skin: Warm, dry. Intact. Extremities: 2+ radial pulses bilaterally. No lower extremity edema. Neuro: Awake, alert, oriented x3. No gross motor or sensory deficits. Cranial nerves II through XII intact. Gait not assessed laboratory and microbiology Laboratory Tests 10/02/24 06:00 Test 10/02/24 06:00 Range/Units Serum Glucose 101 74-106 mg/dL Assessment/Plan Impression: Acute hypoxic respiratory failure Anemia Hypokalemia Atelectasis Aspiration pneumonia Pulmonary edema CAD s/p CABG Pulmonary Hypertension, RVSP 47 mmHg, who class II Moderate mitral regurgitation Events: Remains on supplemental oxygen, 2 LPM NC Taper O2 as tolerated Plan for stent removal Patient to be NPO at midnight Amiodarone PO Continue antibiotics Incentive spirometry Head of bed elevation Aspiration precautions On puree diet Diurese as tolerated w/ Lasix Monitor renal function Monitor electrolytes. Supplement as necessary. Monitor ins and outs. Wound care Disposition per hospitalist. Labs and imaging reviewed. Rest of plan as noted below. Plan: supplemental oxygen Keep o2 saturation above 92% Antibiotics HOB elevation Aspiration precautions Echo reviewed. Cardiology recommendations appreciated. Amio PO Accu-Cheks, ISS PRN. DVT prophylaxis Prognosis: Guarded given multiple comorbidities. Rest of plan per hospitalist and other consultants. Thank you Dr. Flor for allowing me to participate in this patient's care. Further recommendations will depend on patient's clinical course. Please do not hesitate to contact me if you have any questions or concerns. This medical document was created using an electronic medical record system with Tip or Skip dictation system. Although this document has been carefully reviewed, there may still be some phonetic and typographical errors. These areas are purely typographical due to imperfections of the software programs, and do not reflect any compromise in the patient's medical care. Dietary Evaluation Review Recommendations by RD: Protein Supplementation Comments: 1) Initiate Glucerna bid 2) Initiate vitamin C @ 500 mg bid 3) Initiate zinc sulfate @ 220 mg qd 4) Advance diet to 60g CCHO cardiac diet when medically feasible, pending [employer] MA[employer]GER approval 5) Continue to monitor appetite, labs, and skin integrity Expected Outcomes/Goals: 1) appetite and labs to improve 2) diet to advance 3) wound to improve Plan discussed with: Patient, Other (SHARRI Courtney) CHARMAINE JO MD Oct 03, 2024 20:05
--- NOTE | 2024-10-03 21:48 | DVHPN2 ---
Consult Progress Note Date Seen: Oct 03, 2024 Subjective Patient reports: No new complaints (producing good urine and not having any pain with urination ), Other Objective vital signs Vital Sign Date Time Temp Pulse Resp B/P (MAP) Pulse Ox O2 Delivery O2 Flow Rate FiO2 10/03/24 17:00 97.9 78 18 99/55 (70) 93 97.9 10/03/24 15:57 Nasal Cannula* 4 36 Total Intake and Output 10/02/24 10/02/24 10/03/24 15:00 23:00 07:00 Intake Total 200 ml 730 ml Output Total 700 ml 450 ml Balance -500 ml 280 ml medications Current Medications Medications Dose Ordered Sig/Gardenia Route Start Time Stop Time Status Last Admin Dose Admin Diagnostic Test (Pha) 1 strip ACHS 09/22/24 22:00 10/03/24 17:00 1 STRIP Insulin Human Regular ACHS SC 09/22/24 22:00 10/02/24 13:00 2 UNITS Dextrose 50 ml UD PRN IV 09/22/24 21:00 Sodium Chloride 10 ml Q8HR IV 09/22/24 22:00 10/03/24 13:38 10 ML Ondansetron HCl 4 mg Q4HP PRN IV 09/22/24 21:00 09/28/24 15:31 4 MG Acetaminophen 650 mg Q6HP PRN PO 09/22/24 21:00 09/30/24 23:26 650 MG Nitroglycerin 0.4 mg Q5MINP PRN SL 09/22/24 22:45 Atorvastatin Calcium 40 mg HS PO 09/23/24 22:00 10/02/24 22:13 40 MG Amiodarone HCl 200 mg Q12HR PO 09/23/24 22:00 10/03/24 09:58 200 MG Heparin Sodium (Porcine) 5,000 units Q12HR SC 09/23/24 22:00 10/03/24 10:16 5,000 UNITS Vancomycin HCl 0 ml @ 0 mls/hr UD IV 09/24/24 11:15 Cancel Daptomycin 620 mg/ Sodium Chloride 50 ml @ 100 mls/hr DAILY@2230 IV 09/27/24 22:30 10/02/24 22:15 100 MLS/HR Metoprolol Tartrate 12.5 mg BID PO 09/28/24 22:00 10/03/24 09:58 12.5 MG Furosemide 40 mg DAILY PO 10/02/24 10:00 10/03/24 09:58 40 MG Ceftriaxone Sodium/Dextrose 50 ml @ 50 mls/hr DAILY IV 10/02/24 10:00 10/03/24 09:57 50 MLS/HR Iron Sucrose 110 ml @ 110 mls/hr DAILY@1200 IV 10/03/24 12:00 10/07/24 12:59 10/03/24 13:32 110 MLS/HR Physical Exam: General: NAD Neck: Supple. No masses. HEENT: PERRL. Normal lids and conjunctiva. Moist mucous membranes. Oropharynx without lesions, exudates, or excessive erythema. Normal appearance of the external aspects of the nose and ears. Heart: Regular rhythm, normal rate. No murmur. No lower extremity edema. Lungs: Diminished breath sounds at the bases bilaterally. No wheezes. No crackles. Abdomen: Soft. Non-tender. Non-distended. No masses or abdominal hernia. Msk: No digital cyanosis. Normal strength and tone in all 4 limbs. Skin: Warm and dry, no rashes. Neuro: Alert, more aware, following commands. No facial droop or slurred speech. Extra-ocular movements intact. Sensation intact to soft touch in all 4 limbs. Psych: Appropriate mood. Full affect. Oriented to person, place, time, and situation. laboratory and microbiology Laboratory Tests 10/02/24 06:00 Test 10/02/24 06:00 Range/Units Serum Glucose 101 74-106 mg/dL Problem List/Assessment/Plan Problems(with codes): (1) Mild malnutrition (2) Musculoskeletal chest pain (3) Acute coronary syndrome (4) HLD (hyperlipidemia) (5) HTN (hypertension) (6) Chest pain (7) Hyperglycemia (8) CAD (coronary artery disease) (9) Atrial fibrillation (10) Coronary artery disease (11) NSTEMI (non-ST elevated myocardial infarction) (12) Chronic a-fib Problem List/Assessment/Plan ID Problem List: - Atrial fibrillation - Diabetes mellitus - Hypertension - Hyperlipidemia - Myocardial infarction - Generalized weakness - Hypotension - Lactic acidosis - Acute kidney injury (JUANA) - Chronic kidney disease (CKD) - Altered mental status - Uremia - Tachycardia - Severe sepsis - Urinary tract infection (UTI) due to Serratia marcescens - Possible aspiration pneumonia - Diminished breath sounds at bases; possible bronchitis on chest X-ray Assessment This is an 79 y.o. male with a past medical history of atrial fibrillation, diabetes mellitus, hypertension, hyperlipidemia, and myocardial infarction, who presents with generalized weakness. He was found to be hypotensive (BP 76/49) with a lactic acid of 2.3. He was lethargic and hard to arouse on admission, which has since improved with fluid resuscitation and initiation of Levophed drip. His blood pressure is now stable at 111/63 without pressors. Creatinine was elevated to 2.46 with BUN of 61, improved to creatinine of 1.71 after fluid resuscitation and antibiotics. 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 He has diminished breath sounds at the bases on exam, and chest X-ray findings suggest bilateral bronchial thickening and possible bronchitis. Microscopic urine culture grew Serratia marcescens, and blood cultures had 2 out of 4 aerobic bottles positive for coagulase-negative Staphylococcus. 3: whitecount is 6.4 , repeat blood cultures are no growth to date , staph epidermitis show Vanc SHIRA of 4 . TTE was done 09/23 which shows theres a mitral valve prosthetic without any significant mitral stenosis however it is heavily calcified , aortic valve was sclerotic with calcification of leaflets , EF 60% , mild to moderate micro insufficiency and moderate pulmonary efficiency 3: renal ultrasound shows mild left hydronephrosis and blood cultures remain no growth to date 3: patient is to get a CARLINE under anesthesia tomorrow 09/28: CARLINE was done , prosthetic mitral valve was seen but no vegetation were able to be visualized 3: tolerating antibiotics and therapy 09/30: Ct abdomen and pelvis shows mild left hyro utero nephrosis with internal utero stent in site , distal aspect of the stent is at the UVJ , possibly just extending into the urinary bladder , possible repositioning may be required . Bilateral lower lobe airspace disease , moderate volume colonic stool 10/01: remains intermittently febrile , repeat urine cultures show nixed gram positive rangel 10/02: Patient is feeling improved , no dysuria 10/03: Patient was evaluated by a different urologist , Dr Lin , who recommended in patient removal of the stent Plan: -Continue Ceftriaxone - Continue daptomycin while in patient - recommed oral linesolid 600 milligrams PO BID when patient is ready fro discharge to complete a 14 day course for bacteremia - recommend a oral 30 day course of cefdinir 300 milligrams PO BID to cover patient for UTI in setting of likely infected stent - Patient will need stent removal preferably in patient , if no in patient then shortly after discharge - follow up on operative finding after stent removal - repeat urine culture after stent is removed - follow up with urology to have stent removed - follow up with infectious disease in 2-4 weeks to determine if ongoing antibiotics are needed - with new diet suspect aspiration especially as patient is now on 3 liters nasal canula - check chest xray to rule out pneumonia - would presume that the stent is infected at this point and will likely need to be removed for sepsis to be resolved - if fevers reoccur would repeat blood cultures - follow up on imaging to determine if antibiotics need to be extended - defer to urology for additional management of the stent - suspect that staph epidermidis in blood is a transient infection and can treat with 2 week course of daptomycin or oral linezolid - Continue Daptomycin IV in patient Isolation Precautions: standard Plan discussed with: Other Dietary Evaluation Review Recommendations by RD: Protein Supplementation Comments: 1) Initiate Glucerna bid 2) Initiate vitamin C @ 500 mg bid 3) Initiate zinc sulfate @ 220 mg qd 4) Advance diet to 60g CCHO cardiac diet when medically feasible, pending [employer]OTH FOLDER approval 5) Continue to monitor appetite, labs, and skin integrity Expected Outcomes/Goals: 1) appetite and labs to improve 2) diet to advance 3) wound to improve DIONI GARCIA MD Oct 03, 2024 21:48
[2024-10-04] VITALS (14 sets, daily range): BP systolic 92–124; BP diastolic 50–70; PULSE 74–95; RESP 11–18; TEMP 96.1–97.7; O2SAT 92–100
[2024-10-04 07:42] LABS: Basophils # (auto) 0 10 ^3/uL (0-0.2); Basophils % (auto) 0.5 % (0.0-2.0); Hemoglobin 8.2 g/dL (13.5-17.5); Lymphocytes # (auto) 0.8 10 ^3/uL (0.4-5.4); Mean Corpuscular Hgb Conc. 32.7 g/dL (32.0-36.0); Monocytes # (auto) 0.4 10 ^3/uL (0-1.3); Nucleated Red Blood Cells % 0.1 %
[2024-10-04 07:44] LABS: Eosinophils # (auto) 0.2 10 ^3/uL (0-0.8); Eosinophils % (auto) 3.7 % (0.0-7.0); Mean Corpuscular Hemoglobin 28.6 pg (28.0-32.0); Mean Corpuscular Volume 87.3 fL (80.0-100.0); Monocytes % (auto) 7.5 % (0.0-12.0); Neutrophils # (auto) 3.5 10 ^3/uL (1.6-8.6); Neutrophils % (auto) 71.3 % (37.0-80.0); Platelet Count (auto) 280 10^3/uL (140-450); Red Blood Cells 2.86 10^6/uL (4.5-5.90); Red Cell Distribution Width 15.9 % (11.8-14.3); White Blood Cell 4.9 10^3/uL (4.4-10.8)
[2024-10-04 08:02] LABS: Alanine Aminotransferase 19 U/L (7-40); Albumin 3.3 g/dL (3.2-4.8); Alkaline Phosphatase 90 U/L (46-116); Anion Gap 8 (5-15); Aspartate Aminotransferase 37 U/L (13-40); BUN/Creatinine Ratio 15.2 (10.0-20.0); Blood Urea Nitrogen 16 mg/dL (9-23); Calcium 8.8 mg/dL (8.7-10.4); Glucose 102 mg/dL (74-106); Magnesium 1.9 mg/dL (1.6-2.6); Sodium 136 mmol/L (136-145); Total Protein 8.2 g/dL (5.7-8.2)
[2024-10-04 08:05] LABS: Bilirubin, Total 0.3 mg/dL (0.2-1.0); Carbon Dioxide 33 mmol/L (20-31); Chloride 95 mmol/L (98-107)
[2024-10-04] MEDS ORDERED: LIDOCAINE 2% (LOCAL ANESTH.) PF 5ml SDV ONE (11:08)
[2024-10-04] MEDS ORDERED: ONDANSETRON HCL 4 MG/2 ML VIAL ONE (11:08)
[2024-10-04] MEDS ORDERED: DexAMETHasone SOD PHOS 10MG/1ML VIAL INJ ONE (11:08)
[2024-10-04] MEDS ORDERED: GLYCOPYRROLATE 0.2 MG/ML 1ML VIAL ONE (11:08)
[2024-10-04] MEDS ORDERED: SUGAMMADEX 200mg/2ml Vial (100MG/ML) IV ONE (11:08)
[2024-10-04] MEDS ORDERED: ROCURONIUM 10MG/ML 10ML VIAL IV ONE (11:08)
[2024-10-04] MEDS ORDERED: KETOROLAC TROMETH 30 MG/ML 1ML VIAL ONE (11:08)
[2024-10-04] MEDS ORDERED: LIDOCAINE HCL 2% TOP JELLY 5ML TOP ONE (11:08)
[2024-10-04] MEDS ORDERED: PROPOFOL 10 MG/ML 20 ML IV ONE (11:08)
[2024-10-04] MEDS ORDERED: KETAMINE 50mg/ML 1ml syringe ONE (11:09)
[2024-10-04] MEDS: POTASSIUM CHL 20MEQ/100ML 100 ML IV SCH (11:26)
--- NOTE | 2024-10-04 12:24 | DVHPN2 ---
Subjective Get in the urology procedure right now Hypokalemia potassium 3.0 Changes from previous H/P or p: Changes Eyes: No Pain, No Vision change, No Conjunctivae inflammation, No Eyelid inflammation, No Other, No Redness ENT: No Ear pain, No Ear discharge, No Nose pain, No Nose discharge, No Nose congestion, No Mouth pain, No Mouth swelling, No Throat pain, No Throat swelling, No Other Cardiovascular: No Chest Pain, No Palpitations, No Orthopnea, No Paroxysmal Noc. Dyspnea, No Edema, No Lt Headedness, No Other Respiratory: No Cough, No Dry, No Shortness of breath, No SOB with excertion, No Wheezing, No Hemoptysis, No Pleuritic Pain, No Sputum, No Other Gastrointestinal: No Nausea, No Vomiting, No Abdominal Pain, No Diarrhea, No Constipation, No Melena, No Hematochezia, No Other Genitourinary: No Dysuria, No Frequency, No Incontinence, No Hematuria, No Retention, No Other Musculoskeletal: No other, No neck pain, No shoulder pain, No arm pain, No back pain, No hand pain, No leg pain, No foot pain Skin: No Rash, No Lesions, No Jaundice, No Bruising, No Other Objective Vitals Vital Signs Date Time Temp Pulse Resp B/P (MAP) Pulse Ox O2 Delivery O2 Flow Rate FiO2 10/04/24 08:42 97.6 82 15 101/59 (73) 92 97.6 10/04/24 08:00 Nasal Cannula* 3 32 Intake/Output Intake and Output 10/04/24 07:00 Intake Total 400 ml Output Total 1850 ml Balance -1450 ml Intake Oral 400 ml Output Urine Total 1850 ml General Appearance: Alert, Oriented X3 Lungs: Clear to auscultation, Normal air movement Cardiovascular: Regular rate, Normal S1, Normal S2, No murmurs Abdomen: Normal bowel sounds, Soft, No tenderness Extremities: No edema Medications Current Medications Medications Dose Ordered Sig/Gardenia Route Start Time Stop Time Status Last Admin Dose Admin Diagnostic Test (Pha) 1 strip ACHS 09/22/24 22:00 10/04/24 11:27 1 STRIP Insulin Human Regular ACHS SC 09/22/24 22:00 10/03/24 22:03 3 UNITS Dextrose 50 ml UD PRN IV 09/22/24 21:00 Sodium Chloride 10 ml Q8HR IV 09/22/24 22:00 10/04/24 05:53 10 ML Ondansetron HCl 4 mg Q4HP PRN IV 09/22/24 21:00 09/28/24 15:31 4 MG Acetaminophen 650 mg Q6HP PRN PO 09/22/24 21:00 09/30/24 23:26 650 MG Nitroglycerin 0.4 mg Q5MINP PRN SL 09/22/24 22:45 Atorvastatin Calcium 40 mg HS PO 09/23/24 22:00 10/03/24 22:01 40 MG Amiodarone HCl 200 mg Q12HR PO 09/23/24 22:00 10/03/24 22:01 200 MG Heparin Sodium (Porcine) 5,000 units Q12HR SC 09/23/24 22:00 10/03/24 22:03 5,000 UNITS Vancomycin HCl 0 ml @ 0 mls/hr UD IV 09/24/24 11:15 Cancel Daptomycin 620 mg/ Sodium Chloride 50 ml @ 100 mls/hr DAILY@2230 IV 09/27/24 22:30 10/03/24 22:05 100 MLS/HR Metoprolol Tartrate 12.5 mg BID PO 09/28/24 22:00 10/03/24 22:00 12.5 MG Furosemide 40 mg DAILY PO 10/02/24 10:00 10/03/24 09:58 40 MG Ceftriaxone Sodium/Dextrose 50 ml @ 50 mls/hr DAILY IV 10/02/24 10:00 10/04/24 09:50 50 MLS/HR Iron Sucrose 110 ml @ 110 mls/hr DAILY@1200 IV 10/03/24 12:00 10/07/24 12:59 10/03/24 13:32 110 MLS/HR Potassium Chloride 100 ml @ 50 mls/hr Q2H IV 10/04/24 10:15 10/04/24 14:14 10/04/24 11:26 50 MLS/HR Laboratory Results Laboratory Tests 10/04/24 06:30 Chemistry Test 10/04/24 06:30 Albumin 3.3 g/dL (3.2-4.8) Calcium Level 8.8 mg/dL (8.7-10.4) Magnesium Level 1.9 mg/dL (1.6-2.6) Total Protein 8.2 g/dL (5.7-8.2) LFT Test 10/04/24 06:30 Alanine Aminotransferase (ALT) 19 U/L (7-40) Alkaline Phosphatase 90 U/L (46-116) Aspartate Amino Transferase (AST) 37 U/L (13-40) Total Bilirubin 0.3 mg/dL (0.2-1.0) Urinalysis Test 09/22/24 16:21 10/01/24 21:54 Urine WBC Clumps Present /hpf (None Seen) Urine Color Colorless (Yellow) Urine Clarity Turbid (Clear) H Urine pH 5.5 (5.0-9.0) Urine Specific [place] 1.012 (1.001-1.035) Urine Protein 1+ (Negative) H Urine Ketones Negative (Negative) Urine Blood 2+ /uL (Negative) H Urine Nitrite Negative (Negative) Urine Bilirubin Negative (Negative) Urine Urobilinogen Normal mg/dL (Negative) Urine Leukocyte Esterase 3+ /uL (Negative) Urine RBC 97 /hpf (0 - 3) Urine Microscopic WBC 321 /HPF (0-3) H Urine Squamous Epithelial Cells Few /hpf (<5) Urine Bacteria Few /hpf (None Seen) H Urine Hyaline Casts Few /lpf (0 - 2) Urine Mucus Few (None Seen) Urine Yeast (Budding) Moderate /hpf (None Seen) Urine Glucose Normal mg/dL (Normal) Microbiology Microbiology Date/Time Source Procedure Growth Status 09/28/24 15:56 Voided Urine Urine Culture - Final Complete 09/24/24 17:57 Blood Blood Culture - Final NO GROWTH AFTER 5 DAYS OF INCUBATION. Complete Assessment/Plan Assessment/Plan Sepsis with septic shock Bacteremia with Gram-positive cocci in clusters UTI with serratia marcescens Pneumonia JUANA due to vasomotor nephropathy Afib DM2 HTN Dyslipidemia History of DVT History of mitral valve PLAN: IV antibiotics Rocephin and Doxycycline Levophed IV fluids 09/24/2024: Sepsis with pneumonia and UTI: Continue IV Rocephin and doxycycline, add vancomycin Infectious Disease consultation Bacteremia: Echo did not show vegetations Cardiology consult, JUANA: Continue IV fluids Atrial fibrillation: On amiodarone History of DVT Obesity Anemia IS[place]? To rule out endocarditis 09/25/2024: ISAREL for tomorrow Blood culture 1 bottle showed Staphylococcus epidermidis and the 2nd bottle is still pending JUANA: Improving with IV fluids Continue IV antibiotics Rocephin and vancomycin Discontinue doxycycline Atrial fibrillation: Continue amiodarone Discussed with the at the bedside Physical therapy 09/26/2024: Generalized weakness: Continue physical therapy Bacteremia rule out endocarditis: [place] was canceled today, we will try again in 2 days JUANA: Improving continue hydration UTI/pneumonia: Continue antibiotics Discussed with Cardiology, they will try again [place] on 09/28/2024 Atrial fibrillation: Amiodarone 09/27/2024: [place] tomorrow Continue physical therapy Hypokalemia: Replace 09/28/24: ALOC: Stop narcotics, keep NPO for now Cough, ?aspiration: Check CXR, aspiration precautions DC IV fluids h/o left ureteral stent per : Check CT abd & pelvis, urology consult Sepsis: Continue IV antibiotics UTI: Repeat UA and urine culture PNA Bacteremia ISRA[place]: No endocarditis Afib: Amiodarone CAD JUANA/CKD 09/29/2024: Chest x-ray shows pulmonary congestion: Start Lasix 40 mg IV daily The patient is still confused and lethargic Aspiration precautions Discontinued IV fluids yesterday Continue IV antibiotics for the pneumonia and UTI History of left ureteral stent per the , consult Urology CT scan of the abdomen and pelvis is still pending since the patient is aspiration precautions Atrial fibrillation continue amiodarone Bacteremia with staph epi Endocarditis was ruled out 09/30/24: Replace K+ po Lasix 40 mg IV qd Rocephin and Daptomycin Amiodarone po CT abd and pelvis to check on ureteral stent placement Physical therapy 10/01/2024: Consult Urology regarding the left ureteral stent with left hydronephrosis, the patient had the stent for about a year UTI Pneumonia Hypokalemia Generalized weakness Continue physical therapy Continue IV antibiotics Rocephin and daptomycin Lasix 40 mg p.o. daily 10/02/24: Advance diet to soft mechanical He needs the ureteral stent removed before discharge Lasix PT IV antibiotics DC planning w HH & hospital bed once stent is removed 10/03/2024: Discussed with Dr. Lin, the patient needs to have a procedure to remove the left renal stones and stent, procedure is scheduled for tomorrow Discussed with the , she has decided to take the patient home on hospice now once the procedure is done Continue IV antibiotics with Rocephin and daptomycin P.o. amiodarone Stopped the aspirin for preparation for the procedure Lasix 40 mg p.o. daily 10/04/2024: Replace potassium IV Lithotripsy by Urology today Continue physical therapy Continue Lasix Continue IV antibiotics Discharge planning is to go home on hospice once stable Plan discussed with: Patient My Orders Orders - SABRINA LEOS MD Procedure Category Date Status Time Potassium Chl PHA 10/04/24 In Process 20meq/100ml 10:15 Date of Service: Oct 04, 2024 Billing Provider: SABRINA LEOS MD Common Visit Codes: NOT BILLABLE SABRINA LEOS MD Oct 04, 2024 12:24
[2024-10-04] MEDS: IOHEXOL 300 MG/ML 100ML BOTTLE IJ ONE (13:27)
--- NOTE | 2024-10-04 13:53 | DVHOP2 ---
Operative Report - 2 Report Details Date: 10/04/24 Preop Diagnosis: Left ureteral stent, in-situ Left lower pole renal lithiasis Postop Diagnosis: Left ureteral stent Left lower pole parenchymal calcification Surgeon: Kevyn Gomez Anesthesiologist: [place] CRNA Anesthesia: General, Local Consent: The patient was informed of the risks and benefits of the procedure. These include but are not limited to complications of anesthesia, postoperative infection, incomplete relief of symptoms, recurrence of symptoms, damage to blood vessels, nerves and tendons, deep venous thrombosis, pulmonary embolism and possible need for repeat surgery in the future. Indications for Surgery: Patient underwent lithotripsy with stent placement by Dr. Garcia in June of 2024. He is admitted to the hospital and was seen by Dr. Garcia recently with recommendation for stent removal. CT scan shows calcification in the left lower pole region therefore pyeloscopy with laser lithotripsy and stone evacuation is planned Name of Procedure Performed Cystoscopy with left ureteral stent removal Left ureteroscopy/pyeloscopy with laser lithotripsy and stone evacuation Left retrograde pyelogram Procedure Details Procedure Details: Patient was taken to the operating room and underwent general anesthesia. He was placed in dorsal lithotomy position with the area of the genitalia prepped and draped in usual sterile manner. Twenty-one Macedonian rigid cystoscope was used to inspect the urethra in the bladder. Prostatic fossa shows mild coaptation of the lateral lobes but no was no significant median lobe enlargement. The stent was easily identified and removed using grasping forceps. Next a guidewire was placed into the left ureter and advanced proximally to the renal pelvis. Navigator ureteral sheath was placed over the guidewire. Next a flexible digital ureteroscope was used to access the the renal pelvis and the lower calyceal system. The stones localized on the CT scan could not be identified on visualization. Retrograde pyelogram was performed demonstrating this calcification to be in the parenchyma of the renal body and not in the urothelial system. Some of the other stone fragments are treated with laser at dusting setting and evacuated using CVAC system. There was no evidence of ureteral obstruction therefore the ureteroscope and the navigator are removed without the need for a stent replacement. Bladder was decompressed and patient was awakened to be taken to recovery room in stable condition Specimen: Renal calculi fragments Condition Good Disposition Home KEVYN GOMEZ MD Oct 04, 2024 13:53
--- NOTE | 2024-10-04 14:13 | DVH ---
C-ARM FLUOROSCOPY: PROCEDURE: Left lithotripsy and stent removal FLUOROSCOPY TIME: 74.5 seconds DAP: 13.97 mgy FINDINGS: Spot intraoperative C arm radiographs demonstrating left lithotripsy and stent removal. IMPRESSION: Please refer to surgical report for detailed findings.
[2024-10-04] MEDS ORDERED: ePHEDrine SULFATE 50 MG/ML AMP IV PRN (14:15)
[2024-10-04] MEDS ORDERED: NALOXONE HCL 0.4 MG/ML VIAL IV PRN (14:15)
[2024-10-04] MEDS ORDERED: FLUMAZENIL 0.1 MG/ML INJ 10ML MDV IV PRN (14:15)
[2024-10-04] MEDS ORDERED: hydrALAZINE HCL 20 MG/ML VL IV PRN (14:15)
[2024-10-04] MEDS ORDERED: ONDANSETRON HCL 4 MG/2 ML VIAL IV PRN (14:15)
[2024-10-04] MEDS ORDERED: HYDROmorphone HCL 2 MG/ML VL/or syr IV PRN (14:15)
[2024-10-04] MEDS ORDERED: fentaNYL CITRATE 100 MCG/2 ML VL IV PRN (14:15)
[2024-10-04] MEDS: ALBUTEROL SULF 2.5 MG/0.5ML(0.5%) NEB SOLN NEB ONE (14:41)
--- NOTE | 2024-10-04 21:26 | DVHPN2 ---
Progress Note - Dictate Date Seen: Oct 04, 2024 Medical Necessity Reason Pt with a Central, PICC or Fol: No The following are medically ne: Morrison Catheter Reason for morrison catheter: Strict I&O Subjective Patient seen and examined at bedside. Remains on supplemental oxygen Overnight events reviewed. vital signs Vital Sign Date Time Temp Pulse Resp B/P (MAP) Pulse Ox O2 Delivery O2 Flow Rate FiO2 10/04/24 20:59 97.7 89 18 122/70 (87) 97 97.7 10/04/24 14:44 Nasal Cannula* 4 36 Total Intake and Output 10/03/24 10/03/24 10/04/24 15:00 23:00 07:00 Intake Total 400 ml 0 ml Output Total 1850 ml Balance -1450 ml 0 ml medications Current Medications Medications Dose Ordered Sig/Gardenia Route Start Time Stop Time Status Last Admin Dose Admin Diagnostic Test (Pha) 1 strip ACHS 09/22/24 22:00 10/04/24 21:10 1 STRIP Insulin Human Regular ACHS SC 09/22/24 22:00 10/04/24 21:10 3 UNITS Dextrose 50 ml UD PRN IV 09/22/24 21:00 Sodium Chloride 10 ml Q8HR IV 09/22/24 22:00 10/04/24 20:56 10 ML Ondansetron HCl 4 mg Q4HP PRN IV 09/22/24 21:00 09/28/24 15:31 4 MG Acetaminophen 650 mg Q6HP PRN PO 09/22/24 21:00 09/30/24 23:26 650 MG Nitroglycerin 0.4 mg Q5MINP PRN SL 09/22/24 22:45 Atorvastatin Calcium 40 mg HS PO 09/23/24 22:00 10/04/24 20:55 40 MG Amiodarone HCl 200 mg Q12HR PO 09/23/24 22:00 10/04/24 20:54 200 MG Heparin Sodium (Porcine) 5,000 units Q12HR SC 09/23/24 22:00 10/04/24 20:51 5,000 UNITS Vancomycin HCl 0 ml @ 0 mls/hr UD IV 09/24/24 11:15 Cancel Daptomycin 620 mg/ Sodium Chloride 50 ml @ 100 mls/hr DAILY@2230 IV 09/27/24 22:30 10/03/24 22:05 100 MLS/HR Metoprolol Tartrate 12.5 mg BID PO 09/28/24 22:00 10/04/24 20:55 12.5 MG Furosemide 40 mg DAILY PO 10/02/24 10:00 10/03/24 09:58 40 MG Ceftriaxone Sodium/Dextrose 50 ml @ 50 mls/hr DAILY IV 10/02/24 10:00 10/04/24 09:50 50 MLS/HR Iron Sucrose 110 ml @ 110 mls/hr DAILY@1200 IV 10/03/24 12:00 10/07/24 12:59 10/04/24 20:51 110 MLS/HR objective Gen.: Patient lying in bed in no apparent distress. On supplemental oxygen. Head: Normocephalic, atraumatic. Eyes: EOMI/PERRLA. Ears: Normal hearing. Normal anatomy. Neck/trachea: Trachea midline, supple. Nose: Normal external anatomy. Mouth: Moist mucous membranes. Chest: Decreased air entry bilaterally. No wheezing or rhonchi. Cardiovascular: Positive S1, positive S2. Regular rate and rhythm. Abdomen: Positive bowel sounds in all 4 quadrants. Soft, non-tender, non- distended. : Deferred. Rectal: Deferred. Skin: Warm, dry. Intact. Extremities: 2+ radial pulses bilaterally. No lower extremity edema. Neuro: Awake, alert, oriented x3. No gross motor or sensory deficits. Cranial nerves II through XII intact. Gait not assessed laboratory and microbiology Laboratory Tests 10/04/24 06:30 Test 10/04/24 06:30 Range/Units Serum Glucose 102 74-106 mg/dL Assessment/Plan Impression: Acute hypoxic respiratory failure Anemia Hypokalemia Atelectasis Aspiration pneumonia Pulmonary edema CAD s/p CABG Pulmonary Hypertension, RVSP 47 mmHg, who class II Moderate mitral regurgitation Events: Remains on supplemental oxygen, 3 LPM NC Taper O2 as tolerated S/p lithotripsy and left ureteral stent removal today by Urology. Amiodarone PO Continue antibiotics Incentive spirometry Head of bed elevation Aspiration precautions On puree diet Diurese as tolerated w/ Lasix Monitor renal function Monitor electrolytes. Supplement as necessary. Monitor ins and outs. Wound care Disposition per hospitalist. Labs and imaging reviewed. Rest of plan as noted below. Plan: supplemental oxygen Keep o2 saturation above 92% Antibiotics HOB elevation Aspiration precautions Echo reviewed. Cardiology recommendations appreciated. Amio PO Accu-Cheks, ISS PRN. DVT prophylaxis Prognosis: Guarded given multiple comorbidities. Rest of plan per hospitalist and other consultants. Thank you Dr. Flor for allowing me to participate in this patient's care. Further recommendations will depend on patient's clinical course. Please do not hesitate to contact me if you have any questions or concerns. This medical document was created using an electronic medical record system with [employer] dictation system. Although this document has been carefully reviewed, there may still be some phonetic and typographical errors. These areas are purely typographical due to imperfections of the software programs, and do not reflect any compromise in the patient's medical care. Dietary Evaluation Review Recommendations by RD: Protein Supplementation Comments: 1) Initiate Glucerna bid 2) Initiate vitamin C @ 500 mg bid 3) Initiate zinc sulfate @ 220 mg qd 4) Advance diet to 60g CCHO cardiac diet when medically feasible, pending [employer] approval 5) Continue to monitor appetite, labs, and skin integrity Expected Outcomes/Goals: 1) appetite and labs to improve 2) diet to advance 3) wound to improve Plan discussed with: Patient, Other (RN Monique) CHARMAINE JO MD Oct 04, 2024 21:26
[2024-10-05 01:00] VITALS: BP 128/73; PULSE 84; RESP 17; TEMP 97.6; O2SAT 97
[2024-10-05 05:00] VITALS: BP 125/68; PULSE 76; RESP 16; TEMP 97.7; O2SAT 97
[2024-10-05] MEDS: POTASSIUM CHL 20MEQ/100ML 100 ML IV ONE (07:38)
[2024-10-05 07:48] LABS: Chloride 101 mmol/L (98-107); Potassium 4.3 mmol/L (3.5-5.1); Sodium 137 mmol/L (136-145)
[2024-10-05 07:49] LABS: Anion Gap 7 (5-15); Calcium 8.8 mg/dL (8.7-10.4); Carbon Dioxide 29 mmol/L (20-31)
[2024-10-05 07:54] LABS: BUN/Creatinine Ratio 15.5 (10.0-20.0); Blood Urea Nitrogen 18 mg/dL (9-23)
[2024-10-05 08:00] VITALS: PULSE 78
[2024-10-05 08:03] LABS: Glucose 152 mg/dL (74-106)
[2024-10-05 09:00] VITALS: BP 110/67; RESP 18; TEMP 98; O2SAT 96
[2024-10-05 10:00] VITALS: O2SAT 96
[2024-10-05 13:00] VITALS: BP 99/55; PULSE 64; RESP 20; TEMP 98.1; O2SAT 92
[2024-10-05] MEDS ORDERED: AMIO200T33 PO (13:56)
[2024-10-05] MEDS ORDERED: CEFD300C2 PO (13:59)
[2024-10-05] MEDS ORDERED: LINE1TAB6 PO (14:00)
--- NOTE | 2024-10-05 14:04 | DVHDS2 ---
Discharge Summary Date of Admission Sep 22, 2024 at 22:41 Date of Discharge: Oct 05, 2024 Labs/Diagnostic Data: Laboratory Results Test 10/05/24 11:24 10/05/24 06:28 10/04/24 06:30 10/01/24 21:54 POC Glucose 163 mg/dl (70-106) Sodium Level 137 mmol/L (136-145) Potassium Level 4.3 mmol/L (3.5-5.1) Chloride Level 101 mmol/L (98-107) Carbon Dioxide Level 29 mmol/L (20-31) Anion Gap 7 (5-15) Blood Urea Nitrogen 18 mg/dL (9-23) Creatinine 1.16 mg/dL (0.700-1.30) Glomerular Filtration Rate Calc 63 mL/min (>90) BUN/Creatinine Ratio 15.5 (10.0-20.0) Serum Glucose 152 mg/dL (74-106) Calcium Level 8.8 mg/dL (8.7-10.4) Magnesium Level 2.0 mg/dL (1.6-2.6) White Blood Count 4.9 10^3/uL (4.4-10.8) Red Blood Count 2.86 10^6/uL (4.5-5.90) Hemoglobin 8.2 g/dL (13.5-17.5) Hematocrit 25.0 % (41.0-53.0) Mean Corpuscular Volume 87.3 fL (80.0-100.0) Mean Corpuscular Hemoglobin 28.6 pg (28.0-32.0) Mean Corpuscular Hemoglobin Concent 32.7 g/dL (32.0-36.0) Red Cell Distribution Width 15.9 % (11.8-14.3) Platelet Count 280 10^3/uL (140-450) Mean Platelet Volume 6.8 fL (6.9-10.8) Neutrophils (%) (Auto) 71.3 % (37.0-80.0) Lymphocytes (%) (Auto) 17.0 % (10.0-50.0) Monocytes (%) (Auto) 7.5 % (0.0-12.0) Eosinophils (%) (Auto) 3.7 % (0.0-7.0) Basophils (%) (Auto) 0.5 % (0.0-2.0) Neutrophils # (Auto) 3.5 10 ^3/uL (1.6-8.6) Lymphocytes # (Auto) 0.8 10 ^3/uL (0.4-5.4) Monocytes # (Auto) 0.4 10 ^3/uL (0-1.3) Eosinophils # (Auto) 0.2 10 ^3/uL (0-0.8) Basophils # (Auto) 0 10 ^3/uL (0-0.2) Nucleated Red Blood Cells 0.1 % Total Bilirubin 0.3 mg/dL (0.2-1.0) Aspartate Amino Transferase (AST) 37 U/L (13-40) Alanine Aminotransferase (ALT) 19 U/L (7-40) Alkaline Phosphatase 90 U/L (46-116) Total Protein 8.2 g/dL (5.7-8.2) Albumin 3.3 g/dL (3.2-4.8) Urine Color Colorless (Yellow) Urine Clarity Turbid (Clear) Urine pH 5.5 (5.0-9.0) Urine Specific Farley 1.012 (1.001-1.035) Urine Protein 1+ (Negative) Urine Ketones Negative (Negative) Urine Blood 2+ /uL (Negative) Urine Nitrite Negative (Negative) Urine Bilirubin Negative (Negative) Urine Urobilinogen Normal mg/dL (Negative) Urine Leukocyte Esterase 3+ /uL (Negative) Urine RBC 97 /hpf (0 - 3) Urine Microscopic WBC 321 /HPF (0-3) Urine Squamous Epithelial Cells Few /hpf (<5) Urine Bacteria Few /hpf (None Seen) Urine Hyaline Casts Few /lpf (0 - 2) Urine Mucus Few (None Seen) Urine Yeast (Budding) Moderate /hpf (None Seen) Urine Glucose Normal mg/dL (Normal) Test 09/29/24 11:17 09/27/24 17:20 09/25/24 10:22 09/25/24 06:28 Differential Total Cells Counted 100.0 (100) Neutrophils % (Manual) 82 (37.0-80.0) Band Neutrophils % (Manual) 6 Lymphocytes % (Manual) 12 (10.0-50.0) Monocytes % (Manual) 0 (0-12) Eosinophils % (Manual) 0 (0-7) Basophils % (Manual) 0 (0.0-2.0) Metamyelocytes % (manual) 0 Myelocytes % (Manual) 0 Promyelocytes % (Manual) 0 Blast Cells % (Manual) 0 Reactive Lymphocytes 0 Platelet Estimate Adequate Influenza Type A Antigen Negative (Negative) Influenza Type B Antigen Negative (Negative) SARS-CoV-2 Antigen (Rapid) Negative (NEGATIVE) Prothrombin Time 11.8 sec (9.3-11.8) Prothrombin Time INR 1.13 (0.9-1.15) Activated Partial Thromboplast Time 29.4 SEC (24.5-34.5) Hemoglobin A1c 6.2 % A1C (<5.7) Triglycerides Level 91 mg/dL (< 150) Cholesterol Level 101 mg/dL (< 200) LDL Cholesterol 58 mg/dL (< 100) HDL Cholesterol 29 mg/dL (40-59) Random Vancomycin Level 11.3 ug/mL (5-10) Test 09/22/24 19:37 09/22/24 16:21 09/22/24 15:11 Lactic Acid Level 1.6 mmol/L (0.4-2.0) Urine WBC Clumps Present /hpf (None Seen) Troponin I High Sensitivity < 3 ng/L (</=54) Other Laboratory Tests 10/05/24 06:28 10/04/24 06:30 Brief Hx & Hospital Course: Final diagnoses: Sepsis with septic shock Bacteremia with Staph epidermidis UTI with serratia marcescens Pneumonia JUANA due to vasomotor nephropathy Afib with rapid ventricular response DM2 HTN Dyslipidemia History of DVT History of mitral valve Left ureteral stone status post lithotripsy and removal of the stent 79-year-old male who was admitted for sepsis due to both pneumonia and bacteremia and UTI He has a history of a stent placed in his left ureter 3-4 months ago He has UTI here showed Serratia The bacteremia was staph epi Echocardiogram did not show a endocarditis, damion also was negative He was seen by Urology and was recommended to remove the stent The CT scan of the abdomen also showed a stone in the left side and therefore he was taking for lithotripsy and a stent was removed The cultures came back and the patient overall did well however he remained very weak We have the discussions with him and with the and they asked to for him to go home on hospice Physical therapy saw the patient here but he is very weak to do any activity For his infections he will be discharged home on Zyvox and cefdinir for 1 week He also developed atrial fibrillation with rapid ventricular response and that was controlled with amiodarone He will be given amiodarone 200 mg daily Discharged home on hospice for comfort care Condition at Discharge: Poor Final Diagnosis/Problems List Sepsis with septic shock Bacteremia with Gram-positive cocci in clusters UTI with serratia marcescens Pneumonia JUANA due to vasomotor nephropathy Afib DM2 HTN Dyslipidemia History of DVT History of mitral valve Discharge Disposition: Hospice - Home SNF Discharge Will this Physician continue t: No Discharge Statement: "Patient was advised to return to the ER or call 911 if any headaches, dizziness, shortness of breath, chest pain, abdominal pain, bleeding, fevers, or worsening of medical condition. Patient was counseled about treatment plan, medications, possible side effects, patientverbalized understanding. All questions were answered to the best of my ability. This discharge took greater then 30 minutes in planning, reviewing documentation, counseling the patient, and discussing with other team members." DME: Diagnosis: Genarlized weakness ASSESSMENT ASSESSMENT Assessment Left ureteral stentLeft lower pole parenchymal calcification Date of Service: Oct 05, 2024 Billing Provider: SABRINA LEOS MD Common Visit Codes: NOT BILLABLE SABRINA LEOS MD Oct 05, 2024 14:04
--- NOTE | 2024-10-05 21:06 | DVHPN2 ---
Progress Note - Dictate Date Seen: Oct 05, 2024 Medical Necessity Reason Pt with a Central, PICC or Fol: No The following are medically ne: Morrison Catheter Reason for morrison catheter: Strict I&O Subjective Patient seen and examined at bedside. Remains on supplemental oxygen Overnight events reviewed. vital signs Vital Sign Date Time Temp Pulse Resp B/P (MAP) Pulse Ox O2 Delivery O2 Flow Rate FiO2 10/05/24 13:00 98.1 64 20 99/55 (70) 92 98.1 10/05/24 10:00 Nasal Cannula 2.0 10/05/24 10:00 28 Total Intake and Output 10/04/24 10/04/24 10/05/24 15:00 23:00 07:00 Intake Total 250 ml 250 ml 200 ml Balance 250 ml 250 ml 200 ml medications Current Medications Medications Dose Ordered Sig/Gardenia Route Start Time Stop Time Status Last Admin Dose Admin Vancomycin HCl 0 ml @ 0 mls/hr UD IV 09/24/24 11:15 Cancel objective Gen.: Patient lying in bed in no apparent distress. On supplemental oxygen. Head: Normocephalic, atraumatic. Eyes: EOMI/PERRLA. Ears: Normal hearing. Normal anatomy. Neck/trachea: Trachea midline, supple. Nose: Normal external anatomy. Mouth: Moist mucous membranes. Chest: Decreased air entry bilaterally. No wheezing or rhonchi. Cardiovascular: Positive S1, positive S2. Regular rate and rhythm. Abdomen: Positive bowel sounds in all 4 quadrants. Soft, non-tender, non- distended. : Deferred. Rectal: Deferred. Skin: Warm, dry. Intact. Extremities: 2+ radial pulses bilaterally. No lower extremity edema. Neuro: Awake, alert, oriented x3. No gross motor or sensory deficits. Cranial nerves II through XII intact. Gait not assessed laboratory and microbiology Laboratory Tests 10/05/24 06:28 10/04/24 06:30 Test 10/05/24 06:28 Range/Units Serum Glucose 152 H 74-106 mg/dL Assessment/Plan Impression: Acute hypoxic respiratory failure Anemia Hypokalemia Atelectasis Aspiration pneumonia Pulmonary edema CAD s/p CABG Pulmonary Hypertension, RVSP 47 mmHg, who class II Moderate mitral regurgitation Events: Remains on supplemental oxygen, 2 LPM NC Taper O2 as tolerated S/p lithotripsy and left ureteral stent removal by Urology yesterday. Amiodarone PO Continue antibiotics Continue bronchodilators Incentive spirometry Head of bed elevation Aspiration precautions On puree diet Diurese as tolerated w/ Lasix Monitor renal function Monitor electrolytes. Supplement as necessary. Monitor ins and outs. Wound care Disposition per hospitalist. Labs and imaging reviewed. Rest of plan as noted below. Plan: supplemental oxygen Keep o2 saturation above 92% Antibiotics HOB elevation Aspiration precautions Echo reviewed. Cardiology recommendations appreciated. Amio PO Accu-Cheks, ISS PRN. DVT prophylaxis Prognosis: Guarded given multiple comorbidities. Rest of plan per hospitalist and other consultants. Thank you Dr. Flor for allowing me to participate in this patient's care. Further recommendations will depend on patient's clinical course. Please do not hesitate to contact me if you have any questions or concerns. This medical document was created using an electronic medical record system with [employer] system. Although this document has been carefully reviewed, there may still be some phonetic and typographical errors. These areas are purely typographical due to imperfections of the software programs, and do not reflect any compromise in the patient's medical care. Dietary Evaluation Review Recommendations by RD: Protein Supplementation Comments: 1) Initiate Glucerna bid 2) Initiate vitamin C @ 500 mg bid 3) Initiate zinc sulfate @ 220 mg qd 4) Advance diet to 60g CCHO cardiac diet when medically feasible, pending [employer] approval 5) Continue to monitor appetite, labs, and skin integrity Expected Outcomes/Goals: 1) appetite and labs to improve 2) diet to advance 3) wound to improve Plan discussed with: Patient, Other (SHARRI Encarnacion) CHARMAINE JO MD Oct 05, 2024 21:06
--- NOTE | 2024-10-07 20:07 | DVHPN2 ---
Consult Progress Note Date Seen: Oct 05, 2024 Subjective Patient reports: Feels better (no diarrhea or rash) Objective vital signs Vital Sign Date Time Temp Pulse Resp B/P (MAP) Pulse Ox O2 Delivery O2 Flow Rate FiO2 10/05/24 13:00 98.1 64 20 99/55 (70) 92 98.1 10/05/24 10:00 Nasal Cannula 2.0 10/05/24 10:00 28 medications Current Medications Medications Dose Ordered Sig/Gardenia Route Start Time Stop Time Status Last Admin Dose Admin Vancomycin HCl 0 ml @ 0 mls/hr UD IV 09/24/24 11:15 Cancel laboratory and microbiology Laboratory Tests 10/05/24 06:28 10/04/24 06:30 Test 10/05/24 06:28 Range/Units Serum Glucose 152 H 74-106 mg/dL Problem List/Assessment/Plan Problem List/Assessment/Plan ID Problem List: - Atrial fibrillation - Diabetes mellitus - Hypertension - Hyperlipidemia - Myocardial infarction - Generalized weakness - Hypotension - Lactic acidosis - Acute kidney injury (JUANA) - Chronic kidney disease (CKD) - Altered mental status - Uremia - Tachycardia - Severe sepsis - Urinary tract infection (UTI) due to Serratia marcescens - Possible aspiration pneumonia - Diminished breath sounds at bases; possible bronchitis on chest X-ray Assessment This is an 79 y.o. male with a past medical history of atrial fibrillation, diabetes mellitus, hypertension, hyperlipidemia, and myocardial infarction, who presents with generalized weakness. He was found to be hypotensive (BP 76/49) with a lactic acid of 2.3. He was lethargic and hard to arouse on admission, which has since improved with fluid resuscitation and initiation of Levophed drip. His blood pressure is now stable at 111/63 without pressors. Creatinine was elevated to 2.46 with BUN of 61, improved to creatinine of 1.71 after fluid resuscitation and antibiotics. 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 He has diminished breath sounds at the bases on exam, and chest X-ray findings suggest bilateral bronchial thickening and possible bronchitis. Microscopic urine culture grew Serratia marcescens, and blood cultures had 2 out of 4 aerobic bottles positive for coagulase-negative Staphylococcus. /: whitecount is 6.4 , repeat blood cultures are no growth to date , staph epidermitis show Vanc SHIRA of 4 . TTE was done 09/23 which shows theres a mitral valve prosthetic without any significant mitral stenosis however it is heavily calcified , aortic valve was sclerotic with calcification of leaflets , EF 60% , mild to moderate micro insufficiency and moderate pulmonary efficiency 09/26: renal ultrasound shows mild left hydronephrosis and blood cultures remain no growth to date 09/27: patient is to get a CARLINE under anesthesia tomorrow 09/28: CARLINE was done , prosthetic mitral valve was seen but no vegetation were able to be visualized 09/29: tolerating antibiotics and therapy 09/30: Ct abdomen and pelvis shows mild left hyro utero nephrosis with internal utero stent in site , distal aspect of the stent is at the UVJ , possibly just extending into the urinary bladder , possible repositioning may be required . Bilateral lower lobe airspace disease , moderate volume colonic stool 10/01: remains intermittently febrile , repeat urine cultures show nixed gram positive rangel 10/02: Patient is feeling improved , no dysuria 10/03: Patient was evaluated by a different urologist , Dr Lin , who recommended in patient removal of the stent Plan: -Continue Ceftriaxone - Continue daptomycin while in patient - recommed oral linesolid 600 milligrams PO BID when patient is ready fro discharge to complete a 14 day course for bacteremia - recommend a oral 30 day course of cefdinir 300 milligrams PO BID to cover patient for UTI in setting of likely infected stent - Patient will need stent removal preferably in patient , if no in patient then shortly after discharge - follow up on operative finding after stent removal - repeat urine culture after stent is removed - follow up with urology to have stent removed - follow up with infectious disease in 2-4 weeks to determine if ongoing antibiotics are needed - with new diet suspect aspiration especially as patient is now on 3 liters nasal canula - check chest xray to rule out pneumonia - would presume that the stent is infected at this point and will likely need to be removed for sepsis to be resolved - if fevers reoccur would repeat blood cultures - follow up on imaging to determine if antibiotics need to be extended - defer to urology for additional management of the stent - suspect that staph epidermidis in blood is a transient infection and can treat with 2 week course of daptomycin or oral linezolid - Continue Daptomycin IV in patient Isolation Precautions: standard Plan discussed with: Patient Dietary Evaluation Review Recommendations by RD: Protein Supplementation Comments: 1) Initiate Glucerna bid 2) Initiate vitamin C @ 500 mg bid 3) Initiate zinc sulfate @ 220 mg qd 4) [facility] when medically feasible, pending RN COMM[employer]ITY approval 5) Continue to monitor appetite, labs, and skin integrity Expected Outcomes/Goals: 1) appetite and labs to improve 2) diet to advance 3) wound to improve DIONI GARCIA MD Oct 07, 2024 20:07
== END 2024-10-05 16:45 | disposition hospice, home (50) | DRG 871 ==
LOC: EDBD 14:04 → ER 14:16 → OVERFLOW 22:41 → TELE-WESTW 09-23 18:37
PROVIDERS: ADMIT Internal Medicine Geriatric Medicine; ATTEND Internal Medicine Geriatric Medicine
PROC: B245ZZ4 Ultrasonography of Left Heart, Transesophageal (ICD-10-PCS; principal; 2024-09-28)
PROC: 0TP98DZ Removal of Intraluminal Device from Ureter, Via Natural or Artificial Opening Endoscopic (ICD-10-PCS; 2024-10-04)
PROC: 0TC78ZZ Extirpation of Matter from Left Ureter, Via Natural or Artificial Opening Endoscopic (ICD-10-PCS; 2024-10-04)
PROC: BT1F1ZZ Fluoroscopy of Left Kidney, Ureter and Bladder using Low Osmolar Contrast (ICD-10-PCS; 2024-10-04)
DX: A41.1 Sepsis due to other specified staphylococcus (principal); J69.0 Pneumonitis due to inhalation of food and vomit; N17.0 Acute kidney failure with tubular necrosis; R65.21 Severe sepsis with septic shock; E87.20 Acidosis, unspecified; G45.9 Transient cerebral ischemic attack, unspecified; N13.6 Pyonephrosis; Z20.822 Contact with and (suspected) exposure to COVID-19; A41.50 Gram-negative sepsis, unspecified; D64.9 Anemia, unspecified; E11.22 Type 2 diabetes mellitus with diabetic chronic kidney disease; E66.9 Obesity, unspecified; I12.9 Hypertensive chronic kidney disease with stage 1 through stage 4 chronic kidney disease, or unspecified chronic kidney disease; I48.0 Paroxysmal atrial fibrillation; I44.7 Left bundle-branch block, unspecified; N40.0 Benign prostatic hyperplasia without lower urinary tract symptoms; I44.0 Atrioventricular block, first degree; N18.9 Chronic kidney disease, unspecified; E87.6 Hypokalemia; I25.10 Atherosclerotic heart disease of native coronary artery without angina pectoris; I27.20 Pulmonary hypertension, unspecified; E78.5 Hyperlipidemia, unspecified; Z79.82 Long term (current) use of aspirin; Z79.899 Other long term (current) drug therapy; Z95.1 Presence of aortocoronary bypass graft; Z79.2 Long term (current) use of antibiotics; Z79.4 Long term (current) use of insulin; Z79.1 Long term (current) use of non-steroidal anti-inflammatories (NSAID); Z79.891 Long term (current) use of opiate analgesic; Z95.2 Presence of prosthetic heart valve; Z90.49 Acquired absence of other specified parts of digestive tract; Z86.718 Personal history of other venous thrombosis and embolism; Z68.25 Body mass index [BMI] 25.0-25.9, adult; I25.2 Old myocardial infarction; Z51.5 Encounter for palliative care; Z79.84 Long term (current) use of oral hypoglycemic drugs
CPT/HCPCS: 36415; 70450; 71045; 74018; 74176; 76000; 76775; 80048; 80053; 80061; 80202; 81001; 82360; 82962; 83036; 83605; 83735; 84484; 85007; 85025; 85027; 85610; 85730; 86850; 86900; 86901; 87040; 87077; 87086; 87088; 87186; 87426; 87804; 93005; 93306; 93312; 94640; 96365; 97110; 97116; 97530; 99152; 99291; 99292; G0378; J1100; J1756; J1815; J1885; J2003; J2250; J2405; J2704; J3480; J3490